=== PATIENT | female | born 1985 | race Caucasian/White ===

== ENCOUNTER 2016-11-28 07:54 | Emergency (ER) | payer OTHER ==
[~2016-11-28] VITALS: Ht 160 cm; Wt 90.7 kg
[~2016-11-28 07:54] MED LIST: ACHD5005 PO; ALDACTONE25 MG PO; AMIT25TA9 PO; AMOX500C2 PO; BUPR100T6 PO; BUTA-234 PO; BUTA1TAB46 PO; CPR500T PO; DCS100C PO; DULO20CA; FERR325T74 PO; FLUC200T31 PO; FRS325T PO; HYDR-3583 PO; HYDR-3714 PO; HYDR-3729 PO; HYDR1TAB PO; IBP600T1 PO; IBP800T PO; IBUP-15 PO; IBUP-1773 PO; LANS15CA PO; LEVO100T4 PO; LEVO125T6 PO; LEVO75TA6 PO; LVT.05T PO; LVT.088T PO; METF-380 PO; METF1000 PO; METR500T PO; MTF500T PO; NAPR-243 PO; NITR100C3 PO; NORG1TAB14 PO; ONDA8TAB6 PO; OXYC-12 PO; OXYCONTIN 20 MG PO; PENI500T PO; PHEN15CA67 PO; PREN1TAB39; PREN1TAB39 PO; PRM25T PO; PROP1TAB77 PO; RABE20TA PO; RANI150C11 PO; RIZA10TA37 PO; SPIR25TA3 PO; SPIR50TA27 PO; SULF1TAB38 PO; SULF1TAB7 PO; SUMA100T3 PO; TOPI100T PO
[2016-11-28 08:25] LABS: BASOPHILS % (AUTO) 1 % (0-10); EOSINOPHILS # (AUTO) 0.6 10^3/uL (0.0-0.3); EOSINOPHILS % (AUTO) 8 % (0-10); LYMPHOCYTES # (AUTO) 2.9 X 10^3 (1.0-4.0); LYMPHOCYTES % (AUTO) 36 % (12-44); MEAN CORPUSCULAR HEMOGLOBIN 29 PG (25-34); MEAN CORPUSCULAR HGB CONC 34 G/DL (32-36); MEAN CORPUSCULAR VOLUME 86 FL (80-99); MONOCYTES # (AUTO) 0.6 X 10^3 (0.0-1.0); MONOCYTES % (AUTO) 8 % (0-12); NEUTROPHILS # (AUTO) 3.9 X 10^3 (1.8-7.8); NEUTROPHILS % (AUTO) 49 % (42-75); PLATELET COUNT 209 10^3/uL (130-400); RED BLOOD COUNT 4.47 10^6/uL (4.35-5.85); RED CELL DISTRIBUTION WIDTH 13.8 % (10.0-14.5); WHITE BLOOD COUNT 8.1 10^3/uL (4.3-11.0)
[2016-11-28 08:34] LABS: ALANINE AMINOTRANSFERASE 74 U/L (0-55); ALBUMIN 4.3 G/DL (3.2-4.5); ANION GAP 12 MMOL/L (5-14); ASPARTATE AMINO TRANSFERASE 50 U/L (5-34); BILIRUBIN,TOTAL 0.3 MG/DL (0.1-1.0); BLOOD UREA NITROGEN 14 MG/DL (7-18); BUN/CREATININE RATIO 15; CALCIUM 9.1 MG/DL (8.5-10.1); CARBON DIOXIDE 22 MMOL/L (21-32); CHLORIDE 107 MMOL/L (98-107); CREATININE SERUM 0.93 MG/DL (0.60-1.30); GFR ESTIMATED > 60; GLUCOSE 97 MG/DL (70-105); SODIUM 141 MMOL/L (135-145); TOTAL PROTEIN 7.4 G/DL (6.4-8.2)
[2016-11-28 08:36] LABS: BILIRUBIN,URINE NEGATIVE (NEGATIVE); KETONES,URINE NEGATIVE (NEGATIVE); LEUKOCYTE ESTERASE ,URINE NEGATIVE (NEGATIVE); NITRITE,URINE NEGATIVE (NEGATIVE); PH,URINE 7 (5-9); PROTEIN,URINE NEGATIVE (NEGATIVE); UROBILINOGEN,URINE NORMAL (NORMAL)
[2016-11-28 08:36] LABS: POTASSIUM 3.8 MMOL/L (3.6-5.0)
[2016-11-28 08:39] LABS: TROPONIN I < 0.30 NG/ML (<0.30)
--- NOTE | 2016-11-28 08:48 | Diagnostic Imaging Report ---
INDICATION: Chest pain and dyspnea Single portable upright view of the chest is obtained with comparison made to study of 10/24/2010. FINDINGS: Heart size and pulmonary vascularity are within normal limits, and the lungs are clear, bilaterally. IMPRESSION: Unremarkable chest. Dictated by: Dictated on workstation # [id number]
[2016-11-28 09:05] LABS: SQUAMOUS EPITHELIAL CELL,UR 0-2 /HPF
--- NOTE | 2016-11-28 09:11 | ED Chest Pain ---
General Chief Complaint: Chest Pain Stated Complaint: CHEST PAIN/SOA LIGHTHEADED Nursing Triage Note: AMBULATED TO ROOM 05 WITH COMPLAINTS OF CHEST PAIN STARTING AT 0700 ALONG WITH SOA. Nursing Sepsis Screen: No Definite Risk Source: patient Exam Limitations: no limitations History of Present Illness Time seen by provider: 09:06 Initial Comments The patient is a 31-year-old white female with 58 previous contacts. She presents this morning with a complaint of chest pain and shortness of breath. She reports that this began sometime between 0700 and 07 30. She has never had anything like it before. It is somewhat related to inspiration. She is premenopausal. Timing/Duration: 1-3 hours Severity/Quality: moderate Location: central Radiation: no radiation Activities at Onset: none Allergies and Home Medications Allergies Coded Allergies: duloxetine (Verified Allergy, Unknown, SHAKY, SLURRED SPEECH, 08/11/16) tramadol (Unverified Allergy, Unknown, N.V, ITCHING, DIZZY, HAS RECEIVED HYDROMORPHONE IN THE PAST, 08/19/16) Home Medications Hydrocodone/Acetaminophen 1 Each Tablet #20 1 EACH PO Q4H Prescribed by: GLADYS RENTERIA on 08/19/16 09 Ibuprofen 600 Mg Tablet #60 600 MG PO Q6H PRN PRN PAIN Prescribed by: GLADYS RENTERIA on 08/19/16 09 Levothyroxine Sodium 125 Mcg Tablet 125 MCG PO DAILY (Reported) Metformin HCl 1,000 Mg Tablet 1,000 MG PO BID (Reported) Ondansetron HCl 8 Mg Tablet 8 MG PO Q6H PRN PRN NAUSEA/VOMITING (Reported) Rizatriptan Benzoate 10 Mg Tablet 10 MG PO DAILY PRN PRN MIGRAINE (Reported) Review of Systems Constitutional: see HPI EENTM: No Symptoms Reported Respiratory: SOA at Rest Cardiovascular: Chest Pain Gastrointestinal: No Symptoms Reported Genitourinary: No Symptoms Reported Musculoskeletal: no symptoms reported Skin: no symptoms reported Psychiatric/Neurological: No Symptoms Reported Endocrine: No Symptoms Reported Hematologic/Lymphatic: No Symptoms Reported Past Wablkep-Metrqe-Eylkhy Hx Patient Social History Alcohol Use: Denies Use Recreational Drug Use: No Smoking Status: Current Everyday Smoker Type Used: Cigarettes Recent Foreign Travel: No Contact w/Someone Who Travel: No Recent Infectious Disease Expo: No Recent Hopitalizations: No Immunizations Up To Date Date of Influenza Vaccine: Sep 29, 2011 Seasonal Allergies Seasonal Allergies: No Surgeries HX Surgeries: Yes (4 R SHOULDER SURG, 4 ABD SURG, L OVARY REMOVED) Surgeries: Abdominal, Orthopedic, Tonsillectomy Respiratory Hx Respiratory Disorders: No Cardiovascular Hx Cardiac Disorders: No Cardiac Disorders: Hypertension Neurological Hx Neurological Disorders: No Neurological Disorders: Headaches /Migraines, Seizure Disorder Reproductive System : No Hx Reproductive Disorders: Yes (CHRONIC PELVIC PAIN, ENDOMETRIOSIS, PCOS) Sexually Transmitted Disease: No Female Reproductive Disorders: Endometriosis, Polycystic Ovarian Dis Genitourinary Hx Genitourinary Disorders: No Gastrointestinal Hx Gastrointestinal Disorders: No (ENLARGED LIVER) Musculoskeletal Hx Musculoskeletal Disorders: Yes (R SHOULDER SURG) Endocrine Hx Endocrine Disorders: Yes Endocrine Disorders: Hypothyroidsim HEENT HX ENT Disorders: No 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) Psychosocial Hx Psychiatric Problems: No Integumentary HX Skin/Integumentary Disorder: No Blood Transfusions Hx Blood Disorders: No Physical Exam Vital Signs Vital Sign - Last 12Hours 11/28/16 07:55 Temp 98.0 Pulse 79 Resp 16 B/P 144/108 Pulse Ox 100 O2 Delivery Room Air Capillary Refill : Less Than 3 Seconds General Appearance: Anxious Other (SaO2 varies between 94 and 100 percent) HEENT: Normal ENT Inspection Neck: Normal Inspection Respiratory: Chest Non Tender Lungs Clear Normal Breath Sounds No Accessory Muscle Use No Respiratory Distress Cardiovascular: Regular Rate, Rhythm No Edema No Gallop No JVD No Murmur Normal Peripheral Pulses Gastrointestinal: Normal Bowel Sounds No Organomegaly No Pulsatile Mass Non Tender Extremity: Normal Capillary Refill Normal Inspection Normal Range of Motion Non Tender No Calf Tenderness No Pedal Edema Neurologic/Psychiatric: Alert Oriented x3 No Motor/Sensory Deficits Normal Mood/Affect Skin: Normal Color Warm/Dry Lymphatic: No Adenopathy Progress/Results/Core Measures Results/Orders Lab Results Laboratory Tests Test 11/28/16 08:10 11/28/16 08:25 Range/Units Alanine Aminotransferase (ALT/SGPT) 74 H 0-55 U/L Albumin 4.3 3.2-4.5 G/DL Alkaline Phosphatase 67 40-136 U/L Anion Gap 12 5-14 MMOL/L Aspartate Amino Transf (AST/SGOT) 50 H 5-34 U/L BUN/Creatinine Ratio 15 Basophils # (Auto) 0.0 0.0-0.1 10^3/uL Basophils (%) (Auto) 1 0-10 % Blood Urea Nitrogen 14 7-18 MG/DL Calcium Level 9.1 8.5-10.1 MG/DL Carbon Dioxide Level 22 21-32 MMOL/L Chloride Level 107 98-107 MMOL/L Creatinine 0.93 0.60-1.30 MG/DL Eosinophils # (Auto) 0.6 H 0.0-0.3 10^3/uL Eosinophils (%) (Auto) 8 0-10 % Estimat Glomerular Filtration Rate > 60 Glucose Level 97 70-105 MG/DL Hematocrit 39 35-52 % Hemoglobin 13.0 11.5-16.0 G/DL Lymphocytes # (Auto) 2.9 1.0-4.0 X 10^3 Lymphocytes (%) (Auto) 36 12-44 % Mean Corpuscular Hemoglobin 29 25-34 PG Mean Corpuscular Hemoglobin Concent 34 32-36 G/DL Mean Corpuscular Volume 86 80-99 FL Mean Platelet Volume 12.0 H 7.4-10.4 FL Monocytes # (Auto) 0.6 0.0-1.0 X 10^3 Monocytes (%) (Auto) 8 0-12 % Neutrophils # (Auto) 3.9 1.8-7.8 X 10^3 Neutrophils (%) (Auto) 49 42-75 % Platelet Count 209 130-400 10^3/uL Potassium Level 3.8 3.6-5.0 MMOL/L Red Blood Count 4.47 4.35-5.85 10^6/uL Red Cell Distribution Width 13.8 10.0-14.5 % Sodium Level 141 135-145 MMOL/L Total Bilirubin 0.3 0.1-1.0 MG/DL Total Protein 7.4 6.4-8.2 G/DL Troponin I < 0.30 <0.30 NG/ML White Blood Count 8.1 4.3-11.0 10^3/uL Urine Bacteria NEGATIVE /HPF Urine Bilirubin NEGATIVE NEGATIVE Urine Casts NONE /LPF Urine Clarity CLEAR Urine Color YELLOW Urine Crystals NONE /LPF Urine Culture Indicated NO Urine Glucose (UA) NEGATIVE NEGATIVE Urine Ketones NEGATIVE NEGATIVE Urine Leukocyte Esterase NEGATIVE NEGATIVE Urine Mucus NEGATIVE /LPF Urine Nitrite NEGATIVE NEGATIVE Urine Protein NEGATIVE NEGATIVE Urine RBC NONE /HPF Urine RBC (Auto) NEGATIVE NEGATIVE Urine Specific [facility] 1.010 L 1.016-1.022 Urine Squamous Epithelial Cells 0-2 /HPF Urine Urobilinogen NORMAL NORMAL MG/DL Urine WBC NONE /HPF Urine pH 7 5-9 My Orders Orders-GISELA STANLEY MD Cbc With Automated Diff (11/28/16 08:16) Comprehensive Metabolic Panel (11/28/16 08:16) Troponin I (11/28/16 08:16) Ua Culture If Indicated (11/28/16 08:16) Ekg Tracing (11/28/16 08:16) Chest 1 View, Ap/Pa Only (11/28/16 08:16) Ketorolac Injection (Toradol Injection) (11/28/16 09:15) Vital Signs/I&O Vital Sign - Last 12Hours 11/28/16 07:55 Temp 98.0 Pulse 79 Resp 16 B/P 144/108 Pulse Ox 100 O2 Delivery Room Air Blood Pressure Mean: 120 Point of Care Testing Urine -Bedside: Negative Departure Communication Progress Notes The electrocardiogram suggests left axis deviation. No ST abnormalities are noted. Chest x-ray is negative. Modest elevation of transaminases is noted. Troponin is negative. Impression Impression: Primary Impression: chest pain noncardiac Disposition: HOME, SELF-CARE Condition: Stable/Unchanged Departure-Patient Inst. Decision time for Depature: 09:12 Referrals: [facility] (PCP/Family) Primary Care Physician Patient Instructions: Chest Pain That Is Not Caused by the Heart (DC) Add. Discharge Instructions: All discharge instructions reviewed with patient and/or family. Voiced understanding. Take ibuprofen 600 mg 3 times daily or naproxen 500 mg twice daily for this pain. It would be best used on schedule for several days and then as needed. If further problems consult your provider GISELA STANLEY MD Nov 28, 2016 09:11
[2016-11-28] MEDS ORDERED: KETOROLAC 60 MG/2 ML VIAL IM ONE (09:15)
[2016-11-28 09:30] VITALS: BP 125/88
[2016-11-28] MEDS ORDERED: KETOROLAC 30 MG/ML VIAL IVP ONE (09:30)
== END 2016-11-28 09:30 | disposition home or self-care (01) ==
LOC: EDUNIT# 07:54 → ER 07:56
DX: R07.9 Chest pain, unspecified (principal); F17.210 Nicotine dependence, cigarettes, uncomplicated
CPT/HCPCS: 36415; 71010; 80053; 81000; 84484; 84703; 85025; 93005; 96374

== ENCOUNTER 2017-07-06 02:52 | Emergency (ER) | payer OTHER ==
[~2017-07-06] VITALS: Ht 160 cm; Wt 90.7 kg
[2017-07-06] MEDS ORDERED: BUPR100T7 PO (03:11)
[2017-07-06] MEDS ORDERED: RX-CLINDAMYCIN 150 MG (CLEOCIN) CAP PPK#4 PO STA (03:13)
[2017-07-06] MEDS ORDERED: KETOROLAC 60 MG/2 ML VIAL IM STA (03:13)
[2017-07-06] MEDS ORDERED: LIDOCAINE 2% VISCOUS 15 ML UDC PO ONE (03:15)
[2017-07-06] MEDS ORDERED: cefTRIAXone 1 GM (ROCEPHIN) VIAL IM ONE (03:15)
[2017-07-06] MEDS ORDERED: HYDROcodone/APAP 7.5 MG/325 MG (LORTAB, LORCET PLUS) TABLET PO ONE (03:15)
[2017-07-06] MEDS ORDERED: LIDOCAINE 1% INJ 20 ML (XYLOCAINE) VIAL INJ ONE (03:15)
--- NOTE | 2017-07-06 03:24 | ED EENT ---
History of Present Illness General Chief Complaint: Dental Problems/Pain Stated Complaint: JAW SWOLLEN FEVER 101.0 Nursing Triage Note: PT TO ED 6 W/ C/O DENTAL PAIN ET JAW SWELLING ONSET X3 DAYS, WORSE TODAY. PT REPORTS WAS SEEN BY DR HUNT ET PRESCRIBED PENVK 500 FOR ABSCESSED TOOTH BUT DENIES IMPROVEMENT Source: patient History of Present Illness Time seen by provider: 03:03 Initial Comments PT C/O DENTAL PAIN TO RIGHT LOWER MOLAR AREA SINCE Thursday07/03/17 RX FOR PENICILLIN CALLED IN BY DR. HUNT ON THURSDAY, BUT PT DID NOT MAKE AN APPOINTMENT TO SEE HIM PT STATES RIGHT LOWER JAW BEGAN SWELLING YESTERDAY AND IS WORSE TONIGHT PT STATES SHE WENT TO WORK [place] AT 2200 AND WAS NOTED TO HAVE FEVER OF 101-- TOOK 400 MG IBUPROFEN AT 2200 AND AGAIN AT 0200--NO RELIEF OF PAIN ,BUT TEMP IS DOWN PT HAS CHRONIC DENTAL PROBLEMS, AND HAS HAD ALL TOP TEETH REMOVED AND WEARS UPPER DENTURES. IS SUPPOSED TO HAVE LOWER TEETH PULLED WELL, BUT HAS NOT FOLLOWED UP ON THIS. PT FILLED RX FOR HYDROCODONE 7.5 MG #30 FILLED ON 06/24/17--IS A REGULAR MEDICATION THAT IS PRESCRIBED BY HER NEUROLOGIST FOR MIGRAINES, BUT HAS RAN OUT A FEW DAYS AGO PCP: [facility] Allergies and Home Medications Allergies Coded Allergies: duloxetine (Verified Allergy, Unknown, SHAKY, SLURRED SPEECH, 08/11/16) tramadol (Unverified Allergy, Unknown, N.V, ITCHING, DIZZY, HAS RECEIVED HYDROMORPHONE IN THE PAST, 08/19/16) Home Medications Bupropion HCl 100 Mg Tablet.er, 100 MG PO, (Reported) Clindamycin HCl 300 Mg Capsule, 300 MG PO QID, #40 Prescribed by: CATIA CACERES on 07/06/17 0325 Ibuprofen 600 Mg Tablet, 600 MG PO Q6H PRN for PAIN, #60 Prescribed by: GLADYS RENTERIA on 08/19/16 0903 Levothyroxine Sodium 125 Mcg Tablet, 125 MCG PO DAILY, (Reported) Lidocaine HCl 15 Ml Solution, 1-2 ML MM Q 1-2 HOURS, #100 Prescribed by: CATIA CACERES on 07/06/17 0325 Metformin HCl 1,000 Mg Tablet, 1,000 MG PO BID, (Reported) Naproxen 500 Mg Tablet, 500 MG PO BID, #20 Prescribed by: CATIA CACERES on 07/06/17 0325 Ondansetron HCl 8 Mg Tablet, 8 MG PO Q6H PRN for NAUSEA/VOMITING, (Reported) Review of Systems Constitutional: see HPI, fever Eyes: No Symptoms Reported Ears: No Symptoms Reported Nose: no symptoms reported Mouth: see HPI, pain, swelling Throat: no symptoms reported Respiratory: no symptoms reported Cardiovascular: no symptoms reported Gastrointestinal: no symptoms reported Skin: no symptoms reported Neurological: No Symptoms Reported Hematologic/Lymphatic: No Symptoms Reported Immunological/Allergic: no symptoms reported Past Spjfmqk-Usxhdj-Beniis Hx Patient Social History Alcohol Use: Denies Use Recreational Drug Use: No (DENIES) Smoking Status: Current Everyday Smoker (< 1/4 PPD) Type Used: Cigarettes Recent Foreign Travel: No Contact w/Someone Who Travel: No Recent Infectious Disease Expo: No Recent Hopitalizations: No Physical Abuse: No Sexual Abuse: No Mistreated: No Fear: No Immunizations Up To Date Date of Influenza Vaccine: Sep 29, 2011 Seasonal Allergies Seasonal Allergies: No Surgeries History of Surgeries: Yes (RIGHT SHOULDER SURGERY X 4, ABDOMINAL SURGERY X 4-- ALL FOR QUALITY CONTROL TESTER ISSUES--2 OPEN AND 2 LAPAROSCOPIC, INCLUDING LEFT OOPHORECTOMY, OVARIAN CYST REMOVAL AND ABLATION OF ENDOMETRIOSIS/LYSIS OF ADHESIONS; D&C) Surgeries: Abdominal, Oophorectomy, Orthopedic, Tonsillectomy Respiratory History of Respiratory Disorde: No Cardiovascular History of Cardiac Disorders: Yes Cardiac Disorders: Hypertension Neurological History of Neurological Disord: Yes Neurological Disorders: Headaches /Migraines, Seizure Disorder Reproductive System Hx Reproductive Disorders: Yes (CHRONIC PELVIC PAIN, ENDOMETRIOSIS, PCOS) Sexually Transmitted Disease: No Female Reproductive Disorders: Endometriosis, Ovarian Cyst, Polycystic Ovarian Dis Genitourinary History of Genitourinary Disor: No Gastrointestinal History of Gastrointestinal Di: No Musculoskeletal History of Musculoskeletal Dis: Yes (R SHOULDER SURG) Endocrine History of Endocrine Disorders: Yes Endocrine Disorders: Hypothyroidsim HEENT History of HEENT Disorders: No Cancer History of Cancer: No Psychosocial History of Psychiatric Problem: Yes Behavioral Health Disorders: Anxiety, Depression Suicide Risk Score: 0 Integumentary History of Skin or Integumenta: No Blood Transfusions History of Blood Disorders: No Physical Exam Vital Signs Vital Sign - Last 12Hours 07/06/17 02:55 Temp 97.4 Pulse 81 Resp 20 B/P (MAP) 140/109 Pulse Ox 99 O2 Delivery Room Air General Appearance: WD/WN, no apparent distress Eyes: bilateral eye normal inspection, bilateral eye PERRL, bilateral eye EOMI Nose: normal inspection Mouth/Throat: No other (SLIGHT SWELLING TO RIGHT MANDIBLE WITH MODERATE TENDERNESS. NO ERYTHEMA NOTED. RIGHT LOWER 3RD MOLAR IMPACTED AND WITH CARIES AND VERY PAINFUL ON PERCUSSION, AND WITH MODERATE SURROUNDING GUM INFLAMMATION AND SWELLING; OTHER MOLARS WITH EXTENSIVE DECAY., UPPER DENTURES IN PLACE) Neck: non-tender, full range of motion, supple, normal inspection Cardiovascular: regular rate, rhythm, no murmur Respiratory: normal breath sounds Neurologic/Psychiatric: [employer] II-XII nml as tested, no motor/sensory deficits, alert, oriented x 3, other (VERY FLAT AFFECT) Skin: normal color, warm/dry Progress/Results/Core Measures Results/Orders My Orders Orders - CATIA CACERES DO Ketorolac Injection (Toradol Injection) (07/06/17 03:13) Ceftriaxone Injection (Rocephin Injectio (07/06/17 03:15) Lidocaine 1% Injection (Xylocaine 1% Inj (07/06/17 03:15) Rx-Clindamycin Capsule (Rx-Cleocin Capsu (07/06/17 03:13) Lidocaine 2% Viscous 15 Ml (Xylocaine Vi (07/06/17 03:15) Hydrocodone/Apap 7.5/325 Tab (Lortab 7. (07/06/17 03:15) Medications Given in ED Current Medications Medications Dose Ordered Sig/Yan Route Start Time Stop Time Status Last Admin Dose Admin Acetaminophen/ Hydrocodone Bitart 1 ea ONCE ONCE PO 07/06/17 03:15 07/06/17 03:19 DC 07/06/17 03:30 1 EA Ceftriaxone Sodium 1,000 mg ONCE ONCE IM 07/06/17 03:15 07/06/17 03:19 DC 07/06/17 03:29 1,000 MG Lidocaine HCl 2.1 ml ONCE ONCE INJ 07/06/17 03:15 07/06/17 03:19 DC 07/06/17 03:29 2.1 ML Vital Signs/I&O Vital Sign - Last 12Hours 07/06/17 02:55 Temp 97.4 Pulse 81 Resp 20 B/P (MAP) 140/109 Pulse Ox 99 O2 Delivery Room Air Blood Pressure Mean: 119 Departure Impression Impression: Primary Impression: Dental caries Additional Impression: Dental abscess Disposition: 01 HOME, SELF-CARE Condition: Stable Departure-Patient Inst. Referrals: NO,LOCAL PHYSICIAN (PCP) Primary Care Physician RONNIE MURRAY (Family) Primary Care Physician ANTONETTE HUNT DDS Patient Instructions: Tooth Decay, Adult (DC), Tooth Abscess (DC) Add. Discharge Instructions: FREQUENT SALT WATER SWISHES STOP PENICILLIN FOLLOW UP WITH YOUR NEUROLOGIST FOR REFILLS ON PAIN MEDICATIONS FOLLOW UP WITH DR. HUNT THIS WEEK FOR FURTHER CARE OF YOUR TEETH All discharge instructions reviewed with patient and/or family. Voiced understanding. Scripts Naproxen (Naproxen) 500 Mg Tablet 500 MG PO BID, #20 TAB Prov: CATIA CACERES DO 07/06/17 Lidocaine HCl (Lidocaine HCl Viscous) 15 Ml Solution 1-2 ML MM Q 1-2 HOURS for Pain, #100 ML Prov: CATIA CACERES DO 07/06/17 Clindamycin HCl (Clindamycin HCl) 300 Mg Capsule 300 MG PO QID for FOR INFECTION, #40 CAP Prov: CATIA CACERES DO 07/06/17 CATIA CACERES DO Jul 06, 2017 03:24
[2017-07-06] MEDS ORDERED: NAPR500T3 PO (03:25)
[2017-07-06] MEDS ORDERED: CLIN300C11 PO (03:25)
[2017-07-06] MEDS ORDERED: LIDO15SO2 MM (03:25)
[2017-07-06 03:49] VITALS: BP 139/95
== END 2017-07-06 03:49 | disposition home or self-care (01) ==
LOC: EDUNIT# 02:52 → ER 02:54
DX: K04.7 Periapical abscess without sinus (principal); E03.9 Hypothyroidism, unspecified; G40.909 Epilepsy, unspecified, not intractable, without status epilepticus; G43.909 Migraine, unspecified, not intractable, without status migrainosus; I10 Essential (primary) hypertension; F17.210 Nicotine dependence, cigarettes, uncomplicated; Z90.89 Acquired absence of other organs; Z87.42 Personal history of other diseases of the female genital tract
CPT/HCPCS: 99284

== ENCOUNTER → 2018-08-24 | Outpatient (CLI) | payer BC ==
[~2018-08-24] MED LIST changes: +BUPR100T7 PO; +CLIN300C11 PO; +LIDO15SO2 MM; +METF-399 PO; -METF1000 PO; +NAPR-915 PO
[2018-08-24 15:59] LABS: BASOPHILS % (AUTO) 0 % (0-10); EOSINOPHILS # (AUTO) 0.3 10^3/uL (0.0-0.3); EOSINOPHILS % (AUTO) 4 % (0-10); HEMATOCRIT 39 % (35-52); HEMOGLOBIN 13.2 G/DL (11.5-16.0); LYMPHOCYTES # (AUTO) 2.3 X 10^3 (1.0-4.0); LYMPHOCYTES % (AUTO) 31 % (12-44); MEAN CORPUSCULAR HEMOGLOBIN 29 PG (25-34); MEAN CORPUSCULAR HGB CONC 34 G/DL (32-36); MEAN CORPUSCULAR VOLUME 86 FL (80-99); MEAN PLATELET VOLUME 11.2 FL (7.4-10.4); MONOCYTES # (AUTO) 0.4 X 10^3 (0.0-1.0); MONOCYTES % (AUTO) 6 % (0-12); NEUTROPHILS # (AUTO) 4.2 X 10^3 (1.8-7.8); NEUTROPHILS % (AUTO) 58 % (42-75); PLATELET COUNT 286 10^3/uL (130-400); RED BLOOD COUNT 4.54 10^6/uL (4.35-5.85); RED CELL DISTRIBUTION WIDTH 13.7 % (10.0-14.5); WHITE BLOOD COUNT 7.2 10^3/uL (4.3-11.0)
[2018-08-24 16:20] LABS: ALANINE AMINOTRANSFERASE 34 U/L (0-55); ALBUMIN 4.4 GM/DL (3.2-4.5); ALKALINE PHOSPHATASE 55 U/L (40-136); BILIRUBIN,TOTAL 0.4 MG/DL (0.1-1.0); BUN/CREATININE RATIO 10; CALCIUM 9.8 MG/DL (8.5-10.1); CARBON DIOXIDE 20 MMOL/L (21-32); CHLORIDE 109 MMOL/L (98-107); CREATININE SERUM 0.97 MG/DL (0.60-1.30); GFR ESTIMATED > 60; GLUCOSE 92 MG/DL (70-105); POTASSIUM 4.1 MMOL/L (3.6-5.0); SODIUM 139 MMOL/L (135-145); TOTAL PROTEIN 7.4 GM/DL (6.4-8.2)
== END ==
LOC: LAB 15:31
PROVIDERS: ATTEND Internal Medicine Rheumatology
DX: D86.9 Sarcoidosis, unspecified (principal); Z79.899 Other long term (current) drug therapy
CPT/HCPCS: 36415; 80053; 85025; 86430

== ENCOUNTER → 2018-08-26 | Outpatient (CLI) | payer BC, OTHER ==
--- NOTE | 2018-08-26 18:09 | Diagnostic Imaging Report ---
EXAMINATION: Pelvic ultrasound. INDICATION: Pelvic pain. FINDINGS: The previous pelvic ultrasound exam of 12/12/2013 failed to show any sign of an acute pelvic abnormality. The left ovary was surgically absent. On this study, the uterus is nongravid and prominent measuring 9.4 x 5.6 x 4.6 cm. The endometrial lining is thickened measuring 9 mm (normal 5 mm or less). This finding is nonspecific, however. Correlation with the patient's menstrual cycle would be recommended. There is no focal mass involving the uterus to suggest a fibroid. The right ovary was identified. There is good blood flow to the right ovary, and there is no solid or cystic mass arising from the right ovary. There is no solid pelvic mass or free fluid collection noted. IMPRESSION: 1. There is no acute pelvic abnormality identified. When compared to the previous study, there does not appear to have been any significant change. 2. The left ovary is surgically absent. Dictated by: Dictated on workstation # [id number]
== END ==
LOC: RAD 12:41
PROVIDERS: ATTEND Nurse Practitioner
DX: R10.2 Pelvic and perineal pain (principal); Z87.42 Personal history of other diseases of the female genital tract; Z90.721 Acquired absence of ovaries, unilateral
CPT/HCPCS: 76830; 76856

== ENCOUNTER 2018-10-14 15:28 | Outpatient (CLI) | payer BC ==
[~2018-10-14] VITALS: Ht 160 cm; Wt 90.7 kg
[2018-10-14] MEDS ORDERED: LEVO150T6 PO (15:42)
[2018-10-15] MEDS ORDERED: IBUP-1773 PO (13:43)
[2018-10-15] MEDS ORDERED: ACHD5005 PO (13:43)
[2018-10-15] MEDS ORDERED: METH0.2T47 PO (14:29)
== END 2018-10-14 15:53 | disposition home or self-care (01) ==
LOC: PREOP 15:28
PROVIDERS: ATTEND Obstetrics & Gynecology
DX: Z01.818 Encounter for other preprocedural examination (principal)

== ENCOUNTER 2018-10-15 12:18 | Day surgery (SDC) | payer BC ==
[~2018-10-15] VITALS: Ht 160 cm; Wt 90.7 kg
[~2018-10-15 12:18] MED LIST changes: +LEVO150T6 PO
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
--- OUTSIDE RECORDS SUMMARY | 2018-10-15 12:24 | XMS REPORT ---
Author Author RONNIE MURRAY Organization [employer] Address Unknown Phone Unavailable Care Team Providers Care Textile Designer Name Role Phone RONNIE MURRAY CP Unavailable Allergies No Known Allergies Problems Problem Type Condition Code Onset Dates Condition Status Problem Abdominal pain, other specified site 789.09 Active Problem Lipoma of unspecified site 214.9 Active Problem Other abnormal blood chemistry 790.6 Active Problem Migraine, unspecified without mention of intractable migraine without mention of status migrainosus 346.90 Active Problem Unspecified episodic mood disorder 296.90 Active Problem Intestinal infection due to other organism, NEC 008.8 Active Problem Encounter for long-term (current) use of other medications V58.69 Active Problem Endometriosis, site unspecified 617.9 Active Problem Unspecified gastritis and gastroduodenitis without mention of hemorrhage 535.50 Active Problem Unspecified local infection of skin and subcutaneous tissue 686.9 Active Problem Galactorrhea not associated with childbirth 611.6 Active Problem Incomplete spontaneous without mention of complication 634.91 Active Problem Generalized hyperhidrosis 780.8 Active Problem Cellulitis and abscess of unspecified site 682.9 Active Problem Abdominal or pelvic swelling, mass, or lump, left upper quadrant 789.32 Active Problem Unspecified disorder of the teeth and supporting structures 525.9 Active Medications Medication Code System Code Instructions Start Date End Date Status Dosage [facility] [address]-98 5-325 MG Orally every 6 hrs Jul 28, 2016 1 tablet as needed Results No Known Results Summary Purpose eClinicalWorks Submission
--- OUTSIDE RECORDS SUMMARY | 2018-10-15 12:24 | XMS REPORT ---
Author Author ALANNAH GUZMÁN [facility] Address [address] [place] [address] Care Team Providers Care Civil Engineer'S Aide Name Role Phone ALANNAH GUZMÁN Unavailable PROBLEMS Type Condition ICD9-CM Code [id number] Code Onset Dates Condition Status SNOMED Code Problem Depression, unspecified depression type F32.9 Active 13323437 ALLERGIES Substance Reaction Event Type Date Status Ultram Unknown Drug Allergy Nov, Active Cymbalta Unknown Drug Allergy Nov, Active SOCIAL HISTORY Never Assessed PLAN OF CARE Activity Details Follow Up prn Reason: VITAL SIGNS Height 63 in 2016-12-09 Weight 227.0 lbs 2016-12-09 Temperature 97.8 degrees Fahrenheit 2016-12-09 Heart Rate 90 bpm 2016-12-09 Respiratory Rate 20 2016-12-09 Oximetry 93 % 2016-12-09 BMI 40.21 kg/m2 2016-12-09 Blood pressure systolic 144 mmHg 2016-12-09 Blood pressure diastolic 92 mmHg 2016-12-09 MEDICATIONS Medication Instructions Dosage Frequency Start Date End Date Duration Status Levaquin 500 MG Orally Once a day 1 tablet 24h Nov, Nov, 7 days Active Metformin HCl 1000 MG Orally Twice a day 1 tablet with meals 12h Feb, 30 days Active Rizatriptan Benzoate 10 MG Orally Once a day 1 tablet on the tongue and allow to dissolve as needed one time 24h Active Zoloft 50 mg Orally Once a day 1 tablet 24h Nov, 30 day(s) Active ProAir HFA 108 (90 Base) MCG/ACT Inhalation every 4 hrs 2 puffs as needed 4h Nov, 30 days Active Levothyroxine Sodium 150 MCG Orally Once a day 1 tablet 24h Active PredniSONE 50 MG Orally Once a day 1 tablet 24h Nov, 5 days Active Promethazine-Codeine 6.25-10 MG/5ML Orally every 6 hrs 5 ml as needed 6h Nov, 5 days Active Ipratropium [facility] 0.02 % Inhalation every 6-8 hours as directed NovNov, 5 days Active [place] 5-325 MG Orally every 6 hrs 1 tablet as needed 6h Jul, Active Zofran ODT 8 MG Orally 3 times a day 1 tablet on the tongue and allow to dissolve 8h Active RESULTS Name Result Date Reference Range Xray : Chest (IN HOUSE) 2016-12-09 PROCEDURES Procedure Date Ordered Result Body Site MEASURE BLOOD OXYGEN LEVEL December 09, 2016 CHEST X-RAY December 09, 2016 THER/PROPH/DIAG INJ, SC/IM December 09, 2016 DEXAMETHASONE 4MG/ML (PER 1 MG) December 09, 2016 IMMUNIZATIONS Vaccine Route Administration Date Status DEXAMETHASONE 4MG/ML (PER 1 MG) IM Intramuscular December 09, 2016 Administered MEDICAL (GENERAL) HISTORY Type Description Date Medical [...]
--- OUTSIDE RECORDS SUMMARY | 2018-10-15 12:24 | XMS REPORT ---
Author Author SHAN ROSANNA Organization [facility] Address [address] [place] [address] Care Team Providers Care Agricultural Education Teacher Name Role Phone TORREZROSANNA Sampson Unavailable PROBLEMS Type Condition ICD9-CM Code KOA19-DE Code Onset Dates Condition Status SNOMED Code Problem Depression, unspecified depression type F32.9 Active 68099196 ALLERGIES Substance Reaction Event Type Date Status Ultram Unknown Drug Allergy Sep, Active Cymbalta Unknown Drug Allergy Sep, Active SOCIAL HISTORY No smoking Hx information available PLAN OF CARE Activity Details Follow Up prn Reason: VITAL SIGNS Height 63 in 2016-10-06 Weight 237.2 lbs 2016-10-06 Temperature 97.5 degrees Fahrenheit 2016-10-06 Heart Rate 84 bpm 2016-10-06 Respiratory Rate 16 2016-10-06 BMI 42.01 kg/m2 2016-10-06 Blood pressure systolic 140 mmHg 2016-10-06 Blood pressure diastolic 100 mmHg 2016-10-06 MEDICATIONS Medication Instructions Dosage Frequency Start Date End Date Duration Status Metformin HCl 1000 MG Orally Twice a day 1 tablet with meals 12h 24 Feb, 2015 30 days Active Hydrocodone-Acetaminophen 5-325 MG Orally every 6 hrs 1 tablet as needed 6h Sep, Sep, 05 days Active Rizatriptan Benzoate 10 MG Orally Once a day 1 tablet on the tongue and allow to dissolve as needed one time 24h Active Zofran ODT 8 MG Orally 3 times a day 1 tablet on the tongue and allow to dissolve 8h Active Promethazine HCl 25 MG Orally 4 times a day 1 tablet as needed 6h Nov, Active Amoxicillin 500 MG Orally every 12 hrs 1 capsule 12h Sep, Sep, 10 day(s) Active RESULTS No Results PROCEDURES Procedure Date Ordered Related Diagnosis Body Site Office Visit, Est Pt., Level 3 Oct 06, 2016 IMMUNIZATIONS No Known Immunizations
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
--- OUTSIDE RECORDS SUMMARY | 2018-10-15 12:24 | XMS REPORT ---
Author NASRIN Maya [facility] eClinicalWorks Address Unknown Phone Unavailable Care Team Providers Care Sports Leadership Instructor Name Role Phone NASRIN MONROE CP Unavailable Allergies, Adverse Reactions, Alerts Substance Reaction Event Type Ultram Info Not Available Drug Allergy Problems Problem Type Condition Code Onset Dates [...] of skin and subcutaneous tissue 686.9 Active Assessment Cough R05 Active Assessment Left ankle pain M25.572 Active Problem Galactorrhea not associated with childbirth [...] Instructions Start Date End Date Status Dosage Spironolactone [facility] 22579521447 50 MG Orally Once a day 1 tablet Lamictal [facility] [address]-15 100 MG Orally Twice a day 2 tablets Topamax [facility] [address]-68 50 MG Orally Twice a day April 14, 2015 1 tablet ProAir HFA [facility] [address]-07 108 (90 Base) MCG/ACT Inhalation every 4 hrs prn Aug 14, 2015 2 puffs as needed Metformin HCl [facility] [address]-64 1000 MG Orally Twice a day March 14, 2015 1 tablet with meals BuSpar NDC 0 15 MG Orally Twice a day 2 tablet Procedures Procedure Coding System Code Date Pneumati walking boot prefab CPT-4 L4360 Oct 18, 2015 Office Visit, Est Pt., Level 3 CPT-4 49776 Oct 18, 2015 Vital Signs Date/Time: Oct 18, 2015 Temperature 97.6 F Weight 228.6 lbs Height 63 in Oximetry 98 % Blood Pressure Diastolic 78 mmHg Blood Pressure Systolic 110 mmHg Cardiac Monitoring Heart Rate 76 bpm BMI 40.49 Index Results Name Result Date Reference Range Unit Abnormality Flag PNEUMATI WALKING BOOT PREFAB Summary Purpose eClinicalWorks Submission
--- OUTSIDE RECORDS SUMMARY | 2018-10-15 12:24 | XMS REPORT ---
Author Author ALANNAH GUZMÁN [facility] eClinicalWorks Address Unknown Phone Unavailable Care Team Providers Care Director Of Sales Marketing Name Role Phone ALANNAH GUZMÁN CP Unavailable Allergies, Adverse Reactions, Alerts Substance Reaction Event Type Ultram Info Not Available Drug Allergy Cymbalta Info Not Available Drug Allergy Problems Problem [...] skin and subcutaneous tissue 686.9 Active Assessment Right otitis media, unspecified chronicity, unspecified otitis media type H66.91 Active Problem Galactorrhea not associated with childbirth [...] Instructions Start Date End Date Status Dosage Rizatriptan Benzoate [facility] [address]-56 10 MG Orally Once a day 1 tablet on the tongue and allow to dissolve as needed one time Verapamil HCl [facility] [address]-28 120 MG Orally Daily 1 tablet Promethazine HCl [facility] [address]-74 25 MG Orally 4 times a day December 07, 2015 1 tablet as needed Amoxicillin [facility] [address]-40 875 MG Orally every 12 hrs Jun 20, 2016 Jun 30, 2016 1 tablet Metformin HCl [facility] [address]-00 1000 MG Orally Twice a day March 14, 2015 1 tablet with meals Zofran ODT [facility] [address]-27 8 MG Orally 3 times a day 1 tablet on the tongue and allow to dissolve Procedures Procedure Coding System Code Date Office Visit, Est Pt., Level 3 CPT-4 20604 Jun 20, 2016 Vital Signs Date/Time: Jun 20, 2016 Cardiac Monitoring Heart Rate 88 bpm Weight 227.8 lbs Height 63 in BMI 40.35 Index Blood Pressure Diastolic 100 mmHg Blood Pressure Systolic 148 mmHg Results No Known Results Summary Purpose eClinicalWorks Submission
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
--- OUTSIDE RECORDS SUMMARY | 2018-10-15 12:25 | XMS REPORT ---
Author Author BRANDY MONTERROSO Organization [facility] Address [address] [place] [address] Care Team Providers Care Information Technology Teacher Name Role Phone BRANDY MONTERROSO Unavailable PROBLEMS Type Condition ICD9-CM Code [id number] Code Onset Dates Condition Status SNOMED Code Problem Depression, unspecified depression type F32.9 Active 40926437 ALLERGIES Substance Reaction Event Type Date Status Ultram Unknown Drug Allergy Nov, Active Cymbalta Unknown Drug Allergy Nov, Active SOCIAL HISTORY Never Assessed PLAN OF CARE Activity Details Follow Up prn Reason: VITAL SIGNS Height 63 in 2016-12-05 Weight 224.4 lbs 2016-12-05 Temperature 97.0 degrees Fahrenheit 2016-12-05 Heart Rate 100 bpm 2016-12-05 Respiratory Rate 20 2016-12-05 Oximetry 94 % 2016-12-05 BMI 39.75 kg/m2 2016-12-05 Blood pressure systolic 120 mmHg 2016-12-05 Blood pressure diastolic 72 mmHg 2016-12-05 MEDICATIONS Medication Instructions Dosage Frequency Start Date End Date Duration Status Levothyroxine Sodium 150 MCG Orally Once a day 1 tablet 24h Active PredniSONE 50 MG Orally Once a day 1 tablet 24h Nov, 5 days Active Promethazine-Codeine 6.25-10 MG/5ML Orally every 6 hrs 5 ml as needed 6h Nov, 5 days Active Zoloft 50 mg Orally Once a day 1 tablet 24h Nov, 30 day(s) Active Metformin HCl 1000 MG Orally Twice a day 1 tablet with meals 12h Feb, 30 days Active ProAir HFA 108 (90 Base) MCG/ACT Inhalation every 4 hrs 2 puffs as needed 4h Nov, 30 days Active Rizatriptan Benzoate 10 MG Orally Once a day 1 tablet on the tongue and allow to dissolve as needed one time 24h Active Zofran ODT 8 MG Orally 3 times a day 1 tablet on the tongue and allow to dissolve 8h Active Butler 5-325 MG Orally every 6 hrs 1 tablet as needed 6h Jul, Active RESULTS No Results PROCEDURES Procedure Date Ordered Result Body Site NEBULIZER TREATMENT 2016-12-05 N/A ALBUTEROL UNIT DOSE FORM INHALED 2016-12-05 N/A THER/PROPH/DIAG INJ, SC/IM December 05, 2016 NEB/MDI RX INITIAL December 05, 2016 MEASURE BLOOD OXYGEN LEVEL December 05, 2016 SOLUMEDROL (UP TO 125 MG) December 05, 2016 ALBUTEROL INHAL UNIT DOSE 1 MG December 05, 2016 IMMUNIZATIONS Vaccine Route Administration Date Status SOLUMEDROL (UP TO 125 MG) IM Intramuscular December 05, 2016 Administered MEDICAL (GENERAL) HISTORY Type Description [...]
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
--- OUTSIDE RECORDS SUMMARY | 2018-10-15 12:25 | XMS REPORT ---
Author Author NASRIN MONROE Organization [employer] Address Unknown Phone Unavailable Care Team Providers Care Pail Bailer Name Role Phone NASRIN MONROE CP Unavailable Allergies No Known Allergies Problems [...] teeth and supporting structures 525.9 Active Medications No Known Medications Results No Known Results Summary Purpose [employer] Submission
--- OUTSIDE RECORDS SUMMARY | 2018-10-15 12:26 | XMS REPORT ---
Author Author JENNIFER SALES [facility] Address [address] [place] [address] Care Team Providers Care Lamp Shade Sewer Name Role Phone JENNIFER SALES Unavailable PROBLEMS Type Condition ICD9-CM Code [id number] Code Onset Dates Condition Status SNOMED Code Problem Depression, unspecified depression type F32.9 Active 66482113 ALLERGIES Substance Reaction Event Type Date Status Ultram Unknown Drug Allergy Nov, Active Cymbalta Unknown Drug Allergy Nov, Active SOCIAL HISTORY Never Assessed PLAN OF CARE Activity Details Follow Up 3 Months Reason: VITAL SIGNS Height 63 in 2016-12-01 Weight 230.6 lbs 2016-12-01 Temperature 97.0 degrees Fahrenheit 2016-12-01 Heart Rate 88 bpm 2016-12-01 Respiratory Rate 24 2016-12-01 Oximetry 96 % 2016-12-01 BMI 40.84 kg/m2 2016-12-01 Blood pressure systolic 142 mmHg 2016-12-01 Blood pressure diastolic 98 mmHg 2016-12-01 MEDICATIONS Medication Instructions Dosage Frequency Start Date End Date Duration Status Kimberly 5-325 MG Orally every 6 hrs 1 tablet as needed 6h 07 Jul, 2016 Active Levothyroxine Sodium 150 MCG Orally Once a day 1 tablet 24h Active Zoloft 50 mg Orally Once a day 1 tablet 24h Nov, 30 day(s) Active Metformin HCl 1000 MG Orally Twice a day 1 tablet with meals 12h 24 Feb, 2015 30 days Active Rizatriptan Benzoate 10 MG Orally Once a day 1 tablet on the tongue and allow to dissolve as needed one time 24h Active Zithromax Z-Andres 250 MG Orally Once a day 2 tablets on the first day, then 1 tablet daily for 4 days 24h Nov, Nov, 5 day(s) Active Zofran ODT 8 MG Orally 3 times a day 1 tablet on the tongue and allow to dissolve 8h Active RESULTS Name Result Date Reference Range HEPATITIS PROFILE 2016-12-01 Hep A Ab, IgM Negative Negative HBsAg Screen Negative Negative Hep B Core Ab, IgM Negative Negative Hep C Virus Ab <0.1 0.0-0.9 PROCEDURES Procedure Date Ordered Result Body Site MEASURE BLOOD OXYGEN LEVEL December 01, 2016 ACUTE HEPATITIS PANEL December 01, 2016 VENIPUNCT, ROUTINE* December 01, 2016 IMMUNIZATIONS No Known Immunizations MEDICAL (GENERAL) HISTORY Type Description Date Medical [...]
--- OUTSIDE RECORDS SUMMARY | 2018-10-15 12:26 | XMS REPORT ---
Author Author JOVANI ROSA Organization [employer] Address Unknown Phone Unavailable Care Team Providers Care Bobbin Disker Name Role Phone JOVANI ROSA CP Unavailable Allergies, Adverse Reactions, Alerts Substance [...] skin and subcutaneous tissue 686.9 Active Assessment Bronchitis J40 Active Problem Galactorrhea not associated with childbirth [...] Instructions Start Date End Date Status Dosage ProAir HFA [facility] [address]-00 108 (90 Base) MCG/ACT Inhalation every 4 hrs prn Aug 14, 2015 2 puffs as needed Spironolactone [facility] [address]-54 50 MG Orally Once a day Jun 26, 2015 1 tablet Doxycycline Monohydrate [facility] [address]-07 100 MG Orally every 12 hrs JulAug 24, 2015 1 capsule Depakote ER [facility] [address]-05 500 MG Orally not defined Topamax [facility] [address]-17 50 MG Orally Twice a day April 14, 2015 1 tablet Metformin HCl [facility] [address]-84 1000 MG Orally Twice a day March 14, 2015 1 tablet with meals Procedures Procedure Coding System Code Date Office Visit, Est Pt., Level 3 CPT-4 03437 Aug 14, 2015 MEASURE BLOOD OXYGEN LEVEL CPT-4 19897 Aug 14, 2015 Vital Signs Date/Time: Aug 14, 2015 Temperature 97.6 F Weight 234 lbs Height 63 in Oximetry 97 % Blood Pressure Diastolic 82 mmHg Blood Pressure Systolic 122 mmHg Cardiac Monitoring Heart Rate 87 bpm BMI 41.45 Index Results No Known Results Summary Purpose [employer] Submission
--- OUTSIDE RECORDS SUMMARY | 2018-10-15 12:26 | XMS REPORT ---
Author Author RONNIE MURRAY Organization [employer] Address Unknown Phone Unavailable Care Team Providers Care Metalworker Name Role Phone RONNIE MURRAY CP Unavailable [...] skin and subcutaneous tissue 686.9 Active Assessment Left ankle pain M25.572 Active [...]
--- OUTSIDE RECORDS SUMMARY | 2018-10-15 12:26 | XMS REPORT ---
Author Author RONNIE MURRAY Organization [employer] Address Unknown Phone Unavailable Care Team Providers Care Closed Circuit Screen Watcher Name Role Phone RONNIE MURRAY CP Unavailable [...] Instructions Start Date End Date Status Dosage Victoza [facility] [address]-79 18 MG/3ML Subcutaneous Once a day Nov 09, 2015 Inject 1.8mL Results No Known Results Summary Purpose [employer] Submission
--- OUTSIDE RECORDS SUMMARY | 2018-10-15 12:31 | XMS REPORT | Continuity of Care Document ---
Author Author [facility] Address Unknown Phone Unavailable Allergies Active Description Code Type Severity Reaction Onset Reported/Identified Relationship to Patient Clinical Status Yes tramadol Drug Allergy N/A N/A 11/27/2009 Yes tramadol Drug Allergy 11/27/2009 Yes Ultram Drug Allergy N/A N/A 04/19/2012 Yes Ultram Drug Allergy 04/19/2012 Yes duloxetine [id number] Drug Allergy Unknown SHAKY, SLURRED 08/11/2016 Yes tramadol [id number] Drug Allergy Unknown N.V, ITCHING, D 08/19/2016 Medications There is no data. Problems Date Dx Coded Attending Type Code Diagnosis Diagnosed By 03/20/2009 845.00 SPRAIN/ STRAIN ANKLE 03/20/2009 845.00 SPRAIN/ STRAIN ANKLE 03/20/2009 LISY SMITH DO 845.00 SPRAIN/STRAIN ANKLE 03/20/2009 845.00 SPRAIN/ STRAIN ANKLE 03/20/2009 845.00 SPRAIN/ STRAIN ANKLE 03/20/2009 845.00 SPRAIN/ STRAIN ANKLE 03/20/2009 845.00 SPRAIN/ STRAIN ANKLE 03/20/2009 845.00 SPRAIN/ STRAIN ANKLE 03/20/2009 LISY SMITH DO 845.00 SPRAIN/STRAIN ANKLE 03/20/2009 STEFANO SAWYER DDS 845.00 SPRAIN/STRAIN ANKLE 03/20/2009 LISY SMITH DO 845.00 SPRAIN/STRAIN ANKLE 03/20/2009 LISY SMITH DO 845.00 SPRAIN/STRAIN ANKLE 03/20/2009 LISY SMITH DO 845.00 SPRAIN/STRAIN ANKLE 03/20/2009 RONNIE MURRAY APRN 845.00 SPRAIN/STRAIN ANKLE 03/20/2009 SHRUTI NAJERA DDS 845.00 SPRAIN/STRAIN ANKLE 03/20/2009 SHRUTI NAJERA DDS 845.00 SPRAIN/STRAIN ANKLE 03/20/2009 TREVOR TRANSCRIBING OPERATOR HEAD, RONNIE T 845.00 SPRAIN/STRAIN ANKLE 03/20/2009 TREVOR TRANSCRIBING OPERATOR HEAD, RONNIE T 845.00 SPRAIN/STRAIN ANKLE 03/20/2009 TREVOR TRANSCRIBING OPERATOR HEAD, RONNIE T 845.00 SPRAIN/STRAIN ANKLE 03/20/2009 TREVOR TRANSCRIBING OPERATOR HEAD, RONNIE T 845.00 SPRAIN/STRAIN ANKLE 03/20/2009 TREVOR TRANSCRIBING OPERATOR HEAD, RONNIE T 845.00 SPRAIN/STRAIN ANKLE 03/20/2009 TREVOR TRANSCRIBING OPERATOR HEAD, RONNIE T 845.00 SPRAIN/STRAIN ANKLE 03/20/2009 GLENN TRANSCRIBING OPERATOR HEAD, BRUNILDA L 845.00 SPRAIN/STRAIN ANKLE 03/20/2009 TREVOR TRANSCRIBING OPERATOR HEAD, RONNIE T 845.00 SPRAIN/STRAIN ANKLE 03/20/2009 TREVOR TRANSCRIBING OPERATOR HEAD, RONNIE T 845.00 SPRAIN/STRAIN ANKLE 03/20/2009 TREVOR TRANSCRIBING OPERATOR HEAD, RONNIE T 845.00 SPRAIN/STRAIN ANKLE 04/17/2009 256.4 POLYCYSTIC OVARIAN SYNDROME 04/17/2009 626.4 irregular length of menstrual periods 04/17/2009 V72.31 Pelvic Exam ( Internal) 04/17/2009 256.4 POLYCYSTIC OVARIAN SYNDROME 04/17/2009 626.4 irregular length of menstrual periods 04/17/2009 V72.31 Pelvic Exam ( Internal) 04/17/2009 LISY SMITH DO 256.4 POLYCYSTIC OVARIAN SYNDROME 04/17/2009 LISY SMITH DO 626.4 irregular length of menstrual periods 04/17/2009 LISY SMITH DO V72.31 Pelvic Exam (Internal) 04/17/2009 256.4 POLYCYSTIC OVARIAN SYNDROME 04/17/2009 626.4 irregular length of menstrual periods 04/17/2009 V72.31 Pelvic Exam ( Internal) 04/17/2009 256.4 POLYCYSTIC OVARIAN SYNDROME 04/17/2009 626.4 irregular length of menstrual periods 04/17/2009 V72.31 Pelvic Exam ( Internal) 04/17/2009 256.4 POLYCYSTIC OVARIAN SYNDROME 04/17/2009 626.4 IRREGULAR LENGTH OF MENSTRUAL PERIODS 04/17/2009 V72.31 PELVIC EXAM ( INTERNAL) 04/17/2009 256.4 POLYCYSTIC OVARIAN SYNDROME 04/17/2009 626.4 IRREGULAR LENGTH OF MENSTRUAL PERIODS 04/17/2009 V72.31 PELVIC EXAM ( INTERNAL) 04/17/2009 256.4 POLYCYSTIC OVARIAN SYNDROME 04/17/2009 626.4 IRREGULAR LENGTH OF MENSTRUAL PERIODS 04/17/2009 V72.31 PELVIC EXAM ( INTERNAL) 04/17/2009 SMITH DO, LISY K 256.4 POLYCYSTIC OVARIAN SYNDROME 04/17/2009 SMITH DO, LISY K 626.4 IRREGULAR LENGTH OF MENSTRUAL PERIODS 04/17/2009 SMITH DO, LISY K V72.31 PELVIC EXAM (INTERNAL) 04/17/2009 SILVERIO HOGANSSTEFANO 256.4 POLYCYSTIC OVARIAN SYNDROME 04/17/2009 SILVERIO DDS, STEFANO Chopra 626.4 IRREGULAR LENGTH OF MENSTRUAL PERIODS 04/17/2009 SILVERIO DDS, STEFANO Chopra V72.31 PELVIC EXAM (INTERNAL) 04/17/2009 SMITH DO, LISY K 256.4 POLYCYSTIC OVARIAN SYNDROME 04/17/2009 SMITH DO, LISY K 626.4 IRREGULAR LENGTH OF MENSTRUAL PERIODS 04/17/2009 SMITH DO, LISY K V72.31 PELVIC EXAM (INTERNAL) 04/17/2009 SMITH DO LISY K 256.4 POLYCYSTIC OVARIAN SYNDROME 04/17/2009 SMITH DO, LISY K 626.4 IRREGULAR LENGTH OF MENSTRUAL PERIODS 04/17/2009 SMITH DO, LISY K V72.31 PELVIC EXAM (INTERNAL) 04/17/2009 SMITH DO LISY K 256.4 POLYCYSTIC OVARIAN SYNDROME 04/17/2009 SMITH DO, LISY K 626.4 IRREGULAR LENGTH OF MENSTRUAL PERIODS 04/17/2009 SMITH DO, LISY K V72.31 PELVIC EXAM (INTERNAL) 04/17/2009 RONNIE MURRAY APRN 256.4 POLYCYSTIC OVARIAN SYNDROME 04/17/2009 RONNIE MURRAY APRN 626.4 IRREGULAR LENGTH OF MENSTRUAL PERIODS 04/17/2009 RONNIE MURRAY APRN V72.31 PELVIC EXAM (INTERNAL) 04/17/2009 DANIA HOGANSSHRUTI 256.4 POLYCYSTIC OVARIAN SYNDROME 04/17/2009 DANIA HOGANSSHRUTI 626.4 IRREGULAR LENGTH OF MENSTRUAL PERIODS 04/17/2009 NAJERA EDISONSSHRUTI V72.31 PELVIC EXAM (INTERNAL) 04/17/2009 DANIA HOGANSSHRUTI 256.4 POLYCYSTIC OVARIAN SYNDROME 04/17/2009 DANIA HOGANSSHRUTI 626.4 IRREGULAR LENGTH OF MENSTRUAL PERIODS 04/17/2009 DANIA KEMP SHRUTI V72.31 PELVIC EXAM (INTERNAL) 04/17/2009 RONNIE MURRAY APRN T 256.4 POLYCYSTIC OVARIAN SYNDROME 04/17/2009 RONNIE MURRAY APRN T 626.4 IRREGULAR LENGTH OF MENSTRUAL PERIODS 04/17/2009 RONNIE MURRAY APRN T V72.31 PELVIC EXAM (INTERNAL) 04/17/2009 RONNIE MURRAY APRN T 256.4 POLYCYSTIC OVARIAN SYNDROME 04/17/2009 RONNIE MURRAY APRN T 626.4 IRREGULAR LENGTH OF MENSTRUAL PERIODS 04/17/2009 RONNIE MURRAY APRN T V72.31 PELVIC EXAM (INTERNAL) 04/17/2009 RONNIE MURRAY APRN T 256.4 POLYCYSTIC OVARIAN SYNDROME 04/17/2009 RONNIE MURRAY APRN T 626.4 IRREGULAR LENGTH OF MENSTRUAL PERIODS 04/17/2009 RONNIE MURRAY APRN T V72.31 PELVIC EXAM (INTERNAL) 04/17/2009 RONNIE MURRAY APRN T 256.4 POLYCYSTIC OVARIAN SYNDROME 04/17/2009 RONNIE MURRAY APRN T 626.4 IRREGULAR LENGTH OF MENSTRUAL PERIODS 04/17/2009 RONNIE MURRAY APRN T V72.31 PELVIC EXAM (INTERNAL) 04/17/2009 RONNIE MURRAY APRN T 256.4 POLYCYSTIC OVARIAN SYNDROME 04/17/2009 RONNIE MURRAY APRN T 626.4 IRREGULAR LENGTH OF MENSTRUAL PERIODS 04/17/2009 RONNIE MURRAY APRN T V72.31 PELVIC EXAM (INTERNAL) 04/17/2009 RONNIE MURRAY APRN T 256.4 POLYCYSTIC OVARIAN SYNDROME 04/17/2009 RONNIE MURRAY APRN T 626.4 IRREGULAR LENGTH OF MENSTRUAL PERIODS 04/17/2009 RONNIE MURRAY APRN T V72.31 PELVIC EXAM (INTERNAL) 04/17/2009 OLIVAL VALARIE HANEYA L 256.4 POLYCYSTIC OVARIAN SYNDROME 04/17/2009 OLIVAL GIULIANA HANEYWNYA L 626.4 IRREGULAR LENGTH OF MENSTRUAL PERIODS 04/17/2009 OLIVAL VALARIE HANEYA L V72.31 PELVIC EXAM (INTERNAL) 04/17/2009 RONNIE MURRAY APRN T 256.4 POLYCYSTIC OVARIAN SYNDROME 04/17/2009 RONNIE MURRAY APRN T 626.4 IRREGULAR LENGTH OF MENSTRUAL PERIODS 04/17/2009 RONNIE MURRAY APRN T V72.31 PELVIC EXAM (INTERNAL) 04/17/2009 RONNIE MURRAY APRN T 256.4 POLYCYSTIC OVARIAN SYNDROME 04/17/2009 RONNIE MURRAY APRN 626.4 IRREGULAR LENGTH OF MENSTRUAL PERIODS 04/17/2009 RONNIE MURRAY APRN V72.31 PELVIC EXAM (INTERNAL) 04/17/2009 RONNIE MURRAY APRN 256.4 POLYCYSTIC OVARIAN SYNDROME 04/17/2009 RONNIE MURRAY APRN 626.4 IRREGULAR LENGTH OF MENSTRUAL PERIODS 04/17/2009 RONNIE MURRAY APRN V72.31 PELVIC EXAM (INTERNAL) 11/27/2009 617.0 ENDOMETRIOSIS OF UTERUS 11/27/2009 617.0 ENDOMETRIOSIS OF UTERUS 11/27/2009 SMITH DO, LISY K 617.0 ENDOMETRIOSIS OF UTERUS 11/27/2009 617.0 ENDOMETRIOSIS OF UTERUS 11/27/2009 617.0 ENDOMETRIOSIS OF UTERUS 11/27/2009 617.0 ENDOMETRIOSIS OF UTERUS 11/27/2009 617.0 ENDOMETRIOSIS OF UTERUS 11/27/2009 617.0 ENDOMETRIOSIS OF UTERUS 11/27/2009 SMITH DO, LISY K 617.0 ENDOMETRIOSIS OF UTERUS 11/27/2009 SILVERIO DDS, STEFANO Chopra 617.0 ENDOMETRIOSIS OF UTERUS 11/27/2009 SMITH DO, LISY K 617.0 ENDOMETRIOSIS OF UTERUS 11/27/2009 SMITH DO, LISY K 617.0 ENDOMETRIOSIS OF UTERUS 11/27/2009 SMITH DO, LISY K 617.0 ENDOMETRIOSIS OF UTERUS 11/27/2009 RONNIE MURRAY APRN 617.0 ENDOMETRIOSIS OF UTERUS 11/27/2009 NAJERA DDS, SHRUTI 617.0 ENDOMETRIOSIS OF UTERUS 11/27/2009 NAJERA DDS, SHRUTI 617.0 ENDOMETRIOSIS OF UTERUS 11/27/2009 RONNIE MURRAY APRN 617.0 ENDOMETRIOSIS OF UTERUS 11/27/2009 RONNIE MURRAY APRN 617.0 ENDOMETRIOSIS OF UTERUS 11/27/2009 RONNIE MURRAY APRN 617.0 ENDOMETRIOSIS OF UTERUS 11/27/2009 RONNIE MURRAY APRN 617.0 ENDOMETRIOSIS OF UTERUS 11/27/2009 RONNIE MURRAY APRN 617.0 ENDOMETRIOSIS OF UTERUS 11/27/2009 RONNIE MURRAY APRN 617.0 ENDOMETRIOSIS OF UTERUS 11/27/2009 BRUNILDA ELIZABETH APRN 617.0 ENDOMETRIOSIS OF UTERUS 11/27/2009 RONNIE MURRAY APRN 617.0 ENDOMETRIOSIS OF UTERUS 11/27/2009 RONNIE MURRAY APRN 617.0 ENDOMETRIOSIS OF UTERUS 11/27/2009 RONNIE MURRAY APRN 617.0 ENDOMETRIOSIS OF UTERUS 12/18/2009 V20.2 WELL CHILD, ROUTINE 12/18/2009 V20.2 WELL CHILD, ROUTINE 12/18/2009 SMITH LISY HALL K V20.2 WELL CHILD, ROUTINE 12/18/2009 V20.2 WELL CHILD, ROUTINE 12/18/2009 V20.2 WELL CHILD, ROUTINE 12/18/2009 V20.2 WELL CHILD, ROUTINE 12/18/2009 V20.2 WELL CHILD, ROUTINE 12/18/2009 V20.2 WELL CHILD, ROUTINE 12/18/2009 SMITH DO, LISY K V20.2 WELL CHILD, ROUTINE 12/18/2009 SILVERIO DDS, STEFANO Chopra V20.2 WELL CHILD, ROUTINE 12/18/2009 SMITH DO, LSIY K V20.2 WELL CHILD, ROUTINE 12/18/2009 SMITH DO, LISY K V20.2 WELL CHILD, ROUTINE 12/18/2009 SMITH DO, LISY K V20.2 WELL CHILD, ROUTINE 12/18/2009 RONNIE MURRAY APRN V20.2 WELL CHILD, ROUTINE 12/18/2009 NAJERA DDS, SHRUTI V20.2 WELL CHILD, ROUTINE 12/18/2009 NAJERA DDS, SHRUTI V20.2 WELL CHILD, ROUTINE 12/18/2009 RONNIE MURRAY APRN V20.2 WELL CHILD, ROUTINE 12/18/2009 RONNIE MURRAY APRN V20.2 WELL CHILD, ROUTINE 12/18/2009 RONNIE MURRAY APRN T V20.2 WELL CHILD, ROUTINE 12/18/2009 RONNIE MURRAY APRN T V20.2 WELL CHILD, ROUTINE 12/18/2009 RONNIE MURRAY APRN V20.2 WELL CHILD, ROUTINE 12/18/2009 RONNIE MURRAY APRN V20.2 WELL CHILD, ROUTINE 12/18/2009 GLENN HANEY, BRUNILDA Cornell V20.2 WELL CHILD, ROUTINE 12/18/2009 RONNIE MURRAY APRN V20.2 WELL CHILD, ROUTINE 12/18/2009 RONNIE MURRAY APRN V20.2 WELL CHILD, ROUTINE 12/18/2009 RONNIE MURRAY APRN T V20.2 WELL CHILD, ROUTINE 06/11/2010 296.90 MOOD DISORDER 06/11/2010 681.11 ONYCHIA AND PARONYCHIA OF TOE 06/11/2010 780.79 MALAISE AND FATIGUE 06/11/2010 296.90 MOOD DISORDER 06/11/2010 681.11 ONYCHIA AND PARONYCHIA OF TOE 06/11/2010 780.79 MALAISE AND FATIGUE 06/11/2010 LISY SMITH DO 296.90 MOOD DISORDER 06/11/2010 LISY SMITH DO 681.11 ONYCHIA AND PARONYCHIA OF TOE 06/11/2010 LISY SMITH DO 780.79 MALAISE AND FATIGUE 06/11/2010 296.90 MOOD DISORDER 06/11/2010 681.11 ONYCHIA AND PARONYCHIA OF TOE 06/11/2010 780.79 MALAISE AND FATIGUE 06/11/2010 296.90 MOOD DISORDER 06/11/2010 681.11 ONYCHIA AND PARONYCHIA OF TOE 06/11/2010 780.79 MALAISE AND FATIGUE 06/11/2010 296.90 MOOD DISORDER 06/11/2010 681.11 ONYCHIA AND PARONYCHIA OF TOE 06/11/2010 780.79 MALAISE AND FATIGUE 06/11/2010 296.90 MOOD DISORDER 06/11/2010 681.11 ONYCHIA AND PARONYCHIA OF TOE 06/11/2010 780.79 MALAISE AND FATIGUE 06/11/2010 296.90 MOOD DISORDER 06/11/2010 681.11 ONYCHIA AND PARONYCHIA OF TOE 06/11/2010 780.79 MALAISE AND FATIGUE 06/11/2010 LISY SMITH DO 296.90 MOOD DISORDER 06/11/2010 LISY SMITH DO 681.11 ONYCHIA AND PARONYCHIA OF TOE 06/11/2010 LISY SMITH DO 780.79 MALAISE AND FATIGUE 06/11/2010 STEFANO SAWYER DDS 296.90 MOOD DISORDER 06/11/2010 STEFANO SAWYER DDS 681.11 ONYCHIA AND PARONYCHIA OF TOE 06/11/2010 STEFANO SAWYER DDS 780.79 MALAISE AND FATIGUE 06/11/2010 LISY SMITH DO 296.90 MOOD DISORDER 06/11/2010 SMITH DO, LISY K 681.11 ONYCHIA AND PARONYCHIA OF TOE 06/11/2010 SMITH DO, LISY K 780.79 MALAISE AND FATIGUE 06/11/2010 SMITH DO, LISY K 296.90 MOOD DISORDER 06/11/2010 SMITH DO, LISY K 681.11 ONYCHIA AND PARONYCHIA OF TOE 06/11/2010 SMITH DO, LISY K 780.79 MALAISE AND FATIGUE 06/11/2010 SMITH DO, LISY K 296.90 MOOD DISORDER 06/11/2010 SMITH DO, LISY K 681.11 ONYCHIA AND PARONYCHIA OF TOE 06/11/2010 SMITH DO, LISY K 780.79 MALAISE AND FATIGUE 06/11/2010 RONNIE MURRAY APRN 296.90 MOOD DISORDER 06/11/2010 RONNIE MURRAY APRN 681.11 ONYCHIA AND PARONYCHIA OF TOE 06/11/2010 RONNIE MURRAY APRN 780.79 MALAISE AND FATIGUE 06/11/2010 NAJERA DDS, SHRUTI 296.90 MOOD DISORDER 06/11/2010 NAJERA DDS, SHRUTI 681.11 ONYCHIA AND PARONYCHIA OF TOE 06/11/2010 NAJERA DDS, SHRUTI 780.79 MALAISE AND FATIGUE 06/11/2010 NAJERA DDS, SHRUTI 296.90 MOOD DISORDER 06/11/2010 NAJERA DDS, SHRUTI 681.11 ONYCHIA AND PARONYCHIA OF TOE 06/11/2010 NAJERA DDS, SHRUTI 780.79 MALAISE AND FATIGUE 06/11/2010 RONNIE MURRAY APRN 296.90 MOOD DISORDER 06/11/2010 RONNIE MURRAY APRN 681.11 ONYCHIA AND PARONYCHIA OF TOE 06/11/2010 RONNIE MURRAY APRN 780.79 MALAISE AND FATIGUE 06/11/2010 RONNIE MURRAY APRN 296.90 MOOD DISORDER 06/11/2010 RONNIE MURRAY APRN 681.11 ONYCHIA AND PARONYCHIA OF TOE 06/11/2010 RONNIE MURRAY APRN 780.79 MALAISE AND FATIGUE 06/11/2010 RONNIE MURRAY APRN 296.90 MOOD DISORDER 06/11/2010 RONNIE MURRYA APRN 681.11 ONYCHIA AND PARONYCHIA OF TOE 06/11/2010 RONNIE MURRAY APRN 780.79 MALAISE AND FATIGUE 06/11/2010 RONNIE MURRAY APRN 296.90 MOOD DISORDER 06/11/2010 RONNIE MURRAY APRN 681.11 ONYCHIA AND PARONYCHIA OF TOE 06/11/2010 RONNIE MURRAY APRN 780.79 MALAISE AND FATIGUE 06/11/2010 RONNIE MURRAY APRN 296.90 MOOD DISORDER 06/11/2010 RONNIE MURRAY APRN 681.11 ONYCHIA AND PARONYCHIA OF TOE 06/11/2010 RONNIE MURRAY APRN 780.79 MALAISE AND FATIGUE 06/11/2010 RONNIE MURRAY APRN 296.90 MOOD DISORDER 06/11/2010 RONNIE MURRAY APRN 681.11 ONYCHIA AND PARONYCHIA OF TOE 06/11/2010 RONNIE MURRAY APRN 780.79 MALAISE AND FATIGUE 06/11/2010 BRUNILDA ELIZABETH APRN L 296.90 MOOD DISORDER 06/11/2010 BRUNILDA ELIZABETH APRN L 681.11 ONYCHIA AND PARONYCHIA OF TOE 06/11/2010 BRUNILDA ELIZABETH APRN L 780.79 MALAISE AND FATIGUE 06/11/2010 RONNIE MURRAY APRN 296.90 MOOD DISORDER 06/11/2010 RONNIE MURRAY APRN 681.11 ONYCHIA AND PARONYCHIA OF TOE 06/11/2010 RONNIE MURRAY APRN 780.79 MALAISE AND FATIGUE 06/11/2010 RONNIE MURRAY APRN 296.90 MOOD DISORDER 06/11/2010 RONNIE MURRAY APRN 681.11 ONYCHIA AND PARONYCHIA OF TOE 06/11/2010 RONNIE MURRAY APRN 780.79 MALAISE AND FATIGUE 06/11/2010 RONNIE MURRAY APRN 296.90 MOOD DISORDER 06/11/2010 RONNIE MURRAY APRN 681.11 ONYCHIA AND PARONYCHIA OF TOE 06/11/2010 RONNIE MURRAY APRN 780.79 MALAISE AND FATIGUE 07/09/2010 296.32 MO DEPRESSIVE RECURRENT MODERATE 07/09/2010 300.21 AN PANIC DIS W AGORA 07/09/2010 309.81 AN PTSD 07/09/2010 296.32 MO DEPRESSIVE RECURRENT MODERATE 07/09/2010 300.21 AN PANIC DIS W AGORA 07/09/2010 309.81 AN PTSD 07/09/2010 SMITH DO, LISY K 296.32 MO DEPRESSIVE RECURRENT MODERATE 07/09/2010 SMITH DO, LISY K 300.21 AN PANIC DIS W AGORA 07/09/2010 SMITH DO, LISY K 309.81 AN PTSD 07/09/2010 296.32 MO DEPRESSIVE RECURRENT MODERATE 07/09/2010 300.21 AN PANIC DIS W AGORA 07/09/2010 309.81 AN PTSD 07/09/2010 296.32 MO DEPRESSIVE RECURRENT MODERATE 07/09/2010 300.21 AN PANIC DIS W AGORA 07/09/2010 309.81 AN PTSD 07/09/2010 296.32 MO DEPRESSIVE RECURRENT MODERATE 07/09/2010 300.21 AN PANIC DIS W AGORA 07/09/2010 309.81 AN PTSD 07/09/2010 296.32 MO DEPRESSIVE RECURRENT MODERATE 07/09/2010 300.21 AN PANIC DIS W AGORA 07/09/2010 309.81 AN PTSD 07/09/2010 296.32 MO DEPRESSIVE RECURRENT MODERATE 07/09/2010 300.21 AN PANIC DIS W AGORA 07/09/2010 309.81 AN PTSD 07/09/2010 SMITH DO, LISY K 296.32 MO DEPRESSIVE RECURRENT MODERATE 07/09/2010 SMITH DO, LISY K 300.21 AN PANIC DIS W AGORA 07/09/2010 SMITH DO, LISY K 309.81 AN PTSD 07/09/2010 SILVERIO DDSTEFANO Acuna 296.32 MO DEPRESSIVE RECURRENT MODERATE 07/09/2010 SILVERIOSTEFANO LOPEZ DDS 300.21 AN PANIC DIS W AGORA 07/09/2010 SILVERIO STEFANO KEMP 309.81 AN PTSD 07/09/2010 SMITH DO, LISY K 296.32 MO DEPRESSIVE RECURRENT MODERATE 07/09/2010 SMITH DO, LISY K 300.21 AN PANIC DIS W AGORA 07/09/2010 SMITH DO, LISY K 309.81 AN PTSD 07/09/2010 SMITH DO, LISY K 296.32 MO DEPRESSIVE RECURRENT MODERATE 07/09/2010 SMITH DO, LISY K 300.21 AN PANIC DIS W AGORA 07/09/2010 SMITH DO, LISY K 309.81 AN PTSD 07/09/2010 SMITH DO, LISY K 296.32 MO DEPRESSIVE RECURRENT MODERATE 07/09/2010 SMITH DO, LISY K 300.21 AN PANIC DIS W AGORA 07/09/2010 SMITH DO, LISY K 309.81 AN PTSD 07/09/2010 RONNIE MURRAY APRN 296.32 MO DEPRESSIVE RECURRENT MODERATE 07/09/2010 RONNIE MURRAY APRN T 300.21 AN PANIC DIS W AGORA 07/09/2010 RONNIE MURRAY APRN T 309.81 AN PTSD 07/09/2010 NAJERA DDS, SHRUTI 296.32 MO DEPRESSIVE RECURRENT MODERATE 07/09/2010 NAJERA DDS, SHRUTI 300.21 AN PANIC DIS W AGORA 07/09/2010 NAJERA DDS, SHRUTI 309.81 AN PTSD 07/09/2010 NAJERA DDS, SHRUTI 296.32 MO DEPRESSIVE RECURRENT MODERATE 07/09/2010 NAJERA DDS, SHRUTI 300.21 AN PANIC DIS W AGORA 07/09/2010 NAJERA DDS, SHRUTI 309.81 AN PTSD 07/09/2010 RONNIE MURRAY APRN 296.32 MO DEPRESSIVE RECURRENT MODERATE 07/09/2010 RONNIE MURRAY APRN T 300.21 AN PANIC DIS W AGORA 07/09/2010 RONNIE MURRAY APRN T 309.81 AN PTSD 07/09/2010 RONNIE MURRAY APRN 296.32 MO DEPRESSIVE RECURRENT MODERATE 07/09/2010 RONNIE MURRAY APRN T 300.21 AN PANIC DIS W AGORA 07/09/2010 RONNIE MURRAY APRN T 309.81 AN PTSD 07/09/2010 RONNIE MURRAY APRN 296.32 MO DEPRESSIVE RECURRENT MODERATE 07/09/2010 RONNIE MURRAY APRN T 300.21 AN PANIC DIS W AGORA 07/09/2010 RONNIE MURRAY APRN T 309.81 AN PTSD 07/09/2010 RONNIE MURRAY APRN T 296.32 MO DEPRESSIVE RECURRENT MODERATE 07/09/2010 RONNIE MURRAY APRN T 300.21 AN PANIC DIS W AGORA 07/09/2010 RONNIE MURRAY APRN T 309.81 AN PTSD 07/09/2010 RONNIE MURRAY APRN T 296.32 MO DEPRESSIVE RECURRENT MODERATE 07/09/2010 RONNIE MURRAY APRN T 300.21 AN PANIC DIS W AGORA 07/09/2010 RONNIE MURRAY APRN T 309.81 AN PTSD 07/09/2010 TREVOR TRANSCRIBING OPERATOR HEAD, RONNIE T 296.32 MO DEPRESSIVE RECURRENT MODERATE 07/09/2010 RONNIE MURRYA APRN T 300.21 AN PANIC DIS W AGORA 07/09/2010 RONNIE MURRAY APRN T 309.81 AN PTSD 07/09/2010 VALARIE ELIZABETH APRNA L 296.32 MO DEPRESSIVE RECURRENT MODERATE 07/09/2010 MADVALARIE Cornell APRNA L 300.21 AN PANIC DIS W AGORA 07/09/2010 GLENN TRANSCRIBING OPERATOR HEAD, BRUNILDA L 309.81 AN PTSD 07/09/2010 RONNIE MURRAY APRN T 296.32 MO DEPRESSIVE RECURRENT MODERATE 07/09/2010 RONNIE MURRAY APRN T 300.21 AN PANIC DIS W AGORA 07/09/2010 RONNIE MURRAY APRN T 309.81 AN PTSD 07/09/2010 RONNIE MURRAY APRN T 296.32 MO DEPRESSIVE RECURRENT MODERATE 07/09/2010 RONNIE MURRAY APRN T 300.21 AN PANIC DIS W AGORA 07/09/2010 RONNIE MURRAY APRN T 309.81 AN PTSD 07/09/2010 RONNIE MURRAY APRN T 296.32 MO DEPRESSIVE RECURRENT MODERATE 07/09/2010 RONNIE MURRAY APRN T 300.21 AN PANIC DIS W AGORA 07/09/2010 RONNIE MURRAY APRN T 309.81 AN PTSD 08/13/2010 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 08/13/2010 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 08/13/2010 LISY SMITH DO K 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 08/13/2010 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 08/13/2010 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 08/13/2010 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 08/13/2010 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 08/13/2010 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 08/13/2010 LUIS HALL LISY K 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 08/13/2010 STEFANO SAWYER DDS 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 08/13/2010 LUIS HALL LISY K 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 08/13/2010 LUIS HALL LISY K 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 08/13/2010 SMITH DO LISY K 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 08/13/2010 RONNIE MURRAY APRN 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 08/13/2010 NAJERASHRUTI COLEMAN DDS 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 08/13/2010 SHRUTI NAJERA DDS 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 08/13/2010 TREVOR TRANSCRIBING OPERATOR HEAD, RONNIE T 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 08/13/2010 TREVOR TRANSCRIBING OPERATOR HEAD, RONNIE T 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 08/13/2010 TREVOR TRANSCRIBING OPERATOR HEAD, RONNIE T 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 08/13/2010 TREVOR TRANSCRIBING OPERATOR HEAD, RONNIE T 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 08/13/2010 TREVOR TRANSCRIBING OPERATOR HEAD, RONNIE T 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 08/13/2010 TREVOR TRANSCRIBING OPERATOR HEAD, RONNIE T 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 08/13/2010 MADAneta TRANSCRIBING OPERATOR HEAD, BRUNILDA L 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 08/13/2010 TREVOR TRANSCRIBING OPERATOR HEAD, RONNIE T 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 08/13/2010 TREVOR TRANSCRIBING OPERATOR HEAD, RONNIE T 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 08/13/2010 TREVOR TRANSCRIBING OPERATOR HEAD, RONNIE T 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 01/01/2011 599.0 URINARY TRACT INFECTION SITE NOT SPECIFIED 01/01/2011 599.0 URINARY TRACT INFECTION SITE NOT SPECIFIED 01/01/2011 ITALIA SMITH DOA K 599.0 URINARY TRACT INFECTION SITE NOT SPECIFIED 01/01/2011 599.0 URINARY TRACT INFECTION SITE NOT SPECIFIED 01/01/2011 599.0 URINARY TRACT INFECTION SITE NOT SPECIFIED 01/01/2011 599.0 URINARY TRACT INFECTION SITE NOT SPECIFIED 01/01/2011 599.0 URINARY TRACT INFECTION SITE NOT SPECIFIED 01/01/2011 599.0 URINARY TRACT INFECTION SITE NOT SPECIFIED 01/01/2011 LUIS DOITALIAA K 599.0 URINARY TRACT INFECTION SITE NOT SPECIFIED 01/01/2011 STEFANO SAWYER DDS 599.0 URINARY TRACT INFECTION SITE NOT SPECIFIED 01/01/2011 LUIS DOITALIAA K 599.0 URINARY TRACT INFECTION SITE NOT SPECIFIED 01/01/2011 SMITH DO LISY K 599.0 URINARY TRACT INFECTION SITE NOT SPECIFIED 01/01/2011 ITALIA SMITH DOA K 599.0 URINARY TRACT INFECTION SITE NOT SPECIFIED 01/01/2011 RONNIE MURRAY APRN 599.0 URINARY TRACT INFECTION SITE NOT SPECIFIED 01/01/2011 SHRUTI NAJERA DDS 599.0 URINARY TRACT INFECTION SITE NOT SPECIFIED 01/01/2011 NAJERA EDISONSSHRUTI 599.0 URINARY TRACT INFECTION SITE NOT SPECIFIED 01/01/2011 RONNIE MURRAY APRN T 599.0 URINARY TRACT INFECTION SITE NOT SPECIFIED 01/01/2011 TREVOR TRANSCRIBING OPERATOR HEAD, RONNIE T 599.0 URINARY TRACT INFECTION SITE NOT SPECIFIED 01/01/2011 TREVOR CEDEÑON, RONNIE T 599.0 URINARY TRACT INFECTION SITE NOT SPECIFIED 01/01/2011 TREVOR TRANSCRIBING OPERATOR HEAD, RONNIE T 599.0 URINARY TRACT INFECTION SITE NOT SPECIFIED 01/01/2011 TREVOR CEDEÑONRONNIE T 599.0 URINARY TRACT INFECTION SITE NOT SPECIFIED 01/01/2011 TREVOR CEDEÑONRONNIE T 599.0 URINARY TRACT INFECTION SITE NOT SPECIFIED 01/01/2011 GLENN TRANSCRIBING OPERATOR HEAD, BRUNILDA Cornell 599.0 URINARY TRACT INFECTION SITE NOT SPECIFIED 01/01/2011 TREVOR CEDEÑONRONNIE T 599.0 URINARY TRACT INFECTION SITE NOT SPECIFIED 01/01/2011 TREVOR CEDEÑONRONNIE T 599.0 URINARY TRACT INFECTION SITE NOT SPECIFIED 01/01/2011 RONNIE MURRAY APRN T 599.0 URINARY TRACT INFECTION SITE NOT SPECIFIED 03/03/2011 346.90 MIGRAINE HEADACHE 03/03/2011 346.90 MIGRAINE HEADACHE 03/03/2011 SMITH DOITALIAA K 346.90 MIGRAINE HEADACHE 03/03/2011 346.90 MIGRAINE HEADACHE 03/03/2011 346.90 MIGRAINE HEADACHE 03/03/2011 346.90 MIGRAINE HEADACHE 03/03/2011 346.90 MIGRAINE HEADACHE 03/03/2011 346.90 MIGRAINE HEADACHE 03/03/2011 SMITH DO LISY K 346.90 MIGRAINE HEADACHE 03/03/2011 STEFANO SAWYER DDS 346.90 MIGRAINE HEADACHE 03/03/2011 SMITH DO LISY K 346.90 MIGRAINE HEADACHE 03/03/2011 SMITH DO LISY K 346.90 MIGRAINE HEADACHE 03/03/2011 SMITH DO LISY K 346.90 MIGRAINE HEADACHE 03/03/2011 RONNIE MURRAY APRN T 346.90 MIGRAINE HEADACHE 03/03/2011 SHRUTI NAJERA DDS 346.90 MIGRAINE HEADACHE 03/03/2011 NAJERA EDISONSSHRUTI 346.90 MIGRAINE HEADACHE 03/03/2011 RONNIE MURRAY APRN 346.90 MIGRAINE HEADACHE 03/03/2011 RONNIE MURRAY APRN T 346.90 MIGRAINE HEADACHE 03/03/2011 RONNIE MURRAY APRN T 346.90 MIGRAINE HEADACHE 03/03/2011 RONNIE MURRAY APRN T 346.90 MIGRAINE HEADACHE 03/03/2011 TREVOR TRANSCRIBING OPERATOR HEAD, RONNIE T 346.90 MIGRAINE HEADACHE 03/03/2011 TREVOR TRANSCRIBING OPERATOR HEAD, RONNIE T 346.90 MIGRAINE HEADACHE 03/03/2011 GLENN TRANSCRIBING OPERATOR HEAD, BRUNILDA Cornell 346.90 MIGRAINE HEADACHE 03/03/2011 TREVOR TRANSCRIBING OPERATOR HEAD, RONNIE T 346.90 MIGRAINE HEADACHE 03/03/2011 TREVOR TRANSCRIBING OPERATOR HEAD, RONNIE T 346.90 MIGRAINE HEADACHE 03/03/2011 TREVOR TRANSCRIBING OPERATOR HEAD, RONNIE T 346.90 MIGRAINE HEADACHE 04/23/2011 640.00 THREATENED 04/23/2011 V23.2 , HIGH RISK W/ HX OF 04/23/2011 V72.42 TEST POSITIVE RESULT 04/23/2011 640.00 THREATENED 04/23/2011 V23.2 , HIGH RISK W/ HX OF 04/23/2011 V72.42 TEST POSITIVE RESULT 04/23/2011 LISY SMITH DO 640.00 THREATENED 04/23/2011 LISY SMITH DO V23.2 , HIGH RISK W/ HX OF 04/23/2011 LISY SMITH DO V72.42 TEST POSITIVE RESULT 04/23/2011 640.00 THREATENED 04/23/2011 V23.2 , HIGH RISK W/ HX OF 04/23/2011 V72.42 TEST POSITIVE RESULT 04/23/2011 640.00 THREATENED 04/23/2011 V23.2 , HIGH RISK W/ HX OF 04/23/2011 V72.42 TEST POSITIVE RESULT 04/23/2011 640.00 THREATENED 04/23/2011 V23.2 , HIGH RISK W/ HX OF 04/23/2011 V72.42 TEST POSITIVE RESULT 04/23/2011 640.00 THREATENED 04/23/2011 V23.2 , HIGH RISK W/ HX OF 04/23/2011 V72.42 TEST POSITIVE RESULT 04/23/2011 640.00 THREATENED 04/23/2011 V23.2 , HIGH RISK W/ HX OF 04/23/2011 V72.42 TEST POSITIVE RESULT 04/23/2011 LISY SMITH DO 640.00 THREATENED 04/23/2011 LISY SMITH DO V23.2 , HIGH RISK W/ HX OF 04/23/2011 LISY SMITH DO V72.42 TEST POSITIVE RESULT 04/23/2011 STEFANO SAWYER DDS 640.00 THREATENED 04/23/2011 SILVERIO DDS, STEFANO Chopra V23.2 , HIGH RISK W/ HX OF 04/23/2011 SILVERIO DDS, STEFANO Chopra V72.42 TEST POSITIVE RESULT 04/23/2011 SMITH DO, LISY K 640.00 THREATENED 04/23/2011 SMITH DO, LISY K V23.2 , HIGH RISK W/ HX OF 04/23/2011 SMITH DO, LISY K V72.42 TEST POSITIVE RESULT 04/23/2011 SMITH DO, LISY K 640.00 THREATENED 04/23/2011 SMITH DO, LISY K V23.2 , HIGH RISK W/ HX OF 04/23/2011 SMITH DO, LISY K V72.42 TEST POSITIVE RESULT 04/23/2011 SMITH DO, LISY K 640.00 THREATENED 04/23/2011 SMITH DO, LISY K V23.2 , HIGH RISK W/ HX OF 04/23/2011 SMITH DO, LISY K V72.42 TEST POSITIVE RESULT 04/23/2011 RONNIE MURRAY APRN 640.00 THREATENED 04/23/2011 RONNIE MURRAY APRN V23.2 , HIGH RISK W/ HX OF 04/23/2011 RONNIE MURRAY APRN V72.42 TEST POSITIVE RESULT 04/23/2011 NAJERA DDS, SHRUTI 640.00 THREATENED 04/23/2011 NAJERA DDS, SHRUTI V23.2 , HIGH RISK W/ HX OF 04/23/2011 NAJERA DDS, SHRUTI V72.42 TEST POSITIVE RESULT 04/23/2011 NAJERA DDS, SHRUTI 640.00 THREATENED 04/23/2011 NAJERA DDS, SHRUTI V23.2 , HIGH RISK W/ HX OF 04/23/2011 NAJERA DDS, SHRUTI V72.42 TEST POSITIVE RESULT 04/23/2011 RONNIE MURRAY APRN 640.00 THREATENED 04/23/2011 RONNIE MURRAY APRN V23.2 , HIGH RISK W/ HX OF 04/23/2011 RONNIE MURRAY APRN V72.42 TEST POSITIVE RESULT 04/23/2011 RONNIE MURRAY APRN 640.00 THREATENED 04/23/2011 TREVOR TRANSCRIBING OPERATOR HEADRONNIE V23.2 , HIGH RISK W/ HX OF 04/23/2011 TREVOR TRANSCRIBING OPERATOR HEAD, RONNIE T V72.42 TEST POSITIVE RESULT 04/23/2011 TREVOR TRANSCRIBING OPERATOR HEAD, RONNIE T 640.00 THREATENED 04/23/2011 TREVOR TRANSCRIBING OPERATOR HEADRONNIE T V23.2 , HIGH RISK W/ HX OF 04/23/2011 TREVOR CEDEÑON, RONNIE T V72.42 TEST POSITIVE RESULT 04/23/2011 TREVOR TRANSCRIBING OPERATOR HEAD, RONNIE T 640.00 THREATENED 04/23/2011 TREVOR TRANSCRIBING OPERATOR HEAD, RONNIE T V23.2 , HIGH RISK W/ HX OF 04/23/2011 TREVOR TRANSCRIBING OPERATOR HEAD, RONNIE T V72.42 TEST POSITIVE RESULT 04/23/2011 TREVOR CEDEÑON, RONNIE T 640.00 THREATENED 04/23/2011 TREVOR CEDEÑONRONNIE T V23.2 , HIGH RISK W/ HX OF 04/23/2011 TREVOR CEDEÑONRONNIE T V72.42 TEST POSITIVE RESULT 04/23/2011 TREVOR CEDEÑON, RONNIE T 640.00 THREATENED 04/23/2011 TREVOR CEDEÑONRONNIE V23.2 , HIGH RISK W/ HX OF 04/23/2011 TREVOR TRANSCRIBING OPERATOR HEAD, RONNIE T V72.42 TEST POSITIVE RESULT 04/23/2011 [facility] TRANSCRIBING OPERATOR HEAD, BRUNILDA L 640.00 THREATENED 04/23/2011 [facility] TRANSCRIBING OPERATOR HEAD, BRUNILDA L V23.2 , HIGH RISK W/ HX OF 04/23/2011 [facility] TRANSCRIBING OPERATOR HEAD, BRUNILDA L V72.42 TEST POSITIVE RESULT 04/23/2011 TREVOR HANEY, RONNIE T 640.00 THREATENED 04/23/2011 TREVOR TRANSCRIBING OPERATOR HEADRONNIE V23.2 , HIGH RISK W/ HX OF 04/23/2011 TREVOR TRANSCRIBING OPERATOR HEAD, RONNIE T V72.42 TEST POSITIVE RESULT 04/23/2011 TREVOR CEDEÑON, RONNIE T 640.00 THREATENED 04/23/2011 TREVOR TRANSCRIBING OPERATOR HEADRONNIE T V23.2 , HIGH RISK W/ HX OF 04/23/2011 RONNIE MURRAY APRN T V72.42 TEST POSITIVE RESULT 04/23/2011 TREVOR CEDEÑON, RONNIE T 640.00 THREATENED 04/23/2011 TREVOR CEDEÑONRONNIE T V23.2 , HIGH RISK W/ HX OF 04/23/2011 RONNIE MURRAY APRN V72.42 TEST POSITIVE RESULT 05/01/2011 V04.3 RUBELLA NON- IMMUNE - NEED FOR VACCINATION 05/01/2011 V04.3 RUBELLA NON- IMMUNE - NEED FOR VACCINATION 05/01/2011 LISY SMITH DO V04.3 RUBELLA NON-IMMUNE - NEED FOR VACCINATION 05/01/2011 V04.3 RUBELLA NON- IMMUNE - NEED FOR VACCINATION 05/01/2011 V04.3 RUBELLA NON- IMMUNE - NEED FOR VACCINATION 05/01/2011 V04.3 RUBELLA NON- IMMUNE - NEED FOR VACCINATION 05/01/2011 V04.3 RUBELLA NON- IMMUNE - NEED FOR VACCINATION 05/01/2011 V04.3 RUBELLA NON- IMMUNE - NEED FOR VACCINATION 05/01/2011 LISY SMITH DO V04.3 RUBELLA NON-IMMUNE - NEED FOR VACCINATION 05/01/2011 SILVERIO KEMP, STEFANO Chopra V04.3 RUBELLA NON-IMMUNE - NEED FOR VACCINATION 05/01/2011 LISY SMITH DO V04.3 RUBELLA NON-IMMUNE - NEED FOR VACCINATION 05/01/2011 LISY SMITH DO V04.3 RUBELLA NON-IMMUNE - NEED FOR VACCINATION 05/01/2011 LISY SMITH DO K V04.3 RUBELLA NON-IMMUNE - NEED FOR VACCINATION 05/01/2011 RONNIE MURRAY APRN V04.3 RUBELLA NON-IMMUNE - NEED FOR VACCINATION 05/01/2011 DANIA HOGANS, SHRUTI V04.3 RUBELLA NON-IMMUNE - NEED FOR VACCINATION 05/01/2011 DANIA KEMP, SHRUTI V04.3 RUBELLA NON-IMMUNE - NEED FOR VACCINATION 05/01/2011 RONNIE MURRAY APRN V04.3 RUBELLA NON-IMMUNE - NEED FOR VACCINATION 05/01/2011 RONNIE MURRAY APRN V04.3 RUBELLA NON-IMMUNE - NEED FOR VACCINATION 05/01/2011 RONNIE MURRAY APRN V04.3 RUBELLA NON-IMMUNE - NEED FOR VACCINATION 05/01/2011 RONNIE MURRAY APRN V04.3 RUBELLA NON-IMMUNE - NEED FOR VACCINATION 05/01/2011 RONNIE MURRAY APRN V04.3 RUBELLA NON-IMMUNE - NEED FOR VACCINATION 05/01/2011 RONNIE MURRAY APRN V04.3 RUBELLA NON-IMMUNE - NEED FOR VACCINATION 05/01/2011 BRUNILDA ELIZABETH APRN V04.3 RUBELLA NON-IMMUNE - NEED FOR VACCINATION 05/01/2011 RONNIE MURRAY APRN V04.3 RUBELLA NON-IMMUNE - NEED FOR VACCINATION 05/01/2011 RONNIE MURRAY APRN V04.3 RUBELLA NON-IMMUNE - NEED FOR VACCINATION 05/01/2011 RONNIE MURRAY APRN V04.3 RUBELLA NON-IMMUNE - NEED FOR VACCINATION 05/02/2011 Ot 646.83 05/02/2011 Ot 789.00 05/05/2011 V74.1 TB SCREENING 05/05/2011 V74.1 TB SCREENING 05/05/2011 SMITH DO LISY K V74.1 TB SCREENING 05/05/2011 V74.1 TB SCREENING 05/05/2011 V74.1 TB SCREENING 05/05/2011 V74.1 TB SCREENING 05/05/2011 V74.1 TB SCREENING 05/05/2011 V74.1 TB SCREENING 05/05/2011 SMITH DO LISY K V74.1 TB SCREENING 05/05/2011 SILVERIO DDSSTEFANO V74.1 TB SCREENING 05/05/2011 SMITH DO LISY K V74.1 TB SCREENING 05/05/2011 SMITH DO LISY K V74.1 TB SCREENING 05/05/2011 SMITH DO, LISY K V74.1 TB SCREENING 05/05/2011 RONNIE MURRAY APRN V74.1 TB SCREENING 05/05/2011 NAJERA DDS, SHRUTI V74.1 TB SCREENING 05/05/2011 NAJERA DDS, SHRUTI V74.1 TB SCREENING 05/05/2011 RONNIE MURRAY APRN V74.1 TB SCREENING 05/05/2011 RONNIE MURRAY APRN V74.1 TB SCREENING 05/05/2011 RONNIE MURRAY APRN V74.1 TB SCREENING 05/05/2011 RONNIE MURRAY APRN V74.1 TB SCREENING 05/05/2011 RONNIE MURRAY APRN V74.1 TB SCREENING 05/05/2011 RONNIE MURRAY APRN V74.1 TB SCREENING 05/05/2011 BRUNILDA ELIZABETH APRN V74.1 TB SCREENING 05/05/2011 TREVOR TRANSCRIBING OPERATOR HEADRONNIE Marina V74.1 TB SCREENING 05/05/2011 TREVOR TRANSCRIBING OPERATOR HEADRONNIE Marina V74.1 TB SCREENING 05/05/2011 TREVOR TRANSCRIBING OPERATOR HEADRONNIE Marina V74.1 TB SCREENING 06/26/2011 Ot V22.2 06/26/2011 Ot V71.4 07/25/2011 V22.2 INCIDENTAL 07/25/2011 V74.5 STD SCREEN 07/25/2011 V22.2 INCIDENTAL 07/25/2011 V74.5 STD SCREEN 07/25/2011 SMITH DO, LISY K V22.2 INCIDENTAL 07/25/2011 SMITH DO, LISY K V74.5 STD SCREEN 07/25/2011 V22.2 INCIDENTAL 07/25/2011 V74.5 STD SCREEN 07/25/2011 V22.2 INCIDENTAL 07/25/2011 V74.5 STD SCREEN 07/25/2011 V22.2 INCIDENTAL 07/25/2011 V74.5 STD SCREEN 07/25/2011 V22.2 INCIDENTAL 07/25/2011 V74.5 STD SCREEN 07/25/2011 V22.2 INCIDENTAL 07/25/2011 V74.5 STD SCREEN 07/25/2011 SMITH DO, LISY K V22.2 INCIDENTAL 07/25/2011 SMITH DO, LISY K V74.5 STD SCREEN 07/25/2011 SILVERIO DDS, STEFANO M V22.2 INCIDENTAL 07/25/2011 SILVERIO DDS, STEFANO Chopra V74.5 STD SCREEN 07/25/2011 SMITH DO, LISY K V22.2 INCIDENTAL 07/25/2011 SMITH DO, LISY K V74.5 STD SCREEN 07/25/2011 SMITH DO, LISY K V22.2 INCIDENTAL 07/25/2011 SMITH DO, LISY K V74.5 STD SCREEN 07/25/2011 SMITH DO, LISY K V22.2 INCIDENTAL 07/25/2011 SMITH DO, LISY K V74.5 STD SCREEN 07/25/2011 RONNIE MURRAY APRN V22.2 INCIDENTAL 07/25/2011 RONNIE MURRAY APRN V74.5 STD SCREEN 07/25/2011 NAJERA DDS, SHRUTI V22.2 INCIDENTAL 07/25/2011 NAJERA DDS, SHRUTI V74.5 STD SCREEN 07/25/2011 NAJERA DDS, SHRUTI V22.2 INCIDENTAL 07/25/2011 NAJERA DDS, SHRUTI V74.5 STD SCREEN 07/25/2011 TREVOR CEDEÑON, RONNIE T V22.2 INCIDENTAL 07/25/2011 TREVOR TRANSCRIBING OPERATOR HEAD, RONNIE T V74.5 STD SCREEN 07/25/2011 TREVOR TRANSCRIBING OPERATOR HEAD, RONNIE T V22.2 INCIDENTAL 07/25/2011 TREVOR CEDEÑON, RONNIE T V74.5 STD SCREEN 07/25/2011 TREVOR TRANSCRIBING OPERATOR HEAD, RONNIE T V22.2 INCIDENTAL 07/25/2011 TREVOR TRANSCRIBING OPERATOR HEAD, RONNIE T V74.5 STD SCREEN 07/25/2011 TREVOR CEDEÑON, RONNIE T V22.2 INCIDENTAL 07/25/2011 TREVOR CEDEÑON, RONNIE T V74.5 STD SCREEN 07/25/2011 TREVOR CEDEÑON, RONNIE T V22.2 INCIDENTAL 07/25/2011 TREVOR CEDEÑONRONNIE T V74.5 STD SCREEN 07/25/2011 TREVOR CEDEÑON, RONNIE T V22.2 INCIDENTAL 07/25/2011 TREVOR CEDEÑON, RONNIE T V74.5 STD SCREEN 07/25/2011 [facility] TRANSCRIBING OPERATOR HEAD, BRUNILDA L V22.2 INCIDENTAL 07/25/2011 GLENN TRANSCRIBING OPERATOR HEAD, BRUNILDA L V74.5 STD SCREEN 07/25/2011 TREVOR CEDEÑON, RONNIE T V22.2 INCIDENTAL 07/25/2011 TREVOR CEDEÑON, RONNIE T V74.5 STD SCREEN 07/25/2011 TREVOR CEDEÑON, RONNIE T V22.2 INCIDENTAL 07/25/2011 TREVOR CEDEÑON, RONNIE T V74.5 STD SCREEN 07/25/2011 TREVOR CEDEÑON, RONNIE T V22.2 INCIDENTAL 07/25/2011 TREVOR CEDEÑON, RONNIE T V74.5 STD SCREEN 09/23/2011 Ot 646.83 09/23/2011 Ot 780.2 10/29/2011 Ot 041.12 10/29/2011 Ot 054.10 10/29/2011 Ot 285.1 10/29/2011 Ot 285.9 10/29/2011 Ot 599.0 10/29/2011 Ot 644.21 10/29/2011 Ot 646.61 10/29/2011 Ot 647.61 10/29/2011 Ot 648.21 10/29/2011 Ot 648.22 10/29/2011 Ot 648.91 10/29/2011 Ot 663.31 10/29/2011 Ot V02.51 10/29/2011 Ot V06.1 10/29/2011 Ot V06.4 10/29/2011 Ot V27.0 10/29/2011 Ot V58.69 12/23/2011 729.5 PAIN IN LIMB 12/23/2011 729.5 PAIN IN LIMB 12/23/2011 SMITH LISY HALL K 729.5 PAIN IN LIMB 12/23/2011 729.5 PAIN IN LIMB 12/23/2011 729.5 PAIN IN LIMB 12/23/2011 729.5 PAIN IN LIMB 12/23/2011 729.5 PAIN IN LIMB 12/23/2011 729.5 PAIN IN LIMB 12/23/2011 LISY SMITH DO K 729.5 PAIN IN LIMB 12/23/2011 SILVERIO DDS, STEFANO Chopra 729.5 PAIN IN LIMB 12/23/2011 SMITH LISY HALL K 729.5 PAIN IN LIMB 12/23/2011 LISY SMITH DO K 729.5 PAIN IN LIMB 12/23/2011 SMITH DOLISY K 729.5 PAIN IN LIMB 12/23/2011 RONNIE MURRAY APRN 729.5 PAIN IN LIMB 12/23/2011 NAJERA DDS, SHRUTI 729.5 PAIN IN LIMB 12/23/2011 NAJERA DDS, SHRUTI 729.5 PAIN IN LIMB 12/23/2011 RONNIE MURRAY APRN 729.5 PAIN IN LIMB 12/23/2011 RONNIE MURRAY APRN 729.5 PAIN IN LIMB 12/23/2011 RONNIE MURRAY APRN 729.5 PAIN IN LIMB 12/23/2011 RONNIE MURRAY APRN 729.5 PAIN IN LIMB 12/23/2011 RONNIE MURRAY APRN 729.5 PAIN IN LIMB 12/23/2011 RONNIE MURRAY APRN 729.5 PAIN IN LIMB 12/23/2011 BRUNILDA ELIZABETH APRN 729.5 PAIN IN LIMB 12/23/2011 RONNIE MURRAY APRN 729.5 PAIN IN LIMB 12/23/2011 RONNIE MURRAY APRN 729.5 PAIN IN LIMB 12/23/2011 RONNIE MURRAY APRN 729.5 PAIN IN LIMB 01/20/2012 536.8 DYSPEPSIA 01/20/2012 611.71 BREAST PAIN 01/20/2012 719.47 PAIN IN JOINT INVOLVING ANKLE AND FOOT 01/20/2012 536.8 DYSPEPSIA 01/20/2012 611.71 BREAST PAIN 01/20/2012 719.47 PAIN IN JOINT INVOLVING ANKLE AND FOOT 01/20/2012 LISY SMITH DO 536.8 DYSPEPSIA 01/20/2012 LISY SMITH DO 611.71 BREAST PAIN 01/20/2012 LISY SMITH DO 719.47 PAIN IN JOINT INVOLVING ANKLE AND FOOT 01/20/2012 536.8 DYSPEPSIA 01/20/2012 611.71 BREAST PAIN 01/20/2012 719.47 PAIN IN JOINT INVOLVING ANKLE AND FOOT 01/20/2012 536.8 DYSPEPSIA 01/20/2012 611.71 BREAST PAIN 01/20/2012 719.47 PAIN IN JOINT INVOLVING ANKLE AND FOOT 01/20/2012 536.8 DYSPEPSIA 01/20/2012 611.71 BREAST PAIN 01/20/2012 719.47 PAIN IN JOINT INVOLVING ANKLE AND FOOT 01/20/2012 536.8 DYSPEPSIA 01/20/2012 611.71 BREAST PAIN 01/20/2012 719.47 PAIN IN JOINT INVOLVING ANKLE AND FOOT 01/20/2012 536.8 DYSPEPSIA 01/20/2012 611.71 BREAST PAIN 01/20/2012 719.47 PAIN IN JOINT INVOLVING ANKLE AND FOOT 01/20/2012 LISY SMITH DO 536.8 DYSPEPSIA 01/20/2012 LISY SMITH DO 611.71 BREAST PAIN 01/20/2012 LISY SMITH DO 719.47 PAIN IN JOINT INVOLVING ANKLE AND FOOT 01/20/2012 STEFANO SAWYER DDS 536.8 DYSPEPSIA 01/20/2012 STEFANO SAWYER DDS 611.71 BREAST PAIN 01/20/2012 STEFANO SAWYER DDS 719.47 PAIN IN JOINT INVOLVING ANKLE AND FOOT 01/20/2012 LISY SMITH DO 536.8 DYSPEPSIA 01/20/2012 LISY SMITH DO 611.71 BREAST PAIN 01/20/2012 SMITH DOLISY 719.47 PAIN IN JOINT INVOLVING ANKLE AND FOOT 01/20/2012 SMITH DO, LISY K 536.8 DYSPEPSIA 01/20/2012 SMITH DO, LISY K 611.71 BREAST PAIN 01/20/2012 SMITH DO, LISY K 719.47 PAIN IN JOINT INVOLVING ANKLE AND FOOT 01/20/2012 SMITH DO, LISY K 536.8 DYSPEPSIA 01/20/2012 SMITH DO, LISY K 611.71 BREAST PAIN 01/20/2012 SMITH DO, LISY K 719.47 PAIN IN JOINT INVOLVING ANKLE AND FOOT 01/20/2012 RONNIE MURRAY APRN 536.8 DYSPEPSIA 01/20/2012 RONNIE MURRAY APRN 611.71 BREAST PAIN 01/20/2012 RONNIE MURRAY APRN 719.47 PAIN IN JOINT INVOLVING ANKLE AND FOOT 01/20/2012 NAJERA DDS, SHRUTI 536.8 DYSPEPSIA 01/20/2012 NAJERA DDS, SHRUTI 611.71 BREAST PAIN 01/20/2012 NAJERA DDS, SHRUTI 719.47 PAIN IN JOINT INVOLVING ANKLE AND FOOT 01/20/2012 NAJERA DDS, SHRUTI 536.8 DYSPEPSIA 01/20/2012 NAJERA DDS, SHRUTI 611.71 BREAST PAIN 01/20/2012 DANIA HOGANS, SHRUTI 719.47 PAIN IN JOINT INVOLVING ANKLE AND FOOT 01/20/2012 RONNIE MURRAY APRN 536.8 DYSPEPSIA 01/20/2012 RONNIE MURRAY APRN 611.71 BREAST PAIN 01/20/2012 RONNIE MURRAY APRN 719.47 PAIN IN JOINT INVOLVING ANKLE AND FOOT 01/20/2012 RONNIE MURRAY APRN 536.8 DYSPEPSIA 01/20/2012 RONNIE MURRAY APRN 611.71 BREAST PAIN 01/20/2012 RONNIE MURRAY APRN 719.47 PAIN IN JOINT INVOLVING ANKLE AND FOOT 01/20/2012 RONNIE MURRAY APRN 536.8 DYSPEPSIA 01/20/2012 RONNIE MURRAY APRN 611.71 BREAST PAIN 01/20/2012 RONNIE MURRAY APRN 719.47 PAIN IN JOINT INVOLVING ANKLE AND FOOT 01/20/2012 RONNIE MURRAY APRN 536.8 DYSPEPSIA 01/20/2012 RONNIE MURRAY APRN 611.71 BREAST PAIN 01/20/2012 RONNIE MURRAY APRN 719.47 PAIN IN JOINT INVOLVING ANKLE AND FOOT 01/20/2012 RONNIE MURRAY APRN 536.8 DYSPEPSIA 01/20/2012 RONNIE MURRAY APRN 611.71 BREAST PAIN 01/20/2012 RONNIE MURRAY APRN 719.47 PAIN IN JOINT INVOLVING ANKLE AND FOOT 01/20/2012 RONNIE MURRAY APRN 536.8 DYSPEPSIA 01/20/2012 RONNIE MURRAY APRN 611.71 BREAST PAIN 01/20/2012 RONNIE MURRAY APRN 719.47 PAIN IN JOINT INVOLVING ANKLE AND FOOT 01/20/2012 BRUNILDA ELIZABETH APRN 536.8 DYSPEPSIA 01/20/2012 BRUNILDA ELIZABETH APRN L 611.71 BREAST PAIN 01/20/2012 BRUNILDA ELIZABETH APRN 719.47 PAIN IN JOINT INVOLVING ANKLE AND FOOT 01/20/2012 RONNIE MURRAY APRN 536.8 DYSPEPSIA 01/20/2012 RONNIE MURRAY APRN 611.71 BREAST PAIN 01/20/2012 RONNIE MURRAY APRN 719.47 PAIN IN JOINT INVOLVING ANKLE AND FOOT 01/20/2012 RONNIE MURRAY APRN 536.8 DYSPEPSIA 01/20/2012 RONNIE MURRAY APRN 611.71 BREAST PAIN 01/20/2012 RONNIE MURRAY APRN 719.47 PAIN IN JOINT INVOLVING ANKLE AND FOOT 01/20/2012 RONNIE MURRAY APRN 536.8 DYSPEPSIA 01/20/2012 RONNIE MURRAY APRN 611.71 BREAST PAIN 01/20/2012 RONNIE MURRAY APRN 719.47 PAIN IN JOINT INVOLVING ANKLE AND FOOT 02/23/2012 V25.41 SURVEILLANCE OF CONTRACEPTIVE PILL 02/23/2012 V25.41 SURVEILLANCE OF CONTRACEPTIVE PILL 02/23/2012 LISY SMITH DO V25.41 SURVEILLANCE OF CONTRACEPTIVE PILL 02/23/2012 V25.41 SURVEILLANCE OF CONTRACEPTIVE PILL 02/23/2012 V25.41 SURVEILLANCE OF CONTRACEPTIVE PILL 02/23/2012 V25.41 SURVEILLANCE OF CONTRACEPTIVE PILL 02/23/2012 V25.41 SURVEILLANCE OF CONTRACEPTIVE PILL 02/23/2012 V25.41 SURVEILLANCE OF CONTRACEPTIVE PILL 02/23/2012 LISY SMITH DO V25.41 SURVEILLANCE OF CONTRACEPTIVE PILL 02/23/2012 SILVERIO HOGANSSTEFANO V25.41 SURVEILLANCE OF CONTRACEPTIVE PILL 02/23/2012 LISY SMITH DO V25.41 SURVEILLANCE OF CONTRACEPTIVE PILL 02/23/2012 LISY SMITH DO V25.41 SURVEILLANCE OF CONTRACEPTIVE PILL 02/23/2012 LISY SMITH DO V25.41 SURVEILLANCE OF CONTRACEPTIVE PILL 02/23/2012 RONNIE MURRAY APRN V25.41 SURVEILLANCE OF CONTRACEPTIVE PILL 02/23/2012 NAJERA DDSSHRUTI V25.41 SURVEILLANCE OF CONTRACEPTIVE PILL 02/23/2012 NAJERA EDISONSSHRUTI V25.41 SURVEILLANCE OF CONTRACEPTIVE PILL 02/23/2012 RONNIE MURRAY APRN V25.41 SURVEILLANCE OF CONTRACEPTIVE PILL 02/23/2012 RONNIE MURRAY APRN V25.41 SURVEILLANCE OF CONTRACEPTIVE PILL 02/23/2012 RONNIE MURRAY APRN V25.41 SURVEILLANCE OF CONTRACEPTIVE PILL 02/23/2012 RONNIE MURRAY APRN V25.41 SURVEILLANCE OF CONTRACEPTIVE PILL 02/23/2012 RONNIE MURRAY APRN V25.41 SURVEILLANCE OF CONTRACEPTIVE PILL 02/23/2012 RONNIE MURRAY APRN V25.41 SURVEILLANCE OF CONTRACEPTIVE PILL 02/23/2012 BRUNILDA ELIZABETH APRN V25.41 SURVEILLANCE OF CONTRACEPTIVE PILL 02/23/2012 RONNIE MURRAY APRN V25.41 SURVEILLANCE OF CONTRACEPTIVE PILL 02/23/2012 RONNIE MURRAY APRN V25.41 SURVEILLANCE OF CONTRACEPTIVE PILL 02/23/2012 RONNIE MURRAY APRN V25.41 SURVEILLANCE OF CONTRACEPTIVE PILL 04/19/2012 719.41 PAIN IN JOINT INVOLVING SHOULDER REGION 04/19/2012 719.41 PAIN IN JOINT INVOLVING SHOULDER REGION 04/19/2012 LISY SMITH DO 719.41 PAIN IN JOINT INVOLVING SHOULDER REGION 04/19/2012 719.41 PAIN IN JOINT INVOLVING SHOULDER REGION 04/19/2012 719.41 PAIN IN JOINT INVOLVING SHOULDER REGION 04/19/2012 719.41 PAIN IN JOINT INVOLVING SHOULDER REGION 04/19/2012 719.41 PAIN IN JOINT INVOLVING SHOULDER REGION 04/19/2012 719.41 PAIN IN JOINT INVOLVING SHOULDER REGION 04/19/2012 LISY SMITH DO 719.41 PAIN IN JOINT INVOLVING SHOULDER REGION 04/19/2012 STEFANO SAWYER DDS 719.41 PAIN IN JOINT INVOLVING SHOULDER REGION 04/19/2012 LISY SMITH DO 719.41 PAIN IN JOINT INVOLVING SHOULDER REGION 04/19/2012 LISY SMITH DO 719.41 PAIN IN JOINT INVOLVING SHOULDER REGION 04/19/2012 LISY SMITH DO 719.41 PAIN IN JOINT INVOLVING SHOULDER REGION 04/19/2012 RONNIE MURRAY APRN 719.41 PAIN IN JOINT INVOLVING SHOULDER REGION 04/19/2012 SHRUTI NAJERA DDS 719.41 PAIN IN JOINT INVOLVING SHOULDER REGION 04/19/2012 SHRUTI NAJERA DDS 719.41 PAIN IN JOINT INVOLVING SHOULDER REGION 04/19/2012 RONNIE MURRAY APRN 719.41 PAIN IN JOINT INVOLVING SHOULDER REGION 04/19/2012 RONNIE MURRAY APRN 719.41 PAIN IN JOINT INVOLVING SHOULDER REGION 04/19/2012 RONNIE MURRAY APRN 719.41 PAIN IN JOINT INVOLVING SHOULDER REGION 04/19/2012 RONNIE MURRAY APRN 719.41 PAIN IN JOINT INVOLVING SHOULDER REGION 04/19/2012 RONNIE MURRAY APRN 719.41 PAIN IN JOINT INVOLVING SHOULDER REGION 04/19/2012 RONNIE MURRAY APRN 719.41 PAIN IN JOINT INVOLVING SHOULDER REGION 04/19/2012 BRUNILDA ELIZABETH APRN 719.41 PAIN IN JOINT INVOLVING SHOULDER REGION 04/19/2012 RONNIE MURRAY APRN 719.41 PAIN IN JOINT INVOLVING SHOULDER REGION 04/19/2012 RONNIE MURRAY APRN 719.41 PAIN IN JOINT INVOLVING SHOULDER REGION 04/19/2012 RONNIE MURRAY APRN 719.41 PAIN IN JOINT INVOLVING SHOULDER REGION 05/17/2012 278.00 OBESITY 05/17/2012 278.00 OBESITY 05/17/2012 LISY SMITH DO 278.00 OBESITY 05/17/2012 278.00 OBESITY 05/17/2012 278.00 OBESITY 05/17/2012 278.00 OBESITY 05/17/2012 278.00 OBESITY 05/17/2012 278.00 OBESITY 05/17/2012 LISY SMITH DO 278.00 OBESITY 05/17/2012 STEFANO SAWYER DDS 278.00 OBESITY 05/17/2012 SMITH DO, LISY K 278.00 OBESITY 05/17/2012 SMITH DO, LISY K 278.00 OBESITY 05/17/2012 SMITH DO, LISY K 278.00 OBESITY 05/17/2012 TREVOR CEDEÑON, RONNIE T 278.00 OBESITY 05/17/2012 NAJERA DDS, SHRUIT 278.00 OBESITY 05/17/2012 NAJERA DDS, SHRUTI 278.00 OBESITY 05/17/2012 TERVOR CEDEÑON, RONNIE T 278.00 OBESITY 05/17/2012 TREVOR TRANSCRIBING OPERATOR HEAD, RONNIE T 278.00 OBESITY 05/17/2012 TREVOR TRANSCRIBING OPERATOR HEAD, RONNIE T 278.00 OBESITY 05/17/2012 TREVOR TRANSCRIBING OPERATOR HEAD, RONNIE T 278.00 OBESITY 05/17/2012 TREVOR CEDEÑON, RONNIE T 278.00 OBESITY 05/17/2012 TREVOR CEDEÑON, RONNIE T 278.00 OBESITY 05/17/2012 GLENN TRANSCRIBING OPERATOR HEAD, BRUNILDA Aneta 278.00 OBESITY 05/17/2012 TREVOR HANEY, RONNIE T 278.00 OBESITY 05/17/2012 TREVOR HANEY, RONNIE T 278.00 OBESITY 05/17/2012 TREVOR HANEY, RONNIE T 278.00 OBESITY 06/02/2012 244.9 HYPOTHYROIDISM 06/02/2012 244.9 HYPOTHYROIDISM 06/02/2012 SMITH DO, LISY K 244.9 HYPOTHYROIDISM 06/02/2012 244.9 HYPOTHYROIDISM 06/02/2012 244.9 HYPOTHYROIDISM 06/02/2012 244.9 HYPOTHYROIDISM 06/02/2012 244.9 HYPOTHYROIDISM 06/02/2012 244.9 HYPOTHYROIDISM 06/02/2012 SMITH DO, LISY K 244.9 HYPOTHYROIDISM 06/02/2012 SILVERIO HOGANSSTEFANO 244.9 HYPOTHYROIDISM 06/02/2012 SMITH DO, LISY K 244.9 HYPOTHYROIDISM 06/02/2012 SMITH DO, LISY K 244.9 HYPOTHYROIDISM 06/02/2012 SMITH DO, LISY K 244.9 HYPOTHYROIDISM 06/02/2012 RONNIE MURRAY APRN T 244.9 HYPOTHYROIDISM 06/02/2012 NAJERA DDS, SHRUTI 244.9 HYPOTHYROIDISM 06/02/2012 NAJERA DDS, SHRUTI 244.9 HYPOTHYROIDISM 06/02/2012 RONNIE MURRAY APRN T 244.9 HYPOTHYROIDISM 06/02/2012 RONNIE MURRAY APRN T 244.9 HYPOTHYROIDISM 06/02/2012 RONNIE MURRAY APRN T 244.9 HYPOTHYROIDISM 06/02/2012 RONNIE MURRAY APRN T 244.9 HYPOTHYROIDISM 06/02/2012 TREVOR CEDEÑON RONNIE T 244.9 HYPOTHYROIDISM 06/02/2012 TREVOR CEDEÑON, RONNIE T 244.9 HYPOTHYROIDISM 06/02/2012 BRUNILDA ELIZABETH APRN 244.9 HYPOTHYROIDISM 06/02/2012 TREVOR HANEY, RONNIE T 244.9 HYPOTHYROIDISM 06/02/2012 RONNIE MURRAY APRN T 244.9 HYPOTHYROIDISM 06/02/2012 RONNIE MURRAY APRN T 244.9 HYPOTHYROIDISM 06/28/2012 Ot 718.31 07/13/2012 719.42 PAIN IN JOINT INVOLVING UPPER ARM 07/13/2012 782.0 DISTURBANCE OF SKIN SENSATION 07/13/2012 719.42 PAIN IN JOINT INVOLVING UPPER ARM 07/13/2012 782.0 DISTURBANCE OF SKIN SENSATION 07/13/2012 LISY SMITH DO 719.42 PAIN IN JOINT INVOLVING UPPER ARM 07/13/2012 LISY SMITH DO 782.0 DISTURBANCE OF SKIN SENSATION 07/13/2012 719.42 PAIN IN JOINT INVOLVING UPPER ARM 07/13/2012 782.0 DISTURBANCE OF SKIN SENSATION 07/13/2012 719.42 PAIN IN JOINT INVOLVING UPPER ARM 07/13/2012 782.0 DISTURBANCE OF SKIN SENSATION 07/13/2012 719.42 PAIN IN JOINT INVOLVING UPPER ARM 07/13/2012 782.0 DISTURBANCE OF SKIN SENSATION 07/13/2012 719.42 PAIN IN JOINT INVOLVING UPPER ARM 07/13/2012 782.0 DISTURBANCE OF SKIN SENSATION 07/13/2012 719.42 PAIN IN JOINT INVOLVING UPPER ARM 07/13/2012 782.0 DISTURBANCE OF SKIN SENSATION 07/13/2012 LISY SMITH DO 719.42 PAIN IN JOINT INVOLVING UPPER ARM 07/13/2012 ITALIA SMITH DOA K 782.0 DISTURBANCE OF SKIN SENSATION 07/13/2012 STEFANO SAWYER DDS 719.42 PAIN IN JOINT INVOLVING UPPER ARM 07/13/2012 STEFANO SAWYER DDS 782.0 DISTURBANCE OF SKIN SENSATION 07/13/2012 ITALIA SMITH DOA K 719.42 PAIN IN JOINT INVOLVING UPPER ARM 07/13/2012 ITALIA SMITH DOA K 782.0 DISTURBANCE OF SKIN SENSATION 07/13/2012 ITALIA SMITH DOA K 719.42 PAIN IN JOINT INVOLVING UPPER ARM 07/13/2012 SMITH DO, LISY K 782.0 DISTURBANCE OF SKIN SENSATION 07/13/2012 SMITH DO, LISY K 719.42 PAIN IN JOINT INVOLVING UPPER ARM 07/13/2012 SMITH DO, LISY K 782.0 DISTURBANCE OF SKIN SENSATION 07/13/2012 RONNIE MURRAY APRN 719.42 PAIN IN JOINT INVOLVING UPPER ARM 07/13/2012 RONNIE MURRAY APRN 782.0 DISTURBANCE OF SKIN SENSATION 07/13/2012 NAJERA DDS, SHRUTI 719.42 PAIN IN JOINT INVOLVING UPPER ARM 07/13/2012 NAJERA DDS, SHRUTI 782.0 DISTURBANCE OF SKIN SENSATION 07/13/2012 NAJERA DDS, SHRUTI 719.42 PAIN IN JOINT INVOLVING UPPER ARM 07/13/2012 NAJERA DDS, SHRUTI 782.0 DISTURBANCE OF SKIN SENSATION 07/13/2012 RONNIE MURRAY APRN 719.42 PAIN IN JOINT INVOLVING UPPER ARM 07/13/2012 RONNIE MURRAY APRN 782.0 DISTURBANCE OF SKIN SENSATION 07/13/2012 RONNIE MURRAY APRN 719.42 PAIN IN JOINT INVOLVING UPPER ARM 07/13/2012 RONNIE MURRAY APRN 782.0 DISTURBANCE OF SKIN SENSATION 07/13/2012 RONNIE MURRAY APRN 719.42 PAIN IN JOINT INVOLVING UPPER ARM 07/13/2012 RONNIE MURRAY APRN 782.0 DISTURBANCE OF SKIN SENSATION 07/13/2012 RONNIE MURRAY APRN 719.42 PAIN IN JOINT INVOLVING UPPER ARM 07/13/2012 RONNIE MURRAY APRN 782.0 DISTURBANCE OF SKIN SENSATION 07/13/2012 RONNIE MURRAY APRN 719.42 PAIN IN JOINT INVOLVING UPPER ARM 07/13/2012 RONNIE MURRAY APRN 782.0 DISTURBANCE OF SKIN SENSATION 07/13/2012 RONNIE MURRAY APRN 719.42 PAIN IN JOINT INVOLVING UPPER ARM 07/13/2012 RONNIE MURRAY APRN 782.0 DISTURBANCE OF SKIN SENSATION 07/13/2012 BRUNILDA ELIZABETH APRN L 719.42 PAIN IN JOINT INVOLVING UPPER ARM 07/13/2012 MADL MEDINA BRUNILDA L 782.0 DISTURBANCE OF SKIN SENSATION 07/13/2012 RONNIE MURRAY APRN 719.42 PAIN IN JOINT INVOLVING UPPER ARM 07/13/2012 RONNIE MURRAY APRN 782.0 DISTURBANCE OF SKIN SENSATION 07/13/2012 RONNIE MURRAY APRN 719.42 PAIN IN JOINT INVOLVING UPPER ARM 07/13/2012 RONNIE MURRAY APRN 782.0 DISTURBANCE OF SKIN SENSATION 07/13/2012 RONNIE MURRAY APRN 719.42 PAIN IN JOINT INVOLVING UPPER ARM 07/13/2012 RONNIE MURRAY APRN 782.0 DISTURBANCE OF SKIN SENSATION 08/30/2012 918.1 SUPERFICIAL INJURY OF CORNEA 08/30/2012 918.1 SUPERFICIAL INJURY OF [place]NE[place] 08/30/2012 ITALIA SMITH DOA K 918.1 SUPERFICIAL INJURY OF [place]NEA 08/30/2012 918.1 SUPERFICIAL INJURY OF CORNEA 08/30/2012 918.1 SUPERFICIAL INJURY OF [place] 08/30/2012 918.1 SUPERFICIAL INJURY OF [place] 08/30/2012 918.1 SUPERFICIAL INJURY OF [place] 08/30/2012 918.1 SUPERFICIAL INJURY OF [place] 08/30/2012 ITALIA SMITH DOA K 918.1 SUPERFICIAL INJURY OF [place] 08/30/2012 STEFANO SAWYER DDS 918.1 SUPERFICIAL INJURY OF [place] 08/30/2012 ITALIA SMITH DOA K 918.1 SUPERFICIAL INJURY OF [place] 08/30/2012 ITALIA SMITH DOA K 918.1 SUPERFICIAL INJURY OF [place] 08/30/2012 ITALIA SMITH DOA K 918.1 SUPERFICIAL INJURY OF [place] 08/30/2012 RONNIE MURRAY APRN 918.1 SUPERFICIAL INJURY OF [place] 08/30/2012 DANIA HOGANSSHRUTI 918.1 SUPERFICIAL INJURY OF [place] 08/30/2012 DANIA HOGANSSHRUTI 918.1 SUPERFICIAL INJURY OF [place] 08/30/2012 RONNIE MURRAY APRN 918.1 SUPERFICIAL INJURY OF [place] 08/30/2012 RONNIE MURRAY APRN 918.1 SUPERFICIAL INJURY OF [place] 08/30/2012 RONNIE MURRAY APRN 918.1 SUPERFICIAL INJURY OF [place] 08/30/2012 RONNIE MURRAY APRN 918.1 SUPERFICIAL INJURY OF [place] 08/30/2012 RONNIE MURRAY APRN 918.1 SUPERFICIAL INJURY OF [place] 08/30/2012 RONNIE MURRAY APRN 918.1 SUPERFICIAL INJURY OF [place] 08/30/2012 BRUNILDA ELIZABETH APRN 918.1 SUPERFICIAL INJURY OF [place] 08/30/2012 RONNIE MURRAY APRN 918.1 SUPERFICIAL INJURY OF [place] 08/30/2012 RONNIE MURRAY APRN 918.1 SUPERFICIAL INJURY OF [place] 08/30/2012 RONNIE MURRAY APRN 918.1 SUPERFICIAL INJURY OF [place] 10/11/2012 Ot 623.8 10/11/2012 Ot 634.92 10/20/2012 634.91 SPONTANEOUS INCOMPLETE WITHOUT COMPLICATION 10/20/2012 V25.9 CONTRACEPTION MANAGEMENT 10/20/2012 SMITH DO, LISY K 634.91 SPONTANEOUS INCOMPLETE WITHOUT COMPLICATION 10/20/2012 SMITH DO, LISY K V25.9 CONTRACEPTION MANAGEMENT 10/20/2012 634.91 SPONTANEOUS INCOMPLETE WITHOUT COMPLICATION 10/20/2012 V25.9 CONTRACEPTION MANAGEMENT 10/20/2012 634.91 SPONTANEOUS INCOMPLETE WITHOUT COMPLICATION 10/20/2012 V25.9 CONTRACEPTION MANAGEMENT 10/20/2012 634.91 SPONTANEOUS INCOMPLETE WITHOUT COMPLICATION 10/20/2012 V25.9 CONTRACEPTION MANAGEMENT 10/20/2012 634.91 SPONTANEOUS INCOMPLETE WITHOUT COMPLICATION 10/20/2012 V25.9 CONTRACEPTION MANAGEMENT 10/20/2012 634.91 SPONTANEOUS INCOMPLETE WITHOUT COMPLICATION 10/20/2012 V25.9 CONTRACEPTION MANAGEMENT 10/20/2012 SMITH DO, LISY K 634.91 SPONTANEOUS INCOMPLETE WITHOUT COMPLICATION 10/20/2012 SMITH DO, LISY K V25.9 CONTRACEPTION MANAGEMENT 10/20/2012 SILVERIO HOGANS, STEFANO Chopra 634.91 SPONTANEOUS INCOMPLETE WITHOUT COMPLICATION 10/20/2012 SILVERIO DDS, STEFANO Chopra V25.9 CONTRACEPTION MANAGEMENT 10/20/2012 SMITH DO, LISY K 634.91 SPONTANEOUS INCOMPLETE WITHOUT COMPLICATION 10/20/2012 SMITH DO, LISY K V25.9 CONTRACEPTION MANAGEMENT 10/20/2012 SMITH DO, LISY K 634.91 SPONTANEOUS INCOMPLETE WITHOUT COMPLICATION 10/20/2012 SMITH DO, LISY K V25.9 CONTRACEPTION MANAGEMENT 10/20/2012 SMITH DO, LISY K 634.91 SPONTANEOUS INCOMPLETE WITHOUT COMPLICATION 10/20/2012 SMITH DO, LISY K V25.9 CONTRACEPTION MANAGEMENT 10/20/2012 RONNIE MURRAY APRN 634.91 SPONTANEOUS INCOMPLETE WITHOUT COMPLICATION 10/20/2012 RONNIE MURRAY APRN V25.9 CONTRACEPTION MANAGEMENT 10/20/2012 NAJERA DDS, SHRUTI 634.91 SPONTANEOUS INCOMPLETE WITHOUT COMPLICATION 10/20/2012 NAJERA DDS, SHRUTI V25.9 CONTRACEPTION MANAGEMENT 10/20/2012 NAJERA DDS, SHRUTI 634.91 SPONTANEOUS INCOMPLETE WITHOUT COMPLICATION 10/20/2012 NAJERA DDS, SHRUTI V25.9 CONTRACEPTION MANAGEMENT 10/20/2012 RONNIE MURRAY APRN T 634.91 SPONTANEOUS INCOMPLETE WITHOUT COMPLICATION 10/20/2012 RONNIE MURRAY APRN T V25.9 CONTRACEPTION MANAGEMENT 10/20/2012 RONNIE MURRAY APRN T 634.91 SPONTANEOUS INCOMPLETE WITHOUT COMPLICATION 10/20/2012 RONNIE MURRAY APRN T V25.9 CONTRACEPTION MANAGEMENT 10/20/2012 RONNIE MURRAY APRN T 634.91 SPONTANEOUS INCOMPLETE WITHOUT COMPLICATION 10/20/2012 RONNIE MURRAY APRN T V25.9 CONTRACEPTION MANAGEMENT 10/20/2012 RONNIE MURRAY APRN T 634.91 SPONTANEOUS INCOMPLETE WITHOUT COMPLICATION 10/20/2012 RONNIE MURRAY APRN T V25.9 CONTRACEPTION MANAGEMENT 10/20/2012 RONNIE MURRAY APRN T 634.91 SPONTANEOUS INCOMPLETE WITHOUT COMPLICATION 10/20/2012 RONNIE MURRAY APRN T V25.9 CONTRACEPTION MANAGEMENT 10/20/2012 RONNIE MURRAY APRN T 634.91 SPONTANEOUS INCOMPLETE WITHOUT COMPLICATION 10/20/2012 RONNIE MURRAY APRN T V25.9 CONTRACEPTION MANAGEMENT 10/20/2012 GLENN HANEY, BRUNILDA L 634.91 SPONTANEOUS INCOMPLETE WITHOUT COMPLICATION 10/20/2012 GLENN HANEY, BRUNILDA L V25.9 CONTRACEPTION MANAGEMENT 10/20/2012 RONNIE MURRAY APRN T 634.91 SPONTANEOUS INCOMPLETE WITHOUT COMPLICATION 10/20/2012 RONNIE MURRAY APRN T V25.9 CONTRACEPTION MANAGEMENT 10/20/2012 RONNIE MURRAY APRN T 634.91 SPONTANEOUS INCOMPLETE WITHOUT COMPLICATION 10/20/2012 RONNIE MURRAY APRN T V25.9 CONTRACEPTION MANAGEMENT 10/20/2012 RONNIE MURRAY APRN T 634.91 SPONTANEOUS INCOMPLETE WITHOUT COMPLICATION 10/20/2012 RONNIE MURRAY APRN T V25.9 CONTRACEPTION MANAGEMENT 10/22/2012 LISY SMITH DO 623.5 LEUKORRHEA NOT SPECIFIED INFECTIVE 10/22/2012 LISY SMITH DO V76.2 CERVICAL CANCER SCREENING (PAP SMEAR) 10/22/2012 623.5 LEUKORRHEA NOT SPECIFIED INFECTIVE 10/22/2012 V76.2 CERVICAL CANCER SCREENING (PAP SMEAR) 10/22/2012 623.5 LEUKORRHEA NOT SPECIFIED INFECTIVE 10/22/2012 V76.2 CERVICAL CANCER SCREENING (PAP SMEAR) 10/22/2012 623.5 LEUKORRHEA NOT SPECIFIED INFECTIVE 10/22/2012 V76.2 CERVICAL CANCER SCREENING (PAP SMEAR) 10/22/2012 623.5 LEUKORRHEA NOT SPECIFIED INFECTIVE 10/22/2012 V76.2 CERVICAL CANCER SCREENING (PAP SMEAR) 10/22/2012 623.5 LEUKORRHEA NOT SPECIFIED INFECTIVE 10/22/2012 V76.2 CERVICAL CANCER SCREENING (PAP SMEAR) 10/22/2012 ITALIA SMITH DOA K 623.5 LEUKORRHEA NOT SPECIFIED INFECTIVE 10/22/2012 SMITH DO LISY K V76.2 CERVICAL CANCER SCREENING (PAP SMEAR) 10/22/2012 STEFANO SAWYER DDS 623.5 LEUKORRHEA NOT SPECIFIED INFECTIVE 10/22/2012 STEFANO SAWYER DDS V76.2 CERVICAL CANCER SCREENING (PAP SMEAR) 10/22/2012 ITALIA SMITH DOA K 623.5 LEUKORRHEA NOT SPECIFIED INFECTIVE 10/22/2012 SMITH DO LISY K V76.2 CERVICAL CANCER SCREENING (PAP SMEAR) 10/22/2012 LUIS HALL LISY K 623.5 LEUKORRHEA NOT SPECIFIED INFECTIVE 10/22/2012 LUIS HALL LISY K V76.2 CERVICAL CANCER SCREENING (PAP SMEAR) 10/22/2012 LUIS HALL LISY K 623.5 LEUKORRHEA NOT SPECIFIED INFECTIVE 10/22/2012 LUIS HALL LISY K V76.2 CERVICAL CANCER SCREENING (PAP SMEAR) 10/22/2012 RONNIE MURRAY APRN 623.5 LEUKORRHEA NOT SPECIFIED INFECTIVE 10/22/2012 RONNIE MURRAY APRN V76.2 CERVICAL CANCER SCREENING (PAP SMEAR) 10/22/2012 DANIA HOGANSSHRUTI 623.5 LEUKORRHEA NOT SPECIFIED INFECTIVE 10/22/2012 DANIA HOGANSSHRUTI V76.2 CERVICAL CANCER SCREENING (PAP SMEAR) 10/22/2012 DANIA HOGANSSHRUTI 623.5 LEUKORRHEA NOT SPECIFIED INFECTIVE 10/22/2012 DANIA HOGANSSHRUTI V76.2 CERVICAL CANCER SCREENING (PAP SMEAR) 10/22/2012 RONNIE MURRAY APRN 623.5 LEUKORRHEA NOT SPECIFIED INFECTIVE 10/22/2012 RONNIE MURRAY APRN V76.2 CERVICAL CANCER SCREENING (PAP SMEAR) 10/22/2012 RONNIE MURRAY APRN 623.5 LEUKORRHEA NOT SPECIFIED INFECTIVE 10/22/2012 RONNIE MURRAY APRN V76.2 CERVICAL CANCER SCREENING (PAP SMEAR) 10/22/2012 RONNIE MURRAY APRN 623.5 LEUKORRHEA NOT SPECIFIED INFECTIVE 10/22/2012 RONNIE MURRAY APRN V76.2 CERVICAL CANCER SCREENING (PAP SMEAR) 10/22/2012 RONNIE MURRAY APRN 623.5 LEUKORRHEA NOT SPECIFIED INFECTIVE 10/22/2012 RONNIE MURRAY APRN V76.2 CERVICAL CANCER SCREENING (PAP SMEAR) 10/22/2012 RONNIE MURRAY APRN 623.5 LEUKORRHEA NOT SPECIFIED INFECTIVE 10/22/2012 RONNIE MURRAY APRN V76.2 CERVICAL CANCER SCREENING (PAP SMEAR) 10/22/2012 RONNIE MURRAY APRN 623.5 LEUKORRHEA NOT SPECIFIED INFECTIVE 10/22/2012 RONNIE MURRAY APRN V76.2 CERVICAL CANCER SCREENING (PAP SMEAR) 10/22/2012 BRUNILDA ELIZABETH APRN L 623.5 LEUKORRHEA NOT SPECIFIED INFECTIVE 10/22/2012 BRUNILDA ELIZABETH APRN L V76.2 CERVICAL CANCER SCREENING (PAP SMEAR) 10/22/2012 RONNIE MURRAY APRN 623.5 LEUKORRHEA NOT SPECIFIED INFECTIVE 10/22/2012 RONNIE MURRAY APRN V76.2 CERVICAL CANCER SCREENING (PAP SMEAR) 10/22/2012 RONNIE MURRAY APRN 623.5 LEUKORRHEA NOT SPECIFIED INFECTIVE 10/22/2012 RONNIE MURRAY APRN V76.2 CERVICAL CANCER SCREENING (PAP SMEAR) 10/22/2012 RONNIE MURRAY APRN 623.5 LEUKORRHEA NOT SPECIFIED INFECTIVE 10/22/2012 RONNIE MURRAY APRN V76.2 CERVICAL CANCER SCREENING (PAP SMEAR) 01/10/2013 789.03 ABDOMINAL PAIN RIGHT LOWER QUADRANT 01/10/2013 789.09 ABDOMINAL PAIN OTHER SPECIFIED SITE 01/10/2013 789.03 ABDOMINAL PAIN RIGHT LOWER QUADRANT 01/10/2013 789.09 ABDOMINAL PAIN OTHER SPECIFIED SITE 01/10/2013 789.03 ABDOMINAL PAIN RIGHT LOWER QUADRANT 01/10/2013 789.09 ABDOMINAL PAIN OTHER SPECIFIED SITE 01/10/2013 789.03 ABDOMINAL PAIN RIGHT LOWER QUADRANT 01/10/2013 789.09 ABDOMINAL PAIN OTHER SPECIFIED SITE 01/10/2013 789.03 ABDOMINAL PAIN RIGHT LOWER QUADRANT 01/10/2013 789.09 ABDOMINAL PAIN OTHER SPECIFIED SITE 01/10/2013 SMITH DO, LISY K 789.03 ABDOMINAL PAIN RIGHT LOWER QUADRANT 01/10/2013 SMITH DO, LISY K 789.09 ABDOMINAL PAIN OTHER SPECIFIED SITE 01/10/2013 SILVERIO DDSSTEFANO 789.03 ABDOMINAL PAIN RIGHT LOWER QUADRANT 01/10/2013 SILVERIO DDS, STEFANO Chopra 789.09 ABDOMINAL PAIN OTHER SPECIFIED SITE 01/10/2013 SMITH DO, LISY K 789.03 ABDOMINAL PAIN RIGHT LOWER QUADRANT 01/10/2013 SMITH DO, LISY K 789.09 ABDOMINAL PAIN OTHER SPECIFIED SITE 01/10/2013 SMITH DO, LISY K 789.03 ABDOMINAL PAIN RIGHT LOWER QUADRANT 01/10/2013 SMITH DO, LISY K 789.09 ABDOMINAL PAIN OTHER SPECIFIED SITE 01/10/2013 SMITH DO, LISY K 789.03 ABDOMINAL PAIN RIGHT LOWER QUADRANT 01/10/2013 SMITH DO, LISY K 789.09 ABDOMINAL PAIN OTHER SPECIFIED SITE 01/10/2013 RONNIE MURRAY APRN 789.03 ABDOMINAL PAIN RIGHT LOWER QUADRANT 01/10/2013 RONNIE MURRAY APRN 789.09 ABDOMINAL PAIN OTHER SPECIFIED SITE 01/10/2013 NAJERA DDS, SHRUTI 789.03 ABDOMINAL PAIN RIGHT LOWER QUADRANT 01/10/2013 NAJERA DDS, SHRUTI 789.09 ABDOMINAL PAIN OTHER SPECIFIED SITE 01/10/2013 NAJERA DDS, SHRUTI 789.03 ABDOMINAL PAIN RIGHT LOWER QUADRANT 01/10/2013 NAJERA DDS, SHRUTI 789.09 ABDOMINAL PAIN OTHER SPECIFIED SITE 01/10/2013 RONNIE MURRAY APRN 789.03 ABDOMINAL PAIN RIGHT LOWER QUADRANT 01/10/2013 RONNIE MURRAY APRN 789.09 ABDOMINAL PAIN OTHER SPECIFIED SITE 01/10/2013 RONNIE MURRAY APRN 789.03 ABDOMINAL PAIN RIGHT LOWER QUADRANT 01/10/2013 RONNIE MURRAY APRN 789.09 ABDOMINAL PAIN OTHER SPECIFIED SITE 01/10/2013 TREVOR TRANSCRIBING OPERATOR HEAD, RONNIE T 789.03 ABDOMINAL PAIN RIGHT LOWER QUADRANT 01/10/2013 TREVOR TRANSCRIBING OPERATOR HEADRONNIE Marina T 789.09 ABDOMINAL PAIN OTHER SPECIFIED SITE 01/10/2013 RONNIE MURRAY APRN T 789.03 ABDOMINAL PAIN RIGHT LOWER QUADRANT 01/10/2013 TREVOR TRANSCRIBING OPERATOR HEADRONNIE Marina T 789.09 ABDOMINAL PAIN OTHER SPECIFIED SITE 01/10/2013 TREVOR TRANSCRIBING OPERATOR HEADRONNIE Marina T 789.03 ABDOMINAL PAIN RIGHT LOWER QUADRANT 01/10/2013 RONNIE MURRAY APRN T 789.09 ABDOMINAL PAIN OTHER SPECIFIED SITE 01/10/2013 RONNIE MURRAY APRN T 789.03 ABDOMINAL PAIN RIGHT LOWER QUADRANT 01/10/2013 TREVOR TRANSCRIBING OPERATOR HEADRONNIE Marina T 789.09 ABDOMINAL PAIN OTHER SPECIFIED SITE 01/10/2013 GLENN CEDEÑON, BRUNILDA L 789.03 ABDOMINAL PAIN RIGHT LOWER QUADRANT 01/10/2013 GLENN CEDEÑON, BRUNILDA L 789.09 ABDOMINAL PAIN OTHER SPECIFIED SITE 01/10/2013 RONNIE MURRAY APRN 789.03 ABDOMINAL PAIN RIGHT LOWER QUADRANT 01/10/2013 RONNIE MURRAY APRN T 789.09 ABDOMINAL PAIN OTHER SPECIFIED SITE 01/10/2013 TREVOR TRANSCRIBING OPERATOR HEADRONNIE Mairna T 789.03 ABDOMINAL PAIN RIGHT LOWER QUADRANT 01/10/2013 TREVOR TRANSCRIBING OPERATOR HEADRONNIE Marina T 789.09 ABDOMINAL PAIN OTHER SPECIFIED SITE 01/10/2013 RONNIE MURRAY APRN T 789.03 ABDOMINAL PAIN RIGHT LOWER QUADRANT 01/10/2013 TREVOR TRANSCRIBING OPERATOR HEADRONNIE Marina T 789.09 ABDOMINAL PAIN OTHER SPECIFIED SITE 02/22/2013 787.01 NAUSEA WITH VOMITING 02/22/2013 789.01 ABDOMINAL PAIN RIGHT UPPER QUADRANT 02/22/2013 787.01 NAUSEA WITH VOMITING 02/22/2013 789.01 ABDOMINAL PAIN RIGHT UPPER QUADRANT 02/22/2013 787.01 NAUSEA WITH VOMITING 02/22/2013 789.01 ABDOMINAL PAIN RIGHT UPPER QUADRANT 02/22/2013 787.01 NAUSEA WITH VOMITING 02/22/2013 789.01 ABDOMINAL PAIN RIGHT UPPER QUADRANT 02/22/2013 LISY SMITH DO 787.01 NAUSEA WITH VOMITING 02/22/2013 LISY SMITH DO 789.01 ABDOMINAL PAIN RIGHT UPPER QUADRANT 02/22/2013 STEFANO SAWYER DDS 787.01 NAUSEA WITH VOMITING 02/22/2013 STEFANO SAWYER DDS 789.01 ABDOMINAL PAIN RIGHT UPPER QUADRANT 02/22/2013 SMITH DO, LISY K 787.01 NAUSEA WITH VOMITING 02/22/2013 SMITH DO, LISY K 789.01 ABDOMINAL PAIN RIGHT UPPER QUADRANT 02/22/2013 SMITH DO, LISY K 787.01 NAUSEA WITH VOMITING 02/22/2013 SMITH DO, LISY K 789.01 ABDOMINAL PAIN RIGHT UPPER QUADRANT 02/22/2013 SMITH DO, LISY K 787.01 NAUSEA WITH VOMITING 02/22/2013 SMITH DO, LISY K 789.01 ABDOMINAL PAIN RIGHT UPPER QUADRANT 02/22/2013 RONNIE MURRAY APRN 787.01 NAUSEA WITH VOMITING 02/22/2013 RONNIE MURRAY APRN 789.01 ABDOMINAL PAIN RIGHT UPPER QUADRANT 02/22/2013 DANIA HOGANSSHRUTI 787.01 NAUSEA WITH VOMITING 02/22/2013 DANIA HOGANS, SHRUTI 789.01 ABDOMINAL PAIN RIGHT UPPER QUADRANT 02/22/2013 NAJERA DDS, SHRUTI 787.01 NAUSEA WITH VOMITING 02/22/2013 NAJERA DDS, SHRUTI 789.01 ABDOMINAL PAIN RIGHT UPPER QUADRANT 02/22/2013 RONNIE MURRAY APRN 787.01 NAUSEA WITH VOMITING 02/22/2013 RONNIE MURRAY APRN 789.01 ABDOMINAL PAIN RIGHT UPPER QUADRANT 02/22/2013 RONNIE MURRAY APRN 787.01 NAUSEA WITH VOMITING 02/22/2013 RONNIE MURRAY APRN 789.01 ABDOMINAL PAIN RIGHT UPPER QUADRANT 02/22/2013 RONNIE MURRAY APRN 787.01 NAUSEA WITH VOMITING 02/22/2013 RONNIE MURRAY APRN 789.01 ABDOMINAL PAIN RIGHT UPPER QUADRANT 02/22/2013 RONNIE MURRAY APRN 787.01 NAUSEA WITH VOMITING 02/22/2013 RONNIE MURRAY APRN 789.01 ABDOMINAL PAIN RIGHT UPPER QUADRANT 02/22/2013 RONNIE MURRAY APRN 787.01 NAUSEA WITH VOMITING 02/22/2013 RONNIE MURRAY APRN 789.01 ABDOMINAL PAIN RIGHT UPPER QUADRANT 02/22/2013 RONNIE MURRAY APRN 787.01 NAUSEA WITH VOMITING 02/22/2013 RONNIE MURRAY APRN 789.01 ABDOMINAL PAIN RIGHT UPPER QUADRANT 02/22/2013 BRUNILDA ELIZABETH APRN 787.01 NAUSEA WITH VOMITING 02/22/2013 GIULIANA ELIZABETH APRNWNYA L 789.01 ABDOMINAL PAIN RIGHT UPPER QUADRANT 02/22/2013 RONNIE MURRAY APRN T 787.01 NAUSEA WITH VOMITING 02/22/2013 RONNIE MURRAY APRN T 789.01 ABDOMINAL PAIN RIGHT UPPER QUADRANT 02/22/2013 RONNIE MURRAY APRN T 787.01 NAUSEA WITH VOMITING 02/22/2013 RONNIE MURRAY APRN 789.01 ABDOMINAL PAIN RIGHT UPPER QUADRANT 02/22/2013 RONNIE MURRAY APRN 787.01 NAUSEA WITH VOMITING 02/22/2013 RONNIE MURRAY APRN T 789.01 ABDOMINAL PAIN RIGHT UPPER QUADRANT 04/19/2013 V72.41 TEST NEGATIVE RESULT 04/19/2013 V72.41 TEST NEGATIVE RESULT 04/19/2013 V72.41 TEST NEGATIVE RESULT 04/19/2013 SMITH DO, LISY K V72.41 TEST NEGATIVE RESULT 04/19/2013 SILVERIO DDS, STEFANO Chopra V72.41 TEST NEGATIVE RESULT 04/19/2013 SMITH DO, LISY K V72.41 TEST NEGATIVE RESULT 04/19/2013 SMITH DO, LISY K V72.41 TEST NEGATIVE RESULT 04/19/2013 SMITH DO, LISY K V72.41 TEST NEGATIVE RESULT 04/19/2013 RONNIE MURRAY APRN V72.41 TEST NEGATIVE RESULT 04/19/2013 NAJERA DDS, SHRUTI V72.41 TEST NEGATIVE RESULT 04/19/2013 NAJERA DDS, SHRUTI V72.41 TEST NEGATIVE RESULT 04/19/2013 RONNIE MURRAY APRN V72.41 TEST NEGATIVE RESULT 04/19/2013 RONNIE MURRAY APRN V72.41 TEST NEGATIVE RESULT 04/19/2013 RONNIE MURRAY APRN V72.41 TEST NEGATIVE RESULT 04/19/2013 RONNIE MURRAY APRN V72.41 TEST NEGATIVE RESULT 04/19/2013 RONNIE MURRAY APRN V72.41 TEST NEGATIVE RESULT 04/19/2013 RONNIE MURRAY APRN V72.41 TEST NEGATIVE RESULT 04/19/2013 BRUNILDA ELIZABETH APRN L V72.41 TEST NEGATIVE RESULT 04/19/2013 RONNIE MURRAY APRN V72.41 TEST NEGATIVE RESULT 04/19/2013 RONNIE MURRAY APRN V72.41 TEST NEGATIVE RESULT 04/19/2013 TREVOR HANEY RONNIE T V72.41 TEST NEGATIVE RESULT 04/20/2013 611.6 GALACTORRHEA 04/20/2013 780.8 GENERALIZED HYPERHIDROSIS 04/20/2013 787.02 NAUSEA ALONE 04/20/2013 789.32 ABDOMINAL OR PELVIC SWELLING MASS OR LUMP LEFT UPPER QUADRANT 04/20/2013 611.6 GALACTORRHEA 04/20/2013 780.8 GENERALIZED HYPERHIDROSIS 04/20/2013 787.02 NAUSEA ALONE 04/20/2013 789.32 ABDOMINAL OR PELVIC SWELLING MASS OR LUMP LEFT UPPER QUADRANT 04/20/2013 611.6 GALACTORRHEA 04/20/2013 780.8 GENERALIZED HYPERHIDROSIS 04/20/2013 787.02 NAUSEA ALONE 04/20/2013 789.32 ABDOMINAL OR PELVIC SWELLING MASS OR LUMP LEFT UPPER QUADRANT 04/20/2013 SMITH DO LISY K 611.6 GALACTORRHEA 04/20/2013 SMITH DO LISY K 780.8 GENERALIZED HYPERHIDROSIS 04/20/2013 LUIS HALL LISY K 787.02 NAUSEA ALONE 04/20/2013 LUIS HALL LISY K 789.32 ABDOMINAL OR PELVIC SWELLING MASS OR LUMP LEFT UPPER QUADRANT 04/20/2013 SILVERIO DDS, STEFANO Chopra 611.6 GALACTORRHEA 04/20/2013 SILVERIO DDS, STEFANO Chopra 780.8 GENERALIZED HYPERHIDROSIS 04/20/2013 SILVERIO DDS, STEFANO Chopra 787.02 NAUSEA ALONE 04/20/2013 SILVERIO DDS, STEFANO Chopra 789.32 ABDOMINAL OR PELVIC SWELLING MASS OR LUMP LEFT UPPER QUADRANT 04/20/2013 SMITH DO LISY K 611.6 GALACTORRHEA 04/20/2013 SMITH DO LISY K 780.8 GENERALIZED HYPERHIDROSIS 04/20/2013 SMITH DO LISY K 787.02 NAUSEA ALONE 04/20/2013 SMITH DO LISY K 789.32 ABDOMINAL OR PELVIC SWELLING MASS OR LUMP LEFT UPPER QUADRANT 04/20/2013 SMITH DO LISY K 611.6 GALACTORRHEA 04/20/2013 SMITH DO LISY K 780.8 GENERALIZED HYPERHIDROSIS 04/20/2013 SMITH DO LISY K 787.02 NAUSEA ALONE 04/20/2013 SMITH DO LISY K 789.32 ABDOMINAL OR PELVIC SWELLING MASS OR LUMP LEFT UPPER QUADRANT 04/20/2013 SMITH DO, LISY K 611.6 GALACTORRHEA 04/20/2013 SMITH DO, LISY K 780.8 GENERALIZED HYPERHIDROSIS 04/20/2013 SMITH DO, LISY K 787.02 NAUSEA ALONE 04/20/2013 SMITH DO, LISY K 789.32 ABDOMINAL OR PELVIC SWELLING MASS OR LUMP LEFT UPPER QUADRANT 04/20/2013 RONNIE MURRAY APRN 611.6 GALACTORRHEA 04/20/2013 RONNIE MURRAY APRN 780.8 GENERALIZED HYPERHIDROSIS 04/20/2013 RONNIE MURRAY APRN 787.02 NAUSEA ALONE 04/20/2013 RONNIE MURRAY APRN 789.32 ABDOMINAL OR PELVIC SWELLING MASS OR LUMP LEFT UPPER QUADRANT 04/20/2013 NAJERA DDS, SHRUTI 611.6 GALACTORRHEA 04/20/2013 NAJERA DDS, SHRUTI 780.8 GENERALIZED HYPERHIDROSIS 04/20/2013 NAJERA DDS, SHRUTI 787.02 NAUSEA ALONE 04/20/2013 NAJERA DDS, SHRUTI 789.32 ABDOMINAL OR PELVIC SWELLING MASS OR LUMP LEFT UPPER QUADRANT 04/20/2013 NAJERA DDS, SHRUTI 611.6 GALACTORRHEA 04/20/2013 NAJERA DDS, SHRUTI 780.8 GENERALIZED HYPERHIDROSIS 04/20/2013 NAJERA DDS, SHRUTI 787.02 NAUSEA ALONE 04/20/2013 NAJERA DDS, SHRUTI 789.32 ABDOMINAL OR PELVIC SWELLING MASS OR LUMP LEFT UPPER QUADRANT 04/20/2013 RONNIE MURRAY APRN 611.6 GALACTORRHEA 04/20/2013 RONNIE MURRAY APRN 780.8 GENERALIZED HYPERHIDROSIS 04/20/2013 RONNIE MURRAY APRN 787.02 NAUSEA ALONE 04/20/2013 RONNIE MURRAY APRN 789.32 ABDOMINAL OR PELVIC SWELLING MASS OR LUMP LEFT UPPER QUADRANT 04/20/2013 RONNIE MURRAY APRN 611.6 GALACTORRHEA 04/20/2013 RONNIE MURRAY APRN 780.8 GENERALIZED HYPERHIDROSIS 04/20/2013 RONNIE MURRAY APRN 787.02 NAUSEA ALONE 04/20/2013 RONNIE MURRAY APRN 789.32 ABDOMINAL OR PELVIC SWELLING MASS OR LUMP LEFT UPPER QUADRANT 04/20/2013 RONNIE MURRAY APRN T 611.6 GALACTORRHEA 04/20/2013 RONNIE MURRAY APRN 780.8 GENERALIZED HYPERHIDROSIS 04/20/2013 RONNIE MURRAY APRN 787.02 NAUSEA ALONE 04/20/2013 RONNIE MURRAY APRN 789.32 ABDOMINAL OR PELVIC SWELLING MASS OR LUMP LEFT UPPER QUADRANT 04/20/2013 RONNIE MURRAY APRN 611.6 GALACTORRHEA 04/20/2013 RONNIE MURRAY APRN 780.8 GENERALIZED HYPERHIDROSIS 04/20/2013 RONNIE MURRAY APRN 787.02 NAUSEA ALONE 04/20/2013 RONNIE MURRAY APRN 789.32 ABDOMINAL OR PELVIC SWELLING MASS OR LUMP LEFT UPPER QUADRANT 04/20/2013 RONNIE MURRAY APRN 611.6 GALACTORRHEA 04/20/2013 RONNIE MURRAY APRN 780.8 GENERALIZED HYPERHIDROSIS 04/20/2013 RONNIE MURRAY APRN 787.02 NAUSEA ALONE 04/20/2013 RONNIE MURRAY APRN 789.32 ABDOMINAL OR PELVIC SWELLING MASS OR LUMP LEFT UPPER QUADRANT 04/20/2013 RONNIE MURRAY APRN T 611.6 GALACTORRHEA 04/20/2013 RONNIE MURRAY APRN 780.8 GENERALIZED HYPERHIDROSIS 04/20/2013 RONNIE MURRAY APRN 787.02 NAUSEA ALONE 04/20/2013 RONNIE MURRAY APRN 789.32 ABDOMINAL OR PELVIC SWELLING MASS OR LUMP LEFT UPPER QUADRANT 04/20/2013 GLENN HANEY BRUNILDA L 611.6 GALACTORRHEA 04/20/2013 GLENN HANEY, BRUNILDA L 780.8 GENERALIZED HYPERHIDROSIS 04/20/2013 GLENN HANEY BRUNILDA L 787.02 NAUSEA ALONE 04/20/2013 GLENN HANEY BRUNILDA L 789.32 ABDOMINAL OR PELVIC SWELLING MASS OR LUMP LEFT UPPER QUADRANT 04/20/2013 RONNIE MURRAY APRN T 611.6 GALACTORRHEA 04/20/2013 RONNIE MURRAY APRN T 780.8 GENERALIZED HYPERHIDROSIS 04/20/2013 RONNIE MURRAY APRN 787.02 NAUSEA ALONE 04/20/2013 RONNIE MURRAY APRN 789.32 ABDOMINAL OR PELVIC SWELLING MASS OR LUMP LEFT UPPER QUADRANT 04/20/2013 TREVOR HANEY RONNIE T 611.6 GALACTORRHEA 04/20/2013 RONNIE MURRAY APRN T 780.8 GENERALIZED HYPERHIDROSIS 04/20/2013 RONNIE MURRAY APRN T 787.02 NAUSEA ALONE 04/20/2013 RONNIE MURRAY APRN T 789.32 ABDOMINAL OR PELVIC SWELLING MASS OR LUMP LEFT UPPER QUADRANT 04/20/2013 RONNIE MURRAY APRN T 611.6 GALACTORRHEA 04/20/2013 RONNIE MURRAY APRN T 780.8 GENERALIZED HYPERHIDROSIS 04/20/2013 RONNIE MURRAY APRN T 787.02 NAUSEA ALONE 04/20/2013 RONNIE MURRAY APRN 789.32 ABDOMINAL OR PELVIC SWELLING MASS OR LUMP LEFT UPPER QUADRANT 05/11/2013 214.9 LIPOMA 05/11/2013 790.6 Liver Function Test, Abnormal 05/11/2013 214.9 LIPOMA 05/11/2013 790.6 Liver Function Test, Abnormal 05/11/2013 SMITH DO, LISY K 214.9 LIPOMA 05/11/2013 SMITH DO, LISY K 790.6 Liver Function Test, Abnormal 05/11/2013 SILVERIO DDS, STEFANO M 214.9 LIPOMA 05/11/2013 SILVERIO DDS, STEFANO M 790.6 Liver Function Test, Abnormal 05/11/2013 SMITH DO, LISY K 214.9 LIPOMA 05/11/2013 SMITH DO, LISY K 790.6 Liver Function Test, Abnormal 05/11/2013 SMITH DO, LISY K 214.9 LIPOMA 05/11/2013 SMITH DO, LISY K 790.6 Liver Function Test, Abnormal 05/11/2013 SMITH DO, LISY K 214.9 LIPOMA 05/11/2013 SMITH DO, LISY K 790.6 Liver Function Test, Abnormal 05/11/2013 TREVOR TRANSCRIBING OPERATOR HEADRONNIE Marina T 214.9 LIPOMA 05/11/2013 RONNIE MURRAY APRN T 790.6 Liver Function Test, Abnormal 05/11/2013 NAJERA DDSSHRUTI 214.9 LIPOMA 05/11/2013 NAJERA DDS, SHRUTI 790.6 Liver Function Test, Abnormal 05/11/2013 NAJERA DDSSHRUTI 214.9 LIPOMA 05/11/2013 NAJERA DDS, SHRUTI 790.6 Liver Function Test, Abnormal 05/11/2013 TREVOR TRANSCRIBING OPERATOR HEAD, RONNIE T 214.9 LIPOMA 05/11/2013 TREVOR TRANSCRIBING OPERATOR HEAD, RONNIE T 790.6 Liver Function Test, Abnormal 05/11/2013 TREVOR TRANSCRIBING OPERATOR HEAD, RONNIE T 214.9 LIPOMA 05/11/2013 TREVOR TRANSCRIBING OPERATOR HEAD, RONNIE T 790.6 Liver Function Test, Abnormal 05/11/2013 TREVOR TRANSCRIBING OPERATOR HEAD, RONNIE T 214.9 LIPOMA 05/11/2013 TREVOR TRANSCRIBING OPERATOR HEAD, RONNIE T 790.6 Liver Function Test, Abnormal 05/11/2013 TREVOR TRANSCRIBING OPERATOR HEAD, RONNIE T 214.9 LIPOMA 05/11/2013 TREVOR TRANSCRIBING OPERATOR HEAD, RONNIE T 790.6 Liver Function Test, Abnormal 05/11/2013 TREVOR TRANSCRIBING OPERATOR HEAD, RONNIE T 214.9 LIPOMA 05/11/2013 TREVOR TRANSCRIBING OPERATOR HEAD, RONNIE T 790.6 Liver Function Test, Abnormal 05/11/2013 TREVOR TRANSCRIBING OPERATOR HEAD, RONNIE T 214.9 LIPOMA 05/11/2013 TREVOR TRANSCRIBING OPERATOR HEAD, RONNIE T 790.6 Liver Function Test, Abnormal 05/11/2013 MADL TRANSCRIBING OPERATOR HEAD, BRUNILDA L 214.9 LIPOMA 05/11/2013 MADL TRANSCRIBING OPERATOR HEAD, BRUNILDA L 790.6 Liver Function Test, Abnormal 05/11/2013 TREVOR TRANSCRIBING OPERATOR HEAD, RONNIE T 214.9 LIPOMA 05/11/2013 TREVOR TRANSCRIBING OPERATOR HEAD, RONNIE T 790.6 Liver Function Test, Abnormal 05/11/2013 TREVOR TRANSCRIBING OPERATOR HEAD, RONNIE T 214.9 LIPOMA 05/11/2013 TREVOR TRANSCRIBING OPERATOR HEAD, RONNIE T 790.6 Liver Function Test, Abnormal 05/11/2013 TREVOR TRANSCRIBING OPERATOR HEAD, RONNIE T 214.9 LIPOMA 05/11/2013 TREVOR TRANSCRIBING OPERATOR HEAD, RONNIE T 790.6 LIVER FUNCTION TEST, ABNORMAL 07/05/2013 ESEQUIEL BAR, NNEKA Chopra Ot 214.1 07/16/2013 SMITH DO, LISY K 786.2 COUGH 07/16/2013 SMITH DO, LISY K 786.2 COUGH 07/16/2013 TREVOR CEDEÑON RONNIE T 786.2 COUGH 07/16/2013 NAJERA DDS, SHRUTI 786.2 COUGH 07/16/2013 NAJERA DDS, SHRUTI 786.2 COUGH 07/16/2013 TREVOR CEDEÑON RONNIE T 786.2 COUGH 07/16/2013 TREVOR CEDEÑON, RONNIE T 786.2 COUGH 07/16/2013 RONNIE MURRAY APRN 786.2 COUGH 07/16/2013 TREVOR CEDEÑON, RONNIE T 786.2 COUGH 07/16/2013 TREVOR CEDEÑON, RONNIE T 786.2 COUGH 07/16/2013 TREVOR CEDEÑON, RONNIE T 786.2 COUGH 07/16/2013 BRUNILDA ELIZABETH APRN 786.2 COUGH 07/16/2013 TREVOR CEDEÑON, RONNIE T 786.2 COUGH 07/16/2013 TREVOR CEDEÑON, RONNIE T 786.2 COUGH 07/16/2013 TREVOR CEDEÑON, RONNIE T 786.2 COUGH 08/01/2013 LISY SMITH DO V58.32 ENCOUNTER FOR REMOVAL OF SUTURES 08/01/2013 RONNIE MURRAY APRN V58.32 ENCOUNTER FOR REMOVAL OF SUTURES 08/01/2013 NAJERA EDISONSSHRUTI V58.32 ENCOUNTER FOR REMOVAL OF SUTURES 08/01/2013 NAJERA EDISONSSHRUTI V58.32 ENCOUNTER FOR REMOVAL OF SUTURES 08/01/2013 RONNIE MURRAY APRN V58.32 ENCOUNTER FOR REMOVAL OF SUTURES 08/01/2013 RONNIE MURRAY APRN V58.32 ENCOUNTER FOR REMOVAL OF SUTURES 08/01/2013 RONNIE MURRAY APRN V58.32 ENCOUNTER FOR REMOVAL OF SUTURES 08/01/2013 RONNIE MURRAY APRN V58.32 ENCOUNTER FOR REMOVAL OF SUTURES 08/01/2013 RONNIE MURRAY APRN V58.32 ENCOUNTER FOR REMOVAL OF SUTURES 08/01/2013 RONNIE MURRAY APRN V58.32 ENCOUNTER FOR REMOVAL OF SUTURES 08/01/2013 BRUNILDA ELIZABETH APRN V58.32 ENCOUNTER FOR REMOVAL OF SUTURES 08/01/2013 RONNIE MURRAY APRN V58.32 ENCOUNTER FOR REMOVAL OF SUTURES 08/01/2013 RONNIE MURRAY APRN V58.32 ENCOUNTER FOR REMOVAL OF SUTURES 08/01/2013 RONNIE MURRAY APRN V58.32 ENCOUNTER FOR REMOVAL OF SUTURES 12/01/2013 NAJERA EDISONSSHRUTI 617.9 ENDOMETRIOSIS SITE UNSPECIFIED 12/01/2013 NAJERA SHRUTI KEMP 617.9 ENDOMETRIOSIS SITE UNSPECIFIED 12/01/2013 RONNIE MURRAY APRN 617.9 ENDOMETRIOSIS SITE UNSPECIFIED 12/01/2013 RONNIE MURRAY APRN 617.9 ENDOMETRIOSIS SITE UNSPECIFIED 12/01/2013 RONNIE MURRAY APRN T 617.9 ENDOMETRIOSIS SITE UNSPECIFIED 12/01/2013 TREVOR CEDEÑONRONNIE T 617.9 ENDOMETRIOSIS SITE UNSPECIFIED 12/01/2013 TREVOR CEDEÑON, RONNIE T 617.9 ENDOMETRIOSIS SITE UNSPECIFIED 12/01/2013 TREVOR CEDEÑON, RONNIE T 617.9 ENDOMETRIOSIS SITE UNSPECIFIED 12/01/2013 GLENN TRANSCRIBING OPERATOR HEAD, BRUNILDA L 617.9 ENDOMETRIOSIS SITE UNSPECIFIED 12/01/2013 TREVOR CEDEÑONRONNIE T 617.9 ENDOMETRIOSIS SITE UNSPECIFIED 12/01/2013 TREVOR CEDEÑONRONNIE T 617.9 ENDOMETRIOSIS SITE UNSPECIFIED 12/01/2013 TREVOR CEDEÑONRONNIE T 617.9 ENDOMETRIOSIS SITE UNSPECIFIED 12/12/2013 SHRUTI NAJERA DDS 525.9 TOOTH PAIN 12/12/2013 RONNIE MURRAY APRN T 525.9 TOOTH PAIN 12/12/2013 RONNIE MURRAY APRN T 525.9 TOOTH PAIN 12/12/2013 RONNIE MURRAY APRN T 525.9 TOOTH PAIN 12/12/2013 RONNIE MURRAY APRN T 525.9 TOOTH PAIN 12/12/2013 RONNIE MURRAY APRN T 525.9 TOOTH PAIN 12/12/2013 RONNIE MURRAY APRN T 525.9 TOOTH PAIN 12/12/2013 BRUNILDA ELIZABETH APRN L 525.9 TOOTH PAIN 12/12/2013 RONNIE MURRAY APRN T 525.9 TOOTH PAIN 12/12/2013 RONNIE MURRAY APRN T 525.9 TOOTH PAIN 12/12/2013 RONNIE MURRAY APRN T 525.9 TOOTH PAIN 01/04/2014 RONNIE MURRAY APRN T 729.5 PAIN- LEG 01/04/2014 RONNIE MURRAY APRN T 729.5 PAIN- LEG 01/04/2014 RONNIE MURRAY APRN T 729.5 PAIN- LEG 01/04/2014 RONNIE MURRAY APRN T 729.5 PAIN- LEG 01/04/2014 RONNIE MURRAY APRN T 729.5 PAIN- LEG 01/04/2014 RONNIE MURRAY APRN T 729.5 PAIN- LEG 01/04/2014 BRUNILDA ELIZABETH APRN L 729.5 PAIN- LEG 01/04/2014 RONNIE MURRAY APRN T 729.5 PAIN- LEG 01/04/2014 RONNIE MURRAY APRN T 729.5 PAIN- LEG 01/04/2014 RONNIE MURRAY APRN 729.5 PAIN- LEG 01/10/2014 RENTERIA GLADYS C Ot 614.6 01/10/2014 RENTERIA DOGLADYS C Ot 620.2 03/27/2014 RONNIE MURRAY APRN 535.50 GASTRITIS UNSPEC 03/27/2014 RONNIE MURRAY APRN 535.50 GASTRITIS UNSPEC 03/27/2014 RONNIE MURRAY APRN 535.50 GASTRITIS UNSPEC 03/27/2014 RONNIE MURRAY APRN 535.50 GASTRITIS UNSPEC 03/27/2014 BRUNILDA ELIZABETH APRN 535.50 GASTRITIS UNSPEC 03/27/2014 RONNIE MURRAY APRN 535.50 GASTRITIS UNSPEC 03/27/2014 RONNIE MURRAY APRN 535.50 GASTRITIS UNSPEC 03/27/2014 RONNIE MURRAY APRN 535.50 GASTRITIS UNSPEC 04/21/2014 RONNIE MURRAY APRN 008.8 GASTROENTERITIS, VIRAL 04/21/2014 RONNIE MURRAY APRN 008.8 GASTROENTERITIS, VIRAL 04/21/2014 RONNIE MURRAY APRN 008.8 GASTROENTERITIS, VIRAL 04/21/2014 BRUNILDA ELIZABETH APRN 008.8 GASTROENTERITIS, VIRAL 04/21/2014 RONNIE MURRAY APRN 008.8 GASTROENTERITIS, VIRAL 04/21/2014 RONNIE MURRAY APRN 008.8 GASTROENTERITIS, VIRAL 04/21/2014 RONNIE MURRAY APRN 008.8 GASTROENTERITIS, VIRAL 04/21/2014 HOPE BAR, SARAH A Ot 787.01 04/21/2014 HOPE BAR, SARAH A Ot 789.00 06/21/2014 RONNIE MURRAY APRN 346.90 MIGRAINE HEADACHE 06/21/2014 BRUNILDA ELIZABETH APRN 346.90 MIGRAINE HEADACHE 06/21/2014 RONNIE MURRAY APRN 346.90 MIGRAINE HEADACHE 06/21/2014 RONNIE MURRAY APRN 346.90 MIGRAINE HEADACHE 06/21/2014 RONNIE MURRAY APRN 346.90 MIGRAINE HEADACHE 07/20/2014 BRUNILDA ELIZABETH APRN 787.02 NAUSEA ALONE 07/20/2014 RONNIE MURRAY APRN 787.02 NAUSEA ALONE 07/20/2014 RONNIE MURRAY APRN 787.02 NAUSEA ALONE 07/20/2014 RONNIE MURRAY APRN 787.02 NAUSEA ALONE 07/24/2014 RONNIE MURRAY APRN T 296.90 MOOD DISORDER 07/24/2014 RONNIE MURRAY APRN T 296.90 MOOD DISORDER 07/24/2014 RONNIE MURARY APRN 296.90 MOOD DISORDER 07/29/2014 LORNA LYNN MD Ot 346.90 07/29/2014 LORNA LYNN MD Ot 782.0 08/25/2014 Ot 646.83 08/25/2014 Ot 789.00 08/25/2014 Ot 718.31 08/25/2014 Ot V72.84 08/25/2014 Ot V74.8 08/25/2014 Ot 959.2 08/25/2014 Ot E000.8 08/25/2014 Ot E849.0 08/25/2014 Ot E888.9 08/25/2014 Ot V45.89 08/25/2014 ALLYSON VUONG BILINGUAL TEACHER ASSISTANT Ot 787.01 08/25/2014 ALLYSON VUONG BILINGUAL TEACHER ASSISTANT Ot 789.01 08/25/2014 WILFRID SIFUENTES TRANSCRIBING OPERATOR HEAD Ot 789.30 08/25/2014 WILFRID SIFUENTES TRANSCRIBING OPERATOR HEAD Ot 794.9 08/25/2014 ESEQUIEL BAR, NNEKA Chopra Ot 214.9 08/25/2014 ESEQUIEL BAR, NNEKA Chopra Ot V72.84 08/25/2014 WILFRID SIFUENTES TRANSCRIBING OPERATOR HEAD Ot 256.4 08/25/2014 WILFRID SIFUENTES TRANSCRIBING OPERATOR HEAD Ot 617.9 08/25/2014 WILFRID SIFUENTES TRANSCRIBING OPERATOR HEAD Ot 625.9 08/25/2014 WILFRID SIFUENTES TRANSCRIBING OPERATOR HEAD Ot V45.77 08/25/2014 GLADYS RENTERIA DO Ot 617.9 08/30/2014 SHRUTI BAR, YOLANDA Ot 345.90 08/30/2014 YOLANDA BAHENA MD Ot 346.10 08/30/2014 YOLANDA BAHENA MD Ot 782.0 09/04/2014 YOLANDA BAHENA MD Ot 345.90 09/04/2014 YOLANDA BAHENA MD Ot 346.10 09/04/2014 YOLANDA BAHENA MD Ot 782.0 09/12/2014 YOLANDA BAHENA MD Ot 345.90 09/12/2014 YOALNDA BAHENA MD Ot 346.10 09/12/2014 SHRUTI BAR, YOLANDA Ot 782.0 09/22/2014 BARI DOLAN TRANSCRIBING OPERATOR HEAD Ot 349.0 09/22/2014 BARI DOLAN TRANSCRIBING OPERATOR HEAD Ot 784.0 09/23/2014 BARI DOLAN APRN Ot 349.0 11/29/2014 RONNIE MURRAY APRN 686.9 UNSPECIFIED LOCAL INFECTION OF SKIN AND SUBCUTANEOUS TISSUE 11/29/2014 RONNIE MURRAY APRN V58.69 LONG-TERM (CURRENT) USE OF OTHER MEDICATIONS 12/15/2014 RONNIE MURRAY APRN 682.9 CELLULITIS AND ABSCESS OF UNSPECIFIED SITES 05/16/2015 Ot 646.83 05/16/2015 Ot 789.00 05/16/2015 Ot 718.31 05/16/2015 Ot V72.84 05/16/2015 Ot V74.8 05/16/2015 Ot 959.2 05/16/2015 Ot E000.8 05/16/2015 Ot E849.0 05/16/2015 Ot E888.9 05/16/2015 Ot V45.89 05/16/2015 ALLYSON VUONG BILINGUAL TEACHER ASSISTANT Ot 787.01 05/16/2015 ALLYSON VUONG BILINGUAL TEACHER ASSISTANT Ot 789.01 05/16/2015 WILFRID SIFUENTES TRANSCRIBING OPERATOR HEAD Ot 789.30 05/16/2015 WILFRID SIFUENTES A TRANSCRIBING OPERATOR HEAD Ot 794.9 05/16/2015 ESEQUIEL BAR, NNEKA Chopra Ot 214.9 05/16/2015 ESEQUIEL BAR, NNEKA Chopra Ot V72.84 05/16/2015 WILFRID SIFUENTES A TRANSCRIBING OPERATOR HEAD Ot 256.4 05/16/2015 WILFRID SIFUENTES A TRANSCRIBING OPERATOR HEAD Ot 617.9 05/16/2015 GEETHA SIFUENTESIDI A TRANSCRIBING OPERATOR HEAD Ot 625.9 05/16/2015 GEETHA SIFUENTESIDI A TRANSCRIBING OPERATOR HEAD Ot V45.77 05/16/2015 GLADYS RENTERIA DO Ot 617.9 05/16/2015 SHRUTI BAR, YOLANDA Ot 345.90 05/16/2015 SHRUTI BAR, YOLANDA Ot 346.10 05/16/2015 SHRUTI BAR, YOLANDA Ot 782.0 06/01/2015 BETTY MURRAY APRN Ot 927.20 06/01/2015 BETTY MURRAY TRANSCRIBING OPERATOR HEAD Ot E000.8 06/01/2015 BETTY MURRAY TRANSCRIBING OPERATOR HEAD Ot E928.9 05/23/2016 BARI DOLAN TRANSCRIBING OPERATOR HEAD Ot R51 HEADACHE 05/27/2016 BARI DOLAN TRANSCRIBING OPERATOR HEAD Ot R51 HEADACHE 08/11/2016 RENTERIA DO, GLADYS C Ot N80.9 ENDOMETRIOSIS, UNSPECIFIED 08/11/2016 RENTERIA DO, GLADYS C Ot N91.2 AMENORRHEA, UNSPECIFIED 08/11/2016 RENTERIA DO, GLADYS C Ot R10.2 PELVIC AND PERINEAL PAIN 08/11/2016 RENTERIA DO, GLADYS C Ot Z01.812 ENCOUNTER FOR PREPROCEDURAL LABORATORY E 08/11/2016 RENTERIA DO, GLADYS C Ot Z11.2 ENCOUNTER FOR SCREENING FOR OTHER BACTER 08/12/2016 RENTERIA DO, GLADYS C Ot N80.9 ENDOMETRIOSIS, UNSPECIFIED 08/12/2016 RENTERIA DO, GLADYS C Ot N91.2 AMENORRHEA, UNSPECIFIED 08/12/2016 RENTERIA DO, GLADYS C Ot R10.2 PELVIC AND PERINEAL PAIN 08/12/2016 RENTERIA DO, GLADYS C Ot Z01.812 ENCOUNTER FOR PREPROCEDURAL LABORATORY E 08/12/2016 RENTERIA DO, GLADYS C Ot Z11.2 ENCOUNTER FOR SCREENING FOR OTHER BACTER 08/19/2016 RENTERIA DO, GLADYS C Ot E28.2 POLYCYSTIC OVARIAN SYNDROME 08/19/2016 RENTERIA DO, GLADYS C Ot N73.6 FEMALE PELVIC PERITONEAL ADHESIONS (POST 08/19/2016 RENTERIA DO, GLADYS C Ot N80.9 ENDOMETRIOSIS, UNSPECIFIED 08/19/2016 RENTERIA DO, GLADYS C Ot R10.2 PELVIC AND PERINEAL PAIN 08/21/2016 RENTERIA DO, GLADYS C Ot E28.2 POLYCYSTIC OVARIAN SYNDROME 08/21/2016 RENTERIA DO, GLADYS C Ot N73.6 FEMALE PELVIC PERITONEAL ADHESIONS (POST 08/21/2016 RENTERIA DO, GLADYS C Ot N80.9 ENDOMETRIOSIS, UNSPECIFIED 08/21/2016 RENTERIA DO, GLADYS C Ot R10.2 PELVIC AND PERINEAL PAIN 11/28/2016 JADEN BAR, GISELA Stone Ot F17.210 NICOTINE DEPENDENCE, CIGARETTES, UNCOMPL 11/28/2016 JADEN BAR, GISELA Stone Ot R07.9 CHEST PAIN, UNSPECIFIED 11/28/2016 JADEN BAR, GISELA Stone Ot F17.210 NICOTINE DEPENDENCE, CIGARETTES, UNCOMPL 11/28/2016 JADEN BAR, GISELA Stone Ot R07.9 CHEST PAIN, UNSPECIFIED 11/30/2016 JADEN BAR, GISELA Stone Ot F17.210 NICOTINE DEPENDENCE, CIGARETTES, UNCOMPL 11/30/2016 JADEN BAR, GISELA Stone Ot R07.9 CHEST PAIN, UNSPECIFIED 12/04/2016 ODSARAY BAR, GISELA Stone Ot F17.210 NICOTINE DEPENDENCE, CIGARETTES, UNCOMPL 12/04/2016 JADEN BAR, GISELA Stone Ot R07.9 CHEST PAIN, UNSPECIFIED 12/05/2016 JADEN BAR, GISELA Stone Ot F17.210 NICOTINE DEPENDENCE, CIGARETTES, UNCOMPL 12/05/2016 JADEN BAR, GISELA Stone Ot R07.9 CHEST PAIN, UNSPECIFIED 07/06/2017 NICKI DO, CATIA K Ot E03.9 HYPOTHYROIDISM, UNSPECIFIED 07/06/2017 NICKI DO, CATIA K Ot F17.210 NICOTINE DEPENDENCE, CIGARETTES, UNCOMPL 07/06/2017 NICKI DO, CATIA K Ot G40.909 EPILEPSY, UNSP, NOT INTRACTABLE, WITHOUT 07/06/2017 NICKI DO, CATIA K Ot G43.909 MIGRAINE, UNSP, NOT INTRACTABLE, WITHOUT 07/06/2017 NICKI DO, CATIA K Ot I10 ESSENTIAL (PRIMARY) HYPERTENSION 07/06/2017 NICKI DO CATIA K Ot K04.7 PERIAPICAL ABSCESS WITHOUT SINUS 07/06/2017 NICKI DO CATIA K Ot K08.89 OTHER SPECIFIED DISORDERS OF TEETH AND S 07/06/2017 NICKI DO CATIA K Ot Z87.42 PERSONAL HISTORY OF OTH DISEASES OF THE 07/06/2017 NICKI DO, CATIA K Ot Z90.89 ACQUIRED ABSENCE OF OTHER ORGANS 07/08/2017 NICKI DO CATIA K Ot E03.9 HYPOTHYROIDISM, UNSPECIFIED 07/08/2017 NICKI DO, CATIA K Ot F17.210 NICOTINE DEPENDENCE, CIGARETTES, UNCOMPL 07/08/2017 NICKI DO, CATIA K Ot G40.909 EPILEPSY, UNSP, NOT INTRACTABLE, WITHOUT 07/08/2017 NICKI DO, CATIA K Ot G43.909 MIGRAINE, UNSP, NOT INTRACTABLE, WITHOUT 07/08/2017 CATIA CACERES DO Ot I10 ESSENTIAL (PRIMARY) HYPERTENSION 07/08/2017 CATIA CACERES DO Ot K04.7 PERIAPICAL ABSCESS WITHOUT SINUS 07/08/2017 CATIA CACERES DO Ot K08.89 OTHER SPECIFIED DISORDERS OF TEETH AND S 07/08/2017 CATIA CACERES DO Ot Z87.42 PERSONAL HISTORY OF OTH DISEASES OF THE 07/08/2017 CATIA CACERES DO Ot Z90.89 ACQUIRED ABSENCE OF OTHER ORGANS 08/25/2018 CRISTIANA STREETER MD, Ot D86.9 SARCOIDOSIS, UNSPECIFIED 08/25/2018 CRISTIANA STREETER MD Ot Z79.899 OTHER MEDICAL DATA ENTRY CLERK (CURRENT) DRUG THERAPY 08/30/2018 SOBEIDA BEV Georges BILINGUAL TEACHER ASSISTANT Ot R10.2 PELVIC AND PERINEAL PAIN 08/30/2018 SOBEIDA BEV José Manuel BILINGUAL TEACHER ASSISTANT Ot Z87.42 PERSONAL HISTORY OF OTH DISEASES OF THE 08/30/2018 SOBEIDA BEV W BILINGUAL TEACHER ASSISTANT Ot Z90.721 ACQUIRED ABSENCE OF OVARIES, UNILATERAL 09/13/2018 BEV VIDALES BILINGUAL TEACHER ASSISTANT Ot R10.2 PELVIC AND PERINEAL PAIN 09/13/2018 BEV VIDALES BILINGUAL TEACHER ASSISTANT Ot Z87.42 PERSONAL HISTORY OF OTH DISEASES OF THE 09/13/2018 SOBEIDA BEV José Manuel BILINGUAL TEACHER ASSISTANT Ot Z90.721 ACQUIRED ABSENCE OF OVARIES, UNILATERAL 09/13/[address] CRI[address]IANA STREETER MD, Ot D86.9 SARCOIDOSIS, UNSPECIFIED 09/13/2018 CRISTIANA STREETER MD Ot Z79.899 OTHER MEDICAL DATA ENTRY CLERK (CURRENT) DRUG THERAPY 10/14/2018 GLADYS RENTERIA DO Ot Z01.818 ENCOUNTER FOR OTHER PREPROCEDURAL EXAMIN 10/15/2018 GLADYS RENTERIA DO Ot Z01.818 ENCOUNTER FOR OTHER PREPROCEDURAL EXAMIN Procedures Code Description [place] [address] ROUTINE VENIPUNCTURE 10/20/2012 58707 HCG QUANTITATIVE 10/20/2012 14702 BLOOD TYPE/Rh FACTOR 10/20/2012 21635 THERAPUTIC INJ SQ/IM 10/22/2012 J1055 DEPO-PROVERA INJ 150 MG 10/22/2012 95352 CULTURE UROGENITAL 10/25/2012 55112 PAP SMEAR 10/25/2012 Q0091 PAP SMEAR OBTAIN SMEAR 10/25/2012 76872 THERAPUTIC INJ SQ/IM 01/10/2013 J1055 DEPO-PROVERA INJ 150 MG 01/10/2013 49423 CULTURE URINE 01/10/2013 21844 UA W/ CULTURE IF INDICATED 01/10/2013 17147 URINE TEST (IN- HOUSE) 01/10/2013 41662 ROUTINE VENIPUNCTURE 02/22/2013 16901 UA W/ CULTURE IF INDICATED 02/22/2013 74924 US GALLBLADDER ULTRASOUND 02/22/2013 68947 CMP 02/22/2013 99450 CBC 02/22/2013 S NNEKA IRAHETA 05/11/2013 22710 ROUTINE VENIPUNCTURE 05/12/2013 55400 LIVER PANEL (LFT) 05/12/2013 76602 HEPATITIS PROFILE 05/12/2013 36438 THERAPUTIC INJ SQ/IM 08/01/2013 J1050 DEPO PROVERA 08/01/2013 63457 SKIN TISSUE PROCEDURE 08/01/2013 59777 URINE TEST (IN- HOUSE) 08/01/2013 43131 ROUTINE VENIPUNCTURE 10/24/2013 97780 THERAPUTIC INJ SQ/IM 10/24/2013 J1050 DEPO PROVERA 10/24/2013 08013 TEST, URINE (IN- HOUSE) 10/24/2013 94959 TSH 10/24/2013 57868 LIVER PANEL (LFT) 10/24/2013 89263 US PELVIC COMPL (REFLEX CPT - 86694) 12/06/2013 Obstetric Gladys Renteria 12/12/2013 47978 ROUTINE VENIPUNCTURE 01/04/2014 95397 TSH 01/04/2014 88546 D-DIMER 01/04/2014 04311 THERAPUTIC INJ SQ/IM 04/21/2014 J2550 PHENERGAN INJECTION UP TO 50 MG 04/21/2014 98122 ROUTINE VENIPUNCTURE 04/28/2014 46097 TSH 04/28/2014 32671 TEST, URINE (IN- HOUSE) 07/20/2014 J2550 PHENERGAN INJECTION UP TO 50 MG 07/20/2014 88428 THERAPUTIC INJ SQ/IM 07/20/2014 J1885 TORADOL INJ 07/20/2014 79817 THERAPUTIC INJ SQ/IM 07/20/2014 81093 THERAPUTIC INJ SQ/IM 07/25/2014 J1885 TORADOL INJ 07/25/2014 Neurology Yolanda Cid 07/31/2014 Results Test Result Range Complete blood count (CBC) with automated white blood cell (WBC) differential - 05/23/16 11:13 Blood leukocytes automated count (number/volume) 7.9 10*3/uL 4.3-11.0 Blood erythrocytes automated count (number/volume) 4.45 10*6/uL 4.35-5.85 Venous blood hemoglobin measurement (mass/volume) 13.3 g/dL 11.5-16.0 Blood hematocrit (volume fraction) 39 % 35-52 Automated erythrocyte mean corpuscular volume 87 [foz_us] 80-99 Automated erythrocyte mean corpuscular hemoglobin (mass per erythrocyte) 30 pg 25-34 Automated erythrocyte mean corpuscular hemoglobin concentration measurement ( mass/volume) 34 g/dL 32-36 Automated erythrocyte distribution width ratio 12.9 % 10.0-14.5 Automated blood platelet count (count/volume) 228 10*3/uL 130-400 Automated blood platelet mean volume measurement 11.4 [foz_us] 7.4-10.4 Automated blood neutrophils/100 leukocytes 46 % 42-75 Automated blood lymphocytes/100 leukocytes 43 % 12-44 Blood monocytes/100 leukocytes 6 % 0-12 Automated blood eosinophils/100 leukocytes 4 % 0-10 Automated blood basophils/100 leukocytes 1 % 0-10 Blood neutrophils automated count (number/volume) 3.7 10*3 1.8-7.8 Blood lymphocytes automated count (number/volume) 3.4 10*3 1.0-4.0 Blood monocytes automated count (number/volume) 0.5 10*3 0.0-1.0 Automated eosinophil count 0.3 10*3/uL 0.0-0.3 Automated blood basophil count (count/volume) 0.1 10*3/uL 0.0-0.1 Serum or plasma choriogonadotropin ( test) detection - 05/23/16 11:13 Serum or plasma choriogonadotropin ( test) detection NEGATIVE NEGATIVE Complete blood count (CBC) with automated white blood cell (WBC) differential - 08/11/16 12:45 Blood leukocytes automated count (number/volume) 8.4 10*3/uL 4.3-11.0 Blood erythrocytes automated count (number/volume) 4.28 10*6/uL 4.35-5.85 Venous blood hemoglobin measurement (mass/volume) 12.7 g/dL 11.5-16.0 Blood hematocrit (volume fraction) 37 % 35-52 Automated erythrocyte mean corpuscular volume 87 [foz_us] 80-99 Automated erythrocyte mean corpuscular hemoglobin (mass per erythrocyte) 30 pg 25-34 Automated erythrocyte mean corpuscular hemoglobin concentration measurement ( mass/volume) 34 g/dL 32-36 Automated erythrocyte distribution width ratio 13.4 % 10.0-14.5 Automated blood platelet count (count/volume) 213 10*3/uL 130-400 Automated blood platelet mean volume measurement 11.6 [foz_us] 7.4-10.4 Automated blood neutrophils/100 leukocytes 51 % 42-75 Automated blood lymphocytes/100 leukocytes 37 % 12-44 Blood monocytes/100 leukocytes 6 % 0-12 Automated blood eosinophils/100 leukocytes 5 % 0-10 Automated blood basophils/100 leukocytes 1 % 0-10 Blood neutrophils automated count (number/volume) 4.3 10*3 1.8-7.8 Blood lymphocytes automated count (number/volume) 3.1 10*3 1.0-4.0 Blood monocytes automated count (number/volume) 0.5 10*3 0.0-1.0 Automated eosinophil count 0.4 10*3/uL 0.0-0.3 Automated blood basophil count (count/volume) 0.0 10*3/uL 0.0-0.1 Methicillin resistant Staphylococcus aureus (MRSA) screening culture - 12:45 Methicillin resistant Staphylococcus aureus (MRSA) screening culture NEG NRG Urine beta human chorionic gonadotropin (hCG) measurement - 08/19/16 06:10 Urine beta human chorionic gonadotropin (hCG) measurement NEGATIVE NEGATIVE Complete blood count (CBC) with automated white blood cell (WBC) differential - 11/28/16 08:10 Blood leukocytes automated count (number/volume) 8.1 10*3/uL 4.3-11.0 Blood erythrocytes automated count (number/volume) 4.47 10*6/uL 4.35-5.85 Venous blood hemoglobin measurement (mass/volume) 13.0 g/dL 11.5-16.0 Blood hematocrit (volume fraction) 39 % 35-52 Automated erythrocyte mean corpuscular volume 86 [foz_us] 80-99 Automated erythrocyte mean corpuscular hemoglobin (mass per erythrocyte) 29 pg 25-34 Automated erythrocyte mean corpuscular hemoglobin concentration measurement ( mass/volume) 34 g/dL 32-36 Automated erythrocyte distribution width ratio 13.8 % 10.0-14.5 Automated blood platelet count (count/volume) 209 10*3/uL 130-400 Automated blood platelet mean volume measurement 12.0 [foz_us] 7.4-10.4 Automated blood neutrophils/100 leukocytes 49 % 42-75 Automated blood lymphocytes/100 leukocytes 36 % 12-44 Blood monocytes/100 leukocytes 8 % 0-12 Automated blood eosinophils/100 leukocytes 8 % 0-10 Automated blood basophils/100 leukocytes 1 % 0-10 Blood neutrophils automated count (number/volume) 3.9 10*3 1.8-7.8 Blood lymphocytes automated count (number/volume) 2.9 10*3 1.0-4.0 Blood monocytes automated count (number/volume) 0.6 10*3 0.0-1.0 Automated eosinophil count 0.6 10*3/uL 0.0-0.3 Automated blood basophil count (count/volume) 0.0 10*3/uL 0.0-0.1 Comprehensive metabolic panel - 11/28/16 08:10 Serum or plasma sodium measurement (moles/volume) 141 mmol/L 135-145 Serum or plasma potassium measurement (moles/volume) 3.8 mmol/L 3.6-5.0 Serum or plasma chloride measurement (moles/volume) 107 mmol/L 98-107 Carbon dioxide 22 mmol/L 21-32 Serum or plasma anion gap determination (moles/volume) 12 mmol/L 5-14 Serum or plasma urea nitrogen measurement (mass/volume) 14 mg/dL 7-18 Serum or plasma creatinine measurement (mass/volume) 0.93 mg/dL 0.60-1.30 Serum or plasma urea nitrogen/creatinine mass ratio 15 NRG Serum or plasma creatinine measurement with calculation of estimated glomerular filtration rate > NRG Serum or plasma glucose measurement (mass/volume) 97 mg/dL 70-105 Serum or plasma calcium measurement (mass/volume) 9.1 mg/dL 8.5-10.1 Serum or plasma total bilirubin measurement (mass/volume) 0.3 mg/dL 0.1-1.0 Serum or plasma alkaline phosphatase measurement (enzymatic activity/volume) 67 U/L 40-136 Serum or plasma aspartate aminotransferase measurement (enzymatic activity/ volume) 50 U/L 5-34 Serum or plasma alanine aminotransferase measurement (enzymatic activity/volume ) 74 U/L 0-55 Serum or plasma protein measurement (mass/volume) 7.4 g/dL 6.4-8.2 Serum or plasma albumin measurement (mass/volume) 4.3 g/dL 3.2-4.5 Serum or plasma troponin i.cardiac measurement (mass/volume) - 11/28/16 08:10 Serum or plasma troponin i.cardiac measurement (mass/volume) < ng/ mL <0.30 Complete urinalysis with reflex to culture - 11/28/16 08:25 Urine color determination YELLOW NRG Urine clarity determination CLEAR NRG Urine pH measurement by test strip 7 5-9 Specific gravity of urine by test strip 1.010 1.016- 1.022 Urine protein assay by test strip, semi-quantitative NEGATIVE NEGATIVE Urine glucose detection by automated test strip NEGATIVE NEGATIVE Erythrocytes detection in urine sediment by light microscopy NEGATIVE NEGATIVE Urine ketones detection by automated test strip NEGATIVE NEGATIVE Urine nitrite detection by test strip NEGATIVE NEGATIVE Urine total bilirubin detection by test strip NEGATIVE NEGATIVE Urine urobilinogen measurement by automated test strip (mass/volume) NORMAL NORMAL Urine leukocyte esterase detection by dipstick NEGATIVE NEGATIVE Automated urine sediment erythrocyte count by microscopy (number/high power field) NONE NRG Automated urine sediment leukocyte count by microscopy (number/high power field ) NONE NRG Bacteria detection in urine sediment by light microscopy NEGATIVE NRG Squamous epithelial cells detection in urine sediment by light microscopy 0-2 NRG Crystals detection in urine sediment by light microscopy NONE NRG Casts detection in urine sediment by light microscopy NONE NRG Mucus detection in urine sediment by light microscopy NEGATIVE NRG Complete urinalysis with reflex to culture NO NRG Hepatitis Panel (4) - 12/01/16 12:02 HBsAg Screen Negative Negative Hep A Ab, IgM Negative Negative Hep B Core Ab, IgM Negative Negative Hep C Virus Ab <0.1 s/co ratio 0.0-0.9 Aerobic Bacterial Culture - 03/30/17 16:42 Aerobic Bacterial Culture Note PDM - 09 PANEL (PROFILE 1) - 05/14/18 16:08 Prescribed Drug 1 [place](TM) NRG Creatinine 50.5 mg/dL > or=20.0 pH 8.8 4.5 - 9.0 Oxidant NEGATIVE mcg/mL <200 Amphetamines NEGATIVE ng/mL <500 [facility] Amphetamines CONSISTENT NRG Benzodiazepines NEGATIVE ng/mL <100 [facility] Benzodiazepines CONSISTENT NRG Marijuana Metabolite NEGATIVE ng/mL <20 [facility] Marijuana Metab CONSISTENT NRG Cocaine Metabolite NEGATIVE ng/mL <150 [facility] Cocaine Metab CONSISTENT NRG Opiates POSITIVE ng/mL <100 Oxycodone NEGATIVE ng/mL <100 [facility] Oxycodone CONSISTENT NRG COMMENT NRG Codeine NEGATIVE ng/mL <50 [facility] Codeine CONSISTENT NRG Hydrocodone 349 ng/mL <50 [facility] Hydrocodone CONSISTENT NRG Hydromorphone NEGATIVE ng/mL <50 [facility] Hydromorphone CONSISTENT NRG Morphine NEGATIVE ng/mL <50 [facility] Morphine CONSISTENT NRG Norhydrocodone 665 ng/mL <50 [facility] Norhydrocodone CONSISTENT NRG Barbiturates NEGATIVE ng/mL <300 [facility] Barbiturates CONSISTENT NRG Methadone Metabolite NEGATIVE ng/mL <100 [facility] Methadone Metab CONSISTENT NRG Phencyclidine NEGATIVE ng/mL <25 [facility] Phencyclidine CONSISTENT NRG Complete blood count (CBC) with automated white blood cell (WBC) differential - 08/24/18 15:53 Blood leukocytes automated count (number/volume) 7.2 10*3/uL 4.3-11.0 Blood erythrocytes automated count (number/volume) 4.54 10*6/uL 4.35-5.85 Venous blood hemoglobin measurement (mass/volume) 13.2 g/dL 11.5-16.0 Blood hematocrit (volume fraction) 39 % 35-52 Automated erythrocyte mean corpuscular volume 86 [foz_us] 80-99 Automated erythrocyte mean corpuscular hemoglobin (mass per erythrocyte) 29 pg 25-34 Automated erythrocyte mean corpuscular hemoglobin concentration measurement ( mass/volume) 34 g/dL 32-36 Automated erythrocyte distribution width ratio 13.7 % 10.0-14.5 Automated blood platelet count (count/volume) 286 10*3/uL 130-400 Automated blood platelet mean volume measurement 11.2 [foz_us] 7.4-10.4 Automated blood neutrophils/100 leukocytes 58 % 42-75 Automated blood lymphocytes/100 leukocytes 31 % 12-44 Blood monocytes/100 leukocytes 6 % 0-12 Automated blood eosinophils/100 leukocytes 4 % 0-10 Automated blood basophils/100 leukocytes 0 % 0-10 Blood neutrophils automated count (number/volume) 4.2 10*3 1.8-7.8 Blood lymphocytes automated count (number/volume) 2.3 10*3 1.0-4.0 Blood monocytes automated count (number/volume) 0.4 10*3 0.0-1.0 Automated eosinophil count 0.3 10*3/uL 0.0-0.3 Automated blood basophil count (count/volume) 0.0 10*3/uL 0.0-0.1 Comprehensive metabolic panel - 08/24/18 15:53 Serum or plasma sodium measurement (moles/volume) 139 mmol/L 135-145 Serum or plasma potassium measurement (moles/volume) 4.1 mmol/L 3.6-5.0 Serum or plasma chloride measurement (moles/volume) 109 mmol/L 98-107 Carbon dioxide 20 mmol/L 21-32 Serum or plasma anion gap determination (moles/volume) 10 mmol/L 5-14 Serum or plasma urea nitrogen measurement (mass/volume) 10 mg/dL 7-18 Serum or plasma creatinine measurement (mass/volume) 0.97 mg/dL 0.60-1.30 Serum or plasma urea nitrogen/creatinine mass ratio 10 NRG Serum or plasma creatinine measurement with calculation of estimated glomerular filtration rate > NRG Serum or plasma glucose measurement (mass/volume) 92 mg/dL 70-105 Serum or plasma calcium measurement (mass/volume) 9.8 mg/dL 8.5-10.1 Serum or plasma total bilirubin measurement (mass/volume) 0.4 mg/dL 0.1-1.0 Serum or plasma alkaline phosphatase measurement (enzymatic activity/volume) 55 U/L 40-136 Serum or plasma aspartate aminotransferase measurement (enzymatic activity/ volume) 20 U/L 5-34 Serum or plasma alanine aminotransferase measurement (enzymatic activity/volume ) 34 U/L 0-55 Serum or plasma protein measurement (mass/volume) 7.4 g/dL 6.4-8.2 Serum or plasma albumin measurement (mass/volume) 4.4 g/dL 3.2-4.5 CALCIUM CORRECTED 9.5 mg/dL 8.5-10.1 Serum or plasma rheumatoid factor measurement (units/volume) - 08/24/18 15:53 Serum or plasma rheumatoid factor measurement (units/volume) NEGATIVE NEGATIVE Encounters ACCT No. Visit Date/Time Discharge Status Pt. Type Provider Facility Loc./Unit Complaint [id number] 12/15/2014 09:34:00 12/15/2014 23:59:59 CLS Outpatient RONNIE MURRAY APRN [id number] 07/25/2014 18:19:00 07/25/2014 23:59:59 CLS Outpatient RONNIE MURRAY APRN [id number] 07/24/2014 09:12:00 07/24/2014 23:59:59 CLS Outpatient RONNIE MURRAY APRN [id number] 07/20/2014 09:47:00 07/20/2014 23:59:59 CLS Outpatient BRUNILDA ELIZABETH APRN [id number] 06/21/2014 11:53:00 06/21/2014 23:59:59 CLS Outpatient RONNIE MURRAY APRN [id number] 04/28/2014 09:04:00 04/28/2014 23:59:59 CLS Outpatient RONNIE MURRAY APRN [id number] 04/21/2014 16:31:00 04/21/2014 23:59:59 CLS Outpatient RONNIE MURRAY APRN [id number] 03/27/2014 09:31:00 03/27/2014 23:59:59 CLS Outpatient RONNIE MURRAY APRN [id number] 02/22/2014 16:05:00 02/22/2014 23:59:59 CLS Outpatient RONNIE MURRAY APRN [id number] 01/04/2014 10:48:00 01/04/2014 23:59:59 CLS Outpatient RONNIE MURRAY APRN [id number] 12/12/2013 12:08:00 12/12/2013 23:59:59 CLS Outpatient SHRUTI NAJERA DDS [id number] 12/06/2013 07:45:00 12/06/2013 23:59:59 CLS Outpatient SHRUTI NAJERA DDS [id number] 10/24/2013 09:13:00 10/24/2013 23:59:59 CLS Outpatient RONNIE MURRAY APRN Claire [id number] 08/01/2013 13:42:00 08/01/2013 23:59:59 CLS Outpatient LISY SMITH DO [id number] 07/16/2013 13:08:00 07/16/2013 23:59:59 CLS Outpatient LISY SMITH DO [id number] 07/11/2013 14:51:00 07/11/2013 23:59:59 CLS Outpatient LISY SMITH DO [id number] 07/07/2013 08:10:00 07/07/2013 23:59:59 CLS Outpatient STEFANO SAWYER DDS [id number] 06/06/2013 15:47:00 06/06/2013 23:59:59 CLS Outpatient LISY SMITH DO [id number] 10/22/2012 15:27:00 10/22/2012 23:59:59 CLS Outpatient LISY SMITH DO [id number] 10/20/2012 15:57:00 10/20/2012 23:59:59 CLS Outpatient [id number] 08/30/2012 16:30:00 08/30/2012 23:59:59 CLS Outpatient [id number] 05/12/2013 09:39:00 Document Registration [id number] 05/11/2013 17:53:00 Document Registration [id number] 04/20/2013 10:24:00 Document Registration [id number] 02/22/2013 09:14:00 Document Registration [id number] 01/10/2013 09:37:00 Document Registration [id number] 09/25/2018 08:00:00 09/25/2018 23:59:59 CLS Outpatient RONNIE MURRAY APRN [facility] [id number] 05/14/2018 15:40:00 Document Registration [id number] 04/02/2017 13:06:00 Document Registration [id number] 12/16/2016 13:45:00 12/16/2016 23:59:00 DIS Outpatient Kaiser Fletcher [id number] 08/13/2016 10:14:00 08/13/2016 23:59:00 DIS Outpatient CHELSEA PISANO [id number] 10/14/2018 15:28:00 10/14/2018 15:53:00 DIS Outpatient GLADYS RENTERIA DO Via [facility] PREOP SUCTION D Sigrid [id number] 08/26/2018 12:41:00 08/26/2018 23:59:59 CLS Outpatient BEV VIDALES [facility] RAD HX OF OVARIAN CYST, PELVIC PAIN [id number] 08/24/2018 15:31:00 08/24/2018 23:59:59 CLS Outpatient CRISTIANA STREETER MD [facility] LAB D86.9 [id number] 07/06/2017 02:54:00 07/06/2017 03:49:00 DIS Emergency CATIA CACERES DO [facility] ER JAW SWOLLEN FEVER 101.0 [id number] 11/28/2016 07:56:00 11/28/2016 09:30:00 DIS Emergency GISELA STANLEY MD [facility] ER CHEST PAIN/SOA LIGHTHEADED [id number] 08/19/2016 06:00:00 08/19/2016 14:25:00 DIS Outpatient GLADYS RENTERIA DO [facility] SDC CPP; ENDOMETRIOSIS [id number] 08/11/2016 12:22:00 08/11/2016 14:02:00 DIS Outpatient GLADYS RENTERIA DO [facility] PREOP CPP; ENDOMETRIOSIS [id number] 05/23/2016 11:03:00 05/23/2016 12:10:00 DIS Emergency BARI DOLAN TRANSCRIBING OPERATOR HEAD [facility] ER MIGRAINE [id number] 05/16/2015 13:53:00 05/16/2015 23:59:59 CLS Outpatient BETTY MURRAY APRN [facility] RAD [id number] 09/23/2014 11:17:00 09/23/2014 13:58:00 DIS Emergency BARI DOLAN TRANSCRIBING OPERATOR HEAD [facility] ER [id number] 09/22/2014 19:50:00 09/22/2014 21:34:00 DIS Emergency BARI DOLAN TRANSCRIBING OPERATOR HEAD [facility] ER [id number] 08/28/2014 11:05:00 08/28/2014 23:59:59 CLS Outpatient YOLANDA BAHENA MD [facility] RAD [id number] 08/16/2014 07:51:00 08/16/2014 07:51:00 CAN Preadmit CATIA CACERES DO [facility] ER ABDOMINAL PAIN [id number] 07/29/2014 08:21:00 07/29/2014 11:50:00 DIS Emergency SHANE BAR, LORNA Sprague [facility] ER [id number] 04/21/2014 01:41:00 04/21/2014 02:51:00 DIS Emergency HOPE BAR, SARAH Rodriguez [facility] ER [id number] 01/10/2014 06:08:00 01/10/2014 12:15:00 DIS Outpatient GLADYS RENTERIA DO [facility] [id number] 01/05/2014 10:34:00 01/05/2014 23:59:59 CLS Outpatient GLADYS RENTERIA DO [facility] PREOP [id number] 12/12/2013 10:38:00 12/12/2013 23:59:59 CLS Outpatient MARIA, WILFIRD A TRANSCRIBING OPERATOR HEAD [facility] RAD [id number] 07/05/2013 10:54:00 07/05/2013 16:25:00 DIS Outpatient NNEKA IRAHETA MD [facility] [id number] 06/30/2013 08:07:00 06/30/2013 23:59:59 CLS Outpatient NNEKA IRAHETA MD [facility] PREOP [id number] 04/29/2013 08:59:00 04/29/2013 23:59:59 CLS Outpatient MARIA, WILFRID A TRANSCRIBING OPERATOR HEAD [facility] RAD [id number] 04/25/2013 07:45:00 04/25/2013 23:59:59 CLS Outpatient MARIA, WILFRID A TRANSCRIBING OPERATOR HEAD [facility] RAD [id number] 02/23/2013 09:34:00 02/23/2013 23:59:59 CLS Outpatient ALLYSON VUONG [facility] RAD [id number] 10/15/2018 12:18:00 ACT Outpatient GLADYS RENTERIA DO Via [facility] MISSED AB [id number] 10/11/2012 11:01:00 Document Registration [id number] 07/16/2012 15:54:00 Document Registration [id number] 06/28/2012 05:56:00 Document Registration [id number] 06/23/2012 07:25:00 Document Registration [id number] 10/26/2011 12:35:00 Document Registration [id number] 09/23/2011 13:01:00 Document Registration [id number] 08/27/2011 08:06:00 Document Registration [id number] 06/26/2011 16:52:00 Document Registration [id number] 05/02/2011 10:43:00 Document Registration [id number] 12/02/2016 10:11:00 Document Registration
[2018-10-15 12:40] VITALS: BP 124/87
[2018-10-15] MEDS: LACTATED RINGERS 1,000 ML IV PRN ×2 (12:46→13:55)
[2018-10-15] MEDS ORDERED: DEXAMETHASONE 10 MG/ML (DECADRON) 1 ML VIAL ONE (12:53)
[2018-10-15] MEDS ORDERED: LIDOCAINE PF 2% 5 ML (XYLOCAINE) VIAL ONE ×2 (12:53→12:56)
[2018-10-15] MEDS ORDERED: MIDAZOLAM 2 MG/2 ML (VERSED) VIAL ONE (12:53)
[2018-10-15] MEDS ORDERED: proPOfol 200 MG/20 ML (DIPRIVAN) VIAL IV ONE (12:53)
[2018-10-15] MEDS ORDERED: ONDANSETRON 4 MG/2 ML (SDV) Z0FRAN ONE ×2 (12:53→13:02)
[2018-10-15] MEDS ORDERED: SEVOFLURANE (ULTANE) 15 ML INHAL SOLN ONE ×3 (12:53→14:39)
[2018-10-15] MEDS ORDERED: fentaNYL INJECTION 100 MCG/2 ML AMP ONE (12:54)
[2018-10-15 12:55] LABS: BASOPHILS % (AUTO) 0 % (0-10); EOSINOPHILS # (AUTO) 0.1 10^3/uL (0.0-0.3); EOSINOPHILS % (AUTO) 1 % (0-10); HEMATOCRIT 37 % (35-52); HEMOGLOBIN 12.6 G/DL (11.5-16.0); LYMPHOCYTES # (AUTO) 0.8 X 10^3 (1.0-4.0); LYMPHOCYTES % (AUTO) 16 % (12-44); MEAN CORPUSCULAR HEMOGLOBIN 29 PG (25-34); MEAN CORPUSCULAR HGB CONC 34 G/DL (32-36); MEAN CORPUSCULAR VOLUME 86 FL (80-99); MEAN PLATELET VOLUME 10.3 FL (7.4-10.4); MONOCYTES # (AUTO) 0.4 X 10^3 (0.0-1.0); MONOCYTES % (AUTO) 7 % (0-12); NEUTROPHILS # (AUTO) 3.7 X 10^3 (1.8-7.8); NEUTROPHILS % (AUTO) 76 % (42-75); PLATELET COUNT 284 10^3/uL (130-400); RED CELL DISTRIBUTION WIDTH 14.2 % (10.0-14.5); WHITE BLOOD COUNT 4.9 10^3/uL (4.3-11.0)
[2018-10-15] MEDS ORDERED: ONDANSETRON 4 MG/2 ML (SDV) Z0FRAN IV ONE (13:00)
[2018-10-15] MEDS ORDERED: MIDAZOLAM 2 MG/2 ML (VERSED) VIAL IV ONE (13:00)
[2018-10-15] MEDS ORDERED: FAMOTIDINE 20MG/2ML IV (PEPCID) IV ONE (13:00)
[2018-10-15] MEDS ORDERED: SCOPOLAMINE 1.5 MG (TRANSDERM-SCOP) PATCH TOP ONE (13:00)
[2018-10-15] MEDS ORDERED: ceFAZolin 1,000 MG/10 ML (ANCEF) VIAL ONE (13:01)
[2018-10-15] MEDS ORDERED: metroNIDAZOLE 500MG/100ML IVPB 100 ML ONE (13:01)
[2018-10-15] MEDS ORDERED: NS (IVPB) 50 ML ONE (13:01)
[2018-10-15] MEDS ORDERED: SCOPOLAMINE 1.5 MG (TRANSDERM-SCOP) PATCH ONE (13:02)
--- NOTE | 2018-10-15 13:06 | Progress Note-Pre Operative ---
Pre-Operative Progress Note H&P Reviewed The H&P was reviewed, patient examined and no changes noted. Date Seen by Provider: Oct 15, 2018 Time Seen by Provider: 11:45 Date H&P Reviewed: Oct 15, 2018 Time H&P Reviewed: 12:30 Pre-Operative Diagnosis: missed , recurrent GLADYS RENTERIA DO Oct 15, 2018 13:06
[2018-10-15] MEDS ORDERED: ceFAZolin INJECTION 1,000 MG in NS (IVPB) 50 ML IV ONE (13:30)
[2018-10-15] MEDS ORDERED: metroNIDAZOLE 500MG/100ML IVPB 100 ML IV ONE (13:30)
[2018-10-15] MEDS ORDERED: IBUP-1773 PO (13:43)
[2018-10-15] MEDS ORDERED: ACHD5005 PO (13:43)
--- NOTE | 2018-10-15 13:45 | Discharge Inst-Women's Service ---
Discharge Inst-Women's Serv Depart Medication/Instructions New, Converted or Re-Newed RX: RX on Chart Final Diagnosis missed (miscarriage) recurrent miscarriage hypothyroidism Consults/Follow Up Additional Follow Up: Yes ([address] Renteria) Activity Activity: Activity as Tolerated Driving Instructions: No Driving for 24 Hours NO SMOKING: NO SMOKING Nothing Inside Vagina: No Douching, No Meno, No Tampons Diet Discharge Diet: No Restrictions Symptoms to Report to : Bleeding Excessive, Pain Increased, Fever Over 101 Degrees F, Vaginal Bleeding Increase, Vaginal Discharge Foul For Any Problems or Questions: Contact Your Physician GLADYS RENTERIA DO Oct 15, 2018 13:45
--- NOTE | 2018-10-15 13:46 | Operative Report ---
Operative Report Date of Procedure/Surgery Oct 15, 2018 Surgeon (s) GLADYS RENTERIA DO Sugar Mixer (s): NA Post-Operative Diagnosis Missed , recurrent miscarriage Procedure Performed suction dilation and curettage Description of Procedure Anesthesia Type: General Estimated blood loss (mL): 200 Specimen(s) collected/removed products of conception Description of the Procedure with informed consent the patient was taken to the operating room where general anesthesia was found to be adequate. She was prepped and draped in the usual sterile fashion in the dorsolithotomy position. A speculum was placed in the vagina, The cervix was not dilated. The bladder was drained of 25 ml of concentrated, clear, yellow urine. The anterior lip of the cervix was grasped with a tenaculum. The uterus was gently sound to 11 cm. I now dilated the cervix gently with Conrad curved cervical dilators. I then inserted a 9 curved suction curette and a gentle curette was done. This was followed with a sharp curette until a gritty texture was heard. A follow up suction revealed minimal bleeding. The instruments were removed from the cervix and vagina and the patient was awakened and taken to recovery in stable condition. Sponge, lap, needle and instrument counts were correct times two. The tissue will be sent for cytogenetics and karyotyping due to recurrent miscarriage (x4). Findings of the Procedure moderate amounts of products of conception Allergies and Home Medications Allergies Coded Allergies: duloxetine (Verified Allergy, Unknown, SHAKY, SLURRED SPEECH, 08/11/16) tramadol (Unverified Allergy, Unknown, N.V, ITCHING, DIZZY, HAS RECEIVED HYDROMORPHONE IN THE PAST, 08/19/16) Home Medications Hydrocodone Bit/Acetaminophen 1 Tab Tab, 1-2 TAB PO Q6H PRN for PAIN-MODERATE Prescribed by: GLADYS RENTERIA on 10/15/18 1343 Ibuprofen 600 Mg Tablet, 600 MG PO Q6H Prescribed by: GLADYS RENTERIA on 10/15/18 1343 Levothyroxine Sodium 150 Mcg Tablet, 150 MCG PO DAILY, (Reported) Patient Home Medication List Home Medication List Reviewed: GLADYS Escobedo DO Oct 15, 2018 13:46
[2018-10-15] MEDS ORDERED: KETOROLAC 30 MG/ML VIAL IVP ONE (14:00)
[2018-10-15] MEDS ORDERED: METHYLERGONOVINE 0.2 MG/ML (METHERGINE) AMP IM ONE (14:00)
[2018-10-15] MEDS ORDERED: METH0.2T47 PO (14:29)
[2018-10-15] MEDS ORDERED: morphine INJ 10 MG/ML 1ML (SYR OR VIAL) IVP ONE (14:30)
[2018-10-15] MEDS ORDERED: MEPERIDINE (DEMEROL) INJ 50 MG/ML IVP ONE (14:30)
[2018-10-15] MEDS ORDERED: ONDANSETRON 4 MG/2 ML (SDV) Z0FRAN IVP PRN (14:30)
[2018-10-15] MEDS ORDERED: METHYLERGONOVINE 0.2 MG/ML (METHERGINE) AMP ONE (14:51)
[2018-10-15] MEDS ORDERED: DOXYCYCLINE 100 MG (VIBRAMYCIN) TABLET PO ONE (15:00)
[2018-10-15 15:45] VITALS: BP 99/70
[2018-10-15 16:15] VITALS: BP 110/80
[2018-10-15 16:45] VITALS: BP 112/79
[2018-10-15 17:15] VITALS: BP 112/79
[2018-10-18] MEDS ORDERED: SCOPOLAMINE PATCH REMOVAL TP SCH (12:59)
== END 2018-10-15 17:15 | disposition home or self-care (01) ==
LOC: SDC 12:18
PROVIDERS: ATTEND Obstetrics & Gynecology
DX: O02.1 Missed abortion (principal); N96 Recurrent pregnancy loss; E03.9 Hypothyroidism, unspecified; Z79.899 Other long term (current) drug therapy
CPT/HCPCS: 36415; 85025; 86850; 86900; 86901; 87081

== ENCOUNTER → 2018-12-08 | Outpatient (CLI) | payer BC ==
[~2018-12-08] MED LIST changes: +METH0.2T47 PO
--- NOTE | 2018-12-08 15:43 | Diagnostic Imaging Report ---
PROCEDURE: US Non-ob pelvis comp/trans. TECHNIQUE: Multiple realtime grayscale images were obtained of the pelvis in various projections endovaginally. Transabdominal imaging was also performed. INDICATION: Right ovarian cyst. COMPARISON: Correlation is made with prior ultrasound from 08/26/2018. FINDINGS: The uterus measures 8.3 x 5.4 x 4.7 cm. Endometrium is 9 mm in thickness. No myometrial mass is identified. Left ovary was not visualized. The right ovary does contain a cyst measuring 6.0 x 6.0 x 5.7 cm. There is blood flow to the right ovary. No free fluid is seen. IMPRESSION: 6 cm right ovarian cyst. Followup ultrasound to confirm resolution is recommended. Dictated by: Dictated on workstation # [id number]
== END ==
LOC: RAD 14:32
PROVIDERS: ATTEND Obstetrics & Gynecology
DX: N83.201 Unspecified ovarian cyst, right side (principal)
CPT/HCPCS: 76830; 76856

== ENCOUNTER → 2018-12-17 | Outpatient (CLI) | payer BC ==
[~2018-12-17] MED LIST changes: +GADOBUTROL 10 MMOL/10 ML (GADAVIST) VIAL IV ONE
--- NOTE | 2018-12-17 15:33 | Diagnostic Imaging Report ---
INDICATION: Intractable migraine headaches with aura. Patient has loss of feelings in the hands and feet. TECHNIQUE: Pre-and post-intravenous contrast multiplanar multisequence imaging of the thoracic spine was performed. FINDINGS: Curvature and alignment of the thoracic spine is normal. The vertebral body heights are well-maintained. The marrow signal intensity is unremarkable. There is fairly normal height and signal intensity to the thoracic intervertebral discs. Thoracic cord shows normal homogeneous signal intensity and normal morphology. Minimal endplate osteophytes indent the ventral thecal sac of the mid thoracic spine but this does not produce central canal stenosis. Right para-midline disc/osteophyte complex at approximately T7-T8 level is noted but again no significant central canal or neural foraminal narrowing is seen. Left para-midline disc/osteophyte complex at T8-T9 level is also noted but no central canal or neural foraminal narrowing is identified. No abnormal enhancement following contrast administration is identified. Paraspinous tissues are unremarkable. IMPRESSION: Mild glo-bk-[id number] thoracic spine degenerative changes from T6-T7 through T8-T9 levels, as described. No central canal stenosis or neural foraminal stenosis is seen. No abnormal enhancement is identified. Dictated by: Dictated on workstation # [id number]
--- NOTE | 2018-12-17 15:45 | Diagnostic Imaging Report ---
PROCEDURE: MR imaging cervical spine with and without contrast. TECHNIQUE: Multiplanar and multisequence MRI of the cervical spine was performed with and without contrast. INDICATION: Headaches and loss of feeling in the hands and feet. COMPARISON: No prior studies are available for comparison. FINDINGS: Curvature and alignment of the cervical spine is normal. Vertebral body marrow signal is unremarkable. There is normal height and signal intensity to the cervical intervertebral disc apart from mild degenerative changes at the C5-C6 level with mild disc desiccation and mild disc space narrowing. Mild broad-based disc/osteophyte complex does indent the ventral thecal sac but no central canal or neural foraminal stenosis is identified. No focal disc protrusion is seen. All other levels of the cervical spine demonstrate a widely patent canal and neural foramina. Postcontrast images are without abnormal enhancement. Paraspinous tissues are unremarkable. IMPRESSION: Mild C5-C6 degenerative disc disease. No focal disc protrusion, central canal or neural foraminal stenosis is identified. No abnormal enhancement is identified. Dictated by: Dictated on workstation # [id number]
== END ==
LOC: RAD 13:52
PROVIDERS: ATTEND Psychiatry & Neurology Neurology
DX: M47.814 Spondylosis without myelopathy or radiculopathy, thoracic region (principal); M50.322 Other cervical disc degeneration at C5-C6 level; G43.111 Migraine with aura, intractable, with status migrainosus
CPT/HCPCS: 72156; 72157

== ENCOUNTER → 2019-01-20 | Outpatient (CLI) | payer BC ==
[~2019-01-20] MED LIST changes: -GADOBUTROL 10 MMOL/10 ML (GADAVIST) VIAL IV ONE
--- NOTE | 2019-01-20 17:59 | Diagnostic Imaging Report ---
PROCEDURE: US Non-ob pelvis comp/trans. TECHNIQUE: Multiple realtime grayscale images were obtained of the pelvis in various projections endovaginally. Transabdominal imaging was also performed. INDICATION: Right ovarian cyst. FINDINGS: The previous pelvic ultrasound exam of 12/08/2018 noted a 6 cm right ovarian cyst. On this study, there is a cyst still present on the right ovary but it measures only 2.2 x 1.7 x 1.7 cm. This cyst has a generally benign appearance. By history, the left ovary is surgically absent. There is no solid pelvic mass or free fluid collection noted. The uterus is nongravid and not enlarged measuring 8.9 x 6.3 x 4.8 mm. The endometrial lining is slightly thickened measuring 7 mm (normal 5 mm or less). This finding is nonspecific. Correlation with the patient's menstrual cycle would be recommended. There is no focal mass involving the uterus to suggest a fibroid. IMPRESSION: 1. The 6 cm cyst arising from the right ovary seen on the prior study is no longer visualized on this study. There is a 2.2 cm benign-appearing cyst now associated with the right ovary. Whether this cyst and the cyst seen previously are one and the same is not certain. 2. There is no acute pelvic abnormality noted, otherwise. Dictated by: Dictated on workstation # [id number]
== END ==
LOC: RAD 11:34
PROVIDERS: ATTEND Obstetrics & Gynecology
DX: N83.201 Unspecified ovarian cyst, right side (principal); Z90.721 Acquired absence of ovaries, unilateral
CPT/HCPCS: 76830; 76856

== ENCOUNTER 2019-04-21 14:51 | Emergency (ER) | payer BC ==
[~2019-04-21] VITALS: Ht 160 cm; Wt 81.6 kg
--- NOTE | 2019-04-21 15:02 | NUR ---
pt alert gcs 15 with no acute sighns of dyspnea noted. pt feels febrile like a fever despite wnl temp 2 [address]. pt also appears a little worn down like no energy.
--- NOTE | 2019-04-21 15:07 | ED Cardiac General ---
History of Present Illness General Chief Complaint: Cardiac/General Problems Stated Complaint: LOW BP;WEAKNESS Nursing Triage Note: c/o low bp and general weaknees like no energy Source: patient Exam Limitations: no limitations History of Present Illness Date Seen by Provider: Apr 21, 2019 Time Seen by Provider: 15:04 Initial Comments To ER by private vehicle with reports of generalized weakness for one week. She's passed out 3 times over the course of the past week, checked her blood pressure at home today and found it to be 88/38. All of the symptoms began after starting prazosin for night terrors last week. Currently she just feels weak, has no specific pains or complaints. Timing/Duration: changing over time Severity: moderate Activities at Onset: none Prior CP/Workup: no prior chest pain NTG SL REGISTERED NURSE CARDIAC: No ASA po REGISTERED NURSE CARDIAC: No Associated Systoms: Denies Symptoms Allergies and Home Medications Allergies Coded Allergies: duloxetine (Verified Allergy, Unknown, SHAKY, SLURRED SPEECH, 08/11/16) tramadol (Unverified Allergy, Unknown, N.V, ITCHING, DIZZY, HAS RECEIVED HYDROMORPHONE IN THE PAST, 08/19/16) Home Medications Hydrocodone Bit/Acetaminophen 1 Tab Tab, 1-2 TAB PO Q6H PRN for PAIN-MODERATE Prescribed by: GLADYS RENTERIA on 10/15/18 1343 Ibuprofen 600 Mg Tablet, 600 MG PO Q6H Prescribed by: GLADYS RENTERIA on 10/15/18 1343 Levothyroxine Sodium 150 Mcg Tablet, 150 MCG PO DAILY, (Reported) Methylergonovine Maleate 0.2 Mg Tablet, 0.2 MG PO TID Prescribed by: GLADYS RENTERIA on 10/15/18 1429 Patient Home Medication List Home Medication List Reviewed: Yes Review of Systems Review of Systems Constitutional: see HPI; No fever; weakness EENTM: No Symptoms Reported Respiratory: No Symptoms Reported; Denies Cough, Denies Shortness of Air Cardiovascular: No Symptoms Reported; Denies Chest Pain Gastrointestinal: No Symptoms Reported, Abdominal Pain (chronic pelvic pain is unchanged and has been present for years); Denies Constipated, Denies Diarrhea, Denies Nausea, Denies Vomiting Musculoskeletal: no symptoms reported; No back pain, No joint pain, No joint swelling Skin: no symptoms reported; No pruritus, No rash Psychiatric/Neurological: No Symptoms Reported Endocrine: No Symptoms Reported Hematologic/Lymphatic: No Symptoms Reported Past Lnrbooh-Jbvwav-Gihcxc Hx Patient Social History Alcohol Use: Denies Use Recreational Drug Use: No Smoking Status: Current Everyday Smoker Type Used: Cigarettes Former Smoker, Quit: Aug 21, 2018 2nd Hand Smoke Exposure: No Recent Foreign Travel: No Contact w/Someone Who Travel: No Recent Infectious Disease Expo: No Recent Hopitalizations: No Physical Abuse: No Sexual Abuse: No Immunizations Up To Date Tetanus Booster (TDap): Unknown PED Vaccines UTD: No Date of Influenza Vaccine: Sep 29, 2011 Seasonal Allergies Seasonal Allergies: No Past Medical History Surgeries: Yes (dxls x4 , R shoulder sx x3) Abdominal, Oophorectomy, Orthopedic, Tonsillectomy Respiratory: No Cardiac: No Hypertension Neurological: Yes Headaches /Migraines, Seizure Disorder Reproductive Disorders: Yes (CHRONIC PELVIC PAIN, ENDOMETRIOSIS, PCOS) Female Reproductive Disorders: Endometriosis, Ovarian Cyst, Polycystic Ovarian Dis Sexually Transmitted Disease: No Genitourinary: No Gastrointestinal: No Musculoskeletal: Yes (R SHOULDER SURG) Endocrine: Yes Hypothyroidsim HEENT: No Cancer: No Psychosocial: Yes Anxiety, Depression Integumentary: No Blood Disorders: No Physical Exam Vital Signs Vital Signs - First Documented 04/21/19 14:54 Temp 96.3 Pulse 108 Resp 16 B/P (MAP) 140/94 (109) Pulse Ox 99 O2 Delivery Room Air Capillary Refill : Less Than 3 Seconds Height, Weight, BMI Height: 5'3.00" Weight: 180lbs. 0.0oz. 81.391444fo; 35.4 BMI Method:Stated General Appearance: No Apparent Distress, WD/WN, Other (and rheumatoid room 9 without assistance. Blood pressure 133/91. Heart rate 99) HEENT: PERRL/EOMI, TMs Normal Neck: Full Range of Motion, Normal Inspection Respiratory: Normal Breath Sounds, No Accessory Muscle Use, No Respiratory Distress Cardiovascular: Normal Peripheral Pulses, Tachycardia Gastrointestinal: Normal Bowel Sounds, Non Tender, Soft Neurologic/Psychiatric: Alert, Oriented x3, Other (flat affect) Skin: Normal Color, Warm/Dry Progress/Results/Core Measures Results/Orders My Orders Orders - BARI DOLAN APRN Cbc With Automated Diff (04/21/19 15:00) Hcg,Qualitative Serum (04/21/19 15:00) Comprehensive Metabolic Panel (04/21/19 15:00) Thyroid Stimulating Hormone (04/21/19 15:00) Ua Culture If Indicated (04/21/19 15:00) Drug Screen Stat (Urine) (04/21/19 15:00) Vital Signs/I&O 04/21/19 14:54 Temp 96.3 Pulse 108 Resp 16 B/P (MAP) 140/94 (109) Pulse Ox 99 O2 Delivery Room Air Blood Pressure Mean: 109 Departure Impression Primary Impression: Medication side effects Disposition: HOME, SELF-CARE Condition: Stable Departure-Patient Inst. Decision time for Depature: 15:07 Referrals: [facility] (PCP) Primary Care Physician RONNIE MURRAY (Family) Primary Care Physician Patient Instructions: Side Effects From Medicines Add. Discharge Instructions: 1. Stop the prazosin 2. Drink plenty of fluids 3. Follow-up with your doctor this week for recheck. Return to ER for any concerns. All discharge instructions reviewed with patient and/or family. Voiced understanding. BARI DOLAN APRN Apr 21, 2019 15:06
--- NOTE | 2019-04-21 15:22 | NUR ---
THE PT STATES THAT SHE TOOK HER BP WHILE AT HOME, STATES THAT IT WAS LOWER THAN USUAL. HER FRIEND CALLED THE CLICIC, THEY TOLD HER TO COME BE EVALUATED AT THE ER.
[2019-04-21 15:23] LABS: BASOPHILS % (AUTO) 0 % (0-10); EOSINOPHILS # (AUTO) 0.4 10^3/uL (0.0-0.3); EOSINOPHILS % (AUTO) 4 % (0-10); HEMATOCRIT 36 % (35-52); HEMOGLOBIN 11.8 G/DL (11.5-16.0); LYMPHOCYTES # (AUTO) 2.8 X 10^3 (1.0-4.0); LYMPHOCYTES % (AUTO) 32 % (12-44); MEAN CORPUSCULAR HEMOGLOBIN 29 PG (25-34); MEAN CORPUSCULAR HGB CONC 33 G/DL (32-36); MEAN CORPUSCULAR VOLUME 87 FL (80-99); MEAN PLATELET VOLUME 11.2 FL (7.4-10.4); MONOCYTES # (AUTO) 0.6 X 10^3 (0.0-1.0); MONOCYTES % (AUTO) 7 % (0-12); NEUTROPHILS % (AUTO) 57 % (42-75); PLATELET COUNT 295 10^3/uL (130-400); RED CELL DISTRIBUTION WIDTH 14.9 % (10.0-14.5); WHITE BLOOD COUNT 8.8 10^3/uL (4.3-11.0)
[2019-04-21 15:33] LABS: BILIRUBIN,URINE NEGATIVE (NEGATIVE); CLARITY,URINE CLEAR; COLOR,URINE YELLOW; GLUCOSE, URINE (UA) NEGATIVE (NEGATIVE); KETONES,URINE NEGATIVE (NEGATIVE); LEUKOCYTE ESTERASE ,URINE NEGATIVE (NEGATIVE); NITRITE,URINE NEGATIVE (NEGATIVE); PH,URINE 6.5 (5-9); PROTEIN,URINE NEGATIVE (NEGATIVE); UROBILINOGEN,URINE NORMAL (NORMAL)
[2019-04-21 15:40] LABS: BACTERIA,URINE NEGATIVE /HPF
[2019-04-21 15:44] LABS: ALANINE AMINOTRANSFERASE 27 U/L (0-55); ALBUMIN 4.4 GM/DL (3.2-4.5); ALKALINE PHOSPHATASE 54 U/L (40-136); BILIRUBIN,TOTAL 0.2 MG/DL (0.1-1.0); BUN/CREATININE RATIO 13; CALCIUM 9.9 MG/DL (8.5-10.1); CARBON DIOXIDE 17 MMOL/L (21-32); CHLORIDE 109 MMOL/L (98-107); CREATININE SERUM 1.07 MG/DL (0.60-1.30); GFR ESTIMATED 60; GLUCOSE 108 MG/DL (70-105); POTASSIUM 3.9 MMOL/L (3.6-5.0); SODIUM 139 MMOL/L (135-145); TOTAL PROTEIN 7.2 GM/DL (6.4-8.2)
[2019-04-21 15:46] LABS: AMPHETAMINE SCREEN, URINE NEGATIVE (NEGATIVE); BARBITURATE SCREEN URINE NEGATIVE (NEGATIVE); BENZODIAZEPINES SCREEN URINE NEGATIVE (NEGATIVE); CANNABINOID SCREEN, URINE NEGATIVE (NEGATIVE); COCAINE SCREEN URINE NEGATIVE (NEGATIVE); METHADONE STAT NEGATIVE (NEGATIVE); METHAMPHETAMINE SCREEN URINE S NEGATIVE (NEGATIVE); OPIATE SCREEN URINE POSITIVE (NEGATIVE); OXYCODONE STAT NEGATIVE (NEGATIVE); PROPOXYPHENE STAT NEGATIVE (NEGATIVE); TRICYCLIC ANTIDEPRESSANTS SCRE NEGATIVE (NEGATIVE)
[2019-04-21 16:11] VITALS: BP 128/84
== END 2019-04-21 16:13 | disposition home or self-care (01) ==
LOC: EDUNIT# 14:51 → ER 14:52
DX: R53.1 Weakness (principal); R03.1 Nonspecific low blood-pressure reading; T44.6X5A Adverse effect of alpha-adrenoreceptor antagonists, initial encounter; I10 Essential (primary) hypertension; G43.909 Migraine, unspecified, not intractable, without status migrainosus; G40.909 Epilepsy, unspecified, not intractable, without status epilepticus; E03.9 Hypothyroidism, unspecified; F41.9 Anxiety disorder, unspecified; F32.9 Major depressive disorder, single episode, unspecified; F17.210 Nicotine dependence, cigarettes, uncomplicated; Z88.5 Allergy status to narcotic agent; Z88.8 Allergy status to other drugs, medicaments and biological substances; Z90.89 Acquired absence of other organs
CPT/HCPCS: 36415; 80053; 80306; 81000; 84443; 84484; 84703; 85025; 93005

== ENCOUNTER → 2019-06-29 | Outpatient (CLI) | payer BC ==
--- NOTE | 2019-06-29 15:23 | Diagnostic Imaging Report ---
INDICATION: Right axillary mass. TECHNIQUE: Sonographic interrogation of the area of lump in the right axilla was performed. FINDINGS: No sonographic abnormality is identified. No solid or cystic mass is detected. IMPRESSION: No sonographic abnormality is seen. Continued close clinical and self breast exams are recommended to confirm stability. If symptoms persist, diagnostic mammography would be recommended. ACR BI-RADS Category 1: Negative. Dictated by: Dictated on workstation # [id number]
== END ==
LOC: RAD 13:59
PROVIDERS: ATTEND Surgery
DX: R22.9 Localized swelling, mass and lump, unspecified (principal)

== ENCOUNTER → 2019-12-23 | Outpatient (CLI) | payer BC ==
[~2019-12-23] MED LIST changes: -LIDO15SO2 MM; +LIDO20SO23 MM
--- NOTE | 2019-12-23 16:40 | Diagnostic Imaging Report ---
PROCEDURE: US Non-ob pelvis comp/trans. TECHNIQUE: Multiple realtime grayscale images were obtained of the pelvis in various projections endovaginally. Transabdominal and color Doppler imaging was also utilized. Transabdominal imaging was also performed. INDICATION: Follow-up right ovarian cyst. Endometriosis. COMPARISON: 01/20/2019. FINDINGS: The uterus measures 9.2 x 4.5 x 5.0 cm. The myometrium is normal in echogenicity without mass. There are few anechoic cysts at the cervix compatible with nabothian gland cyst. The endometrium measures 0.6 mm in thickness and there is no vascularity within the endometrium. The right ovary measures 5.1 x 2.9 x 3.4 cm. Blood flow seen within the right ovary by color Doppler and spectral Doppler imaging. There are a few simple subcentimeter follicles within the right ovary, largest measuring 1.5 x 1.5 x 0.9 cm. Simple right ovarian cyst has resolved. Left ovary is surgically absent. No mass or fluid collection within left adnexa. IMPRESSION: 1. Physiologic appearance of the right ovary with the subcentimeter follicles present. 2. Left oophorectomy. Dictated by: Dictated on workstation # [id number]
== END ==
LOC: RAD 15:12
PROVIDERS: ATTEND Obstetrics & Gynecology
DX: N83.201 Unspecified ovarian cyst, right side (principal); N80.9 Endometriosis, unspecified; E28.2 Polycystic ovarian syndrome
CPT/HCPCS: 76830; 76856

== ENCOUNTER 2020-02-17 08:01 | Outpatient (RCR) | payer BC ==
[~2020-02-17] VITALS: Ht 160 cm; Wt 100.0 kg
[~2020-02-17 08:01] MED LIST changes: +BUPR150T14 PO; +EREN70AU2 SQ; +FLUO20CA46 PO; +HYDR-4342 PO; +HYDR-700 PO; +METH25VI15 SQ; +PRED5TAB PO; +PROM25TA14 PO; +RIZA10TA94 PO; +TIZA4TAB4 PO; +TOPI50TA13 PO
== END 2020-02-17 14:26 | disposition home or self-care (01) ==
LOC: PREOP 08:01
PROVIDERS: ATTEND Obstetrics & Gynecology
DX: Z01.818 Encounter for other preprocedural examination (principal)

== ENCOUNTER → 2020-02-20 | Outpatient (CLI) | payer BC | LOC: LAB 15:09 | PROVIDERS: ATTEND Internal Medicine Cardiovascular Disease | DX: D86.1 Sarcoidosis of lymph nodes (principal); Z72.0 Tobacco use | CPT/HCPCS: 36415; 84703 ==

== ENCOUNTER → 2020-02-21 | Outpatient (CLI) | payer BC ==
[~2020-02-21] VITALS: Ht 162 cm; Wt 99.0 kg
[~2020-02-21] MED LIST changes: +CATHETER FLUSH 10 ML SYR IV PRN; +REGADENOSON 0.4 MG/5 ML SYR (LEXISCAN) IV ONE
--- NOTE | 2020-02-21 20:36 | STRESS TEST ---
DATE OF SERVICE: 02/21/2020 RESTING AND POST REGADENOSON TECHNETIUM-99M TETROFOSMIN SPECT CT IMAGING ORDERING PHYSICIAN: Dr. Cazares. PRIMARY PHYSICIAN: Александр Greenberg APRN CLINICAL DIAGNOSES: Sarcoidosis, tobacco use. Baseline images were carried out after injection of 10.77 mCi of technetium-99m Tetrofosmin for stress imaging. This was followed by 0.4 mg regadenoson and 32.4 mCi of technetium-99m Tetrofosmin for stress imaging. The electrocardiogram showed sinus rhythm at baseline and did not change significantly with the regadenoson infusion. The patient tolerated the procedure well. She did have some nausea during the procedure, which resolved in a few minutes after injection of regadenoson. Review of images at rest and following stress does not indicate any significant perfusion defects consistent with myocardial ischemia or infarction. Some degree of breast attenuation is seen both at rest and following regadenoson infusion. Gated images show normal global left ventricular systolic function with normal regional wall motion. Left ventricular ejection fraction is calculated to be 79%. Left ventricular end diastolic volume is 39 mL. TID is absent (0.93). CONCLUSIONS: 1. No evidence of any significant myocardial ischemia or infarction on this study. 2. Normal regional wall motion. 3. Normal global left ventricular systolic function with a calculated ejection fraction of 79%. Job ID: [id number] DocumentID: [id number] Dictated Date: 02/21/2020 16:38:36 Earrings Fabricator Date: 02/21/2020 20:36:16 Dictated By: WILLIAM CAZARES MD, MA, FACP, FACC,
== END ==
LOC: CARD 10:15
PROVIDERS: ATTEND Internal Medicine Cardiovascular Disease
DX: D86.1 Sarcoidosis of lymph nodes (principal); Z72.0 Tobacco use
CPT/HCPCS: 78452; 93017; 93306

== ENCOUNTER 2020-03-01 07:34 | Outpatient (RCR) | payer BC ==
[~2020-03-01] VITALS: Ht 160 cm; Wt 103.0 kg
[~2020-03-01 07:34] MED LIST changes: -CATHETER FLUSH 10 ML SYR IV PRN; -REGADENOSON 0.4 MG/5 ML SYR (LEXISCAN) IV ONE
[2020-03-01 09:37] LABS: BILIRUBIN,URINE NEGATIVE (NEGATIVE); CLARITY,URINE CLEAR; COLOR,URINE YELLOW; GLUCOSE, URINE (UA) NEGATIVE (NEGATIVE); KETONES,URINE NEGATIVE (NEGATIVE); LEUKOCYTE ESTERASE ,URINE NEGATIVE (NEGATIVE); NITRITE,URINE NEGATIVE (NEGATIVE); PH,URINE 7.5 (5-9); PROTEIN,URINE NEGATIVE (NEGATIVE)
[2020-03-01 09:41] LABS: BASOPHILS % (AUTO) 0 % (0-10); EOSINOPHILS # (AUTO) 0.2 10^3/uL (0.0-0.3); EOSINOPHILS % (AUTO) 2 % (0-10); HEMATOCRIT 32 % (35-52); HEMOGLOBIN 10.4 G/DL (11.5-16.0); LYMPHOCYTES # (AUTO) 1.6 X 10^3 (1.0-4.0); LYMPHOCYTES % (AUTO) 17 % (12-44); MEAN CORPUSCULAR HEMOGLOBIN 27 PG (25-34); MEAN CORPUSCULAR HGB CONC 32 G/DL (32-36); MEAN CORPUSCULAR VOLUME 83 FL (80-99); MEAN PLATELET VOLUME 10.8 FL (7.4-10.4); MONOCYTES # (AUTO) 0.6 X 10^3 (0.0-1.0); MONOCYTES % (AUTO) 6 % (0-12); NEUTROPHILS # (AUTO) 6.9 X 10^3 (1.8-7.8); NEUTROPHILS % (AUTO) 75 % (42-75); PLATELET COUNT 256 10^3/uL (130-400); RED CELL DISTRIBUTION WIDTH 18.7 % (10.0-14.5); WHITE BLOOD COUNT 9.2 10^3/uL (4.3-11.0)
[2020-03-01 10:00] LABS: BACTERIA,URINE NEGATIVE /HPF; SQUAMOUS EPITHELIAL CELL,UR 0-2 /HPF
[2020-03-01 12:11] VITALS: BP 131/91
[2020-03-01] MEDS ORDERED: FOLI1TAB24 PO (12:19)
[2020-03-01] MEDS ORDERED: TOPI50TA13 PO (12:19)
[2020-03-01] MEDS ORDERED: BUTA1CAP17 PO (12:19)
[2020-03-01] MEDS ORDERED: CHOL100045 PO (12:19)
[2020-03-06] MEDS ORDERED: metroNIDAZOLE 500MG/100ML IVPB 100 ML IV ONE (07:30)
[2020-03-06] MEDS ORDERED: HYDROCORTISONE 100 MG/2 ML (Solu-CORTEF) VIAL IV ONE (07:30)
[2020-03-06] MEDS ORDERED: ceFAZolin INJECTION 1,000 MG in WATER (STERILE) FOR INJECTION 10 ML IV ONE (07:30)
[2020-03-06] MEDS ORDERED: MEDR2.5T6 PO (18:33)
[2020-03-06] MEDS ORDERED: OXYC5TAB96 PO (18:33)
[2020-03-06] MEDS ORDERED: ESTR1TAB24 PO (18:33)
[2020-03-06] MEDS ORDERED: IBUP-844 PO (18:33)
[2020-03-06] MEDS ORDERED: ACET-93 PO (18:33)
[2020-03-06] MEDS ORDERED: SIME80TA16 PO (18:33)
== END 2020-03-01 12:20 | disposition home or self-care (01) ==
LOC: PREOP 07:34
PROVIDERS: ATTEND Obstetrics & Gynecology
DX: Z01.818 Encounter for other preprocedural examination (principal); N83.201 Unspecified ovarian cyst, right side; Z20.828 Contact with and (suspected) exposure to other viral communicable diseases
CPT/HCPCS: 36415; 81000; 85025; 86850; 86900; 86901; 87081; 87635

== ENCOUNTER 2020-03-06 10:26 | Day surgery (SDC) | payer BC ==
[2020-03-06] VITALS (12 sets, daily range): BP systolic 123–140; BP diastolic 78–92
[~2020-03-06] VITALS: Ht 160 cm; Wt 103.0 kg
[2020-03-06] MEDS: LACTATED RINGERS 1,000 ML IV PRN ×3 (10:20→13:51)
[~2020-03-06 10:26] MED LIST changes: +BUTA1CAP17 PO; +CHOL100045 PO; +FOLI1TAB24 PO
[2020-03-06] MEDS ORDERED: metroNIDAZOLE 500MG/100ML IVPB 100 ML IV ONE (10:45)
[2020-03-06] MEDS ORDERED: ceFAZolin INJECTION 1,000 MG in WATER (STERILE) FOR INJECTION 10 ML IV ONE (10:45)
[2020-03-06] MEDS ORDERED: WATER (STERILE) FOR INJECTION 10 ML ONE (10:52)
[2020-03-06] MEDS ORDERED: ceFAZolin INJECTION 1,000 MG ONE (10:52)
[2020-03-06] MEDS ORDERED: metroNIDAZOLE 500MG/100ML IVPB 100 ML ONE (10:53)
[2020-03-06] MEDS ORDERED: HYDROCORTISONE 100 MG/2 ML (Solu-CORTEF) VIAL IV NR (11:00)
--- NOTE | 2020-03-06 11:00 | Progress Note-Pre Operative ---
Pre-Operative Progress Note H&P Reviewed The H&P was reviewed, patient examined and no changes noted. Date Seen by Provider: Mar 06, 2020 Time Seen by Provider: 11:00 Date H&P Reviewed: Mar 06, 2020 Time H&P Reviewed: 11:00 Pre-Operative Diagnosis: endometriosis, ovarian cyst GLADYS RENTERIA DO Mar 06, 2020 11:00
[2020-03-06] MEDS ORDERED: BUP/EPI 0.5% 1:200,000 (SENSORCAINE) 30 ML VIAL ONE (11:29)
[2020-03-06] MEDS ORDERED: DEXAMETHASONE 10 MG/ML (DECADRON) 1 ML VIAL ONE (11:58)
[2020-03-06] MEDS ORDERED: ONDANSETRON 4 MG/2 ML (SDV) Z0FRAN ONE (11:58)
[2020-03-06] MEDS ORDERED: ROCURONIUM 10 MG/ML 5 ML SYRINGE IV ONE ×2 (11:58→14:15)
[2020-03-06] MEDS ORDERED: fentaNYL INJECTION 100 MCG/2 ML AMP ONE (11:58)
[2020-03-06] MEDS ORDERED: MIDAZOLAM 2 MG/2 ML (VERSED) VIAL ONE (11:58)
[2020-03-06] MEDS ORDERED: SEVOFLURANE (ULTANE) 15 ML INHAL SOLN ONE ×4 (11:58→14:32)
[2020-03-06] MEDS ORDERED: proPOfol 200 MG/20 ML (DIPRIVAN) VIAL IV ONE (11:58)
[2020-03-06] MEDS ORDERED: LIDOCAINE PF 2% 5 ML (XYLOCAINE) VIAL ONE (11:58)
[2020-03-06] MEDS ORDERED: NEOSTIGMINE 3 MG/3 ML VIAL ONE (14:15)
[2020-03-06] MEDS ORDERED: GLYCOPYRROLATE 0.2 MG/ML (ROBINUL) 2 ML VIAL ONE (14:15)
--- NOTE | 2020-03-06 14:20 | Operative Report ---
Operative Report Date of Procedure/Surgery Mar 06, 2020 Surgeon (s) GLADYS RENTERIA DO Journeyman Mechanic (s): NA Post-Operative Diagnosis endometriosis complex right ovarian cyst chronic pelvic pain Procedure Performed RaTH, RSO, appendectomy Description of Procedure Anesthesia Type: General Estimated blood loss (mL): 350 Specimen(s) collected/removed uterus and right ovary and tube Description of the Procedure Prior to the procedure, that patient requested that her ovary be removed so that she did not have to return to surgery at some point. she has had a previous LSO due to ectopic . there was a complex cyst on the right ovary. consent was signed. she was informed that she will be menopausal but she states she would rather take medication that deal with her pain. she is diagnosed with Sa rcoidosis and on daily prednisone. she was given a dose of IV cortisol prior to surgery and this will be continued after surgery until her po can be restarted. We will also continue her on combined HT for at least 3 months due to the history of endometriosis. After informed consent was obtained, patient was taken into the operating room where general anesthetic was found to be adequate. She was prepped and draped in the usual sterile fashion in the dorsal lithotomy position. A Caballero catheter was placed. A speculum was placed in the vagina. There was a large rectocele, and a smaller cystocele. The cervix was visualized and the anterior lip was grasped with a sharp toothed tenaculum. The uterus was sounded and depth was approximately 10 centimeters. I placed the Amelie device (8 cm) and a 3.5 cm collar was advanced over the cervix. I inserted the Amelie without difficulty, inflating the balloon and securing it around the fornix of the cervix. The collar was then secured with sutures at 12 o'clock. Attention was then turned to the patient's abdomen. A supraumbilical incision was made about 8 mm. A Veress needle was inserted and I confirmed intraabdominal placement with a drop in pressure and the saline drop test. The opening pressure was 7 mmHg. I then insufflated the abdomen to a maximum of 15 mmHg with warmed CO2 gas. I placed an additional 8 mm trocar in the left abdomen lateral to the umbilicus approximately 15 cm. it was determined this could be continued robotically. The second robotic port was placed about 12 cm lateral to the right placement. This was an 8 mm trocar. These were placed under direct visualization of the laparoscope. 0.25% Marcaine was injected prior to placement of all trocars. When all placements were confirmed, the patient was placed in steep Trendelenburg allowing adequate visualization and the robot was brought in for docking. The docking was accomplished without difficulty. there was absence of the left tube and ovary and the uterus was shifted to the right. There was a complex right ovary. There was pelvic congestion and scarring in the pelvis. I then took over the command of the robot utilizing the vessel sealer and monopolar jennifer. I was able to visualize the round ligaments bilaterally and grasped them and cauterized with bipolar cautery and then cut with my jennifer. At this point, I then did right salpingoophorectomy. i grasped the right infundibulopelvic ligament and transected with the jennifer. I then moved my dissection to the posterior leaves of the broad ligament. I dissected the posterior leaves of the broad ligament off the uterine arteries skeletonizing them bilaterally. I then took a second clamp with the bipolar cautery and with the jennifer, transected the vessels away from the lateral aspect to the cervical stroma. I dissected the anterior peritoneum off the lower uterine segment. I continually pushed the bladder back and I took excessively great care and I was eventually able to dissect the vesicouterine peritoneum off the lower uterine segment. I then dissected in a V fashion towards the midline between the uterosacral ligaments. This allowed me to skeletonize the uterine vessels bilaterally. The balloon on the AMELIE was insufflated. This allowed me to see the AMELIE circumferentially. I then performed a colpotomy anteriorly and then amputate with cervix away from the vaginal fornix. I then continued the colpotomy circumferentially. Once this was performed, the logistics assistant removed the uterus, tubes and ovaries through the vagina. She then left the uterus in the vagina to maintain the pneumoperitoneum. . I then began closure of the vaginal cuff. The uterus was left in the vagina to maintain pneumoperitoneum. I closed the apices of the vaginal cuff with 2-0 Vicryl V lock sutures with a colposuspension through the uterosacral ligaments. This suspended the apices of the vaginal cuff. I extended this to the midline from both sides and overlapped the V lock sutures in the midline. Excellent closure is noted and hemostasis is achieved. Now, the robotic instruments were removed and the robot was docked back to laparoscopy. The pelvis was irrigated. There was no active bleeding noted. Bilateral ureters were seen the entire time during the surgery and were peristalsing. There was no excessive bleeding noted. The trocars were removed under direct visualization. The laparoscopic sites were visualized and found to be hemostatic. The trocar sites were injected with 0.25% Marcaine. The skin incisions were closed with 4-0 Monocryl in a subcuticular fashion and then with Dermabond. Op sites were placed over the incision sites. The instruments were removed from the vagina and I noted there were no abrasions. the patient was awakened and taken to recovery in stable condition. sponge, lap, needle and instrument counts correct times two. Findings of the Procedure uterus slightly enlarged with endometriosis, old scarring in the pelvis and culdesac tense appendix complex right ovarian cyst absent left tube and ovary Allergies and Home Medications Allergies Coded Allergies: duloxetine (Verified Allergy, Unknown, SHAKY, SLURRED SPEECH, 08/11/16) tramadol (Unverified Allergy, Unknown, N.V, ITCHING, DIZZY, HAS RECEIVED HYDROMORPHONE IN THE PAST, 08/19/16) Home Medications Acetaminophen 500 Mg Tablet, 1,000 MG PO Q8HR Prescribed by: GLADYS RENTERIA on 03/06/201832 Bupropion HCl 150 Mg Tablet.er, 150 MG PO BID, (Reported) Butalbital/Aspirin/Caffeine 1 Each Capsule, 1 EACH PO Q6H PRN for migraines, (Reported) Cholecalciferol (Vitamin D3) 25 Mcg Tablet, 25 MCG PO DAILY, (Reported) Erenumab-Aooe 140 Mg/1 Ml Auto.injct, 140 MG SQ monthly, (Reported) Estradiol 1 Mg Tablet, 1 MG PO DAILY Prescribed by: GLADYS RENTERIA on 03/06/201832 Fluoxetine HCl 20 Mg Capsule, 40 MG PO DAILY, (Reported) TAKE 2 (20MG) TABS Folic Acid Unknown Strength Tablet, 2 MG PO DAILY, (Reported) Hydroxyzine HCl 25 Mg Tablet, 25 MG PO Q6H PRN for ANXIETY, (Reported) Ibuprofen 600 Mg Tablet, 600 MG PO Q6H Prescribed by: GLADYS RENTERIA on 03/06/201832 Levothyroxine Sodium 150 Mcg Tablet, 150 MCG PO DAILY, (Reported) Medroxyprogesterone Acetate 2.5 Mg Tablet, 5 MG PO DAILY Prescribed by: GLADYS RENTERIA on 03/06/201832 Methotrexate Sodium/Pf 25 Mg/1 Ml Vial, 0.4 ML SQ WEEK, (Reported) Ondansetron HCl 8 Mg Tablet, 8 MG PO Q8H PRN for NAUSEA/VOMITING, (Reported) Oxycodone HCl 5 Mg Tablet, 5 MG PO Q4HR Prescribed by: GLADYS RENTERIA on 03/06/201832 Prednisone 5 Mg Tablet, 5 MG PO DAILY, (Reported) Promethazine HCl 25 Mg Tablet, 25 MG PO Q6H PRN for NAUSEA/VOMITING, (Reported) Rizatriptan Benzoate 10 Mg Tab.rapdis, 10 MG PO UD PRN for MIGRAINE, (Reported) Simethicone 80 Mg Tab.chew, 80 MG PO Q2HR PRN for gas Prescribed by: GLADYS RENTERIA on 03/06/201832 Tizanidine HCl 4 Mg Tablet, 4 MG PO Q8H PRN for BACK SPASMS, (Reported) Topiramate 50 Mg Tablet, 50 MG PO DAILY, (Reported) Topiramate 50 Mg Tablet, 100 MG PO HS, (Reported) take 2 (50mg) tabs Patient Home Medication List Home Medication List Reviewed: Yes GLADYS RENTERIA DO Mar 06, 2020 14:20
[2020-03-06] MEDS ORDERED: CAFFEINE PO PRN (14:30)
[2020-03-06] MEDS ORDERED: ASPIRIN PO PRN (14:30)
[2020-03-06] MEDS ORDERED: NON-FORMULARY MEDICATION 1 EA EA (Hydroxyzine HCl 25 MG) PO PRN (14:30)
[2020-03-06] MEDS ORDERED: NON-FORMULARY MEDICATION 1 EA EA (Rizatriptan Benzoate (Rizatriptan) 10 MG) PO PRN (14:30)
[2020-03-06] MEDS ORDERED: [UNRECOGNIZED DRUG - OTHER] PO PRN (14:30)
[2020-03-06] MEDS ORDERED: BUTALBITAL PO PRN (14:30)
[2020-03-06] MEDS ORDERED: NON-FORMULARY MEDICATION 1 EA EA (Ondansetron HCl (Zofran) 8 MG) PO PRN (14:30)
[2020-03-06] MEDS ORDERED: PROMETHAZINE 25 MG (PHENERGAN) TAB PO PRN (14:30)
[2020-03-06] MEDS ORDERED: morphine INJ 10 MG/ML 1ML (SYR OR VIAL) IVP ONE (14:45)
[2020-03-06] MEDS ORDERED: PROMETHAZINE INJ 25 MG/ML (PHENERGAN) AMP IVP ONE (14:45)
[2020-03-06] MEDS ORDERED: KETOROLAC 30 MG/ML VIAL IVP ONE (14:45)
[2020-03-06] MEDS ORDERED: HYDROmorphone 2 MG/ML VIAL (DILAUDID) IV ONE (14:45)
[2020-03-06] MEDS ORDERED: ONDANSETRON 4 MG/2 ML (SDV) Z0FRAN IVP PRN (14:45)
[2020-03-06] MEDS ORDERED: SIMETHICONE 80 MG (MYLICON) CHEW PO PRN (14:45)
[2020-03-06] MEDS ORDERED: ONDANSETRON 4 MG (ZOFRAN) ORAL DISSOLVE TAB PO PRN (14:45)
[2020-03-06] MEDS ORDERED: KETOROLAC 30 MG/ML VIAL ONE (14:47)
[2020-03-06] MEDS: KETOROLAC 30 MG/ML VIAL IV SCH ×2 (14:50→21:18)
[2020-03-06] MEDS ORDERED: morphine INJ 10 MG/ML 1ML (SYR OR VIAL) ONE (15:03)
--- NOTE | 2020-03-06 15:35 | NUR ---
pt transferred to room 305 via bed with HAIRSPRING II INSPECTOR @ side. bedside report received from KAYLYNN Schmid. care assumed of pt.
--- NOTE | 2020-03-06 15:43 | NUR ---
initial assessment completed, see interventions for further. lapsites x3, D/I. huntley to DD with cloudy yellow urine noted in chamber. v-pad in place. SCD's to LE's.
--- NOTE | 2020-03-06 17:10 | NUR ---
RT notified of IS order
[2020-03-06] MEDS: morphine INJ 4 MG/ML 1 ML (VIAL/SYRINGE) IVP PRN ×2 (17:38→21:33)
[2020-03-06] MEDS ORDERED: PATIENT MAY USE OWN MEDS, ALL MC SCH (18:15)
--- NOTE | 2020-03-06 18:29 | Discharge Inst-Women's Service ---
Discharge Inst-Women's Serv Depart Medication/Instructions New, Converted or Re-Newed RX: RX on Chart Final Diagnosis endometriosis history of sarcoidoisis steroid dependent chronic pelvic pain right complex ovarian cyst Procedure - RaTH, RSO, appendectomy Problems Reviewed?: Yes Consults/Follow Up Additional Follow Up: Yes (1 week for incision check with Christine, 10-12 weeks with Chance) Activity Activity: Activity as Tolerated Driving Instructions: No Driving for 1 Week NO SMOKING: NO SMOKING Nothing Inside Vagina: No Douching, No Schurz, No Tampons Diet Discharge Diet: No Restrictions Symptoms to Report to : Swelling Increased, Bleeding Excessive, Pain Increased, Fever Over 101 Degrees F, Vaginal Bleeding Increase, Cramps in Feet or Legs, Vaginal Discharge Foul For Any Problems or Questions: Contact Your Physician Skin/Wound Care Infection Signs and Symptoms: Increased Redness, Foul Odor of Wound, Increased Drainage, Skin Itchy or Has a Rash, Increased Swelling, Temperature Above 101 F Operative Area Clean and Dry: You May Remove Bandage (in 3 days, or if soiled/wet) Stitches/Hume/Dermabond: Dermabond Bathing Instructions: GLADYS Edwards DO Mar 06, 2020 18:29
--- NOTE | 2020-03-06 18:30 | NUR ---
pt resting with unlabored respirations. no sx's of distress noted.
[2020-03-06] MEDS ORDERED: IBUP-844 PO (18:33)
[2020-03-06] MEDS ORDERED: OXYC5TAB96 PO (18:33)
[2020-03-06] MEDS ORDERED: ACET-93 PO (18:33)
[2020-03-06] MEDS ORDERED: MEDR2.5T6 PO (18:33)
[2020-03-06] MEDS ORDERED: SIME80TA16 PO (18:33)
[2020-03-06] MEDS ORDERED: ESTR1TAB24 PO (18:33)
[2020-03-06] MEDS ORDERED: HYDROXYZINE HCL 25 MG PO PRN (19:00)
[2020-03-06] MEDS ORDERED: HYDROCORTISONE 20 MG (CORTEF) TAB PO SCH (20:00)
[2020-03-06] MEDS: LACTATED RINGERS 1,000 ML IV SCH ×2 (20:18→21:17)
--- NOTE | 2020-03-06 20:25 | NUR ---
[place] order verified w/Dr. Fletcher & changed from 25 mg to 20 mg, as that is what pharmacy is able to dose. Update given on pt, no other new orders rc'd. states she will round on pt. in am.
[2020-03-06] MEDS ORDERED: TOPIRAMATE 100 MG PO SCH (21:00)
[2020-03-06] MEDS ORDERED: traZODone 50 MG (DESYREL) TAB PO SCH (21:00)
[2020-03-06] MEDS: ACETAMINOPHEN 500 MG TAB (TYLENOL) PO SCH (21:18)
[2020-03-06] MEDS: HYDROCORTISONE 20 MG (CORTEF) TAB PO SCH (21:19)
[2020-03-06] MEDS: buPROPion SR 150 MG (WELLBUTRIN SR) TAB PO SCH (21:20)
[2020-03-07 03:32] VITALS: BP 116/78
[2020-03-07] MEDS: KETOROLAC 30 MG/ML VIAL IV SCH ×2 (03:32→09:46)
[2020-03-07] MEDS: LACTATED RINGERS 1,000 ML IV SCH (05:17)
[2020-03-07] MEDS: ACETAMINOPHEN 500 MG TAB (TYLENOL) PO SCH (05:17)
[2020-03-07] MEDS: HYDROCORTISONE 20 MG (CORTEF) TAB PO SCH (05:26)
--- NOTE | 2020-03-07 08:00 | NUR ---
here. dismissal orders received.
--- NOTE | 2020-03-07 08:11 | Progress Note ---
Subjective Date Seen by a Provider: Mar 07, 2020 Time Seen by a Provider: 08:10 Subjective/Events-last exam Catheter out. Has not voided yet. UO 815 overnight. minimal pain plan dc today Vital Sign - Last 24 Hours 03/06/20 03/06/20 03/06/20 03/06/20 10:15 11:46 14:42 14:50 Temp 36.7 36.7 36.9 Pulse 79 79 Resp 16 16 11 21 B/P (MAP) 123/90 (101) 123/90 129/85 (100) 132/92 (105) Pulse Ox 96 96 95 96 O2 Delivery Room Air Room Air OxyMask OxyMask O2 Flow Rate 10 10 03/06/20 03/06/20 03/06/20 03/06/20 15:00 15:10 15:13 15:20 Resp 20 B/P (MAP) 140/89 (106) 133/78 (96) 130/86 (101) Pulse Ox 96 97 94 O2 Delivery OxyMask OxyMask OxyMask OxyMask O2 Flow Rate 10 10 10 5 03/06/20 03/06/20 03/06/20 03/06/20 15:30 15:42 15:46 15:48 Temp 36.5 Pulse 78 Resp 16 18 B/P (MAP) 131/90 (104) 129/85 (100) Pulse Ox 94 92 O2 Delivery Nasal Cannula Nasal Cannula OxyMask Nasal Cannula O2 Flow Rate 2 2.00 5 2 2.00 03/06/20 03/06/20 03/06/20 03/06/20 16:47 21:18 21:19 23:43 Temp 36.4 36.8 36.7 Pulse 78 98 98 Resp 16 16 16 B/P (MAP) 126/87 (100) 129/87 (101) 130/84 (99) Pulse Ox 95 100 96 95 O2 Delivery Nasal Cannula Nasal Cannula Room Air Room Air O2 Flow Rate 2.00 2.00 2.00 2.00 03/07/20 03:32 Temp 36.8 Pulse 85 Resp 18 B/P (MAP) 116/78 (91) Pulse Ox 95 O2 Delivery Room Air Intake and Output 03/06/20 03/06/20 03/07/20 15:00 23:00 07:00 Intake Total 2110 ml 0 ml 1900 ml Output Total 75 ml 585 ml 815 ml Balance 2035 ml -585 ml 1085 ml Objective Exam Vital Signs Date Time Temp Pulse Resp B/P (MAP) Pulse Ox O2 Delivery O2 Flow Rate FiO2 03/07/20 03:32 36.8 85 18 116/78 (91) 95 Room Air 03/06/20 23:43 36.7 98 16 130/84 (99) 95 Room Air 03/06/20 21:19 96 Room Air 03/06/20 21:18 36.8 98 16 129/87 (101) 100 Nasal Cannula 2.00 2.00 03/06/20 16:47 36.4 78 16 126/87 (100) 95 Nasal Cannula 2.00 2.00 03/06/20 15:48 Nasal Cannula 2 03/06/20 15:46 OxyMask 5 03/06/20 15:42 36.5 78 18 129/85 (100) 92 Nasal Cannula 2.00 2.00 03/06/20 15:30 16 131/90 (104) 94 Nasal Cannula 2 03/06/20 15:20 20 130/86 (101) 94 OxyMask 5 03/06/20 15:13 OxyMask 10 03/06/20 15:10 21 133/78 (96) 97 OxyMask 10 03/06/20 15:00 21 140/89 (106) 96 OxyMask 10 03/06/20 14:50 21 132/92 (105) 96 OxyMask 10 03/06/20 14:42 36.9 11 129/85 (100) 95 OxyMask 10 03/06/20 11:46 36.7 79 16 123/90 96 Room Air 03/06/20 10:15 36.7 79 16 123/90 (101) 96 Room Air I & O 03/07/20 07:00 Intake Total 4010 ml Output Total 1475 ml Balance 2535 ml Capillary Refill : Less Than 3 Seconds General Appearance: No Apparent Distress Respiratory: Chest Non Tender Cardiovascular: Regular Rate, Rhythm, No Edema Gastrointestinal: normal bowel sounds, other (appropriate distension) Results Lab Microbiology 03/06/20 MRSA Screen - Final, Complete MRSA not isolated Assessment/Plan Assessment/Plan Assess & Plan/Chief Complaint 1.. postop day 1 s/p RaTH RSO appendectomy - endometriosis 2. sarcoidosis - received preop and post op steroids. Will resume normal preop dosing Clinical Quality Measures DVT/VTE Risk/Contraindication: Risk Factor Score Per Nursin RFS Level Per Nursing on Admit: 4+=Very High GLADYS RENTERIA DO Mar 07, 2020 08:11
[2020-03-07] MEDS ORDERED: TOPIRAMATE 50 MG PO SCH (09:00)
[2020-03-07] MEDS ORDERED: VITAMIN D3 25 MCG (1,000 UNITS) TABLET PO SCH (09:00)
[2020-03-07] MEDS ORDERED: LEVOTHYROXINE 150 MCG (LEVOTHROID) TAB PO SCH (09:00)
[2020-03-07] MEDS ORDERED: medroxyPROGESTERone 2.5 MG (PROVERA) TABLET PO SCH (09:00)
[2020-03-07] MEDS ORDERED: FLUoxetine HCL 20 MG (PROzac) CAP PO SCH (09:00)
[2020-03-07] MEDS ORDERED: ESTRADIOL 1 MG TAB (ESTRACE) PO SCH (09:00)
[2020-03-07] MEDS ORDERED: predniSONE 5 MG TAB PO SCH (09:00)
[2020-03-07 09:50] VITALS: BP 128/89
--- NOTE | 2020-03-07 09:50 | NUR ---
initial shift assessment completed, see interventions for further. POC reviewed, states understanding.
[2020-03-07] MEDS: buPROPion SR 150 MG (WELLBUTRIN SR) TAB PO SCH (09:59)
--- NOTE | 2020-03-07 12:00 | NUR ---
assisted up to BR. voided 200cc urine without difficulty.
--- NOTE | 2020-03-07 13:00 | NUR ---
dismissal instructions given, verbalizes understanding. reviewed follow up appointments and medication administration schedule. signature page signed, placed on chart.
--- NOTE | 2020-03-07 13:08 | Anesthesia-General Post-Op ---
General Patient Condition Mental Status/LOC: Same as Preop Cardiovascular: Satisfactory Nausea/Vomiting: Absent Respiratory: Satisfactory Pain: Controlled Complications: Absent Post Op Complications Complications None Follow Up Care/Instructions Patient Instructions None needed. Anesthesia/Patient Condition Patient Condition Patient is doing well, no complaints, stable vital signs, no apparent adverse anesthesia problems. No complications reported per nursing. BALDEV BUCHANAN CRNA Mar 07, 2020 13:08
--- NOTE | 2020-03-07 13:20 | NUR ---
pt dismissed to private vehicle via w/c with this RN and s/o @ side. pt stable with no sx's of distress noted.
[2020-03-07] MEDS ORDERED: IBUPROFEN 600 MG (MOTRIN) TAB PO SCH (14:45)
== END 2020-03-07 13:20 | disposition home or self-care (01) ==
LOC: SDC 10:26 → WS 15:35 → SDC 03-07 13:20
PROVIDERS: ATTEND Obstetrics & Gynecology
DX: N80.0 Endometriosis of uterus (principal); N83.11 Corpus luteum cyst of right ovary; N83.8 Other noninflammatory disorders of ovary, fallopian tube and broad ligament; N94.89 Other specified conditions associated with female genital organs and menstrual cycle; N81.6 Rectocele; N81.10 Cystocele, unspecified; D86.9 Sarcoidosis, unspecified; F41.9 Anxiety disorder, unspecified; F32.9 Major depressive disorder, single episode, unspecified; D64.9 Anemia, unspecified; E03.9 Hypothyroidism, unspecified; F17.210 Nicotine dependence, cigarettes, uncomplicated; G43.909 Migraine, unspecified, not intractable, without status migrainosus; E66.9 Obesity, unspecified; Z90.721 Acquired absence of ovaries, unilateral; Z90.79 Acquired absence of other genital organ(s); Z68.41 Body mass index [BMI] 40.0-44.9, adult
CPT/HCPCS: 44979; 58552; S2900; 84703; 86850; 86900; 86901; 87081; 88302; 88307

== ENCOUNTER → 2020-08-09 | Outpatient (CLI) | payer BC, OTHER ==
[~2020-08-09] MED LIST changes: +ACET-93 PO; +ESTR1TAB24 PO; +HYDR-3817 PO; -HYDR-4342 PO; +IBUP-844 PO; +MEDR2.5T6 PO; +OXC5T PO; +SIME80TA16 PO
--- NOTE | 2020-08-09 11:55 | Diagnostic Imaging Report ---
INDICATION: Sarcoidosis follow-up. PA and lateral chest. FINDINGS: Heart size and pulmonary vascularity are normal. Lungs are clear. There are no effusions or pneumothoraces. There is no interstitial thickening. There is no appreciable lymphadenopathy. IMPRESSION: Negative chest. Dictated by: Dictated on workstation # [id number]
== END ==
LOC: RAD 11:10
PROVIDERS: ATTEND Nurse Practitioner Family
DX: D86.9 Sarcoidosis, unspecified (principal)
CPT/HCPCS: 71046

== ENCOUNTER 2021-07-01 22:51 | Emergency (ER) | payer OTHER ==
[~2021-07-01 22:51] MED LIST changes: +CHOL10004 PO; -CHOL100045 PO; -CLIN300C11 PO; +CLIN300C12 PO; -FOLI1TAB24 PO; +FOLI1TAB33 PO
[2021-07-02] MEDS ORDERED: LORazepam 0.5 MG (ATIVAN) TABLET PO STA (01:00)
--- NOTE | 2021-07-02 01:01 | ED Psychosocial ---
General Chief Complaint: Psych/Social Disorder Stated Complaint: PANIC ATTACK Nursing Triage Note: TO ED VIA POV AND AMBULATORY TO ROOM 6. PT STATES, "I HAD A PANIC ATTACK I GUESS. I WAS SUPPOSED TO START A NEW JOB TONIGHT." PT STATES SHE TOOK HER RX BUSPAR, PRAZOSIN, AND HYDROXYZINE AND TRIED TO TAKE A NAP BUT DOESN'T FEEL LIKE IT HELPED. STATES SHE THINKS SHE IS CALMER NOW. DENIES CAFFEINE, ENERGY DRINKS PRIOR. Source: patient Exam Limitations: no limitations (BAKARI WELLINGTON STUDENT) History of Present Illness Date Seen by Provider: Jul 02, 2021 Time Seen by Provider: 00:36 Initial Comments This is Romina a 35 yo female that presented today via private vehicle with the chief complain of anxiety attack. Pt stated that it occurred at about 9pm this evening with symptoms of body itching, nausea, chest pain, SOB, headache, and feeling as if an elephant was on her chest. She describes having multiple episodes of anxiety per month. She stated that the symptoms are similar to other times but that this time medication didn't work as quickly. She takes hy droxyzine, prazosin, and buspar each day and hydroxyzine and prazosin PRN. 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 It is also getting close to the anniversary of her mothers which has caused her increased anxiety. Pt is receiving psych from Brit at [facility]. Pts symptoms had resolved upon time of exam. Timing/Duration: this evening, gone now Severity: mild Associated Symptoms: anxiety, insomnia (BAKARI WELLINGTON MED STUDENT) Allergies and Home Medications Allergies Coded Allergies: duloxetine (Verified Allergy, Unknown, SHAKY, SLURRED SPEECH, 08/11/16) tramadol (Unverified Allergy, Unknown, N.V, ITCHING, DIZZY, HAS RECEIVED HYDROMORPHONE IN THE PAST, 08/19/16) Patient Home Medication List Acetaminophen (Acetaminophen) 500 Mg Tablet, 1,000 MG PO Q8HR Prescribed by: GLADYS RENTERIA on 03/06/20 1833 Bupropion HCl (Bupropion HCl Sr) 150 Mg Tablet.er, 150 MG PO BID, (Reported) Entered as Reported by: AUGUSTO URIARTE on 02/14/20 1619 Butalbital/Aspirin/Caffeine (Fiorinal 50-325-40 mg Capsule) 1 Each Capsule, 1 EACH PO Q6H PRN for migraines, (Reported) Entered as Reported by: AUGUSTO URIARTE on 03/01/20 1219 Cholecalciferol (Vitamin D3) (Vitamin D3) 25 Mcg Tablet, 25 MCG PO DAILY, (Reported) Entered as Reported by: AUGUSTO URIARTE on 03/01/20 1219 Erenumab-Aooe (Aimovig Autoinjector) 140 Mg/1 Ml Auto.injct, 140 MG SQ monthly, (Reported) Entered as Reported by: AUGUSTO URIARTE on 02/14/20 1229 Estradiol (Estradiol Tablet) 1 Mg Tablet, 1 MG PO DAILY Prescribed by: GLADYS RENTERIA on 03/06/20 183 Fluoxetine HCl (Fluoxetine HCl) 20 Mg Capsule, 40 MG PO DAILY, (Reported) Entered as Reported by: AUGUSTO URIARTE on 02/14/20 1619 Folic Acid (Folic Acid) Unknown Strength Tablet, 2 MG PO DAILY, (Reported) Entered as Reported by: AUGUSTO URIARTE on 03/01/20 1219 Hydroxyzine HCl (Hydroxyzine HCl) 25 Mg Tablet, 25 MG PO Q6H PRN for ANXIETY, (Reported) Entered as Reported by: AUGUSTO URIARTE on 02/14/20 1619 Ibuprofen (Ibu) 600 Mg Tablet, 600 MG PO Q6H Prescribed by: GLADYS RENTERIA on 03/06/20 183 Levothyroxine Sodium (Levothyroxine Sodium) 150 Mcg Tablet, 150 MCG PO DAILY, (Reported) Entered as Reported by: AUGUSTO URIARTE on 10/14/18 1542 Medroxyprogesterone Acetate (Medroxyprogesterone Acetate) 2.5 Mg Tablet, 5 MG PO DAILY Prescribed by: GLADYS RENTERIA on 03/06/20 183 Methotrexate Sodium/Pf (Methotrexate 25 mg/ml Vial) 25 Mg/1 Ml Vial, 0.4 ML SQ WEEK, (Reported) Entered as Reported by: AUGUSTO URIARTE on 02/14/20 1619 Ondansetron HCl (Zofran) 8 Mg Tablet, 8 MG PO Q8H PRN for NAUSEA/VOMITING, (Reported) Entered as Reported by: AUGUSTO URIARTE on 02/14/20 1619 Oxycodone Hcl (Oxyir Tablet) 5 Mg Tablet, 5 MG PO Q4HR Prescribed by: GLADYS RENTERIA on 03/06/20 183 Prednisone (Prednisone) 5 Mg Tablet, 5 MG PO DAILY, (Reported) Entered as Reported by: AUGUSTO URIARTE on 02/14/20 161 Promethazine HCl (Promethazine Tablet) 25 Mg Tablet, 25 MG PO Q6H PRN for NAUSEA/VOMITING, (Reported) Entered as Reported by: AUGUSTO URIARTE on 02/14/20 161 Rizatriptan Benzoate (Rizatriptan) 10 Mg Tab.rapdis, 10 MG PO UD PRN for MIGRAINE, (Reported) Entered as Reported by: AUGUSTO URIARTE on 02/14/20 161 Simethicone (Simethicone) 80 Mg Tab.chew, 80 MG PO Q2HR PRN for gas Prescribed by: GLADYS RENTERIA on 03/06/20 183 Tizanidine HCl (Tizanidine HCl) 4 Mg Tablet, 4 MG PO Q8H PRN for BACK SPASMS, (Reported) Entered as Reported by: AUGUSTO URIARTE on 02/14/20 161 Topiramate (Topiramate) 50 Mg Tablet, 50 MG PO DAILY, (Reported) Entered as Reported by: AUGUSTO URIARTE on 02/14/20 161 Topiramate (Topiramate) 50 Mg Tablet, 100 MG PO HS, (Reported) Entered as Reported by: AUGUSTO URIARTE on 03/01/20 1219 Review of Systems Constitutional: no symptoms reported EENTM: no symptoms reported Respiratory: short of breath Cardiovascular: chest pain Gastrointestinal: no symptoms reported Genitourinary: no symptoms reported : No Control/STD Prophylaxis: Other (hysterectomy) Musculoskeletal: no symptoms reported Skin: no symptoms reported Psychiatric/Neurological: Anxiety, Emotional Problems, Headache (BAKARI WELLINGTON STUDENT) Past Joadbtx-Benglf-Cyjipc Hx Patient Social History Tobacco Use?: No Substance use?: No Alcohol Use?: No Pt feels they are or have been: No (BAKARI WELLINGTON STUDENT) Immunizations Up To Date Tetanus Booster (TDap): Unknown PED Vaccines UTD: No (BAKARI WELLINGTON STUDENT) Seasonal Allergies Seasonal Allergies: No (BAKARI WELLINGTON STUDENT) Past Medical History Surgeries: Yes (dxls x4 , R shoulder sx x3, d&c) Abdominal, Oophorectomy, Orthopedic, Tonsillectomy Respiratory: Yes (sarcoidosis) Currently Using CPAP: No Currently Using BIPAP: No Cardiac: No Hypertension Neurological: Yes Headaches /Migraines, Seizure Disorder Reproductive Disorders: Yes (CHRONIC PELVIC PAIN, ENDOMETRIOSIS, PCOS) Female Reproductive Disorders: Endometriosis, Ovarian Cyst, Polycystic Ovarian Dis Sexually Transmitted Disease: No Genitourinary: No Gastrointestinal: No Musculoskeletal: No (R SHOULDER SURG) Endocrine: Yes Hypothyroidsim HEENT: No Cancer: No Psychosocial: Yes Anxiety, Depression Integumentary: No Blood Disorders: No (BAKARI WELLINGTON STUDENT) Family Medical History FH: breast cancer 19 MOTHER FH: uterine cancer 19 MOTHER Hypertension G8 SISTER Physical Exam Vital Signs - First Documented 07/01/21 23:27 Temp 36.7 Pulse 83 Resp 16 B/P (MAP) 133/91 (105) Pulse Ox 99 O2 Delivery Room Air (HOLLY BANSAL MD) Capillary Refill : Less Than 3 Seconds (BAKARI WELLINGTON STUDENT) Height, Weight, BMI Height: 5'3.00" Weight: 180lbs. 0.0oz. [id number]; 40.23 BMI Method:Stated General Appearance: WD/WN, no apparent distress, obese HEENT: PERRL/EOMI, normal ENT inspection Neck: non-tender, supple, normal inspection Respiratory: chest non-tender, lungs clear, normal breath sounds, no respiratory distress, no accessory muscle use Cardiovascular: normal peripheral pulses, regular rate, rhythm, no edema, no gallop, no murmur Gastrointestinal: normal bowel sounds, non tender, soft Extremities: normal range of motion, non-tender, normal inspection, no pedal edema, no calf tenderness, normal capillary refill Neurologic/Psychiatric: no motor/sensory deficits, alert, oriented x 3, depressed affect Appearance/Memory: appropriate appearance, appropriate insight, neat, no memory impairment Behavior/Eye Contact: cooperative, normal speech, avoids eye contact Thoughts/Hallucinations: normal thought pattern, no apparent hallucination Skin: normal color, warm/dry Lymphatic: no adenopathy (YORK,BAKARI MED STUDENT) Progress/Results/Core Measures Results/Orders My Orders Orders - HOLLY BANSAL MD Lorazepam Tablet (Ativan Tablet) (07/02/21 01:00) (HOLLY BANSAL MD) Vital Signs/I&O 07/01/21 23:27 Temp 36.7 Pulse 83 Resp 16 B/P (MAP) 133/91 (105) Pulse Ox 99 O2 Delivery Room Air (HOLLY BANSAL MD) Blood Pressure Mean: 105 Departure Impression Primary Impression: Anxiety attack Disposition: 01 HOME, SELF-CARE Condition: Improved Departure-Patient Inst. Decision time for Depature: 01:01 (HOLLY BANSAL MD) Referrals: [facility] (PCP/Family) Primary Care Physician Patient Instructions: Panic Disorder, Anxiety, Adult ED Add. Discharge Instructions: Continue your medications as previously directed. Please contact your behavioral health prescriber later this morning and review medications with her. Call with questions or concerns. Return to the ER if you have worsening symptoms. All discharge instructions reviewed with patient and/or family. Voiced understanding. BAKARI WELLINGTON MED STUDENT Jul 02, 2021 01:01 HOLLY BANSAL MD Jul 02, 2021 01:02
[2021-07-02 01:07] VITALS: BP 123/94
== END 2021-07-02 01:07 | disposition home or self-care (01) ==
LOC: EDUNIT# 22:51 → ER 22:52
DX: F41.0 Panic disorder [episodic paroxysmal anxiety] (principal); F32.9 Major depressive disorder, single episode, unspecified; I10 Essential (primary) hypertension; E03.9 Hypothyroidism, unspecified; G40.909 Epilepsy, unspecified, not intractable, without status epilepticus; G43.909 Migraine, unspecified, not intractable, without status migrainosus; Z79.52 Long term (current) use of systemic steroids; Z79.890 Hormone replacement therapy; Z79.899 Other long term (current) drug therapy
CPT/HCPCS: 99283

== ENCOUNTER → 2021-11-13 | Outpatient (CLI) | payer OTHER ==
[~2021-11-13] MED LIST changes: +CLIN-144 PO; -CLIN300C12 PO; -FLUO20CA46 PO; +FLUO20CA48 PO; +TIZA-186 PO; -TIZA4TAB4 PO
--- NOTE | 2021-11-13 17:43 | Diagnostic Imaging Report ---
PROCEDURE: US Non-ob pelvis comp/trans. TECHNIQUE: Multiple realtime grayscale images were obtained of the pelvis in various projections endovaginally. Transabdominal imaging was also performed. INDICATION: Endometriosis of the pelvic peritoneum. History of a hysterectomy in February 2020 with bilateral oophorectomy. Possible incisional endometriosis. COMPARISON: 12/23/2019. FINDINGS/ IMPRESSION: The uterus and ovaries are absent. The adnexa are obscured by bowel gas. No free fluid is seen. No fluid collections or masses are seen. Dictated by: Dictated on workstation # [id number] (air [id number]
== END ==
LOC: RAD 14:30
PROVIDERS: ATTEND Obstetrics & Gynecology
DX: N80.3 Endometriosis of pelvic peritoneum (principal)
CPT/HCPCS: 76830; 76856

== ENCOUNTER 2022-03-22 23:45 | Emergency (ER) | payer OTHER, BC ==
[~2022-03-22] VITALS: Ht 160 cm; Wt 99.7 kg
[~2022-03-22 23:45] MED LIST changes: +BUPR-105 PO; -BUPR150T14 PO
[2022-03-22 23:59] VITALS: BP 154/118
[2022-03-23] MEDS ORDERED: KETOROLAC 30 MG/ML VIAL IVP STA (00:38)
--- NOTE | 2022-03-23 00:40 | ED Neurological Problem ---
General Chief Complaint: Neuro-Stroke Like Symptoms Stated Complaint: ELEVATED BLOOD PRESSURE/AMS Nursing Triage Note: Pt ambulatory to ED room 4. Pt c/o dizziness, headache, altered mental status, and elevated BP. Family with patient states they were driving home from [employer] show around 2200 when patient began having slurred speech. Pt speech clear upon arrival to ED, no neuromuscular deficits noted. Patient lethargic and stating she "just wants to sleep" but stating family made her come get checked out. Pt has hx stomach cancer, sarcoidosis, seizure disorder and headaches. Pt sees cancer doc at and neurologist at [facility]. Source: patient, family Exam Limitations: no limitations History of Present Illness Date Seen by Provider: Mar 23, 2022 Time Seen by Provider: 00:07 Initial Comments Here with who reports patient is having difficulty with headache, dizziness and seems somewhat altered. She has become more lethargic tonight. She does have history of migraine headaches which may mimic this. She has had episodes similar previously although this seems a little worse. She was exposed to heat tonight with the [employer] show. Arrives drowsy but with no focal defic its. Patient does complain of headache that is typical for her migraine. was concerned and just wanted her checked out. Timing/Duration: 1 hour Severity: mild, moderate Associated Symptoms: confusion, sleepy; No slurred speech, No weakness Allergies and Home Medications Allergies Coded Allergies: duloxetine (Verified Allergy, Unknown, SHAKY, SLURRED SPEECH, 08/11/16) tramadol (Unverified Allergy, Unknown, N.V, ITCHING, DIZZY, HAS RECEIVED HYDROMORPHONE IN THE PAST, 08/19/16) Patient Home Medication List Home Medication List Reviewed: Yes Acetaminophen (Acetaminophen) 500 Mg Tablet, 1,000 MG PO Q8HR Prescribed by: GLADYS RENTERIA on 03/06/20 1833 Bupropion HCl (Bupropion HCl Sr) 150 Mg Tablet.er, 150 MG PO BID, (Reported) Entered as Reported by: AUGUSTO URIARTE on 02/14/20 1619 Butalbital/Aspirin/Caffeine (Fiorinal 50-325-40 mg Capsule) 1 Each Capsule, 1 EACH PO Q6H PRN for migraines, (Reported) Entered as Reported by: AUGUSTO URIARTE on 03/01/20 1219 Cholecalciferol (Vitamin D3) (Vitamin D3) 25 Mcg Tablet, 25 MCG PO DAILY, (Reported) Entered as Reported by: AUGUSTO URIARTE on 03/01/20 1219 Erenumab-Aooe (Aimovig Autoinjector) 140 Mg/1 Ml Auto.injct, 140 MG SQ monthly, (Reported) Entered as Reported by: AUGUSTO URIARTE on 02/14/20 1229 Estradiol (Estradiol Tablet) 1 Mg Tablet, 1 MG PO DAILY Prescribed by: GLADYS RENTERIA on 03/06/20 183 Fluoxetine HCl (Fluoxetine HCl) 20 Mg Capsule, 40 MG PO DAILY, (Reported) Entered as Reported by: AUGUSTO URIARTE on 02/14/20 161 Folic Acid (Folic Acid) Unknown Strength Tablet, 2 MG PO DAILY, (Reported) Entered as Reported by: AUGUSTO URIARTE on 03/01/20 1219 Hydroxyzine HCl (Hydroxyzine HCl) 25 Mg Tablet, 25 MG PO Q6H PRN for ANXIETY, (Reported) Entered as Reported by: AUGUSTO URIARTE on 02/14/20 1619 Ibuprofen (Ibu) 600 Mg Tablet, 600 MG PO Q6H Prescribed by: GLADYS RENTERIA on 03/06/20 183 Levothyroxine Sodium (Levothyroxine Sodium) 150 Mcg Tablet, 150 MCG PO DAILY, (Reported) Entered as Reported by: AUGUSTO URIARTE on 10/14/18 1542 Medroxyprogesterone Acetate (Medroxyprogesterone Acetate) 2.5 Mg Tablet, 5 MG PO DAILY Prescribed by: GLADYS RENTERIA on 03/06/20 183 Methotrexate Sodium/Pf (Methotrexate 25 mg/ml Vial) 25 Mg/1 Ml Vial, 0.4 ML SQ WEEK, (Reported) Entered as Reported by: AUGUSTO URIARTE on 02/14/20 1619 Ondansetron HCl (Zofran) 8 Mg Tablet, 8 MG PO Q8H PRN for NAUSEA/VOMITING, (Reported) Entered as Reported by: AUGUSTO URIARTE on 02/14/20 1619 Oxycodone Hcl (Oxyir Tablet) 5 Mg Tablet, 5 MG PO Q4HR Prescribed by: GLADYS RENTERIA on 03/06/20 183 Prednisone (Prednisone) 5 Mg Tablet, 5 MG PO DAILY, (Reported) Entered as Reported by: AUGUSTO URIARTE on 02/14/20 161 Promethazine HCl (Promethazine Tablet) 25 Mg Tablet, 25 MG PO Q6H PRN for NAUSEA/VOMITING, (Reported) Entered as Reported by: AUGUSTO URIARTE on 02/14/20 161 Rizatriptan Benzoate (Rizatriptan) 10 Mg Tab.rapdis, 10 MG PO UD PRN for MIGRAINE, (Reported) Entered as Reported by: AUGUSTO URIARTE on 02/14/20 161 Simethicone (Simethicone) 80 Mg Tab.chew, 80 MG PO Q2HR PRN for gas Prescribed by: GLADYS RENTERIA on 03/06/20 183 Tizanidine HCl (Tizanidine HCl) 4 Mg Tablet, 4 MG PO Q8H PRN for BACK SPASMS, (Reported) Entered as Reported by: AUGUSTO URIARTE on 02/14/20 161 Topiramate (Topiramate) 50 Mg Tablet, 50 MG PO DAILY, (Reported) Entered as Reported by: AUGUSTO URIARTE on 02/14/20 161 Topiramate (Topiramate) 50 Mg Tablet, 100 MG PO HS, (Reported) Entered as Reported by: AUGUSTO URIARTE on 03/01/20 1219 Review of Systems Review of Systems Constitutional: see HPI; No chills, No fever Eyes: Blurred Vision; Denies Pain Ears, Nose, Mouth, Throat: no symptoms reported Respiratory: No cough, No short of breath Cardiovascular: No chest pain, No palpitations; other (High blood pressure) Gastrointestinal: No nausea, No vomiting Genitourinary: no symptoms reported Musculoskeletal: No back pain, No joint pain Skin: No change in color, No lesions Psychiatric/Neurological: See HPI, Headache All Other Systems Reviewed Negative Unless Noted: Yes Past Xnktgnf-Acouje-Uusghr Hx Patient Social History Tobacco Use?: No Substance use?: No Alcohol Use?: No Pt feels they are or have been: No Immunizations Up To Date Tetanus Booster (TDap): Unknown PED Vaccines UTD: No Seasonal Allergies Seasonal Allergies: No Past Medical History Surgery/Hospitalization HX: sarcoidosis, stomach cancer, seizure disorder, frequent headaches, Surgeries: Yes (dxls x4 , R shoulder sx x3, d&c) Abdominal, Oophorectomy, Orthopedic, Tonsillectomy Respiratory: Yes (sarcoidosis) Currently Using CPAP: No Currently Using BIPAP: No Cardiac: No Hypertension Neurological: Yes Headaches /Migraines, Seizure Disorder Reproductive Disorders: Yes (CHRONIC PELVIC PAIN, ENDOMETRIOSIS, PCOS) Female Reproductive Disorders: Endometriosis, Ovarian Cyst, Polycystic Ovarian Dis Sexually Transmitted Disease: No Genitourinary: No Gastrointestinal: No Musculoskeletal: No (R SHOULDER SURG) Endocrine: Yes Hypothyroidsim HEENT: No Cancer: No Psychosocial: Yes Anxiety, Depression Integumentary: No Blood Disorders: No Family Medical History Reviewed Nursing Family Hx FH: breast cancer 19 MOTHER FH: uterine cancer 19 MOTHER Hypertension G8 SISTER Physical Exam Vital Signs Vital Signs - First Documented 03/22/22 23:59 Temp 36.2 Pulse 87 Resp 18 B/P (MAP) 154/118 (130) Pulse Ox 99 O2 Delivery Room Air Capillary Refill : Less Than 3 Seconds Height, Weight, BMI Height: 5'3.00" Weight: 180lbs. 0.0oz. 81.763474bl; 38.00 BMI Method:Stated General Appearance: WD/WN, no apparent distress HEENT: PERRL/EOMI, pharynx normal Neck: full range of motion, supple Respiratory: lungs clear, normal breath sounds Cardiovascular: regular rate, rhythm, no murmur Gastrointestinal: non tender, soft Back: normal inspection, no CVA tenderness, no vertebral tenderness Extremities: normal range of motion, non-tender, normal inspection Neurologic/Psychiatric: geodetic computator II-XII nml as tested, no motor/sensory deficits, alert, normal mood/affect, oriented x 3 Crainal Nerves: normal hearing, normal speech, PERRL Coordination/Gait: normal finger to nose Motor/Sensory: no motor deficit, no sensory deficit, no pronator drift Skin: normal color, warm/dry Stroke NIH Stroke Scale Assessment Level of Consciousness: 0=Alert (0), Level of Consciousness-Questions: 0=Answers both month/age (0), LOC Commands: 0=Performs both tasks (0), Visual Adame: 0=No visual loss (0), Facial Movement (Facial Paresis): 0=Normal symmetrical mnt (0), Motor Function-Arms Right: 0=No drift (0), Motor Function-Arms Left: 0=No drift (0), Motor Function-Legs Right: 0=No drift (0), Motor Function-Legs Left: 0=No drift (0), Limb Ataxia: 0=Absent (0), Sensory: 0=Normal:no loss (0), Best Language: 0=No aphasia (0), Dysarthria: 0=Normal (0), Extinction & Inattention: 0=No abnormality (0), Total: Progress/Results/Core Measures Results/Orders Lab Results Laboratory Tests Test 03/23/22 00:21 03/23/22 00:28 03/23/22 02:00 Range/Units Glucometer 94 70-110 MG/DL White Blood Count 6.2 4.3-11.0 10^3/uL Red Blood Count 4.40 3.80-5.11 10^6/uL Hemoglobin 13.1 11.5-16.0 g/dL Hematocrit 39 35-52 % Mean Corpuscular Volume 89 80-99 fL Mean Corpuscular Hemoglobin 30 25-34 pg Mean Corpuscular Hemoglobin Concent 33 32-36 g/dL Red Cell Distribution Width 14.9 H 10.0-14.5 % Platelet Count 209 130-400 10^3/uL Mean Platelet Volume 11.3 9.0-12.2 fL Immature Granulocyte % (Auto) 1 % Neutrophils (%) (Auto) 46 42-75 % Lymphocytes (%) (Auto) 39 12-44 % Monocytes (%) (Auto) 10 0-12 % Eosinophils (%) (Auto) 3 0-10 % Basophils (%) (Auto) 1 0-10 % Neutrophils # (Auto) 2.9 1.8-7.8 10^3/uL Lymphocytes # (Auto) 2.4 1.0-4.0 10^3/uL Monocytes # (Auto) 0.6 0.0-1.0 10^3/uL Eosinophils # (Auto) 0.2 0.0-0.3 10^3/uL Basophils # (Auto) 0.1 0.0-0.1 10^3/uL Immature Granulocyte # (Auto) 0.1 0.0-0.1 10^3/uL Prothrombin Time 13.4 12.2-14.7 SEC INR Comment 1.0 0.8-1.4 Activated Partial Thromboplast Time 30 24-35 SEC D-Dimer 0.21 0.00-0.49 UG/ML Sodium Level 143 135-145 MMOL/L Potassium Level 3.7 3.6-5.0 MMOL/L Chloride Level 113 H 98-107 MMOL/L Carbon Dioxide Level 19 L 21-32 MMOL/L Anion Gap 11 5-14 MMOL/L Blood Urea Nitrogen 10 7-18 MG/DL Creatinine 1.37 H 0.60-1.30 MG/DL Estimat Glomerular Filtration Rate 52 BUN/Creatinine Ratio 7 Glucose Level 80 70-105 MG/DL Calcium Level 8.9 8.5-10.1 MG/DL Corrected Calcium 8.8 8.5-10.1 MG/DL Total Bilirubin 0.3 0.1-1.0 MG/DL Aspartate Amino Transf (AST/SGOT) 33 5-34 U/L Alanine Aminotransferase (ALT/SGPT) 42 0-55 U/L Alkaline Phosphatase 36 L 40-136 U/L Troponin I < 0.028 <0.028 NG/ML Total Protein 6.8 6.4-8.2 GM/DL Albumin 4.1 3.2-4.5 GM/DL Urine Color YELLOW Urine Clarity CLEAR Urine pH 6.0 5-9 Urine Specific [place] >=1.030 1.016-1.022 Urine Protein NEGATIVE NEGATIVE Urine Glucose (UA) NEGATIVE NEGATIVE Urine Ketones NEGATIVE NEGATIVE Urine Nitrite NEGATIVE NEGATIVE Urine Bilirubin NEGATIVE NEGATIVE Urine Urobilinogen 1.0 < = 1.0 MG/DL Urine Leukocyte Esterase NEGATIVE NEGATIVE Urine RBC (Auto) NEGATIVE NEGATIVE Urine RBC NONE /HPF Urine WBC 0-2 /HPF Urine Squamous Epithelial Cells 0-2 /HPF Urine Crystals NONE /LPF Urine Bacteria TRACE /HPF Urine Casts NONE /LPF Urine Mucus SMALL H /LPF Urine Culture Indicated NO My Orders Orders - LORNA LYNN MD Cbc With Automated Diff (03/23/22 00:06) Protime With Inr (03/23/22 00:06) Partial Thromboplastin Time (03/23/22 00:06) Comprehensive Metabolic Panel (03/23/22 00:06) Fibrin Degradation Products (03/23/22 00:06) Troponin I Ran (03/23/22 00:06) Ua Culture If Indicated (03/23/22 00:06) Chest 1 View, Ap/Pa Only (03/23/22 00:06) Ekg Tracing (03/23/22 00:06) Nothing By Mouth (03/23/22 Breakfast) Accucheck Stat ONCE (03/23/22 00:06) Ed Iv/Invasive Line Start (03/23/22 00:06) Vital Signs Stroke Patient Q15M (03/23/22 00:06) Ct Head Wo-R/O Stroke (03/23/22 00:06) O2 (03/23/22 00:06) Intake & Output 06,14,22 (03/23/22 00:06) Monitor-Rhythm Ecg Trace Only (03/23/22 00:06) Dysphagia Screening Tool [id number] (03/23/22 00:06) Post Thrombolytic Adminstratio (03/23/22 00:06) Lipid Panel (03/24/22 06:00) Ns Iv 1000 Ml (Sodium Chloride 0.9%) (03/23/22 00:45) Ketorolac Injection (Toradol Injection) (03/23/22 00:38) Vital Signs/I&O 03/22/22 23:59 Temp 36.2 Pulse 87 Resp 18 B/P (MAP) 154/118 (130) Pulse Ox 99 O2 Delivery Room Air Blood Pressure Mean: 130 FSBG Bedside Testing Finger Stick Blood Glucose: 94 Blood Glucose Action Taken: RN NOTIFIED Progress Progress Note : Progress Note Seen and evaluated. Stroke protocol initiated. Patient is 0 on stroke scale. We will get CT, labs and urine. Normal saline 1 L bolus ordered due to exposure to heat. Toradol 30 mg IV for headache. Monitor patient. 0250: Patient is actually doing better but still tired. She just wants to go home and go to sleep. and patient both admit that she has had similar episodes related to her migraines and this may be just a more significant 1 of [address] is [address] ill without focal neurological deficits. Given current findings and situation, we will go ahead and discharge her home per their request. Discharged home with return precautions. Patient and family verbalized understanding instructions and agreement with plan. Initial ECG Impression Date: Mar 23, 2022 Initial ECG Impression Time: 02:53 Initial ECG Rate: 81 Initial ECG Rhythm: Normal Sinus Initial ECG Comparisson: Unchanged (04/21/19) Comment Sinus rhythm with left axis deviation. No evidence of ST elevation [place]. Interpreted by me. Diagnostic Imaging Diagonstic Imaging: CT Plain Films/CT/US/NM/MRI: head Comments No acute intracranial abnormality Reviewed: Reviewed Night [facility] Study Diagonstic Imaging: Xray Plain Films/CT/US/NM/MRI: chest Comments No acute findings Departure Impression Primary Impression: Migraine headache Qualified Codes: G43.909 - Migraine, unspecified, not intractable, without status migrainosus Additional Impression: Heat exposure Qualified Codes: T67.9XXA - Effect of heat and light, unspecified, initial encounter Disposition: HOME, SELF-CARE Condition: Stable Departure-Patient Inst. Decision time for Depature: 02:57 Referrals: [facility] [place] ([place]) Primary Care Physician Patient Instructions: Migraines (DC), Heat Illness ED Add. Discharge Instructions: All discharge instructions reviewed with patient and/or family. Voiced understanding. Drink plenty fluids and get plenty of rest. Continue home medications as previously prescribed. Follow-up with your doctor in a few days for recheck. Return for worse pain, fever, vomiting, weakness, breathing problems or other concerns as needed. LORNA LYNN MD Mar 23, 2022 00:39
[2022-03-23 00:44] LABS: BASOPHILS # (AUTO) 0.1 10^3/uL (0.0-0.1); BASOPHILS % (AUTO) 1 % (0-10); EOSINOPHILS # (AUTO) 0.2 10^3/uL (0.0-0.3); EOSINOPHILS % (AUTO) 3 % (0-10); HEMATOCRIT 39 % (35-52); HEMOGLOBIN 13.1 g/dL (11.5-16.0); LYMPHOCYTES # (AUTO) 2.4 10^3/uL (1.0-4.0); LYMPHOCYTES % (AUTO) 39 % (12-44); MEAN CORPUSCULAR HEMOGLOBIN 30 pg (25-34); MEAN CORPUSCULAR HGB CONC 33 g/dL (32-36); MEAN CORPUSCULAR VOLUME 89 fL (80-99); MEAN PLATELET VOLUME 11.3 fL (9.0-12.2); MONOCYTES # (AUTO) 0.6 10^3/uL (0.0-1.0); MONOCYTES % (AUTO) 10 % (0-12); NEUTROPHILS # (AUTO) 2.9 10^3/uL (1.8-7.8); NEUTROPHILS % (AUTO) 46 % (42-75); PLATELET COUNT 209 10^3/uL (130-400); WHITE BLOOD COUNT 6.2 10^3/uL (4.3-11.0)
[2022-03-23] MEDS ORDERED: NS IV 1000 ML 1,000 ML IV SCH (00:45)
[2022-03-23 01:01] LABS: ALBUMIN 4.1 GM/DL (3.2-4.5); CHLORIDE 113 MMOL/L (98-107); POTASSIUM 3.7 MMOL/L (3.6-5.0); SODIUM 143 MMOL/L (135-145)
[2022-03-23 01:02] LABS: CALCIUM 8.9 MG/DL (8.5-10.1)
[2022-03-23 01:03] LABS: GLUCOSE 80 MG/DL (70-105); TOTAL PROTEIN 6.8 GM/DL (6.4-8.2)
[2022-03-23 01:04] LABS: CARBON DIOXIDE 19 MMOL/L (21-32); FIBRIN DEGRADATION PRODUCTS 0.21 UG/ML (0.00-0.49); PROTHROMBIN TIME PATIENT 13.4 SEC (12.2-14.7)
[2022-03-23 01:05] LABS: BILIRUBIN,TOTAL 0.3 MG/DL (0.1-1.0)
[2022-03-23 01:07] LABS: ALKALINE PHOSPHATASE 36 U/L (40-136); CREATININE SERUM 1.37 MG/DL (0.60-1.30); GFR ESTIMATED 52
[2022-03-23 01:08] LABS: BUN/CREATININE RATIO 7
[2022-03-23 01:10] LABS: ALANINE AMINOTRANSFERASE 42 U/L (0-55)
[2022-03-23 02:10] LABS: BILIRUBIN,URINE NEGATIVE (NEGATIVE); CLARITY,URINE CLEAR; COLOR,URINE YELLOW; GLUCOSE, URINE (UA) NEGATIVE (NEGATIVE); KETONES,URINE NEGATIVE (NEGATIVE); LEUKOCYTE ESTERASE ,URINE NEGATIVE (NEGATIVE); NITRITE,URINE NEGATIVE (NEGATIVE); PROTEIN,URINE NEGATIVE (NEGATIVE)
[2022-03-23 02:28] LABS: BACTERIA,URINE TRACE /HPF; SQUAMOUS EPITHELIAL CELL,UR 0-2 /HPF; WBC,URINE 0-2 /HPF
--- NOTE | 2022-03-23 06:14 | Diagnostic Imaging Report ---
PROCEDURE: CT head wo r/o stroke. TECHNIQUE: Multiple contiguous axial images were obtained through the brain without the use of intravenous contrast. Auto Exposure Controls were utilized during the CT exam to meet ALARA standards for radiation dose reduction. Indication: Altered mental status with neurological deficit. Comparison: 07/29/2014. Discussion: No intracranial hemorrhage, mass, midline shift, or hydrocephalus. The ventricles and sulci are normal size and configuration for age. The visualized orbits, paranasal sinuses, mastoid air cells, and calvarium are unremarkable. Impression: 1. Stable negative head CT. 2. Agree with preliminary report. Dictated by: Dictated on workstation # [id number]
--- NOTE | 2022-03-23 06:37 | Diagnostic Imaging Report ---
Indication: Altered mental status with dyspnea. Comparison: 08/09/2020. Discussion: Single portable upright view of the chest was obtained. Normal heart size. No consolidation, pleural fluid, or pneumothorax. No osseous abnormality. Impression: 1. Negative chest. Dictated by: Dictated on workstation # [id number]
== END 2022-03-23 03:03 | disposition home or self-care (01) ==
LOC: EDUNIT# 23:45 → ER 23:47
DX: G43.909 Migraine, unspecified, not intractable, without status migrainosus (principal); T67.9XXA Effect of heat and light, unspecified, initial encounter
CPT/HCPCS: 36415; 70450; 71045; 80053; 81000; 82947; 84484; 85025; 85379; 85610; 85730; 93005; 93041

== ENCOUNTER 2022-07-26 08:51 | Emergency (ER) | payer OTHER, BC ==
--- NOTE | 2022-07-26 09:09 | ED Abdominal Pain ---
General Stated Complaint: RIGHT SIDE ABD PAIN Source of Information: Patient Exam Limitations: No Limitations History of Present Illness Date Seen by Provider: Jul 26, 2022 Time Seen by Provider: 09:09 Initial Comments Patient is a 36-year-old female who presents to the emergency department today with a chief complaint of right upper quadrant abdominal pain. Patient states symptoms onset about 2 weeks ago. She states it is mostly constant but exacerbated occasionally she thinks by food. Currently a 6 out of 10. It is most of the time "dull" occasionally "stabbing". She endorses "yellow" stools recently. She still has her gallbladder. She has a history of appendectomy and hysterectomy. Also history of fatty liver disease, sarcoidosis and anxiety and depression. She has had nausea and vomiting 2 days ago. No fevers or chills. No black or bloody stools. No urinary complaints. Patient has not been taking any medications for the pain. She was able to eat dinner last night and had roast beef sandwiches. All other review of systems reviewed and negative except as stated Timing/Duration: Other (1 to 2 weeks) Severity/Quality: Moderate, Dull, Stabbing Location: RUQ Radiation: No Radiation Activities at Onset: None Modifying Factors: Improves With Movement Associated Symptoms: Nausea/Vomiting Allergies and Home Medications Allergies Coded Allergies: duloxetine (Verified Allergy, Unknown, SHAKY, SLURRED SPEECH, 08/11/16) tramadol (Unverified Allergy, Unknown, N.V, ITCHING, DIZZY, HAS RECEIVED HYDROMORPHONE IN THE PAST, 08/19/16) Patient Home Medication List Home Medication List Reviewed: Yes Acetaminophen (Acetaminophen) 500 Mg Tablet, 1,000 MG PO Q8HR Prescribed by: GLADYS RENTERIA on 03/06/20 1833 Bupropion HCl (Bupropion HCl Sr) 150 Mg Tablet.er, 150 MG PO BID, (Reported) Entered as Reported by: AUGUSTO URIARTE on 02/14/20 1619 Butalbital/Aspirin/Caffeine (Fiorinal 50-325-40 mg Capsule) 1 Each Capsule, 1 EACH PO Q6H PRN for migraines, (Reported) Entered as Reported by: AUGUSTO URIARTE on 03/01/20 1219 Cholecalciferol (Vitamin D3) (Vitamin D3) 25 Mcg Tablet, 25 MCG PO DAILY, (Reported) Entered as Reported by: AUGUSTO URIARTE on 03/01/20 1219 Dicyclomine HCl (Dicyclomine HCl) 20 Mg Tablet, 20 MG PO QIDACHS PRN for abdominal cramping Prescribed by: CAROLE GERMAN on 07/26/22 1158 Erenumab-Aooe (Aimovig Autoinjector) 140 Mg/1 Ml Auto.injct, 140 MG SQ monthly, (Reported) Entered as Reported by: AUGUSTO URIARTE on 02/14/20 1229 Estradiol (Estradiol Tablet) 1 Mg Tablet, 1 MG PO DAILY Prescribed by: GLADYS RENTERIA on 03/06/20 183 Fluoxetine HCl (Fluoxetine HCl) 20 Mg Capsule, 40 MG PO DAILY, (Reported) Entered as Reported by: AUGUSTO URIARTE on 02/14/20 161 Folic Acid (Folic Acid) Unknown Strength Tablet, 2 MG PO DAILY, (Reported) Entered as Reported by: AUGUSTO URIARTE on 03/01/20 1219 Hydroxyzine HCl (Hydroxyzine HCl) 25 Mg Tablet, 25 MG PO Q6H PRN for ANXIETY, (Reported) Entered as Reported by: AUGUSTO URIARTE on 02/14/20 161 Ibuprofen (Ibu) 600 Mg Tablet, 600 MG PO Q6H Prescribed by: GLADYS RENTERIA on 03/06/20 183 Levothyroxine Sodium (Levothyroxine Sodium) 150 Mcg Tablet, 150 MCG PO DAILY, (Reported) Entered as Reported by: AUGUSTO URIARTE on 10/14/18 1542 Medroxyprogesterone Acetate (Medroxyprogesterone Acetate) 2.5 Mg Tablet, 5 MG PO DAILY Prescribed by: GLADYS RENTERIA on 03/06/20 183 Methotrexate Sodium/Pf (Methotrexate 25 mg/ml Vial) 25 Mg/1 Ml Vial, 0.4 ML SQ WEEK, (Reported) Entered as Reported by: AUGUSTO URIARTE on 02/14/20 161 Ondansetron (Ondansetron Odt) 4 Mg Tab.rapdis, 4 MG SL Q8H PRN for NAUSEA/VOMITING Prescribed by: CAROLE GERMAN on 07/26/22 115 Ondansetron HCl (Zofran) 8 Mg Tablet, 8 MG PO Q8H PRN for NAUSEA/VOMITING, (Reported) Entered as Reported by: AUGUSTO URIARTE on 02/14/20 161 Oxycodone Hcl (Oxyir Tablet) 5 Mg Tablet, 5 MG PO Q4HR Prescribed by: GLADYS RENTERIA on 03/06/20 1833 Prednisone (Prednisone) 5 Mg Tablet, 5 MG PO DAILY, (Reported) Entered as Reported by: AUGUSTO URIARTE on 02/14/20 161 Promethazine HCl (Promethazine Tablet) 25 Mg Tablet, 25 MG PO Q6H PRN for NAUSEA/VOMITING, (Reported) Entered as Reported by: AUGUSTO URIARTE on 02/14/20 161 Rizatriptan Benzoate (Rizatriptan) 10 Mg Tab.rapdis, 10 MG PO UD PRN for MIGRAINE, (Reported) Entered as Reported by: AUGUSTO URIARTE on 02/14/20 161 Simethicone (Simethicone) 80 Mg Tab.chew, 80 MG PO Q2HR PRN for gas Prescribed by: GLADYS RENTERIA on 03/06/20 1833 Tizanidine HCl (Tizanidine HCl) 4 Mg Tablet, 4 MG PO Q8H PRN for BACK SPASMS, (Reported) Entered as Reported by: AUGUSTO URIARTE on 02/14/20 161 Topiramate (Topiramate) 50 Mg Tablet, 50 MG PO DAILY, (Reported) Entered as Reported by: AUGUSTO URIARTE on 02/14/20 161 Topiramate (Topiramate) 50 Mg Tablet, 100 MG PO HS, (Reported) Entered as Reported by: AUGUSTO URIARTE on 03/01/20 1219 Review of Systems Review of Systems Constitutional: see HPI Respiratory: No Symptoms Reported Cardiovascular: No Symptoms Reported Gastrointestinal: Abdominal Pain, Nausea, Vomiting Genitourinary: No Symptoms Reported Musculoskeletal: no symptoms reported Skin: no symptoms reported Psychiatric/Neurological: No Symptoms Reported All Other Systems Reviewed Negative Unless Noted: Yes Past Xwxswcy-Jaloye-Iuzyek Hx Immunizations Up To Date Tetanus Booster (TDap): Unknown PED Vaccines UTD: No Seasonal Allergies Seasonal Allergies: No Past Medical History Surgery/Hospitalization HX: sarcoidosis, stomach cancer, seizure disorder, frequent headaches, Surgeries: Yes (dxls x4 , R shoulder sx x3, d&c) Abdominal, Oophorectomy, Orthopedic, Tonsillectomy Respiratory: Yes (sarcoidosis) Currently Using CPAP: No Currently Using BIPAP: No Cardiac: No Hypertension Neurological: Yes Headaches /Migraines, Seizure Disorder Reproductive Disorders: Yes (CHRONIC PELVIC PAIN, ENDOMETRIOSIS, PCOS) Female Reproductive Disorders: Endometriosis, Ovarian Cyst, Polycystic Ovarian Dis Sexually Transmitted Disease: No Genitourinary: No Gastrointestinal: No Musculoskeletal: No (R SHOULDER SURG) Endocrine: Yes Hypothyroidsim HEENT: No Cancer: No Psychosocial: Yes Anxiety, Depression Integumentary: No Blood Disorders: No Family Medical History FH: breast cancer 19 MOTHER FH: uterine cancer 19 MOTHER Hypertension G8 SISTER Physical Exam Vital Signs Vital Signs - First Documented 07/26/22 09:10 Temp 36.4 Pulse 99 Resp 16 B/P (MAP) 130/90 (103) Capillary Refill : Height/Weight/BMI Height: 5'3.00" Weight: 180lbs. 0.0oz. 81.360446ke; 38.00 BMI Method:Stated General Appearance: WD/WN, no apparent distress HEENT: PERRL/EOMI Neck: normal inspection Respiratory: lungs clear, normal breath sounds, no respiratory distress, no accessory muscle use Cardiovascular: regular rate, rhythm Gastrointestinal: normal bowel sounds, soft, tenderness (Right upper quadrant, equivocal Samayoa's) Extremities: normal range of motion, normal inspection Neurologic/Psychiatric: alert, oriented x 3 Skin: normal color, warm/dry Progress/Results/Core Measures Results/Orders Lab Results Laboratory Tests Test 07/26/22 09:25 Range/Units White Blood Count 5.0 4.3-11.0 10^3/uL Red Blood Count 4.23 3.80-5.11 10^6/uL Hemoglobin 12.9 11.5-16.0 g/dL Hematocrit 38 35-52 % Mean Corpuscular Volume 89 80-99 fL Mean Corpuscular Hemoglobin 31 25-34 pg Mean Corpuscular Hemoglobin Concent 34 32-36 g/dL Red Cell Distribution Width 13.2 10.0-14.5 % Platelet Count 166 130-400 10^3/uL Mean Platelet Volume 11.5 9.0-12.2 fL Immature Granulocyte % (Auto) 1 % Neutrophils (%) (Auto) 56 42-75 % Lymphocytes (%) (Auto) 31 12-44 % Monocytes (%) (Auto) 9 0-12 % Eosinophils (%) (Auto) 3 0-10 % Basophils (%) (Auto) 1 0-10 % Neutrophils # (Auto) 2.8 1.8-7.8 10^3/uL Lymphocytes # (Auto) 1.6 1.0-4.0 10^3/uL Monocytes # (Auto) 0.4 0.0-1.0 10^3/uL Eosinophils # (Auto) 0.2 0.0-0.3 10^3/uL Basophils # (Auto) 0.0 0.0-0.1 10^3/uL Immature Granulocyte # (Auto) 0.1 0.0-0.1 10^3/uL Sodium Level 143 135-145 MMOL/L Potassium Level 3.3 L 3.6-5.0 MMOL/L Chloride Level 111 H 98-107 MMOL/L Carbon Dioxide Level 19 L 21-32 MMOL/L Anion Gap 13 5-14 MMOL/L Blood Urea Nitrogen 16 7-18 MG/DL Creatinine 1.26 0.60-1.30 MG/DL Estimat Glomerular Filtration Rate 57 BUN/Creatinine Ratio 13 Glucose Level 103 70-105 MG/DL Calcium Level 9.2 8.5-10.1 MG/DL Corrected Calcium 9.3 8.5-10.1 MG/DL Total Bilirubin 0.4 0.1-1.0 MG/DL Aspartate Amino Transf (AST/SGOT) 26 5-34 U/L Alanine Aminotransferase (ALT/SGPT) 48 0-55 U/L Alkaline Phosphatase 38 L 40-136 U/L Total Protein 6.6 6.4-8.2 GM/DL Albumin 3.9 3.2-4.5 GM/DL My Orders Orders - CAROLE GERMAN MD Ed Iv/Invasive Line Start (07/26/22 09:34) Comprehensive Metabolic Panel (07/26/22 09:34) Cbc With Automated Diff (07/26/22 09:34) Ns Iv 1000 Ml (Sodium Chloride 0.9%) (07/26/22 09:45) Fentanyl Inj (Sublimaze Injection) (07/26/22 09:45) Ondansetron Injection (Zofran Injectio (07/26/22 09:45) Dicyclomine Injection (Bentyl Injection) (07/26/22 10:50) Ketorolac Injection (Toradol Injection) (07/26/22 11:00) Medications Given in ED Current Medications Medications Dose Ordered Sig/Yan Route Start Time Stop Time Status Last Admin Dose Admin Fentanyl Citrate 50 mcg ONCE ONCE IVP 07/26/22 09:45 07/26/22 09:46 DC 07/26/22 10:12 50 MCG Ketorolac Tromethamine 30 mg ONCE ONCE IVP 07/26/22 11:00 07/26/22 11:01 DC 07/26/22 10:56 30 MG Ondansetron HCl 4 mg ONCE ONCE IVP 07/26/22 09:45 07/26/22 09:46 DC 07/26/22 10:12 4 MG Vital Signs/I&O 07/26/22 09:10 Temp 36.4 Pulse 99 Resp 16 B/P (MAP) 130/90 (103) Progress Progress Note #1: Time: 10:51 Progress Note Still having pain - worse after my exam. Will add toradol and dicyclomine. Progress Note #2: Time: 11:55 Progress Note Pain down to a "3". Feeling better. Evaluation today includes a CBC, Chem-12. She is afebrile. Labs are unremarkable. Abdominal exam is not concerning for any acute surgical process. Her Samayoa's is equivocal. She does have some tenderness in the right upper quadrant with some inspiratory arrest with deep palpation. She is quite obese. Bowel sounds are present. No rebound or involuntary guarding. No concern for bowel obstruction, acute pancreatitis,.no complaints or physical exam findings concerning for GI bleed. No concern for a cute biliary obstruction or hepatitis. Suspect biliary colic as related to possibly gallstones. Will discharge home with nausea medications and pain medications. We will schedule for an outpatient gallbladder ultrasound. Return precautions provided. Departure Impression Primary Impression: Abdominal pain Qualified Codes: R10.11 - Right upper quadrant pain Disposition: 01 HOME, SELF-CARE Condition: Improved Departure-Patient Inst. Decision time for Depature: 11:56 Referrals: [facility] (PCP/Family) Primary Care Physician Patient Instructions: Abdominal Pain, Adult ED, Gallbladder Diet Add. Discharge Instructions: Drink plenty of fluids to stay well-hydrated. Avoid heavy, fatty foods as this can cause your belly pain to become worse if you are having gallbladder issues. We have given you an order sheet for a gallbladder ultrasound on Thursday. Please call the scheduling number on the sheet to arrange a time to get this done on Thursday. If you develop worsening pain, vomiting, fever over 100.4 please come back to the emergency room for reevaluation. Please also call and schedule a follow-up appointment with [facility]. Dicyclomine 20 mg tablets 30 minutes before meals every 6 hours as needed for abdominal pain and cramping. Zofran 4 mg tablets, you can take 1-2 every 8 hours as needed for nausea. Scripts Ondansetron (Ondansetron Odt) 4 Mg Tab.rapdis 4 MG SL Q8H PRN for NAUSEA/VOMITING, #20 TAB Prov: CAROLE GERMAN MD 07/26/22 Dicyclomine HCl (Dicyclomine HCl) 20 Mg Tablet 20 MG PO QIDACHS PRN for abdominal cramping, #60 TAB Prov: CAROLE GERMAN MD 07/26/22 Copy Copies To 1: LISY SMITH KATHRYN M MD Jul 26, 2022 09:09
[2022-07-26 09:44] LABS: BASOPHILS % (AUTO) 1 % (0-10); EOSINOPHILS # (AUTO) 0.2 10^3/uL (0.0-0.3); EOSINOPHILS % (AUTO) 3 % (0-10); HEMATOCRIT 38 % (35-52); HEMOGLOBIN 12.9 g/dL (11.5-16.0); LYMPHOCYTES # (AUTO) 1.6 10^3/uL (1.0-4.0); LYMPHOCYTES % (AUTO) 31 % (12-44); MEAN CORPUSCULAR HEMOGLOBIN 31 pg (25-34); MEAN CORPUSCULAR HGB CONC 34 g/dL (32-36); MEAN CORPUSCULAR VOLUME 89 fL (80-99); MEAN PLATELET VOLUME 11.5 fL (9.0-12.2); MONOCYTES # (AUTO) 0.4 10^3/uL (0.0-1.0); MONOCYTES % (AUTO) 9 % (0-12); NEUTROPHILS # (AUTO) 2.8 10^3/uL (1.8-7.8); NEUTROPHILS % (AUTO) 56 % (42-75); PLATELET COUNT 166 10^3/uL (130-400)
[2022-07-26] MEDS ORDERED: fentaNYL INJ 100 MCG/2 ML AMP IVP ONE (09:45)
[2022-07-26] MEDS ORDERED: NS IV 1000 ML 1,000 ML IV SCH (09:45)
[2022-07-26] MEDS ORDERED: ONDANSETRON 4 MG/2 ML (SDV) Z0FRAN IVP ONE (09:45)
[2022-07-26 09:48] LABS: ALBUMIN 3.9 GM/DL (3.2-4.5)
[2022-07-26 09:49] LABS: POTASSIUM 3.3 MMOL/L (3.6-5.0)
[2022-07-26 09:50] LABS: CALCIUM 9.2 MG/DL (8.5-10.1)
[2022-07-26 09:51] LABS: TOTAL PROTEIN 6.6 GM/DL (6.4-8.2)
[2022-07-26 09:53] LABS: BILIRUBIN,TOTAL 0.4 MG/DL (0.1-1.0)
[2022-07-26 09:55] LABS: CREATININE SERUM 1.26 MG/DL (0.60-1.30)
[2022-07-26] MEDS ORDERED: DICYCLOMINE 10 MG/ML (BENTYL) 2 ML AMP IM STA (10:50)
[2022-07-26] MEDS ORDERED: KETOROLAC 30 MG/ML VIAL IVP ONE (11:00)
[2022-07-26] MEDS ORDERED: DICY20TA PO (11:58)
[2022-07-26] MEDS ORDERED: ONDA4TAB11 SL (11:58)
[2022-07-26 12:08] VITALS: BP 112/88
== END 2022-07-26 12:09 | disposition home or self-care (01) ==
LOC: EDUNIT# 08:51 → ER 08:53
DX: R10.11 Right upper quadrant pain (principal); Z88.5 Allergy status to narcotic agent; Z28.310 Unvaccinated for COVID-19
CPT/HCPCS: 36415; 80053; 84703; 85025

== ENCOUNTER → 2022-07-28 | Outpatient (CLI) | payer OTHER, BC ==
[~2022-07-28] MED LIST changes: +DICY20TA PO; +ONDA4TAB11 SL
--- NOTE | 2022-07-28 11:46 | Diagnostic Imaging Report ---
EXAMINATION: Ultrasound gallbladder, 07/28/2022. TECHNIQUE: Multiple real-time grayscale images were obtained over the right upper quadrant in various projections. INDICATION: Right upper quadrant pain. FINDINGS: The liver is enlarged measuring up to 23.3 cm in length. There is hepatic steatosis. No measurable lesions or intrahepatic biliary dilatation appreciated. Gallbladder is unremarkable with no stones or sludge. There is no pericholecystic fluid or gallbladder wall thickening. Common duct is normal in size. Visualized aspects of the pancreas, aorta, and IVC are unremarkable. Right kidney is 11.9 cm in length. There is no hydronephrosis. There is no ascites. IMPRESSION: 1. Hepatic steatosis with hepatomegaly. Remaining examination unremarkable. Dictated by: Dictated on workstation # [id number]
== END ==
LOC: RAD 09:45
PROVIDERS: ATTEND Emergency Medicine
DX: R16.0 Hepatomegaly, not elsewhere classified (principal)
CPT/HCPCS: 76705

== ENCOUNTER → 2022-08-07 | Outpatient (CLI) | payer OTHER, BC ==
[~2022-08-07] MED LIST changes: +CATHETER FLUSH 10 ML SYR IVP PRN
--- NOTE | 2022-08-07 12:35 | Diagnostic Imaging Report ---
Indication: Right upper quadrant pain. Patient was administered 5.2 mCi technetium 99m Choletec intravenously and imaging over the abdomen was performed. At 60 minutes patient ingested 8 ounces of ensure and the gallbladder ejection fraction was calculated. There is homogeneous uptake of activity by the liver with prompt excretion of activity into the common duct and gallbladder. There is normal passage of activity into the small bowel. Gallbladder ejection fraction is abnormally low at 15%. Normal values are 35% or greater. IMPRESSION: 1. Patent cystic duct and common bile duct. 2. Low gallbladder ejection fraction of 15%. Dictated by: Dictated on workstation # [id number]
== END ==
LOC: CARD 08:47
PROVIDERS: ATTEND Surgery
DX: R10.11 Right upper quadrant pain (principal)
CPT/HCPCS: 78227

== ENCOUNTER 2022-08-19 09:02 | Emergency (ER) | payer OTHER, BC ==
[~2022-08-19] VITALS: Ht 170.1 cm; Wt 109.0 kg
[~2022-08-19 09:02] MED LIST changes: -CATHETER FLUSH 10 ML SYR IVP PRN
[2022-08-19] MEDS ORDERED: NS IV 500 ML 500 ML IV STA ×2 (09:53→11:22)
[2022-08-19 10:44] LABS: CREATININE SERUM 1.69 MG/DL (0.60-1.30)
[2022-08-19 10:55] LABS: POTASSIUM 2.5 MMOL/L (3.6-5.0)
[2022-08-19] MEDS ORDERED: POTASSIUM CL 10MEQ/50ML IVPB 50 ML IV ONE (11:00)
[2022-08-19] MEDS ORDERED: KCL 20 MEQ TAB (K-DUR) PO ONE (11:00)
--- NOTE | 2022-08-19 12:01 | ED General ---
General Chief Complaint: Neurological Problems Stated Complaint: WEAKNESS | FEVER | CHILLS | GALL BLADDER Nursing Triage Note: PATIENT C/O MILD HEADACHE, FEELS HER BRAIN IS NOT PROCESSING RIGHT. FEELS CONFUSED, NOT ACTING RIGHT. 'WORSE AT NIGHT" Source of Information: Patient Exam Limitations: No Limitations History of Present Illness Date Seen by Provider: Aug 19, 2022 Time Seen by Provider: 09:42 Initial Comments Patient is a 36-year-old female who presents to the emergency department today with a chief complaint of "I feel confused". Patient states this has been going on for couple of days. She states she had similar symptoms in March, no definitive diagnosis was made. She, according to the medical record has the symptoms with "migraine". She has a history of seizure disorder, sarcoidosis, she is on Humira. She denies illicit drug use, no alcohol. She is not a diabetic. She states she has had difficulty walking "straight". No vision changes, unilateral numbness, weakness or tingling. No nausea, vomiting or diarrhea. No problems with bowel or bladder. No recent black or bloody stools. No recent febrile illnesses such as cough, congestion, COVID symptoms. Nothing is made her symptoms any better or any worse. She speaks in a slow sleepy voice. She is not slurred. She does seem to be able to recall recent and remote events easily. All other review of systems reviewed and negative except as stated. Timing/Duration: 1-3 Hours Severity: Mild Associated Systoms: Malaise Allergies and Home Medications Allergies Coded Allergies: duloxetine (Verified Allergy, Unknown, SHAKY, SLURRED SPEECH, 08/19/22) tramadol (Unverified Allergy, Unknown, N.V, ITCHING, DIZZY, HAS RECEIVED HYDROMORPHONE IN THE PAST, 08/19/22) Patient Home Medication List Home Medication List Reviewed: Yes Acetaminophen (Acetaminophen) 500 Mg Tablet, 1,000 MG PO Q8HR Prescribed by: GLADYS RENTERIA on 03/06/20 1833 Bupropion HCl (Bupropion HCl Sr) 150 Mg Tablet.er, 150 MG PO BID, (Reported) Entered as Reported by: AUGUSTO URIARTE on 02/14/20 1619 Butalbital/Aspirin/Caffeine (Fiorinal 50-325-40 mg Capsule) 1 Each Capsule, 1 EACH PO Q6H PRN for migraines, (Reported) Entered as Reported by: AUGUSTO URIARTE on 03/01/20 1219 Cholecalciferol (Vitamin D3) (Vitamin D3) 25 Mcg Tablet, 25 MCG PO DAILY, (Reported) Entered as Reported by: AUGUSTO URIARTE on 03/01/20 1219 Dicyclomine HCl (Dicyclomine HCl) 20 Mg Tablet, 20 MG PO QIDACHS PRN for abdominal cramping Prescribed by: CAROLE GERMAN on 07/26/22 1158 Erenumab-Aooe (Aimovig Autoinjector) 140 Mg/1 Ml Auto.injct, 140 MG SQ monthly, (Reported) Entered as Reported by: AUGUSTO URIARTE on 02/14/20 1229 Estradiol (Estradiol Tablet) 1 Mg Tablet, 1 MG PO DAILY Prescribed by: GLADYS RENTERIA on 03/06/20 183 Fluoxetine HCl (Fluoxetine HCl) 20 Mg Capsule, 40 MG PO DAILY, (Reported) Entered as Reported by: AUGUSTO URIARTE on 02/14/20 1619 Folic Acid (Folic Acid) Unknown Strength Tablet, 2 MG PO DAILY, (Reported) Entered as Reported by: AUGUSTO URIARTE on 03/01/20 1219 Hydroxyzine HCl (Hydroxyzine HCl) 25 Mg Tablet, 25 MG PO Q6H PRN for ANXIETY, (Reported) Entered as Reported by: AUGUSTO URIARTE on 02/14/20 1619 Ibuprofen (Ibu) 600 Mg Tablet, 600 MG PO Q6H Prescribed by: GLADYS RENTERIA on 03/06/20 183 Levothyroxine Sodium (Levothyroxine Sodium) 150 Mcg Tablet, 150 MCG PO DAILY, (Reported) Entered as Reported by: AUGUSTO URIARTE on 10/14/18 1542 Medroxyprogesterone Acetate (Medroxyprogesterone Acetate) 2.5 Mg Tablet, 5 MG PO DAILY Prescribed by: GLADYS RENTERIA on 03/06/20 183 Methotrexate Sodium/Pf (Methotrexate 25 mg/ml Vial) 25 Mg/1 Ml Vial, 0.4 ML SQ WEEK, (Reported) Entered as Reported by: AUGUSTO URIARTE on 02/14/20 1619 Ondansetron (Ondansetron Odt) 4 Mg Tab.rapdis, 4 MG SL Q8H PRN for NAUSEA/VOMITING Prescribed by: CAROLE GERMAN on 07/26/22 1158 Ondansetron HCl (Zofran) 8 Mg Tablet, 8 MG PO Q8H PRN for NAUSEA/VOMITING, (Reported) Entered as Reported by: AUGUSTO URIARTE on 02/14/20 161 Oxycodone Hcl (Oxyir Tablet) 5 Mg Tablet, 5 MG PO Q4HR Prescribed by: GLADYS RENTERIA on 03/06/20 183 Prednisone (Prednisone) 5 Mg Tablet, 5 MG PO DAILY, (Reported) Entered as Reported by: AUGUSTO URIARTE on 02/14/20 161 Promethazine HCl (Promethazine Tablet) 25 Mg Tablet, 25 MG PO Q6H PRN for NAUSEA/VOMITING, (Reported) Entered as Reported by: AUGUSTO URIARTE on 02/14/20 161 Rizatriptan Benzoate (Rizatriptan) 10 Mg Tab.rapdis, 10 MG PO UD PRN for MT GRAINE, (Reported) Entered as Reported by: AUGUSTO URIARTE on 02/14/20 161 Simethicone (Simethicone) 80 Mg Tab.chew, 80 MG PO Q2HR PRN for gas Prescribed by: GLADYS RENTERIA on 03/06/20 183 Tizanidine HCl (Tizanidine HCl) 4 Mg Tablet, 4 MG PO Q8H PRN for BACK SPASMS, (Reported) Entered as Reported by: AUGUSTO URIARTE on 02/14/20 161 Topiramate (Topiramate) 50 Mg Tablet, 50 MG PO DAILY, (Reported) Entered as Reported by: AUGUSTO URIARTE on 02/14/20 161 Topiramate (Topiramate) 50 Mg Tablet, 100 MG PO HS, (Reported) Entered as Reported by: AUGUSTO URIARTE on 03/01/20 1219 Review of Systems Review of Systems Constitutional: see HPI, malaise EENTM: no symptoms reported Respiratory: no symptoms reported Cardiovascular: no symptoms reported Gastrointestinal: no symptoms reported Genitourinary: no symptoms reported Musculoskeletal: no symptoms reported Skin: no symptoms reported Psychiatric/Neurological: Headache (mild), Other ("confused") Past Ecxnekg-Hitzum-Zwbceq Hx Patient Social History Tobacco Use?: No Use of E-Cig and/or Vaping dev: No Substance use?: No Alcohol Use?: No Immunizations Up To Date Tetanus Booster (TDap): Unknown PED Vaccines UTD: No Influenza Vaccine Up-to-Date: No; Not Current First/Initial COVID19 Vaccinat: NO VAC Seasonal Allergies Seasonal Allergies: No Past Medical History Surgery/Hospitalization HX: sarcoidosis, seizure disorder, frequent headaches, FATTY LIVER, ANXIETY, DEPRESSION TOTAL HYST, APPY, SHOULDER Surgeries: Yes (dxls x4 , R shoulder sx x3, d&c) Abdominal, Oophorectomy, Orthopedic, Tonsillectomy Respiratory: Yes (sarcoidosis) Currently Using CPAP: No Currently Using BIPAP: No Cardiac: No Hypertension Neurological: Yes Headaches /Migraines, Seizure Disorder Reproductive Disorders: Yes (CHRONIC PELVIC PAIN, ENDOMETRIOSIS, PCOS) Female Reproductive Disorders: Endometriosis, Ovarian Cyst, Polycystic Ovarian Dis Sexually Transmitted Disease: No Genitourinary: No Gastrointestinal: No Musculoskeletal: No (R SHOULDER SURG) Endocrine: Yes Hypothyroidsim HEENT: No Cancer: No Psychosocial: Yes Anxiety, Depression Integumentary: No Blood Disorders: No Family Medical History FH: breast cancer 19 MOTHER FH: uterine cancer 19 MOTHER Hypertension G8 SISTER Physical Exam Vital Signs Vital Signs - First Documented 08/19/22 09:28 Temp 37.1 Pulse 95 Resp 18 B/P (MAP) 102/66 (78) Pulse Ox 94 O2 Delivery Room Air Capillary Refill : Height, Weight, BMI Height: 5'3.00" Weight: 180lbs. 0.0oz. 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, 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 Skin: Normal Color, Warm/Dry Progress/Results/Core Measures Suspected Sepsis SIRS Temperature: Pulse: 95 Respiratory Rate: 18 Blood Pressure 102 /66 Mean: 78 Laboratory Tests 08/19/22 10:23: Creatinine 1.69H Results/Orders Lab Results Laboratory Tests Test 08/19/22 10:01 08/19/22 10:23 Range/Units Glucometer 129 H 70-110 MG/DL Sodium Level 142 135-145 MMOL/L Potassium Level 2.5 *L 3.6-5.0 MMOL/L Chloride Level 101 98-107 MMOL/L Carbon Dioxide Level 24 21-32 MMOL/L Anion Gap 17 H 5-14 MMOL/L Blood Urea Nitrogen 24 H 7-18 MG/DL Creatinine 1.69 H 0.60-1.30 MG/DL Estimat Glomerular Filtration Rate 40 BUN/Creatinine Ratio 14 Glucose Level 119 H 70-105 MG/DL Calcium Level 9.0 8.5-10.1 MG/DL My Orders Orders - CAROLE GERMAN MD Ed Iv/Invasive Line Start (08/19/22 09:53) Basic Metabolic Panel (08/19/22 09:53) Ns Iv 500 Ml (Sodium Chloride 0.9%) (08/19/22 09:53) Accucheck Stat ONCE (08/19/22 09:53) Potassium Cl 10meq/50ml Ivpb (Kcl 10 Meq (08/19/22 11:00) Potassium Chloride (Tablet) (K Dur Table (08/19/22 11:00) Ns Iv 500 Ml (Sodium Chloride 0.9%) (08/19/22 11:22) Medications Given in ED Current Medications Medications Dose Ordered Sig/Yan Route Start Time Stop Time Status Last Admin Dose Admin Potassium Chloride 40 meq ONCE ONCE PO 08/19/22 11:00 08/19/22 11:01 DC 08/19/22 11:31 40 MEQ Potassium Chloride 50 ml @ 50 mls/hr ONCE ONCE IV 08/19/22 11:00 08/19/22 11:59 08/19/22 11:31 50 MLS/HR Vital Signs/I&O 08/19/22 09:28 Temp 37.1 Pulse 95 Resp 18 B/P (MAP) 102/66 (78) Pulse Ox 94 O2 Delivery Room Air Capillary Refill : Blood Pressure Mean: 78 Point of Care Testing Finger Stick Blood Glucose: 129 Progress Note : Time: 12:01 Progress Note Patient seen and evaluated, 36-year-old with a chief complaint of feeling "confused". Evaluation today includes physical exam, basic metabolic panel, Accu-Chek. She is found to be hypokalemic. Not entirely sure of the etiology of her hypokalemia as the patient is not having any diarrhea or vomiting. On review of her medication reconciliation she is on a diuretic. We will make sure that she has some potassium supplementation for home. Her vital signs are stable. She is not hypoxic, tachycardic or overly bradycardic. Blood pressure is normal. Oxygen saturations are normal. Her blood sugar is normal. She has no focal neurologic deficits. Consideration for head CT however history and physical examination did not support the need. She does not appear anemic, CBC considered but not needed. No concerns for infectious process. Patient is given normal saline here in the emergency department with IV potassium replacement as well as oral. Return precautions provided. Departure Impression Primary Impression: Hypokalemia Disposition: HOME, SELF-CARE Condition: Improved Departure-Patient Inst. Referrals: [facility] (PCP/Family) Primary Care Physician Patient Instructions: Hypokalemia (DC) Add. Discharge Instructions: Drink plenty of fluids to stay well-hydrated. Try and hold off taking any medications that may make you sleepy today. I have written you a prescription for potassium replacement pills. Take these once a day for the next week. Follow-up with [facility], if you are going to continue taking furosemide/Lasix or metolazone you will need potassium replacement with that medication. Return to the emergency department for any new, concerning or emergent complaints. Scripts Potassium Chloride (K-Tab ER) 20 Meq Tablet.er 20 MEQ PO DAILY for 7 Days, #7 TAB Prov: CAROLE GERMAN MD 08/19/22 Copy Copies To 1: LISY SMITH KATHRYN M MD Aug 19, 2022 12:01
[2022-08-19] MEDS ORDERED: POTA-53 PO (12:05)
[2022-08-19 12:34] VITALS: BP 103/70
[2022-08-20] MEDS ORDERED: METO2.5T PO (16:18)
== END 2022-08-19 12:34 | disposition home or self-care (01) ==
LOC: EDUNIT# 09:02 → ER 09:05
DX: E87.6 Hypokalemia (principal); Z28.310 Unvaccinated for COVID-19
CPT/HCPCS: 36415; 80048; 82947

== ENCOUNTER 2022-08-20 05:36 | Outpatient (CLI) | payer OTHER, BC ==
[~2022-08-20] VITALS: Ht 165.1 cm; Wt 109.0 kg
[~2022-08-20 05:36] MED LIST changes: +POTA-53 PO
[2022-08-20] MEDS ORDERED: METO2.5T PO (16:18)
== END 2022-08-20 16:34 | disposition home or self-care (01) ==
LOC: PREOP 05:36
PROVIDERS: ATTEND Surgery
DX: Z01.818 Encounter for other preprocedural examination (principal)

== ENCOUNTER 2022-08-22 15:41 | Emergency (ER) | payer OTHER, BC ==
[~2022-08-22] VITALS: Ht 165 cm; Wt 110.5 kg
[~2022-08-22 15:41] MED LIST changes: +METO2.5T PO
--- NOTE | 2022-08-22 16:08 | ED General ---
General Chief Complaint: General Problems/Pain Stated Complaint: LOW POTASSIUM Nursing Triage Note: pt states she was sent here by [facility] to recheck her potassium level. states she was here in ed thursday and it was 2.5 and she is still having the same symptoms-dizziness, nausea, vomiting. Source of Information: Patient Exam Limitations: No Limitations History of Present Illness Date Seen by Provider: Aug 22, 2022 Time Seen by Provider: 15:57 Initial Comments Patient is a 35-year-old female who presents to the emergency room with concern for low potassium. I have seen her a couple of times in the last 30 days for abdominal pain, gallbladder work-up and most recently 2 days ago with complaints of fatigue, altered mental status, nausea vomiting. She had gallbladder ultrasound and HIDA scan done earlier this month which showed severely diminished ejection fraction of the gallbladder at 15%. She is scheduled for her gallbladder to be removed next Thursday the . She is having lots of diarrhea, nonblack nonbloody. She states it is quite yellow. She continues to have nausea with decreased oral intake. She has been able to hold down propel most of the day today. When I saw her 2 days ago her potassium was 2.5. She had 1 potassium "/" of 10 mEq and I gave her 40 mEq by mouth, sent her home with potassium supplements 20 mEq daily. She continues to feel fatigued and have muscle cramps and weakness/dizziness. Generally just does not feel well. She tells me that [facility] told her they would not be able to get her lab results back fast enough for treatment and they felt like it was important for her to be seen today. No complaints of fever, chills, productive cough. No URI symptoms. No flu c oncerns. All other review of systems reviewed and negative except as stated Timing/Duration: 1 Week Severity: Moderate Associated Systoms: Loss of Appetite, Malaise, Nausea/Vomiting, Weakness Allergies and Home Medications Allergies Coded Allergies: Sulfa (Sulfonamide Antibiotics) (Unverified Allergy, Severe, Hives, 08/20/22) BLISTERS duloxetine (Verified Allergy, Unknown, SHAKY, SLURRED SPEECH, 08/19/22) tramadol (Unverified Allergy, Unknown, N.V, ITCHING, DIZZY, HAS RECEIVED HYDROMORPHONE IN THE PAST, 08/19/22) Patient Home Medication List Home Medication List Reviewed: Yes Bupropion HCl (Bupropion HCl Sr) 150 Mg Tablet.er, 150 MG PO BID, (Reported) Entered as Reported by: AUGUSTO URIARTE on 02/14/20 1619 Butalbital/Aspirin/Caffeine (Fiorinal 50-325-40 mg Capsule) 1 Each Capsule, 1 EACH PO Q6H PRN for migraines, (Reported) Entered as Reported by: AUGUSTO URIARTE on 03/01/20 1219 Cholecalciferol (Vitamin D3) (Vitamin D3) 25 Mcg Tablet, 25 MCG PO DAILY, (Reported) Entered as Reported by: AUGUSTO URIARTE on 03/01/20 1219 Dicyclomine HCl (Dicyclomine HCl) 20 Mg Tablet, 20 MG PO QIDACHS PRN for abdominal cramping Prescribed by: CAROLE GERMAN on 07/26/22 1158 Erenumab-Aooe (Aimovig Autoinjector) 140 Mg/1 Ml Auto.injct, 140 MG SQ monthly, (Reported) Entered as Reported by: AUGUSTO URIARTE on 02/14/20 1229 Estradiol (Estradiol Tablet) 1 Mg Tablet, 1 MG PO DAILY Prescribed by: GLADYS RENTERIA on 03/06/20 1833 Fluoxetine HCl (Fluoxetine HCl) 20 Mg Capsule, 40 MG PO DAILY, (Reported) Entered as Reported by: AUGUSTO URIARTE on 02/14/20 1619 Folic Acid (Folic Acid) Unknown Strength Tablet, 2 MG PO DAILY, (Reported) Entered as Reported by: AUGUSTO URIARTE on 03/01/20 1219 Hydroxyzine HCl (Hydroxyzine HCl) 25 Mg Tablet, 25 MG PO Q6H PRN for ANXIETY, (Reported) Entered as Reported by: AUGUSTO URIARTE on 02/14/20 1619 Ibuprofen (Ibu) 600 Mg Tablet, 600 MG PO Q6H Prescribed by: GLADYS RENTERIA on 03/06/20 1833 Levothyroxine Sodium (Levothyroxine Sodium) 150 Mcg Tablet, 150 MCG PO DAILY, (Reported) Entered as Reported by: AUGUSTO URIARTE on 10/14/18 1542 Medroxyprogesterone Acetate (Medroxyprogesterone Acetate) 2.5 Mg Tablet, 5 MG PO DAILY Prescribed by: GLADYS RENTERIA on 03/06/20 183 Methotrexate Sodium/Pf (Methotrexate 25 mg/ml Vial) 25 Mg/1 Ml Vial, 0.4 ML SQ WEEK, (Reported) Entered as Reported by: AUGUSTO URIARTE on 02/14/20 161 Metolazone (Metolazone) 2.5 Mg Tablet, 2.5 MG PO MWF, (Reported) Entered as Reported by: MELA CAMPOVERDE on 08/20/22 1618 Ondansetron (Ondansetron Odt) 4 Mg Tab.rapdis, 4 MG SL Q8H PRN for NAUSEA/VOMITING Prescribed by: CAROLE GERMAN on 07/26/22 1158 Ondansetron HCl (Zofran) 8 Mg Tablet, 8 MG PO Q8H PRN for NAUSEA/VOMITING, (Reported) Entered as Reported by: AUGUSTO URIARTE on 02/14/20 161 Oxycodone Hcl (Oxyir Tablet) 5 Mg Tablet, 5 MG PO Q4HR Prescribed by: GLADYS RENTERIA on 03/06/20 183 Potassium Chloride (K-Tab ER) 20 Meq Tablet.er, 20 MEQ PO DAILY Prescribed by: CAROLE GERMAN on 08/19/22 1205 Prednisone (Prednisone) 5 Mg Tablet, 5 MG PO DAILY, (Reported) Entered as Reported by: AUGUSTO URIARTE on 02/14/20 161 Promethazine HCl (Promethazine Tablet) 25 Mg Tablet, 25 MG PO Q6H PRN for NAUSEA/VOMITING, (Reported) Entered as Reported by: AUGUTSO URIARTE on 02/14/20 161 Rizatriptan Benzoate (Rizatriptan) 10 Mg Tab.rapdis, 10 MG PO UD PRN for MIGRAINE, (Reported) Entered as Reported by: AUGUSTO URIARTE on 02/14/20 161 Simethicone (Simethicone) 80 Mg Tab.chew, 80 MG PO Q2HR PRN for gas Prescribed by: GLADYS RENTERIA on 03/06/20 183 Tizanidine HCl (Tizanidine HCl) 4 Mg Tablet, 4 MG PO Q8H PRN for BACK SPASMS, (Reported) Entered as Reported by: AUGUSTO URIARTE on 02/14/20 1619 Topiramate (Topiramate) 50 Mg Tablet, 50 MG PO DAILY, (Reported) Entered as Reported by: AUGUSTO URIARTE on 02/14/20 1619 Topiramate (Topiramate) 50 Mg Tablet, 100 MG PO HS, (Reported) Entered as Reported by: AUGUSTO URIARTE on 03/01/20 1219 Discontinued Medications Acetaminophen (Acetaminophen) 500 Mg Tablet, 1,000 MG PO Q8HR Discontinued Reason: No Longer Taking Prescribed by: GLADYS RENTERIA on 03/06/20 1833 Review of Systems Review of Systems Constitutional: see HPI EENTM: no symptoms reported Respiratory: no symptoms reported Cardiovascular: no symptoms reported Gastrointestinal: abdominal pain (RUQ), diarrhea, loss of appetite, nausea, vomiting Genitourinary: no symptoms reported Musculoskeletal: muscle weakness Skin: no symptoms reported Psychiatric/Neurological: Other (dizziness/weakness) All Other Systems Reviewed Negative Unless Noted: Yes Past Zboqmwu-Exfbja-Ybqznu Hx Patient Social History Tobacco Use?: No Substance use?: No Alcohol Use?: No Immunizations Up To Date Tetanus Booster (TDap): Unknown PED Vaccines UTD: No Influenza Vaccine Up-to-Date: No; Not Current First/Initial COVID19 Vaccinat: NO VAC Second COVID19 Vaccination Gurjit: NO VAC Third COVID19 Vaccination Date: NO VAC Seasonal Allergies Seasonal Allergies: No Past Medical History Surgery/Hospitalization HX: sarcoidosis, seizure disorder, frequent headaches, FATTY LIVER, ANXIETY, DEPRESSION TOTAL HYST, APPY, SHOULDER Surgeries: Yes (dxls x4 , R shoulder sx x3, d&c, HYSTERECTOMY) Abdominal, Hysterectomy, Oophorectomy, Orthopedic, Tonsillectomy Respiratory: Yes (sarcoidosis) Currently Using CPAP: No Currently Using BIPAP: No Cardiac: No Hypertension Neurological: Yes Headaches /Migraines, Seizure Disorder Reproductive Disorders: Yes (CHRONIC PELVIC PAIN, ENDOMETRIOSIS, PCOS) Female Reproductive Disorders: Endometriosis, Ovarian Cyst, Polycystic Ovarian Dis Sexually Transmitted Disease: No Genitourinary: No Gastrointestinal: Yes Gall Bladder Disease Musculoskeletal: No (R SHOULDER SURG) Endocrine: Yes Hypothyroidsim HEENT: Yes (GLASSES - BUT DOESNT WEAR THEM) Cancer: No Psychosocial: Yes Anxiety, Depression Integumentary: No Blood Disorders: No Family Medical History FH: breast cancer 19 MOTHER FH: uterine cancer 19 MOTHER Hypertension G8 SISTER Physical Exam Vital Signs Vital Signs - First Documented 08/22/22 15:50 Temp 36.9 Pulse 94 Resp 16 B/P (MAP) 113/78 (90) Pulse Ox 100 Capillary Refill : Height, Weight, BMI Height: 5'3.00" Weight: 180lbs. 0.0oz. 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 Skin: Normal Color, Warm/Dry Progress/Results/Core Measures Suspected Sepsis SIRS Temperature: Pulse: 94 Respiratory Rate: 16 Laboratory Tests 08/22/22 16:10: White Blood Count 7.4 Blood Pressure 113 /78 Mean: 90 Laboratory Tests 08/22/22 16:10: Creatinine 1.70H, Platelet Count 219, Total Bilirubin 0.3 Results/Orders Lab Results Laboratory Tests Test 08/22/22 16:10 Range/Units White Blood Count 7.4 4.3-11.0 10^3/uL Red Blood Count 4.24 3.80-5.11 10^6/uL Hemoglobin 13.1 11.5-16.0 g/dL Hematocrit 38 35-52 % Mean Corpuscular Volume 89 80-99 fL Mean Corpuscular Hemoglobin 31 25-34 pg Mean Corpuscular Hemoglobin Concent 35 32-36 g/dL Red Cell Distribution Width 12.7 10.0-14.5 % Platelet Count 219 130-400 10^3/uL Mean Platelet Volume 11.3 9.0-12.2 fL Immature Granulocyte % (Auto) 1 % Neutrophils (%) (Auto) 65 42-75 % Lymphocytes (%) (Auto) 23 12-44 % Monocytes (%) (Auto) 8 0-12 % Eosinophils (%) (Auto) 3 0-10 % Basophils (%) (Auto) 1 0-10 % Neutrophils # (Auto) 4.8 1.8-7.8 10^3/uL Lymphocytes # (Auto) 1.7 1.0-4.0 10^3/uL Monocytes # (Auto) 0.6 0.0-1.0 10^3/uL Eosinophils # (Auto) 0.2 0.0-0.3 10^3/uL Basophils # (Auto) 0.0 0.0-0.1 10^3/uL Immature Granulocyte # (Auto) 0.1 0.0-0.1 10^3/uL Sodium Level 140 135-145 MMOL/L Potassium Level 3.1 L 3.6-5.0 MMOL/L Chloride Level 103 98-107 MMOL/L Carbon Dioxide Level 22 21-32 MMOL/L Anion Gap 15 H 5-14 MMOL/L Blood Urea Nitrogen 22 H 7-18 MG/DL Creatinine 1.70 H 0.60-1.30 MG/DL Estimat Glomerular Filtration Rate 40 BUN/Creatinine Ratio 13 Glucose Level 94 70-105 MG/DL Calcium Level 9.4 8.5-10.1 MG/DL Corrected Calcium 9.2 8.5-10.1 MG/DL Total Bilirubin 0.3 0.1-1.0 MG/DL Aspartate Amino Transf (AST/SGOT) 28 5-34 U/L Alanine Aminotransferase (ALT/SGPT) 47 0-55 U/L Alkaline Phosphatase 42 40-136 U/L Total Protein 7.5 6.4-8.2 GM/DL Albumin 4.3 3.2-4.5 GM/DL My Orders Orders - CAROLE GERMAN MD Cbc With Automated Diff (08/22/22 15:58) Comprehensive Metabolic Panel (08/22/22 15:58) Ed Iv/Invasive Line Start (08/22/22 15:58) Lactated Ringers (Lr 1000 Ml Iv Solution (08/22/22 17:15) Vital Signs/I&O 08/22/22 15:50 Temp 36.9 Pulse 94 Resp 16 B/P (MAP) 113/78 (90) Pulse Ox 100 Capillary Refill : Blood Pressure Mean: 90 Departure Impression Primary Impression: Generalized weakness Additional Impressions: Hypokalemia Biliary dyskinesia Dehydration Disposition: 01 HOME, SELF-CARE Condition: Improved Departure-Patient Inst. Decision time for Depature: 18:28 [address]errals: [facility] [place] (PCP/Family) Primary Care Physician Patient Instructions: Fatigue ED Add. Discharge Instructions: Continue the potassium supplement daily (use the new prescription, do not take the potassium pills) until you follow up with Dr Valenzuela. Nausea medications as prescribed that you have at home.. Dicyclomine for abdominal pain. 30 minutes before meals and at bedtime to help with abdominal pain. If you develop a fever, worsening pain, vomiting that is not helped with medication, please come back to the Emergency Department for re-evaluation. I am sending your chart to Dr Valenzuela so he is aware of your low potassium levels recently. Scripts Potassium Bicarbonate/Cit AC (Effer-K 20 Meq Tablet Eff) 20 Meq Tablet.eff 20 MEQ PO DAILY, #10 TAB Prov: CAROLE GERMAN MD 08/22/22 Dicyclomine HCl (Dicyclomine HCl) 20 Mg Tablet 20 MG PO QIDACHS, #60 TAB Prov: CAROLE GERMAN MD 08/22/22 Work/School Note: Work Release Form Date Seen in the Emergency Department: Aug 22, 2022 Return to Work: Aug 25, 2022 Copy Copies To 1: LISY SMITH DO Copies To 2: ADAMS VALENZUELA DO CAROLE GERMAN MD Aug 22, 2022 16:08
[2022-08-22 16:29] LABS: BASOPHILS % (AUTO) 1 % (0-10); EOSINOPHILS # (AUTO) 0.2 10^3/uL (0.0-0.3); EOSINOPHILS % (AUTO) 3 % (0-10); HEMATOCRIT 38 % (35-52); HEMOGLOBIN 13.1 g/dL (11.5-16.0); LYMPHOCYTES # (AUTO) 1.7 10^3/uL (1.0-4.0); LYMPHOCYTES % (AUTO) 23 % (12-44); MEAN CORPUSCULAR HEMOGLOBIN 31 pg (25-34); MEAN CORPUSCULAR HGB CONC 35 g/dL (32-36); MEAN CORPUSCULAR VOLUME 89 fL (80-99); MEAN PLATELET VOLUME 11.3 fL (9.0-12.2); MONOCYTES # (AUTO) 0.6 10^3/uL (0.0-1.0); MONOCYTES % (AUTO) 8 % (0-12); NEUTROPHILS # (AUTO) 4.8 10^3/uL (1.8-7.8); NEUTROPHILS % (AUTO) 65 % (42-75); PLATELET COUNT 219 10^3/uL (130-400); WHITE BLOOD COUNT 7.4 10^3/uL (4.3-11.0)
[2022-08-22 17:01] LABS: ALBUMIN 4.3 GM/DL (3.2-4.5)
[2022-08-22 17:02] LABS: POTASSIUM 3.1 MMOL/L (3.6-5.0)
[2022-08-22 17:03] LABS: CALCIUM 9.4 MG/DL (8.5-10.1)
[2022-08-22 17:04] LABS: TOTAL PROTEIN 7.5 GM/DL (6.4-8.2)
[2022-08-22 17:06] LABS: BILIRUBIN,TOTAL 0.3 MG/DL (0.1-1.0)
[2022-08-22 17:08] LABS: CREATININE SERUM 1.7 MG/DL (0.60-1.30)
[2022-08-22] MEDS ORDERED: LACTATED RINGERS 1,000 ML IV STA (17:15)
[2022-08-22] MEDS ORDERED: DICY20TA PO (18:33)
[2022-08-22] MEDS ORDERED: POTA20TA28 PO (18:37)
[2022-08-22 19:05] VITALS: BP 113/78
[2022-08-27] MEDS ORDERED: DOCU-143 PO (14:50)
[2022-08-27] MEDS ORDERED: ACHD5005 PO (14:50)
== END 2022-08-22 19:07 | disposition home or self-care (01) ==
LOC: EDUNIT# 15:41 → ER 15:43
DX: E87.6 Hypokalemia (principal); K82.8 Other specified diseases of gallbladder; E86.0 Dehydration; R53.1 Weakness; E66.9 Obesity, unspecified; Z68.41 Body mass index [BMI] 40.0-44.9, adult; Z28.310 Unvaccinated for COVID-19
CPT/HCPCS: 36415; 80053; 85025; 99281

== ENCOUNTER 2022-08-27 10:55 | Day surgery (SDC) | payer OTHER, BC ==
[2022-08-27] VITALS (12 sets, daily range): BP systolic 99–133; BP diastolic 74–99
[~2022-08-27] VITALS: Ht 165.1 cm; Wt 110.5 kg
[~2022-08-27 10:55] MED LIST changes: +POTA20TA28 PO
--- NOTE | 2022-08-27 11:14 | Progress Note-Pre Operative ---
Pre-Operative Progress Note Date of Available H&P: Aug 11, 2022 Date H&P Reviewed: Aug 27, 2022 Time H&P Reviewed: 11:14 History & Physical: H&P Reviewed, Patient Examed, No changes noted Pre-Operative Diagnosis: biliary dyskinesia ADAMS VALENZUELA DO Aug 27, 2022 11:14
[2022-08-27] MEDS ORDERED: ceFAZolin INJECTION 2,000 MG in NS (IVPB) 50 ML IV ONE (11:15)
[2022-08-27] MEDS: LACTATED RINGERS 1,000 ML IV PRN ×2 (12:07→13:09)
[2022-08-27] MEDS ORDERED: ROCURONIUM 10 MG/ML 5 ML SYRINGE IV ONE (12:18)
[2022-08-27] MEDS ORDERED: ONDANSETRON 4 MG/2 ML (SDV) Z0FRAN ONE ×2 (12:18→15:46)
[2022-08-27] MEDS ORDERED: LIDOCAINE PF 2% 5 ML (XYLOCAINE) VIAL ONE (12:18)
[2022-08-27] MEDS ORDERED: NEOSTIGMINE (BLOXIVERZ ) 1 MG/1ML 10 ML VIAL ONE (12:18)
[2022-08-27] MEDS ORDERED: MIDAZOLAM 2 MG/2 ML (VERSED) VIAL ONE (12:18)
[2022-08-27] MEDS ORDERED: GLYCOPYRROLATE 0.2 MG/ML (ROBINUL) 2 ML VIAL ONE (12:18)
[2022-08-27] MEDS ORDERED: fentaNYL INJ 100 MCG/2 ML AMP ONE (12:18)
[2022-08-27] MEDS ORDERED: proPOfol 200 MG/20 ML (DIPRIVAN) VIAL IV ONE (12:18)
[2022-08-27] MEDS ORDERED: BUSP30TA2 PO (12:27)
[2022-08-27] MEDS ORDERED: FOLI1TAB33 PO (12:37)
[2022-08-27] MEDS ORDERED: ESTR2TAB3 PO (12:37)
[2022-08-27] MEDS: BUP/EPI 0.25% 1:200,000 (MARCAINE) 30 ML VIAL ONE ×2 (13:00→13:20)
[2022-08-27] MEDS ORDERED: CLON1TAB13 PO (13:05)
[2022-08-27] MEDS ORDERED: LINA145C PO (13:05)
[2022-08-27] MEDS ORDERED: AMIT75TA2 PO (13:05)
[2022-08-27] MEDS ORDERED: GALC120P SQ (13:05)
[2022-08-27] MEDS ORDERED: HYDR-3817 PO (13:05)
[2022-08-27] MEDS ORDERED: LACO200T2 PO (13:05)
[2022-08-27] MEDS ORDERED: QUET150T14 PO (13:05)
[2022-08-27] MEDS ORDERED: LEVO175C2 PO (13:05)
[2022-08-27] MEDS ORDERED: HYDR200T46 PO (13:05)
[2022-08-27] MEDS ORDERED: ADAL40PE5 SQ (13:05)
[2022-08-27] MEDS ORDERED: PRAZ1CAP2 PO (13:05)
[2022-08-27] MEDS ORDERED: FERR-65 PO (13:05)
[2022-08-27] MEDS ORDERED: QUET300T90 PO (13:05)
[2022-08-27] MEDS ORDERED: FURO20TA4 PO (13:05)
[2022-08-27] MEDS ORDERED: NALO4SPR NS (13:05)
[2022-08-27] MEDS ORDERED: NF-NORETH5 PO (13:05)
[2022-08-27] MEDS ORDERED: CARI350T27 PO (13:05)
[2022-08-27] MEDS ORDERED: CYAN-23 PO (13:05)
[2022-08-27] MEDS ORDERED: PHENYLEPHRINE 100 MCG/ML 10 ML (ANESTHESIA) SYR ONE (13:07)
[2022-08-27] MEDS ORDERED: IOHEXOL 300 MG/ML 30 ML (OMNIPAQUE 300) VIAL INJ ONE (13:11)
[2022-08-27] MEDS ORDERED: BUP/EPI 0.25% 1:200,000 (MARCAINE) 30 ML VIAL INJ ONE (13:15)
[2022-08-27] MEDS ORDERED: ISOFLURANE (FORANE) 15 ML/15 MIN INHALATION ONE (14:04)
[2022-08-27] MEDS ORDERED: HYDROmorphone 2 MG/ML VIAL (DILAUDID) ONE (14:14)
[2022-08-27] MEDS ORDERED: morphine INJ 10 MG/ML 1ML (SYR OR VIAL) IVP ONE (14:15)
[2022-08-27] MEDS ORDERED: HYDROmorphone 2 MG/ML VIAL (DILAUDID) IV ONE (14:15)
[2022-08-27] MEDS ORDERED: ONDANSETRON 4 MG/2 ML (SDV) Z0FRAN IVP PRN (14:15)
--- NOTE | 2022-08-27 14:44 | Anesthesia-General Post-Op ---
General Patient Condition Mental Status/LOC: Same as Preop Cardiovascular: Satisfactory Nausea/Vomiting: Absent Respiratory: Satisfactory Pain: Controlled Complications: Absent Post Op Complications Complications None Follow Up Care/Instructions Patient Instructions None needed. Anesthesia/Patient Condition Patient Condition Patient is doing well in PACU with no complaints, stable vital signs, no apparent adverse anesthesia problems. No complications reported per nursing. BRENDAN MIRANDA DO Aug 27, 2022 14:44
[2022-08-27] MEDS ORDERED: DOCU-143 PO (14:50)
[2022-08-27] MEDS ORDERED: ACHD5005 PO (14:50)
--- NOTE | 2022-08-27 14:51 | Discharge Inst-Simple/Standard ---
Discharge Inst-Standard Discharge Medications New, Converted or Re-Newed RX: Transmitted to Pharmacy Patient Instructions/Follow Up Plan of Care/Instructions/FU: 2 weeks Julieta Activity as Tolerated: No Discharge Diet: Regular Diet Other Inst to Patient Follow up Appt: Make appointment for 2 weeks. Instructions: No lifting greater than 10 pounds. No strenuous activity. May shower in 24 hours, no tub bath or soaking. Use incentive spirometer at home as directed. No Smoking Skin/Wound Care: You have special glue over incision, it will fall off on it's own. Symptoms to Report: Appetite Changes, Extremity Discoloration, Numbness/Tingling, Swelling Increased, Bleeding Excessive, Eyesight Changes, Pain Increased, Urine Color Change, Constipation(Persistent), Fever over 101 degree F, Pain/Pressure in chest, Urinating Difficulty, Cough Up/Vomit Blood, Heart Beat Irreg/Pounding, Pain/Pressure in jaw, Vaginal Bleeding Increase, Cramps in feet or legs, Lightheadedness, Pain/Pressure in shoulder, Diarrhea(Persistent), Memory Changes Suddenly, Questions/Concerns, Weight gain consecutive days, Dizziness/Fainting, Nausea/Vomiting, Shortness of Breath, Weight gain over 2 pounds. If eyes or skin turn yellow notify physician. If questions or concerns contact your physician Or seek help at emergency department. ADAMS VALENZUELA DO Aug 27, 2022 14:51
--- NOTE | 2022-08-27 14:52 | Progress Note-Post Operative ---
Post-Operative Progess Note Surgeon (s)/Head Strength And Conditioning Coach (s) Surgeon ADAMS VALENZUELA DO Head Strength And Conditioning Coach: Dr. Campos to assist in retraction dissection and closure. Pre-Operative Diagnosis biliary dyskinesia Post-Operative Diagnosis same Procedure & Operative Findings Date of Procedure 08/27/22 Procedure Performed/Findings PROCEDURE: Laparoscopic cholecystectomy with intraoperative cholangiogram. COMPLICATIONS: None. PROCEDURE: The patient was taken to the operating suite and was prepped and draped in sterile fashion. A surgical pause was performed. Just superior to the umbilicus, a 12 mm incision was made. Dissection was taken down to the fascia, which was then scored and grasped with a Elias and the abdomen was then entered. A 0 Vicryl suture was placed in a [id number]-[id number]-[id number] fashion and a Palma trocar was placed and secured. Pneumoperitoneum was achieved. A 5mm trochar place in the subxyphoid and 2 in the right upper quadrant. The gallbladder was then grasped and elevated. The cystic duct, and cystic artery were then dissected out. Clip was placed on the distal portion of the cystic duct which was then partially transected. An arrow catheter was inserted into the duct. The cholangiogram was then performed. No filing defects and contrast made its way into the duodenum. Catheter removed. Clips were placed on proximal portion of the cystic duct and then the duct was then transected. Clips were placed along the proximal and distal portion of the cystic artery which was then transected. Hook cautery was used to dissect the gallbladder from the gallbladder fossa achieving hemostasis. The gallbladder was placed in an Endobag and removed through the 12 mm trocar site. The abdomen was then reinspected. Copious amounts of irrigation were used to irrigate the abdomen and there were no signs of active bleeding. Hemostasis had been achieved. The 12 mm fascial defect was then closed with 0 Vicryl suture that had been placed in a [id number] fashion. The abdomen was then desufflated, the trocars were removed. The abdomen was then washed and dried. The skin was then closed using 4-0 Monocryl in a subcuticular fashion. The abdomen was washed and dried and Skin Affix was place over incisions. Patient tolerated the procedure well without any complications and was taken to the recovery room in stable condition. Anesthesia Type General Estimated Blood Loss Estimated blood loss (mL): minimal Specimens/Packing Specimens Removed gallbladder ADAMS VALENZUELA DO Aug 27, 2022 14:52
[2022-08-27] MEDS ORDERED: ONDANSETRON 4 MG/2 ML (SDV) Z0FRAN IVP ONE (16:00)
[2022-08-27] MEDS ORDERED: HYDROcodone/APAP 5 MG/325 MG (LORTAB) TAB ONE (16:07)
[2022-08-27] MEDS ORDERED: HYDROcodone/APAP 5 MG/325 MG (LORTAB) TAB PO ONE (16:15)
--- NOTE | 2022-08-27 16:18 | Diagnostic Imaging Report ---
Indication: History of right upper quadrant abdominal pain. Total fluoroscopy time: 8 seconds Total number fluoroscopic images saved: 39 Findings: Multiple intraoperative image intensifier and digital subtraction images of the right upper abdominal quadrant were obtained during intraoperative cholangiogram. Images provided show contrast opacifying the intra and extra hepatic biliary ducts. There is mild prominence to the common bile duct, but no intraluminal filling defects or focal strictures are seen. There is emptying of contrast into the small bowel, as expected. Please note, interpreting radiologist was not present during the procedure. Impression: 1. Fluoroscopic guidance provided intraoperatively as above. Dictated by: Dictated on workstation # [id number]
== END 2022-08-27 17:06 | disposition home or self-care (01) ==
LOC: SDC 10:55
PROVIDERS: ATTEND Surgery
DX: K82.8 Other specified diseases of gallbladder (principal); K81.1 Chronic cholecystitis; Z87.891 Personal history of nicotine dependence; E66.01 Morbid (severe) obesity due to excess calories; Z68.41 Body mass index [BMI] 40.0-44.9, adult; Z28.310 Unvaccinated for COVID-19
CPT/HCPCS: 76000; 87081; 94664

== ENCOUNTER 2023-03-28 22:54 | Emergency (ER) | payer OTHER, BC ==
[~2023-03-28] VITALS: Ht 165 cm; Wt 117.0 kg
[~2023-03-28 22:54] MED LIST changes: +ADAL40PE5 SQ; +AMIT75TA2 PO; +BUSP30TA2 PO; +CARI350T27 PO; +CLON1TAB13 PO; +CYAN-23 PO; +DOCU-143 PO; +ESTR2TAB3 PO; +FERR-65 PO; +FURO20TA4 PO; +GALC120P SQ; +HYDR200T46 PO; +LACO200T2 PO; +LEVO175C2 PO; +LIDO15SO3 MM; -LIDO20SO23 MM; +LINA145C PO; +NALO4SPR NS; +NF-NORETH5 PO; +PRAZ1CAP2 PO; +QUET150T14 PO; +QUET300T90 PO; +TOPI-241 PO; -TOPI50TA13 PO
[2023-03-28 23:10] VITALS: BP 133/91
[2023-03-28] MEDS ORDERED: PRAZ2CAP2 (23:20)
[2023-03-28] MEDS ORDERED: POTA-169 (23:20)
--- NOTE | 2023-03-28 23:31 | ED Integumentary General ---
General Chief Complaint: Skin/Wound Problems Stated Complaint: POST OP BIOPSY/WOUND ISSUE Nursing Triage Note: REPORTS REDNESS/SWELLING FROM LEFT POSTERIOR SHOULDER BIOPSY SITE TONIGHT. STATES BIOPSY WAS DONE 03/25/23. C/O BURNING PAIN. Allergies and Home Medications Allergies Coded Allergies: Sulfa (Sulfonamide Antibiotics) (Unverified Allergy, Severe, Hives, 08/20/22) BLISTERS duloxetine (Verified Allergy, Unknown, SHAKY, SLURRED SPEECH, 08/19/22) tramadol (Unverified Allergy, Unknown, N.V, ITCHING, DIZZY, HAS RECEIVED HYDROMORPHONE IN THE PAST, 08/19/22) Patient Home Medication List Adalimumab (Humira Pen) 40 Mg/0.4 Ml Pen.ij.kit, 40 MG SQ UD, (Reported) Entered as Reported by: SALUD JOSE on 08/27/22 1305 Amitriptyline HCl (Amitriptyline HCl) 75 Mg Tablet, 75 MG PO HS, (Reported) Entered as Reported by: SALUD JOSE on 08/27/22 1305 Buspirone HCl (Buspirone HCl) 30 Mg Tablet, 30 MG PO BID, (Reported) Entered as Reported by: SALUD JOSE on 08/27/22 1227 Carisoprodol (Carisoprodol) 350 Mg Tablet, 350 MG PO Q6H PRN for SPASMS, (Reported) Entered as Reported by: SALUD JOSE on 08/27/22 1305 Cholecalciferol (Vitamin D3) (Vitamin D3) 25 Mcg Tablet, 25 MCG PO DAILY, (Reported) Entered as Reported by: AUGUSTO URIARTE on 03/01/20 1219 Clonazepam (Clonazepam) 1 Mg Tablet, 1 MG PO BID, (Reported) Entered as Reported by: SALUD JOSE on 08/27/22 1305 Cyanocobalamin (Vitamin B-12) (Vitamin B-12) 1,000 Mcg Capsule, 1,000 MCG PO DAILY, (Reported) Entered as Reported by: SALUD JOSE on 08/27/22 1305 Dicyclomine HCl (Dicyclomine HCl) 20 Mg Tablet, 20 MG PO QIDACHS PRN for abdominal cramping Prescribed by: CAROLE GERMAN on 07/26/22 1158 Docusate Sodium (Colace) 100 Mg Capsule, 100 MG PO BID Prescribed by: ADAMS VALENZUELA on 08/27/22 1450 Estradiol (Estradiol Tablet) 2 Mg Tablet, 2 MG PO DAILY, (Reported) Entered as Reported by: SALUD JOSE on 08/27/22 1237 Ferrous Sulfate (Feosol) 325 Mg (65 Mg Iron) Tablet, 325 MG PO DAILY, (Reported) Entered as Reported by: SALUD JOSE on 08/27/22 1305 Folic Acid (Folic Acid) 1 Mg Tablet, 2 MG PO DAILY, (Reported) Entered as Reported by: SALUD JOSE on 08/27/22 1237 Furosemide (Furosemide) 20 Mg Tablet, 20 MG PO DAILY, (Reported) Entered as Reported by: SALUD JOSE on 08/27/22 1305 Galcanezumab-Gnlm (Emgality) 120 Mg/Ml Pen.injctr, 120 MG SQ MONTHLY, (Reported) Entered as Reported by: SALUD JOSE on 08/27/22 1305 Hydrocodone/Acetaminophen (Hydrocodone-Acetamin 5-325 mg) 5 Mg-325 Mg Tablet, 1 EACH PO Q4H PRN for PAIN-MODERATE (5-7) Prescribed by: ADAMS VALENZUELA on 08/27/22 1450 Hydroxychloroquine Sulfate (Hydroxychloroquine Sulfate) 200 Mg Tablet, 200 MG PO BID, (Reported) Entered as Reported by: SALUD JOSE on 08/27/22 1305 Lacosamide (Vimpat) 200 Mg Tablet, 200 MG PO BID, (Reported) Entered as Reported by: SALUD JOSE on 08/27/22 1305 Levothyroxine Sodium (Levothyroxine) 175 Mcg Capsule, 175 MCG PO DAILY, (Reported) Entered as Reported by: SALUD JOSE on 08/27/22 1305 Linaclotide (Linzess) 145 Mcg Capsule, 145 MCG PO DAILY, (Reported) Entered as Reported by: SALUD JOSE on 08/27/22 1305 Metolazone (Metolazone) 2.5 Mg Tablet, 2.5 MG PO MWF, (Reported) Entered as Reported by: MELA CAMPOVERDE on 08/20/22 1618 Naloxone HCl (Narcan) 4 Mg/Actuation Abell, 4 MG NS UD, (Reported) Entered as Reported by: SALUD JOSE on 08/27/22 1305 Norethindrone (Norethindrone Acetate) 5 Mg Tab, 5 MG PO DAILY, (Reported) Entered as Reported by: SALUD JOSE on 08/27/22 1305 Ondansetron (Ondansetron Odt) 4 Mg Tab.rapdis, 4 MG SL Q8H PRN for NAUSEA/VOMITING Prescribed by: CAROLE GERMAN on 07/26/22 1158 Potassium Bicarbonate/Cit AC (Effer-K 20 Meq Tablet Eff) 20 Meq Tablet.eff, 20 MEQ PO DAILY Prescribed by: CAROLE GERMAN on 08/22/22 1837 Potassium Chloride (K-Tab ER) 20 Meq Tablet.er, 20 MEQ PO DAILY Prescribed by: CAROLE GERMAN on 08/19/22 1205 Potassium Chloride (Klor-Con M20) 20 Meq Tab.er.prt, (Reported) Entered as Reported by: FRAN ALBERTS on 03/28/232319 Last Action: New Order Prazosin HCl (Prazosin HCl) 1 Mg Capsule, 4 CAP PO HS, (Reported) Entered as Reported by: SALUD JOSE on 08/27/22 130 Prazosin HCl (Prazosin HCl) 2 Mg Capsule, (Reported) Entered as Reported by: FRAN ALBERTS on 03/28/232319 Last Action: New Order Quetiapine Fumarate (Quetiapine Fumarate ER) 150 Mg Tab.er.24h, 150 MG PO HS, (Reported) Entered as Reported by: SALUD JOSE on 08/27/22 1305 Quetiapine Fumarate (Quetiapine Fumarate ER) 300 Mg Tab.er.24h, 300 MG PO HS, (Reported) Entered as Reported by: SALUD JOSE on 08/27/22 1305 Rizatriptan Benzoate (Rizatriptan) 10 Mg Tab.rapdis, 10 MG PO UD PRN for MIGRAINE, (Reported) Entered as Reported by: AUGUSTO URIARTE on 02/14/20 161 Tizanidine HCl (Tizanidine HCl) 4 Mg Tablet, 4 MG PO Q8H PRN for BACK SPASMS, (Reported) Entered as Reported by: AUGUSTO URIARTE on 02/14/20 1619 Topiramate (Topiramate) 50 Mg Tablet, 100 MG PO BID, (Reported) Entered as Reported by: AUGUSTO URIARTE on 03/01/20 1219 Past Gkbrman-Mamjcr-Ghyxyd Hx Patient Social History Tobacco Use?: Yes Substance use?: No Alcohol Use?: No Pt feels they are or have been: No Immunizations Up To Date Tetanus Booster (TDap): Unknown PED Vaccines UTD: No First/Initial COVID19 Vaccinat: NO VAC Second COVID19 Vaccination Gurjit: NO VAC Third COVID19 Vaccination Date: NO VAC Seasonal Allergies Seasonal Allergies: No Past Medical History Surgery/Hospitalization HX: sarcoidosis, seizure disorder, frequent headaches, FATTY LIVER, ANXIETY, DEPRESSION TOTAL HYST, APPY, SHOULDER, CHOLECYSTECTOMY, D&C, T/A, HYPOTHROIDISM, Surgeries: Yes (dxls x4 , R shoulder sx x3, d&c, HYSTERECTOMY) Abdominal, Hysterectomy, Oophorectomy, Orthopedic, Tonsillectomy Respiratory: Yes (sarcoidosis) Currently Using CPAP: No Currently Using BIPAP: No Cardiac: No Hypertension Neurological: Yes Headaches /Migraines, Seizure Disorder Reproductive Disorders: Yes (CHRONIC PELVIC PAIN, ENDOMETRIOSIS, PCOS) Female Reproductive Disorders: Endometriosis, Ovarian Cyst, Polycystic Ovarian Dis Sexually Transmitted Disease: No Genitourinary: No Gastrointestinal: Yes Gall Bladder Disease Musculoskeletal: No (R SHOULDER SURG) Endocrine: Yes Hypothyroidsim HEENT: Yes (GLASSES - BUT DOESNT WEAR THEM) Cancer: No Psychosocial: Yes Anxiety, Depression Integumentary: No Blood Disorders: No Family Medical History FH: breast cancer 19 MOTHER FH: uterine cancer 19 MOTHER Hypertension G8 SISTER Physical Exam Vital Signs Vital Signs - First Documented 03/28/23 23:10 Temp 36.0 Pulse 94 Resp 16 B/P (MAP) 133/91 (105) Pulse Ox 100 O2 Delivery Room Air Capillary Refill : Less Than 3 Seconds Progress/Results/Core Measures Results/Orders Vital Signs/I&O 03/28/23 23:10 Temp 36.0 Pulse 94 Resp 16 B/P (MAP) 133/91 (105) Pulse Ox 100 O2 Delivery Room Air Blood Pressure Mean: 105 Departure Impression Primary Impression: Encounter for evaluation of wound Additional Impression: POST SURGICAL WOUND EVALUATION Disposition: 01 HOME, SELF-CARE Condition: Stable Departure-Patient Inst. Decision time for Depature: 23:29 Referrals: [facility] (PCP/Family) Primary Care Physician Patient Instructions: Wound Care (DC) Add. Discharge Instructions: CLEAN DIRECTED APPLY TRIPLE ANTIBIOTIC OINTMENT TO AREA 2 TIMES A DAY AND APPLY FRESH BANDAID TWICE A DAY FOLLOW UP WITH [facility] OR YOUR REGULAR DR IF SYMPTOMS WORSEN All discharge instructions reviewed with patient and/or family. Voiced understanding. CATIA CACERES DO Mar 28, 2023 23:31
== END 2023-03-28 23:33 | disposition home or self-care (01) ==
LOC: EDUNIT# 22:54 → ER 22:57
DX: Z48.817 Encounter for surgical aftercare following surgery on the skin and subcutaneous tissue (principal); Z28.310 Unvaccinated for COVID-19
CPT/HCPCS: 99281

== ENCOUNTER 2023-05-12 17:16 | Emergency (ER) | payer OTHER, BC ==
[~2023-05-12 17:16] MED LIST changes: -HYDR200T46 PO; +HYDR200T71 PO; +POTA-169; +PRAZ2CAP2
[2023-05-12] MEDS ORDERED: LACTATED RINGERS 1,000 ML 1,000 ML IV STA ×2 (17:23→17:29)
[2023-05-12] MEDS ORDERED: NS IV 1000 ML 1,000 ML ONE (17:27)
[2023-05-12] MEDS ORDERED: NS IV 1000 ML 1,000 ML IV STA (17:29)
--- NOTE | 2023-05-12 17:30 | ED General ---
General Chief Complaint: Exposure Stated Complaint: PASSED OUT - WEAKNESS Nursing Triage Note: PT TO ED 3 PER W/C PT HAD SYNCOPAL EPISODE D/T HEAT EXHAUSTION. PT WAS PUSHING MOWING HER YARD. PT FELL HIT BACK OF HEAD AND CO OF NECK PAIN 03/30. PT HAD + LOC. PT HAS HX OF HEART AND CURRENTLY WEARS A MONITOR. Source of Information: Patient, Family Exam Limitations: Physical Impairments (LORNA LYNN MD) History of Present Illness Date Seen by Provider: May 12, 2023 Time Seen by Provider: 17:23 Initial Comments Here with report of syncopal episode at home. She was apparently push mowing her yard in jeans and shirt and was out in the heat at the hottest part of the day when the temperature was over 100. She apparently passed out and hit the back of her head. She complains of head and neck pain as well as left knee pain. She is currently undergoing evaluation for her heart and is wearing a heart monitor. She is unsure of what that is about. Patient is confused. She has some nausea but no vomiting currently. She is here with family member who is helping to tell the details of the story. Otherwise review of systems is limited. Timing/Duration: 1/2 Hour Severity: Moderate, Severe Modifying Factors: improves with Rest Associated Systoms: No Chest Pain; Nausea/Vomiting, Syncope, Weakness (LORNA LYNN MD) Allergies and Home Medications Allergies Coded Allergies: Sulfa (Sulfonamide Antibiotics) (Unverified Allergy, Severe, Hives, 08/20/22) BLISTERS duloxetine (Verified Allergy, Unknown, SHAKY, SLURRED SPEECH, 08/19/22) tramadol (Unverified Allergy, Unknown, N.V, ITCHING, DIZZY, HAS RECEIVED HYDROMORPHONE IN THE PAST, 08/19/22) Patient Home Medication List Home Medication List Reviewed: Yes (LORNA LYNN MD) Adalimumab (Humira Pen) 40 Mg/0.4 Ml Pen.ij.kit, 40 MG SQ UD, (Reported) Entered as Reported by: SALUD JOSE on 08/27/22 1305 Amitriptyline HCl (Amitriptyline HCl) 75 Mg Tablet, 75 MG PO HS, (Reported) Entered as Reported by: SALUD JOSE on 08/27/22 1305 Buspirone HCl (Buspirone HCl) 30 Mg Tablet, 30 MG PO BID, (Reported) Entered as Reported by: SALUD JOSE on 08/27/22 1227 Carisoprodol (Carisoprodol) 350 Mg Tablet, 350 MG PO Q6H PRN for SPASMS, (Reported) Entered as Reported by: SALUD JOSE on 08/27/22 1305 Cholecalciferol (Vitamin D3) (Vitamin D3) 25 Mcg Tablet, 25 MCG PO DAILY, (Reported) Entered as Reported by: AUGUSTO URIARTE on 03/01/20 1219 Clonazepam (Clonazepam) 1 Mg Tablet, 1 MG PO BID, (Reported) Entered as Reported by: SALUD JOSE on 08/27/22 1305 Cyanocobalamin (Vitamin B-12) (Vitamin B-12) 1,000 Mcg Capsule, 1,000 MCG PO DAILY, (Reported) Entered as Reported by: SALUD JOSE on 08/27/22 1305 Dicyclomine HCl (Dicyclomine HCl) 20 Mg Tablet, 20 MG PO QIDACHS PRN for abdominal cramping Prescribed by: CAROLE GERMAN on 07/26/22 1158 Docusate Sodium (Colace) 100 Mg Capsule, 100 MG PO BID Prescribed by: ADAMS VALENZUELA on 08/27/22 1450 Estradiol (Estradiol Tablet) 2 Mg Tablet, 2 MG PO DAILY, (Reported) Entered as Reported by: SALUD JOSE on 08/27/22 1237 Ferrous Sulfate (Feosol) 325 Mg (65 Mg Iron) Tablet, 325 MG PO DAILY, (Reported) Entered as Reported by: SALUD JOSE on 08/27/22 1305 Folic Acid (Folic Acid) 1 Mg Tablet, 2 MG PO DAILY, (Reported) Entered as Reported by: SALUD JOSE on 08/27/22 1237 Furosemide (Furosemide) 20 Mg Tablet, 20 MG PO DAILY, (Reported) Entered as Reported by: SALUD JOSE on 08/27/22 1305 Galcanezumab-Gnlm (Emgality) 120 Mg/Ml Pen.injctr, 120 MG SQ MONTHLY, (Reported) Entered as Reported by: SALUD JOSE on 08/27/22 1305 Hydrocodone/Acetaminophen (Hydrocodone-Acetamin 5-325 mg) 5 Mg-325 Mg Tablet, 1 EACH PO Q4H PRN for PAIN-MODERATE (5-7) Prescribed by: ADAMS VALENZUELA on 08/27/22 1450 Hydroxychloroquine Sulfate (Hydroxychloroquine Sulfate) 200 Mg Tablet, 200 MG PO BID, (Reported) Entered as Reported by: SALUD JOSE on 08/27/22 1305 Lacosamide (Vimpat) 200 Mg Tablet, 200 MG PO BID, (Reported) Entered as Reported by: SALUD JOSE on 08/27/22 1305 Levothyroxine Sodium (Levothyroxine) 175 Mcg Capsule, 175 MCG PO DAILY, (Reported) Entered as Reported by: SALUD JOSE on 08/27/22 1305 Linaclotide (Linzess) 145 Mcg Capsule, 145 MCG PO DAILY, (Reported) Entered as Reported by: SALUD JOSE on 08/27/22 1305 Metolazone (Metolazone) 2.5 Mg Tablet, 2.5 MG PO MWF, (Reported) Entered as Reported by: MELA CAMPOVERDE on 08/20/22 1618 Naloxone HCl (Narcan) 4 Mg/Actuation [place], 4 MG NS UD, (Reported) Entered as Reported by: SALUD JOSE on 08/27/22 1305 Norethindrone (Norethindrone Acetate) 5 Mg Tab, 5 MG PO DAILY, (Reported) Entered as Reported by: SALUD JOSE on 08/27/22 1305 Ondansetron (Ondansetron Odt) 4 Mg Tab.rapdis, 4 MG SL Q8H PRN for NAUSEA/VOMITING Prescribed by: CAROLE GERMAN on 07/26/22 1158 Potassium Bicarbonate/Cit AC (Effer-K 20 Meq Tablet Eff) 20 Meq Tablet.eff, 20 MEQ PO DAILY Prescribed by: CAROLE GERMAN on 08/22/22 1837 Potassium Chloride (K-Tab ER) 20 Meq Tablet.er, 20 MEQ PO DAILY Prescribed by: CAROLE GERMAN on 08/19/22 1205 Potassium Chloride (Klor-Con M20) 20 Meq Tab.er.prt, (Reported) Entered as Reported by: FRAN ALBERTS on 03/28/23 2320 Prazosin HCl (Prazosin HCl) 1 Mg Capsule, 4 CAP PO HS, (Reported) Entered as Reported by: SALUD JOSE on 08/27/22 1305 Prazosin HCl (Prazosin HCl) 2 Mg Capsule, (Reported) Entered as Reported by: FRAN ALBERTS on 03/28/23 2320 Quetiapine Fumarate (Quetiapine Fumarate ER) 150 Mg Tab.er.24h, 150 MG PO HS, (Reported) Entered as Reported by: SALUD JOSE on 08/27/22 1305 Quetiapine Fumarate (Quetiapine Fumarate ER) 300 Mg Tab.er.24h, 300 MG PO HS, (Reported) Entered as Reported by: SALUD JOSE on 08/27/22 1305 Rizatriptan Benzoate (Rizatriptan) 10 Mg Tab.rapdis, 10 MG PO UD PRN for MIGRAINE, (Reported) Entered as Reported by: AUGUSTO URIARTE on 02/14/20 1619 Tizanidine HCl (Tizanidine HCl) 4 Mg Tablet, 4 MG PO Q8H PRN for BACK SPASMS, (Reported) Entered as Reported by: AUGUSTO URIARTE on 02/14/20 1619 Topiramate (Topiramate) 50 Mg Tablet, 100 MG PO BID, (Reported) Entered as Reported by: AUGUSTO URIARTE on 03/01/20 1219 Review of Systems Review of Systems Constitutional: see HPI, weakness Respiratory: No short of breath Cardiovascular: syncope Gastrointestinal: nausea, vomiting Genitourinary: no symptoms reported Musculoskeletal: joint pain, neck pain Skin: No change in color, No lesions Psychiatric/Neurological: Headache (LORNA LYNN MD) Past Cwfobnl-Viofes-Xqnsix Hx Patient Social History Tobacco Use?: No Substance use?: No Alcohol Use?: No Pt feels they are or have been: No (LORNA LYNN MD) Immunizations Up To Date Tetanus Booster (TDap): Unknown PED Vaccines UTD: No First/Initial COVID19 Vaccinat: NO VAC Second COVID19 Vaccination Gurjit: NO VAC Third COVID19 Vaccination Date: NO VAC (LORNA LYNN MD) Seasonal Allergies Seasonal Allergies: No (LORNA LYNN MD) Past Medical History Surgery/Hospitalization HX: sarcoidosis, seizure disorder, frequent headaches, FATTY LIVER, ANXIETY, DEPRESSION TOTAL HYST, APPY, SHOULDER, CHOLECYSTECTOMY, D&C, T/A, HYPOTHROIDISM, Surgeries: Yes (dxls x4 , R shoulder sx x3, d&c, HYSTERECTOMY) Abdominal, Hysterectomy, Oophorectomy, Orthopedic, Tonsillectomy Respiratory: Yes (sarcoidosis) Currently Using CPAP: No Currently Using BIPAP: No Cardiac: No Hypertension Neurological: Yes Headaches /Migraines, Seizure Disorder Reproductive Disorders: Yes (CHRONIC PELVIC PAIN, ENDOMETRIOSIS, PCOS) Female Reproductive Disorders: Endometriosis, Ovarian Cyst, Polycystic Ovarian Dis Sexually Transmitted Disease: No Genitourinary: No Gastrointestinal: Yes Gall Bladder Disease Musculoskeletal: No (R SHOULDER SURG) Endocrine: Yes Hypothyroidsim HEENT: Yes (GLASSES - BUT DOESNT WEAR THEM) Cancer: No Psychosocial: Yes Anxiety, Depression Integumentary: No Blood Disorders: No (LORNA LYNN MD) Family Medical History Reviewed Nursing Family Hx (LORNA LYNN MD) FH: breast cancer 19 MOTHER FH: uterine cancer 19 MOTHER Hypertension G8 SISTER Physical Exam Vital Signs Vital Signs - First Documented 05/12/23 17:20 Temp 37.2 Pulse 107 Resp 27 B/P (MAP) 116/85 (95) Pulse Ox 100 (CAROLE GERMAN MD) Vital Signs Capillary Refill : Less Than 3 Seconds (LORNA LYNN MD) Height, Weight, BMI Height: 5'3.00" Weight: 180lbs. 0.0oz. 81.780314se; 42.00 BMI Method:Stated General Appearance: No Apparent Distress, WD/WN, Obese HEENT: PERRL/EOMI, Pharynx Normal Neck: Tender Lateral, Tender Midline Respiratory: Lungs Clear, Normal Breath Sounds Cardiovascular: Regular Rate, Rhythm, No Murmur Gastrointestinal: Non Tender, Soft Extremity: No Calf Tenderness, Other (Tenderness to the area of the left knee without significant swelling) Neurologic/Psychiatric: Other (Awake but confused but does answer simple questions and follow simple commands.) Skin: Normal Color, Warm/Dry (LORNA LYNN MD) Progress/Results/Core Measures Suspected Sepsis SIRS Temperature: Pulse: 107 Respiratory Rate: 27 Laboratory Tests 05/12/23 17:28: White Blood Count 4.5 Blood Pressure 116 /85 Mean: 95 Laboratory Tests 05/12/23 17:28: Platelet Count 177 (LORNA LYNN MD) Results/Orders Lab Results Laboratory Tests Test 05/12/23 17:28 Range/Units White Blood Count 4.5 4.3-11.0 10^3/uL Red Blood Count 4.28 3.80-5.11 10^6/uL Hemoglobin 12.8 11.5-16.0 g/dL Hematocrit 39 35-52 % Mean Corpuscular Volume 91 80-99 fL Mean Corpuscular Hemoglobin 30 25-34 pg Mean Corpuscular Hemoglobin Concent 33 32-36 g/dL Red Cell Distribution Width 13.2 10.0-14.5 % Platelet Count 177 130-400 10^3/uL Mean Platelet Volume 11.9 9.0-12.2 fL Immature Granulocyte % (Auto) 0 % Neutrophils (%) (Auto) 52 42-75 % Lymphocytes (%) (Auto) 35 12-44 % Monocytes (%) (Auto) 9 0-12 % Eosinophils (%) (Auto) 3 0-10 % Basophils (%) (Auto) 0 0-10 % Neutrophils # (Auto) 2.3 1.8-7.8 10^3/uL Lymphocytes # (Auto) 1.6 1.0-4.0 10^3/uL Monocytes # (Auto) 0.4 0.0-1.0 10^3/uL Eosinophils # (Auto) 0.1 0.0-0.3 10^3/uL Basophils # (Auto) 0.0 0.0-0.1 10^3/uL Immature Granulocyte # (Auto) 0.0 0.0-0.1 10^3/uL Sodium Level 140 135-145 MMOL/L Potassium Level 3.4 L 3.6-5.0 MMOL/L Chloride Level 106 98-107 MMOL/L Carbon Dioxide Level 19 L 21-32 MMOL/L Anion Gap 15 H 5-14 MMOL/L Blood Urea Nitrogen 13 7-18 MG/DL Creatinine 1.45 H 0.60-1.30 MG/DL Estimat Glomerular Filtration Rate 48 BUN/Creatinine Ratio 9 Glucose Level 139 H 70-105 MG/DL Calcium Level 9.2 8.5-10.1 MG/DL Corrected Calcium 9.0 8.5-10.1 MG/DL Total Bilirubin 0.3 0.1-1.0 MG/DL Aspartate Amino Transf (AST/SGOT) 47 H 5-34 U/L Alanine Aminotransferase (ALT/SGPT) 54 0-55 U/L Alkaline Phosphatase 63 40-136 U/L Total Creatine Kinase 729 H 29-168 U/L Total Protein 6.9 6.4-8.2 GM/DL Albumin 4.2 3.2-4.5 GM/DL Serum Test, Qualitative NEGATIVE NEGATIVE (CAROLE GERMAN MD) My Orders Orders - CAROLE GERMAN MD Hydrocodone/Apap 5/325 Tablet (Hydrocod (05/12/23 18:45) Acetaminophen Tablet (Acetaminophen Ta (05/12/23 18:45) (CAROLE GERMAN MD) Medications Given in ED Current Medications Medications Dose Ordered Sig/Yan Route Start Time Stop Time Status Last Admin Dose Admin Acetaminophen 500 mg ONCE ONCE PO 05/12/23 18:45 05/12/23 18:46 DC 05/12/23 19:04 500 MG Acetaminophen/ Hydrocodone Bitart 1 ea ONCE ONCE PO 05/12/23 18:45 05/12/23 18:46 DC 05/12/23 19:03 1 EA Ondansetron HCl 4 mg ONCE ONCE IVP 05/12/23 17:45 05/12/23 17:46 DC 05/12/23 17:38 4 MG (CAROLE GERMAN MD) Vital Signs/I&O 05/12/23 17:20 Temp 37.2 Pulse 107 Resp 27 B/P (MAP) 116/85 (95) Pulse Ox 100 (CAROLE GERMAN MD) Vital Signs/I&O Capillary Refill : Less Than 3 Seconds (LORNA LYNN MD) Blood Pressure Mean: 95 Progress Note : Progress Note Seen and evaluated. IV x2 including CBC, CMP, total CK ordered. Serum hCG ordered but then DC'd as patient has had hysterectomy. We will get CT of the head and neck and x-ray of the left knee. Normal saline 1 L bolus and LR 1 L bolus ordered. Monitor patient. Differential diagnosis includes heat injury, dehydration, electrolyte abnormality, intracranial hemorrhage, C-spine fracture, neck strain, knee fracture, knee strain 1745: Zofran 4 mg IV ordered for nausea. Patient to CT scan. Neuro: CT of the head and C-spine reviewed by me and I do not see obvious intracranial hemorrhage or C-spine fracture on my interpretation. Left knee x-ray reviewed by me and is normal by my interpretation. CBC reviewed and no significant abnormality. Care transferred to Dr. German pending chemistry studies and completion of fluids and reevaluation. (LORNA LYNN MD) Progress Note : Time: 19:59 Progress Note Patient care assumed at shift change from outgoing provider. She is reexamined by me, feeling better. Awake alert and aware. She does have mild to moderate headache. She is no longer nauseous. She is finishing up her second liter of IV fluids, having received 1 L of lactated Ringer's and 1 L of normal saline. I have reviewed her CBC and it is normal, I have also reviewed her Chem-12, she does have evidence of chronic kidney disease as compared to prior from a year ago. Her total CK is elevated to just a little bit above 700. CT head/neck and knee read by radiology as no acute findings. She was given one 5 mg hydrocodone and one 500 mg acetaminophen for pain. I have advised her that due to her kidney function she should avoid NSAIDs. We discussed concussion symptoms and the outpatient management of them. I advised her to avoid electronics, watching TV, excessive reading or concentrating for at least the next 24 hours. I have advised that she can slowly reintroduce these things after that and if her headache returns or she becomes nauseous that she needs to hold off for another 24 hours. Both she and her family member at the bedside verbalized understanding of these discharge instructions. She is agreeable. I think she is safe for discharged home. Return precautions provided in both verbal and written format. All questions are sought and answered. Patient is improved at discharge (CAROLE GERMAN MD) Diagnostic Imaging Diagonstic Imaging: CT Plain Films/CT/US/NM/MRI: c-spine, head Comments [facility]. [place], [place] NAME: NA L[facility] REC#: [id number] PT STATUS: REG ER : 1985 PHYSICIAN: LORNA LYNN MD ADMIT DATE: 05/12/23/ER Draft Date of Exam:05/12/23 CT HEAD/CERVICAL SPINE WO PROCEDURE: CT head and CT cervical spine without contrast. TECHNIQUE: Multiple contiguous axial images were obtained through the brain and cervical spine without the use of intravenous contrast. Sagittal and coronal reformations through the cervical spine were then performed. Auto Exposure Controls were utilized during the CT exam to meet ALARA standards for radiation dose reduction. INDICATION: Fall with head and neck injury. Correlation is made with head CT from 03/23/2022. CT HEAD: FINDINGS: The ventricles and sulci are stable in appearance. No sulcal effacement or midline shift is identified. No acute intra-axial or extra-axial hemorrhage is detected. Cisterns are patent. The visualized paranasal sinuses are clear. IMPRESSION: No acute intracranial process is identified. CT CERVICAL SPINE: FINDINGS: Curvature and alignment of the cervical spine is normal. No fracture or subluxation is identified. The prevertebral tissues are within normal limits. Odontoid is intact. IMPRESSION: No acute bony abnormality is detected. Dictated on workstation # [id number] Dict: 05/12/231751 Trans: 05/12/23 1800 [id number] Interpreted by: TRACY DUMONT MD Electronically signed by: Diagonstic Imaging: Xray Plain Films/CT/US/NM/MRI: knee Comments [facility] [place] NAME: NA LYN [facility] REC#: [id number] PT STATUS: REG ER : 1985 PHYSICIAN: LORNA LYNN MD ADMIT DATE: 05/12/23/ER Draft Date of Exam:05/12/23 KNEE, LEFT, 3 VIEWS INDICATION: Left knee pain. TIME OF EXAM: 05:57 p.m. FINDINGS: Three views of the left knee show normal alignment. Joint spaces are well maintained. Articular surfaces are smooth. No fracture, dislocation or effusion is identified. IMPRESSION: No acute abnormality is detected. Dictated on workstation # [id number] Dict: 05/12/[id number] Trans: 05/12/23 1802 [facility] [id number] Interpreted by: TRACY DUMONT MD Electronically signed by: (LORNA LYNN MD) Departure Impression Primary Impression: Heat exhaustion Qualified Codes: T67.5XXA - Heat exhaustion, unspecified, initial encounter Additional Impression: Concussion Qualified Codes: S06.0X1A - Concussion with loss of consciousness of 30 minutes or less, initial encounter Disposition: 01 HOME, SELF-CARE Condition: Improved Departure-Patient Inst. Decision time for Depature: 20:09 (CAROLE GERMAN MD) [place]: [facility] [place] Primary Care Physician Patient Instructions: Heat Illness ED, Concussion, Adult (DC) Add. Discharge Instructions: Drink plenty of water to stay well hydrated. I would recommend extra strength tylenol 2 tablets every 6 hours for headache body aches. Avoid excessive screen time, TV, phone, reading for about 24 hours. Then you can slowly re-introduce these things. However, if your headache worsens with nausea, stop these things again another 24 hours and repeat. Follow up with your primary care doctor next week. When out in excessive heat, wear loose, light colored clothing, hydrate well and take frequent breaks. Work/School Note: Work Release Form Date Seen in the Emergency Department: May 12, 2023 Return to Work: May 14, 2023 Copy Copies To 1: LISY SMITH TIMOTHY D MD May 12, 2023 17:30 CAROLE GERMAN MD May 12, 2023 20:04
[2023-05-12] MEDS ORDERED: ONDANSETRON INJECTION 4 MG/2 ML (SDV) ONE (17:34)
[2023-05-12] MEDS ORDERED: ONDANSETRON INJECTION 4 MG/2 ML (SDV) IVP ONE (17:45)
[2023-05-12 17:53] LABS: BASOPHILS % (AUTO) 0 % (0-10); EOSINOPHILS # (AUTO) 0.1 10^3/uL (0.0-0.3); EOSINOPHILS % (AUTO) 3 % (0-10); HEMATOCRIT 39 % (35-52); HEMOGLOBIN 12.8 g/dL (11.5-16.0); LYMPHOCYTES # (AUTO) 1.6 10^3/uL (1.0-4.0); LYMPHOCYTES % (AUTO) 35 % (12-44); MEAN CORPUSCULAR HEMOGLOBIN 30 pg (25-34); MEAN CORPUSCULAR HGB CONC 33 g/dL (32-36); MEAN CORPUSCULAR VOLUME 91 fL (80-99); MEAN PLATELET VOLUME 11.9 fL (9.0-12.2); MONOCYTES # (AUTO) 0.4 10^3/uL (0.0-1.0); MONOCYTES % (AUTO) 9 % (0-12); NEUTROPHILS # (AUTO) 2.3 10^3/uL (1.8-7.8); NEUTROPHILS % (AUTO) 52 % (42-75); PLATELET COUNT 177 10^3/uL (130-400); WHITE BLOOD COUNT 4.5 10^3/uL (4.3-11.0)
--- NOTE | 2023-05-12 18:01 | Diagnostic Imaging Report ---
PROCEDURE: CT head and CT cervical spine without contrast. TECHNIQUE: Multiple contiguous axial images were obtained through the brain and cervical spine without the use of intravenous contrast. Sagittal and coronal reformations through the cervical spine were then performed. Auto Exposure Controls were utilized during the CT exam to meet ALARA standards for radiation dose reduction. INDICATION: Fall with head and neck injury. Correlation is made with head CT from 03/23/2022. CT HEAD: FINDINGS: The ventricles and sulci are stable in appearance. No sulcal effacement or midline shift is identified. No acute intra-axial or extra-axial hemorrhage is detected. Cisterns are patent. The visualized paranasal sinuses are clear. IMPRESSION: No acute intracranial process is identified. CT CERVICAL SPINE: FINDINGS: Curvature and alignment of the cervical spine is normal. No fracture or subluxation is identified. The prevertebral tissues are within normal limits. Odontoid is intact. IMPRESSION: No acute bony abnormality is detected. Dictated by: Dictated on workstation # [id number]
--- NOTE | 2023-05-12 18:03 | Diagnostic Imaging Report ---
INDICATION: Left knee pain. TIME OF EXAM: 05:57 p.m. FINDINGS: Three views of the left knee show normal alignment. Joint spaces are well maintained. Articular surfaces are smooth. No fracture, dislocation or effusion is identified. IMPRESSION: No acute abnormality is detected. Dictated by: Dictated on workstation # [id number]
[2023-05-12 18:14] LABS: ALBUMIN 4.2 GM/DL (3.2-4.5); POTASSIUM 3.4 MMOL/L (3.6-5.0)
[2023-05-12 18:15] LABS: CALCIUM 9.2 MG/DL (8.5-10.1)
[2023-05-12 18:17] LABS: TOTAL PROTEIN 6.9 GM/DL (6.4-8.2)
[2023-05-12 18:18] LABS: BILIRUBIN,TOTAL 0.3 MG/DL (0.1-1.0)
[2023-05-12 18:20] LABS: CREATININE SERUM 1.45 MG/DL (0.60-1.30)
[2023-05-12] MEDS ORDERED: ACETAMINOPHEN 500 MG TABLET PO ONE (18:45)
[2023-05-12] MEDS ORDERED: HYDROcodone/ACETAMINOPHEN 5 MG/325 MG TABLET PO ONE (18:45)
[2023-05-12 20:36] VITALS: BP 127/88
== END 2023-05-12 20:30 | disposition home or self-care (01) ==
LOC: EDUNIT# 17:16 → ER 17:17
DX: T67.5XXA Heat exhaustion, unspecified, initial encounter (principal); S06.0X9A Concussion with loss of consciousness of unspecified duration, initial encounter; M25.562 Pain in left knee; M54.2 Cervicalgia; I12.9 Hypertensive chronic kidney disease with stage 1 through stage 4 chronic kidney disease, or unspecified chronic kidney disease; N18.9 Chronic kidney disease, unspecified; Z28.310 Unvaccinated for COVID-19; Z88.6 Allergy status to analgesic agent; W18.30XA Fall on same level, unspecified, initial encounter; W22.8XXA Striking against or struck by other objects, initial encounter; Y92.096 Garden or yard of other non-institutional residence as the place of occurrence of the external cause; Y93.89 Activity, other specified
CPT/HCPCS: 36415; 70450; 72125; 73562; 80053; 82550; 84703; 85025

== ENCOUNTER 2023-05-22 23:40 | Emergency (ER) | payer OTHER, BC ==
[~2023-05-22] VITALS: Ht 160 cm; Wt 109.0 kg
--- NOTE | 2023-05-23 00:07 | ED General ---
General Stated Complaint: SEIZURE ACTIVITY,BLOOD PRESSURE LOW,02 LOW Source of Information: Patient, Family (daughter) Exam Limitations: No Limitations History of Present Illness Date Seen by Provider: May 23, 2023 Time Seen by Provider: 23:55 Initial Comments 37-year-old female presents to the emergency recurrent seizure activity. She has a longstanding history of seizures and takes Topamax as well as a sublingual medicine during seizure activity itself. Her daughter is at bedside and tells me she has had seizures 5 times today. She is fallen twice from the seizure. She has no apparent injuries from this. Seizures today were typical for her consisting of "eyes darting back and forth and her being unresponsive." The longest of these episodes was about 2 hours off and on. Her daughter states she did not really completely come to in between but she was responsive in between each episode but overall from 07-22 she was having several small episodes. She had another bout about 45 minutes prior to arrival that was much shorter in duration. She is reportedly been seen at recently and told she needs a "hear t device." She does not think this is a pacemaker and when asked about a Linq device she believes that this is likely it. All other systems reviewed and negative except documented per HPI. Voice recognition software was used to help create this chart Allergies and Home Medications Allergies Coded Allergies: Sulfa (Sulfonamide Antibiotics) (Unverified Allergy, Severe, Hives, 08/20/22) BLISTERS duloxetine (Verified Allergy, Unknown, SHAKY, SLURRED SPEECH, 08/19/22) tramadol (Unverified Allergy, Unknown, N.V, ITCHING, DIZZY, HAS RECEIVED HYDROMORPHONE IN THE PAST, 08/19/22) Patient Home Medication List Home Medication List Reviewed: Yes Adalimumab (Humira Pen) 40 Mg/0.4 Ml Pen.ij.kit, 40 MG SQ UD, (Reported) Entered as Reported by: SALUD JOSE on 08/27/22 1305 Amitriptyline HCl (Amitriptyline HCl) 75 Mg Tablet, 75 MG PO HS, (Reported) Entered as Reported by: SALUD JOSE on 08/27/22 1305 Buspirone HCl (Buspirone HCl) 30 Mg Tablet, 30 MG PO BID, (Reported) Entered as Reported by: SALUD JOSE on 08/27/22 1227 Carisoprodol (Carisoprodol) 350 Mg Tablet, 350 MG PO Q6H PRN for SPASMS, (Reported) Entered as Reported by: SALUD JOSE on 08/27/22 1305 Cholecalciferol (Vitamin D3) (Vitamin D3) 25 Mcg Tablet, 25 MCG PO DAILY, (Reported) Entered as Reported by: AUGUSTO URIARTE on 03/01/20 1219 Clonazepam (Clonazepam) 1 Mg Tablet, 1 MG PO BID, (Reported) Entered as Reported by: SALUD JOSE on 08/27/22 1305 Cyanocobalamin (Vitamin B-12) (Vitamin B-12) 1,000 Mcg Capsule, 1,000 MCG PO DAILY, (Reported) Entered as Reported by: SALUD JOSE on 08/27/22 1305 Dicyclomine HCl (Dicyclomine HCl) 20 Mg Tablet, 20 MG PO QIDACHS PRN for abdominal cramping Prescribed by: CAROLE GERMAN on 07/26/22 1158 Docusate Sodium (Colace) 100 Mg Capsule, 100 MG PO BID Prescribed by: ADAMS VALENZUELA on 08/27/22 1450 Estradiol (Estradiol Tablet) 2 Mg Tablet, 2 MG PO DAILY, (Reported) Entered as Reported by: SALUD JOSE on 08/27/22 1237 Ferrous Sulfate (Feosol) 325 Mg (65 Mg Iron) Tablet, 325 MG PO DAILY, (Reported) Entered as Reported by: SALUD JOSE on 08/27/22 1305 Folic Acid (Folic Acid) 1 Mg Tablet, 2 MG PO DAILY, (Reported) Entered as Reported by: SALUD JOSE on 08/27/22 1237 Furosemide (Furosemide) 20 Mg Tablet, 20 MG PO DAILY, (Reported) Entered as Reported by: SALUD JOSE on 08/27/22 1305 Galcanezumab-Gnlm (Emgality) 120 Mg/Ml Pen.injctr, 120 MG SQ MONTHLY, (Reported) Entered as Reported by: SALUD JOSE on 08/27/22 1305 Hydrocodone/Acetaminophen (Hydrocodone-Acetamin 5-325 mg) 5 Mg-325 Mg Tablet, 1 EACH PO Q4H PRN for PAIN-MODERATE (5-7) Prescribed by: ADAMS VALENZUELA on 08/27/22 1450 Hydroxychloroquine Sulfate (Hydroxychloroquine Sulfate) 200 Mg Tablet, 200 MG PO BID, (Reported) Entered as Reported by: SALUD JOSE on 08/27/22 1305 Lacosamide (Vimpat) 200 Mg Tablet, 200 MG PO BID, (Reported) Entered as Reported by: SALUD JOSE on 08/27/22 1305 Levothyroxine Sodium (Levothyroxine) 175 Mcg Capsule, 175 MCG PO DAILY, (Reported) Entered as Reported by: SALUD JOSE on 08/27/22 1305 Linaclotide (Linzess) 145 Mcg Capsule, 145 MCG PO DAILY, (Reported) Entered as Reported by: SALUD JOSE on 08/27/22 1305 Metolazone (Metolazone) 2.5 Mg Tablet, 2.5 MG PO MWF, (Reported) Entered as Reported by: MELA CAMPOVERDE on 08/20/22 1618 Naloxone HCl (Narcan) 4 Mg/Actuation Nutrioso, 4 MG NS UD, (Reported) Entered as Reported by: SALUD JOSE on 08/27/22 1305 Norethindrone (Norethindrone Acetate) 5 Mg Tab, 5 MG PO DAILY, (Reported) Entered as Reported by: SALUD JOSE on 08/27/22 1305 Ondansetron (Ondansetron Odt) 4 Mg Tab.rapdis, 4 MG SL Q8H PRN for NAUSEA/VOMITING Prescribed by: CAROLE GERMAN on 07/26/22 1158 Potassium Bicarbonate/Cit AC (Effer-K 20 Meq Tablet Eff) 20 Meq Tablet.eff, 20 MEQ PO DAILY Prescribed by: CAROLE GERMAN on 08/22/22 1837 Potassium Chloride (K-Tab ER) 20 Meq Tablet.er, 20 MEQ PO DAILY Prescribed by: CAROLE GERMAN on 08/19/22 1205 Potassium Chloride (Klor-Con M20) 20 Meq Tab.er.prt, (Reported) Entered as Reported by: FRAN ALBERTS on 03/28/23 2320 Prazosin HCl (Prazosin HCl) 1 Mg Capsule, 4 CAP PO HS, (Reported) Entered as Reported by: SALUD JOSE on 08/27/22 1305 Prazosin HCl (Prazosin HCl) 2 Mg Capsule, (Reported) Entered as Reported by: FRAN ALBERTS on 03/28/23 2320 Quetiapine Fumarate (Quetiapine Fumarate ER) 150 Mg Tab.er.24h, 150 MG PO HS, (Reported) Entered as Reported by: SALUD JOSE on 08/27/22 1305 Quetiapine Fumarate (Quetiapine Fumarate ER) 300 Mg Tab.er.24h, 300 MG PO HS, (Reported) Entered as Reported by: SALUD JOSE on 08/27/22 1305 Rizatriptan Benzoate (Rizatriptan) 10 Mg Tab.rapdis, 10 MG PO UD PRN for MIGRAINE, (Reported) Entered as Reported by: AUGUSTO URIARTE on 02/14/20 1619 Tizanidine HCl (Tizanidine HCl) 4 Mg Tablet, 4 MG PO Q8H PRN for BACK SPASMS, (Reported) Entered as Reported by: AUGUSTO URIARTE on 02/14/20 1619 Topiramate (Topiramate) 50 Mg Tablet, 100 MG PO BID, (Reported) Entered as Reported by: AUGUSTO URIARTE on 03/01/20 1219 Review of Systems Review of Systems Constitutional: see HPI Past Bsnidae-Npzmsy-Fayppa Hx Patient Social History Tobacco Use?: No Use of E-Cig and/or Vaping dev: No Substance use?: No Alcohol Use?: No Immunizations Up To Date Tetanus Booster (TDap): Unknown PED Vaccines UTD: No First/Initial COVID19 Vaccinat: NO VAC Second COVID19 Vaccination Gurjit: NO VAC Third COVID19 Vaccination Date: NO VAC Seasonal Allergies Seasonal Allergies: No Past Medical History Surgery/Hospitalization HX: sarcoidosis, seizure disorder, frequent headaches, FATTY LIVER, ANXIETY, DEPRESSION TOTAL HYST, APPY, SHOULDER, CHOLECYSTECTOMY, D&C, T/A, HYPOTHROIDISM, Surgeries: Yes (dxls x4 , R shoulder sx x3, d&c, HYSTERECTOMY) Abdominal, Hysterectomy, Oophorectomy, Orthopedic, Tonsillectomy Respiratory: Yes (sarcoidosis) Currently Using CPAP: No Currently Using BIPAP: No Cardiac: No Hypertension Neurological: Yes Headaches /Migraines, Seizure Disorder Reproductive Disorders: Yes (CHRONIC PELVIC PAIN, ENDOMETRIOSIS, PCOS) Female Reproductive Disorders: Endometriosis, Ovarian Cyst, Polycystic Ovarian Dis Sexually Transmitted Disease: No Genitourinary: No Gastrointestinal: Yes Gall Bladder Disease Musculoskeletal: No (R SHOULDER SURG) Endocrine: Yes Hypothyroidsim HEENT: Yes (GLASSES - BUT DOESNT WEAR THEM) Cancer: No Psychosocial: Yes Anxiety, Depression Integumentary: No Blood Disorders: No Family Medical History FH: breast cancer 19 MOTHER FH: uterine cancer 19 MOTHER Hypertension G8 SISTER Physical Exam Vital Signs Capillary Refill : Height, Weight, BMI Height: 5'3.00" Weight: 180lbs. 0.0oz. [id number]; BMI Method:Stated General Appearance: No Apparent Distress, WD/WN, Other (Somnolent but arousable, speaking full sentences and alert) Eyes: Bilateral Eye Normal Inspection, Bilateral Eye PERRL, Bilateral Eye EOMI HEENT: PERRL/EOMI, Normal ENT Inspection, Pharynx Normal Neck: Normal Inspection, Non Tender, Supple Respiratory: Chest Non Tender, Lungs Clear, Normal Breath Sounds, No Accessory Muscle Use, No Respiratory Distress Cardiovascular: Regular Rate, Rhythm, No Murmur, Normal Peripheral Pulses Gastrointestinal: Normal Bowel Sounds, No Organomegaly, Non Tender, Soft Back: Normal Inspection, No CVA Tenderness, No Vertebral Tenderness Extremity: Normal Capillary Refill, Normal Inspection, Normal Range of Motion, Non Tender, No Calf Tenderness, No Pedal Edema Neurologic/Psychiatric: Alert, Oriented x3, No Motor/Sensory Deficits, Normal Mood/Affect, 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 Norm as Tested Skin: Normal Color, Warm/Dry Progress/Results/Core Measures Suspected Sepsis SIRS Temperature: Pulse: Respiratory Rate: Laboratory Tests 05/23/23 00:06: White Blood Count 5.4 Blood Pressure / Mean: Laboratory Tests 05/23/23 00:06: Creatinine 1.24, Platelet Count 180, Total Bilirubin 0.2 Results/Orders Lab Results Laboratory Tests Test 05/23/23 00:06 Range/Units White Blood Count 5.4 4.3-11.0 10^3/uL Red Blood Count 4.14 3.80-5.11 10^6/uL Hemoglobin 12.6 11.5-16.0 g/dL Hematocrit 38 35-52 % Mean Corpuscular Volume 92 80-99 fL Mean Corpuscular Hemoglobin 30 25-34 pg Mean Corpuscular Hemoglobin Concent 33 32-36 g/dL Red Cell Distribution Width 13.2 10.0-14.5 % Platelet Count 180 130-400 10^3/uL Mean Platelet Volume 11.0 9.0-12.2 fL Immature Granulocyte % (Auto) 0 % Neutrophils (%) (Auto) 52 42-75 % Lymphocytes (%) (Auto) 36 12-44 % Monocytes (%) (Auto) 7 0-12 % Eosinophils (%) (Auto) 4 0-10 % Basophils (%) (Auto) 1 0-10 % Neutrophils # (Auto) 2.8 1.8-7.8 10^3/uL Lymphocytes # (Auto) 1.9 1.0-4.0 10^3/uL Monocytes # (Auto) 0.4 0.0-1.0 10^3/uL Eosinophils # (Auto) 0.2 0.0-0.3 10^3/uL Basophils # (Auto) 0.0 0.0-0.1 10^3/uL Immature Granulocyte # (Auto) 0.0 0.0-0.1 10^3/uL Sodium Level 143 135-145 MMOL/L Potassium Level 3.6 3.6-5.0 MMOL/L Chloride Level 113 H 98-107 MMOL/L Carbon Dioxide Level 19 L 21-32 MMOL/L Anion Gap 11 5-14 MMOL/L Blood Urea Nitrogen 12 7-18 MG/DL Creatinine 1.24 0.60-1.30 MG/DL Estimat Glomerular Filtration Rate 58 BUN/Creatinine Ratio 10 Glucose Level 151 H 70-105 MG/DL Calcium Level 9.1 8.5-10.1 MG/DL Corrected Calcium 9.0 8.5-10.1 MG/DL Total Bilirubin 0.2 0.1-1.0 MG/DL Aspartate Amino Transf (AST/SGOT) 32 5-34 U/L Alanine Aminotransferase (ALT/SGPT) 51 0-55 U/L Alkaline Phosphatase 76 40-136 U/L Total Protein 6.9 6.4-8.2 GM/DL Albumin 4.1 3.2-4.5 GM/DL My Orders Orders - MYAHEBERT DO Comprehensive Metabolic Panel (05/23/23 00:01) Ct Head Wo (05/23/23 00:01) Cbc With Automated Diff (05/23/23 00:01) Ekg Tracing (05/23/23 00:02) Vital Signs/I&O Capillary Refill : ECG Comment Sinus tachycardia 100 bpm. Normal intervals. Left axis deviation. No ST or T wave abnormalities. No ectopy. No STEMI. Poor R wave progression in precordial leads. Departure Communication (Admissions) Patient is hemodynamically stable. She is initially somewhat somnolent but becomes alert and oriented and is back to her normal mental baseline. She has no focal neurologic deficits. CT scan of her head obtained as she fell a couple times after seizures. This is negative for any acute intracranial abnormalities. I have independently reviewed CT images. She is nonischemic with no evidence for dysrhythmia electrolytes are unremarkable. This is likely recurrence of her typical seizures. Advise follow-up with a neurologist by calling tomorrow. Also recommend primary care follow-up. Discharged in stable condition with supportive care. Impression Primary Impression: Seizure disorder Disposition: HOME, SELF-CARE Condition: Stable Departure-Patient Inst. Referrals: [facility] [place] (PCP/Family) Primary Care Physician Patient Instructions: Seizures Add. Discharge Instructions: As discussed I do not see any evidence for any emergent medical condition. CT scan of her head is negative with no fractures or bleeding. Her electrolytes are normal. Her heart has been in a normal rhythm since she has been here. Continue her as needed medicines for seizures. Call her neurology team in the morning to see if they have any further medication recommendations. Increase her fluids and allow her to rest. Return to the emergency department for any severe concerns. Follow-up with your primary doctor for any nonemergent needs. HEBERT ROQUE DO May 23, 2023 00:07
[2023-05-23 00:17] LABS: BASOPHILS % (AUTO) 1 % (0-10); EOSINOPHILS # (AUTO) 0.2 10^3/uL (0.0-0.3); EOSINOPHILS % (AUTO) 4 % (0-10); HEMATOCRIT 38 % (35-52); HEMOGLOBIN 12.6 g/dL (11.5-16.0); LYMPHOCYTES # (AUTO) 1.9 10^3/uL (1.0-4.0); LYMPHOCYTES % (AUTO) 36 % (12-44); MEAN CORPUSCULAR HEMOGLOBIN 30 pg (25-34); MEAN CORPUSCULAR HGB CONC 33 g/dL (32-36); MEAN CORPUSCULAR VOLUME 92 fL (80-99); MONOCYTES # (AUTO) 0.4 10^3/uL (0.0-1.0); MONOCYTES % (AUTO) 7 % (0-12); NEUTROPHILS # (AUTO) 2.8 10^3/uL (1.8-7.8); NEUTROPHILS % (AUTO) 52 % (42-75); PLATELET COUNT 180 10^3/uL (130-400); WHITE BLOOD COUNT 5.4 10^3/uL (4.3-11.0)
[2023-05-23 00:35] LABS: ALBUMIN 4.1 GM/DL (3.2-4.5); BILIRUBIN,TOTAL 0.2 MG/DL (0.1-1.0); CALCIUM 9.1 MG/DL (8.5-10.1); CREATININE SERUM 1.24 MG/DL (0.60-1.30); POTASSIUM 3.6 MMOL/L (3.6-5.0); TOTAL PROTEIN 6.9 GM/DL (6.4-8.2)
[2023-05-23 01:22] VITALS: BP 114/74
--- NOTE | 2023-05-23 04:34 | Diagnostic Imaging Report ---
PROCEDURE: CT head without contrast. TECHNIQUE: Multiple contiguous axial images were obtained through the brain without the use of intravenous contrast. Auto Exposure Controls were utilized during the CT exam to meet ALARA standards for radiation dose reduction. INDICATION: Seizure, head injury from a fall Comparison made to study from 05/12/2023. The ventricles are stable in appearance. There are no masses or hemorrhages. There are no extra-axial fluid collections. There is an area of decreased density in the periventricular white matter adjacent to the occipital horn of the left lateral ventricle was present previously. IMPRESSION: Minimal demyelinating change in the left parietal white matter stable from previous exam. No acute abnormality seen. Dictated by: Dictated on workstation # [id number]
== END 2023-05-23 01:22 | disposition home or self-care (01) ==
LOC: EDUNIT# 23:40 → ER 23:43
DX: G40.909 Epilepsy, unspecified, not intractable, without status epilepticus (principal); Z79.899 Other long term (current) drug therapy; Z28.310 Unvaccinated for COVID-19
CPT/HCPCS: 36415; 70450; 80053; 85025; 93005

== ENCOUNTER 2023-05-26 13:23 | Emergency (ER) | payer OTHER, BC ==
[~2023-05-26] VITALS: Ht 160 cm; Wt 118.7 kg
[2023-05-26 14:43] LABS: BASOPHILS % (AUTO) 0 % (0-10); EOSINOPHILS # (AUTO) 0.2 10^3/uL (0.0-0.3); EOSINOPHILS % (AUTO) 4 % (0-10); HEMATOCRIT 38 % (35-52); HEMOGLOBIN 12.4 g/dL (11.5-16.0); LYMPHOCYTES # (AUTO) 1.2 10^3/uL (1.0-4.0); LYMPHOCYTES % (AUTO) 23 % (12-44); MEAN CORPUSCULAR HEMOGLOBIN 30 pg (25-34); MEAN CORPUSCULAR HGB CONC 33 g/dL (32-36); MEAN CORPUSCULAR VOLUME 91 fL (80-99); MEAN PLATELET VOLUME 11.6 fL (9.0-12.2); MONOCYTES # (AUTO) 0.6 10^3/uL (0.0-1.0); MONOCYTES % (AUTO) 10 % (0-12); NEUTROPHILS # (AUTO) 3.4 10^3/uL (1.8-7.8); NEUTROPHILS % (AUTO) 63 % (42-75); PLATELET COUNT 168 10^3/uL (130-400); WHITE BLOOD COUNT 5.4 10^3/uL (4.3-11.0)
[2023-05-26 15:03] LABS: ALBUMIN 4.2 GM/DL (3.2-4.5); BILIRUBIN,TOTAL 0.3 MG/DL (0.1-1.0); CALCIUM 9.6 MG/DL (8.5-10.1); CREATININE SERUM 1.27 MG/DL (0.60-1.30); POTASSIUM 3.9 MMOL/L (3.6-5.0); TOTAL PROTEIN 7.2 GM/DL (6.4-8.2)
--- NOTE | 2023-05-26 15:50 | ED General ---
General Chief Complaint: Dizziness/Syncope Stated Complaint: FALL INJURY, HEAD TRAUMA, FAINTING, NAUSEA Nursing Triage Note: Patient c/o dizziness with syncopal episodes that started 1 yr ago. Patient states she has "passed out" x 2 today. Patient c/o headache and states she fell into a brick wall yesterday with hitting her head against the wall. Patient denies LOC after hitting her head yesterday. Patient c/o nausea and states she was vomiting throughout the night. Patient states [facility] stated to patient she needed to come to ER today. Patient states she turned a hospital monitor into [facility] on the 2nd of this month. Patient denies any chest pain. Source of Information: Patient Exam Limitations: No Limitations History of Present Illness Date Seen by Provider: May 26, 2023 Time Seen by Provider: 14:28 Allergies and Home Medications Allergies Coded Allergies: Sulfa (Sulfonamide Antibiotics) (Unverified Allergy, Severe, Hives, 08/20/22) BLISTERS duloxetine (Verified Allergy, Unknown, SHAKY, SLURRED SPEECH, 08/19/22) tramadol (Unverified Allergy, Unknown, N.V, ITCHING, DIZZY, HAS RECEIVED HYDROMORPHONE IN THE PAST, 08/19/22) Patient Home Medication List Adalimumab (Humira Pen) 40 Mg/0.4 Ml Pen.ij.kit, 40 MG SQ UD, (Reported) Entered as Reported by: SALUD JOSE on 08/27/22 1305 Amitriptyline HCl (Amitriptyline HCl) 75 Mg Tablet, 75 MG PO HS, (Reported) Entered as Reported by: SALUD JOSE on 08/27/22 1305 Buspirone HCl (Buspirone HCl) 30 Mg Tablet, 30 MG PO BID, (Reported) Entered as Reported by: SALUD JOSE on 08/27/22 1227 Carisoprodol (Carisoprodol) 350 Mg Tablet, 350 MG PO Q6H PRN for SPASMS, (Reported) Entered as Reported by: SALUD JOSE on 08/27/22 1305 Cholecalciferol (Vitamin D3) (Vitamin D3) 25 Mcg Tablet, 25 MCG PO DAILY, (Reported) Entered as Reported by: AUGUSTO URIARTE on 03/01/20 1219 Clonazepam (Clonazepam) 1 Mg Tablet, 1 MG PO BID, (Reported) Entered as Reported by: SALUD JOSE on 08/27/22 1305 Cyanocobalamin (Vitamin B-12) (Vitamin B-12) 1,000 Mcg Capsule, 1,000 MCG PO DAILY, (Reported) Entered as Reported by: SALUD JOSE on 08/27/22 1305 Dicyclomine HCl (Dicyclomine HCl) 20 Mg Tablet, 20 MG PO QIDACHS PRN for abd ominal cramping Prescribed by: CAROLE GERMAN on 07/26/22 1158 Docusate Sodium (Colace) 100 Mg Capsule, 100 MG PO BID Prescribed by: ADAMS VALENZUELA on 08/27/22 1450 Estradiol (Estradiol Tablet) 2 Mg Tablet, 2 MG PO DAILY, (Reported) Entered as Reported by: SALUD JOSE on 08/27/22 1237 Ferrous Sulfate (Feosol) 325 Mg (65 Mg Iron) Tablet, 325 MG PO DAILY, (Reported) Entered as Reported by: SALUD JOSE on 08/27/22 1305 Folic Acid (Folic Acid) 1 Mg Tablet, 2 MG PO DAILY, (Reported) Entered as Reported by: SALUD JOSE on 08/27/22 1237 Furosemide (Furosemide) 20 Mg Tablet, 20 MG PO DAILY, (Reported) Entered as Reported by: SALUD JOSE on 08/27/22 1305 Galcanezumab-Gnlm (Emgality) 120 Mg/Ml Pen.injctr, 120 MG SQ MONTHLY, (Reported) Entered as Reported by: SALUD JOSE on 08/27/22 1305 Hydrocodone/Acetaminophen (Hydrocodone-Acetamin 5-325 mg) 5 Mg-325 Mg Tablet, 1 EACH PO Q4H PRN for PAIN-MODERATE (5-7) Prescribed by: ADAMS VALENZUELA on 08/27/22 1450 Hydroxychloroquine Sulfate (Hydroxychloroquine Sulfate) 200 Mg Tablet, 200 MG PO BID, (Reported) Entered as Reported by: SALUD JOSE on 08/27/22 1305 Lacosamide (Vimpat) 200 Mg Tablet, 200 MG PO BID, (Reported) Entered as Reported by: SALUD JOSE on 08/27/22 1305 Levothyroxine Sodium (Levothyroxine) 175 Mcg Capsule, 175 MCG PO DAILY, (Reported) Entered as Reported by: SALUD JOSE on 08/27/22 1305 Linaclotide (Linzess) 145 Mcg Capsule, 145 MCG PO DAILY, (Reported) Entered as Reported by: SALUD JOSE on 08/27/22 1305 Metolazone (Metolazone) 2.5 Mg Tablet, 2.5 MG PO MWF, (Reported) Entered as Reported by: MELA CAMPOVERDE on 08/20/22 1618 Naloxone HCl (Narcan) 4 Mg/Actuation Helotes, 4 MG NS UD, (Reported) Entered as Reported by: SALUD JOSE on 08/27/22 1305 Norethindrone (Norethindrone Acetate) 5 Mg Tab, 5 MG PO DAILY, (Reported) Entered as Reported by: SALUD JOSE on 08/27/22 1305 Ondansetron (Ondansetron Odt) 4 Mg Tab.rapdis, 4 MG SL Q8H PRN for NAUSEA/VOMITING Prescribed by: CAROLE GERMAN on 07/26/22 1158 Potassium Bicarbonate/Cit AC (Effer-K 20 Meq Tablet Eff) 20 Meq Tablet.eff, 20 MEQ PO DAILY Prescribed by: CAROLE GERMAN on 08/22/22 1837 Potassium Chloride (K-Tab ER) 20 Meq Tablet.er, 20 MEQ PO DAILY Prescribed by: CAROLE GERMAN on 08/19/22 1205 Potassium Chloride (Klor-Con M20) 20 Meq Tab.er.prt, (Reported) Entered as Reported by: FRAN ALBERTS on 03/28/23 2320 Prazosin HCl (Prazosin HCl) 1 Mg Capsule, 4 CAP PO HS, (Reported) Entered as Reported by: SALUD JOSE on 08/27/22 1305 Prazosin HCl (Prazosin HCl) 2 Mg Capsule, (Reported) Entered as Reported by: FRAN ALBERTS on 03/28/23 232 Quetiapine Fumarate (Quetiapine Fumarate ER) 150 Mg Tab.er.24h, 150 MG PO HS, (Reported) Entered as Reported by: SALUD JOSE on 08/27/22 1305 Quetiapine Fumarate (Quetiapine Fumarate ER) 300 Mg Tab.er.24h, 300 MG PO HS, (Reported) Entered as Reported by: SALUD JOSE on 08/27/22 1305 Rizatriptan Benzoate (Rizatriptan) 10 Mg Tab.rapdis, 10 MG PO UD PRN for MIGRAINE, (Reported) Entered as Reported by: AUGUSTO URIARTE on 02/14/20 1619 Tizanidine HCl (Tizanidine HCl) 4 Mg Tablet, 4 MG PO Q8H PRN for BACK SPASMS, (Reported) Entered as Reported by: AUGUSTO URIARTE on 02/14/20 1619 Topiramate (Topiramate) 50 Mg Tablet, 100 MG PO BID, (Reported) Entered as Reported by: AUGUSTO URIARTE on 03/01/20 1219 Past Hkninhd-Wjrqlt-Xbzfyq Hx Patient Social History Tobacco Use?: No Use of E-Cig and/or Vaping dev: No Substance use?: No Alcohol Use?: No Immunizations Up To Date Tetanus Booster (TDap): Unknown PED Vaccines UTD: No Influenza Vaccine Up-to-Date: No; Not Current First/Initial COVID19 Vaccinat: NO VAC Second COVID19 Vaccination Gurjit: NO VAC Third COVID19 Vaccination Date: NO VAC Seasonal Allergies Seasonal Allergies: No Past Medical History Surgery/Hospitalization HX: sarcoidosis, seizure disorder, frequent headaches, FATTY LIVER, ANXIETY, DEPRESSION TOTAL HYST, APPY, SHOULDER, CHOLECYSTECTOMY, D&C, T/A, HYPOTHROIDISM, Surgeries: Yes (dxls x4 , R shoulder sx x3, d&c, HYSTERECTOMY) Abdominal, Hysterectomy, Oophorectomy, Orthopedic, Tonsillectomy Respiratory: Yes (sarcoidosis) Currently Using CPAP: No Currently Using BIPAP: No Cardiac: No Hypertension Neurological: Yes Headaches /Migraines, Seizure Disorder Reproductive Disorders: Yes (CHRONIC PELVIC PAIN, ENDOMETRIOSIS, PCOS) Female Reproductive Disorders: Endometriosis, Ovarian Cyst, Polycystic Ovarian Dis Sexually Transmitted Disease: No Genitourinary: No Gastrointestinal: Yes Gall Bladder Disease Musculoskeletal: No (R SHOULDER SURG) Endocrine: Yes Hypothyroidsim HEENT: Yes (GLASSES - BUT DOESNT WEAR THEM) Cancer: No Psychosocial: Yes Anxiety, Depression Integumentary: No Blood Disorders: No Family Medical History FH: breast cancer 19 MOTHER FH: uterine cancer 19 MOTHER Hypertension G8 SISTER Physical Exam Vital Signs Vital Signs - First Documented 05/26/23 13:32 Temp 37.0 Pulse 96 Resp 14 B/P (MAP) 151/94 (113) O2 Delivery Room Air Capillary Refill : Height, Weight, BMI Height: 5'3.00" Weight: 180lbs. 0.0oz. 81.988054au; 46.00 BMI Method:Stated Progress/Results/Core Measures Suspected Sepsis SIRS Temperature: Pulse: 96 Respiratory Rate: 14 Laboratory Tests 05/26/23 13:55: White Blood Count 5.4 Blood Pressure 151 /94 Mean: 113 Laboratory Tests 05/26/23 13:55: Creatinine 1.27, Platelet Count 168, Total Bilirubin 0.3 Results/Orders Lab Results Laboratory Tests Test 05/26/23 13:55 Range/Units White Blood Count 5.4 4.3-11.0 10^3/uL Red Blood Count 4.14 3.80-5.11 10^6/uL Hemoglobin 12.4 11.5-16.0 g/dL Hematocrit 38 35-52 % Mean Corpuscular Volume 91 80-99 fL Mean Corpuscular Hemoglobin 30 25-34 pg Mean Corpuscular Hemoglobin Concent 33 32-36 g/dL Red Cell Distribution Width 13.2 10.0-14.5 % Platelet Count 168 130-400 10^3/uL Mean Platelet Volume 11.6 9.0-12.2 fL Immature Granulocyte % (Auto) 0 % Neutrophils (%) (Auto) 63 42-75 % Lymphocytes (%) (Auto) 23 12-44 % Monocytes (%) (Auto) 10 0-12 % Eosinophils (%) (Auto) 4 0-10 % Basophils (%) (Auto) 0 0-10 % Neutrophils # (Auto) 3.4 1.8-7.8 10^3/uL Lymphocytes # (Auto) 1.2 1.0-4.0 10^3/uL Monocytes # (Auto) 0.6 0.0-1.0 10^3/uL Eosinophils # (Auto) 0.2 0.0-0.3 10^3/uL Basophils # (Auto) 0.0 0.0-0.1 10^3/uL Immature Granulocyte # (Auto) 0.0 0.0-0.1 10^3/uL Sodium Level 144 135-145 MMOL/L Potassium Level 3.9 3.6-5.0 MMOL/L Chloride Level 110 H 98-107 MMOL/L Carbon Dioxide Level 22 21-32 MMOL/L Anion Gap 12 5-14 MMOL/L Blood Urea Nitrogen 14 7-18 MG/DL Creatinine 1.27 0.60-1.30 MG/DL Estimat Glomerular Filtration Rate 57 BUN/Creatinine Ratio 11 Glucose Level 77 70-105 MG/DL Calcium Level 9.6 8.5-10.1 MG/DL Corrected Calcium 9.4 8.5-10.1 MG/DL Total Bilirubin 0.3 0.1-1.0 MG/DL Aspartate Amino Transf (AST/SGOT) 38 H 5-34 U/L Alanine Aminotransferase (ALT/SGPT) 48 0-55 U/L Alkaline Phosphatase 74 40-136 U/L Total Protein 7.2 6.4-8.2 GM/DL Albumin 4.2 3.2-4.5 GM/DL My Orders Orders - CAROLE GERMAN MD Ed Iv/Invasive Line Start (05/26/23 14:32) Comprehensive Metabolic Panel (05/26/23 14:32) Cbc With Automated Diff (05/26/23 14:32) Ekg Tracing (05/26/23 15:15) Vital Signs/I&O 05/26/23 13:32 Temp 37.0 Pulse 96 Resp 14 B/P (MAP) 151/94 (113) O2 Delivery Room Air Capillary Refill : Blood Pressure Mean: 113 Departure Impression Primary Impression: Syncope Qualified Codes: R55 - Syncope and collapse Additional Impression: Dizziness Disposition: 01 HOME, SELF-CARE Condition: Stable Departure-Patient Inst. Decision time for Depature: 15:51 Referrals: YASMEEN ROACH APRN (PCP) Primary Care Physician [facility] (Family) Primary Care Physician Patient Instructions: Syncope (Fainting) (DC) Add. Discharge Instructions: Continue your medications as prescribed. Please keep your follow-up with Cardiology as scheduled. You may talk to them as well about your seizure symptoms and see if they would like Neurology to see you. Please be careful with position changes, going from laying down to a seated position, seated to standing take your time and wait a minute or so before getting up and walking. Make sure you are drinking plenty of fluids with electrolytes such as Gatorade, Pedialyte. Return to the emergency department for any new, concerning or emergent complaints Copy Copies To 1: LISY SMITH KATHRYN M MD May 26, 2023 15:50
[2023-05-26 15:57] VITALS: BP 99/62
== END 2023-05-26 15:57 | disposition home or self-care (01) ==
LOC: EDUNIT# 13:23 → ER 13:25
DX: R55 Syncope and collapse (principal); R42 Dizziness and giddiness; Z28.310 Unvaccinated for COVID-19
CPT/HCPCS: 36415; 80053; 85025; 93005

== ENCOUNTER 2023-06-02 18:37 | Emergency (ER) | payer OTHER, BC ==
[~2023-06-02] VITALS: Ht 157 cm; Wt 104.0 kg
--- NOTE | 2023-06-02 19:38 | ED General ---
General Chief Complaint: Neurological Problems Stated Complaint: SEIZURE Nursing Triage Note: PT ARRIVES TO ER VIA W/C WITH DAUGHTER. DAUGHTER REPORTS PT HAD A SEIZURE ROAD CROSSING GUARD. PT HAS A SEIZURE HX, TAKES TOPIRAMATE. PT HAD AN APPT WITH HER NEUROLOGIST AT [facility] THIS AFTERNOON. PT SLOW TO RESPOND CURRENTLY. ABLE TO ANSWER SIMPLE QUESTIONS. Source of Information: Patient Exam Limitations: No Limitations History of Present Illness Date Seen by Provider: Jun 02, 2023 Time Seen by Provider: 19:35 Initial Comments Patient is a 37-year-old female who presents to ED for potential seizure. Patient was coming home from her neurologist visit in [place] around 3 PM. She was with her little brother. Patient supposedly pulled off to the side of the road. Had a potential seizure. They contacted family and family picked her up. She appeared confused and altered. There was no evidence of convulsions. She cannot remember what happened. She was alert and oriented to person only. Patient has been seen here twice over the past week for seizure disorder. A ccording to daughter at bedside she is scheduled to to have a weeklong neurology study in a few weeks. She does take Topamax for seizures. She was diagnosed with nonepileptic seizures at [facility] in the past. Denies of any falls or any head trauma. Denies any chest pain or shortness of breath, headache, dizziness, visual changes, vomiting, diarrhea. Patient is slightly sluggish. She has been sluggish since her seizure . Allergies and Home Medications Allergies Coded Allergies: Sulfa (Sulfonamide Antibiotics) (Unverified Allergy, Severe, Hives, 08/20/22) BLISTERS duloxetine (Verified Allergy, Unknown, SHAKY, SLURRED SPEECH, 08/19/22) tramadol (Unverified Allergy, Unknown, N.V, ITCHING, DIZZY, HAS RECEIVED HYDROMORPHONE IN THE PAST, 08/19/22) Patient Home Medication List Home Medication List Reviewed: Yes Adalimumab (Humira Pen) 40 Mg/0.4 Ml Pen.ij.kit, 40 MG SQ UD, (Reported) Entered as Reported by: SALUD JOSE on 08/27/22 1305 Amitriptyline HCl (Amitriptyline HCl) 75 Mg Tablet, 75 MG PO HS, (Reported) Entered as Reported by: SALUD JOSE on 08/27/22 1305 Buspirone HCl (Buspirone HCl) 30 Mg Tablet, 30 MG PO BID, (Reported) Entered as Reported by: SALUD JOSE on 08/27/22 1227 Carisoprodol (Carisoprodol) 350 Mg Tablet, 350 MG PO Q6H PRN for SPASMS, (Reported) Entered as Reported by: SALUD JOSE on 08/27/22 1305 Cholecalciferol (Vitamin D3) (Vitamin D3) 25 Mcg Tablet, 25 MCG PO DAILY, (Reported) Entered as Reported by: AUGUSTO URIARTE on 03/01/20 1219 Clonazepam (Clonazepam) 1 Mg Tablet, 1 MG PO BID, (Reported) Entered as Reported by: SALUD JOSE on 08/27/22 1305 Cyanocobalamin (Vitamin B-12) (Vitamin B-12) 1,000 Mcg Capsule, 1,000 MCG PO DAILY, (Reported) Entered as Reported by: SALUD JOSE on 08/27/22 1305 Dicyclomine HCl (Dicyclomine HCl) 20 Mg Tablet, 20 MG PO QIDACHS PRN for abdominal cramping Prescribed by: CAROLE GERMAN on 07/26/22 1158 Docusate Sodium (Colace) 100 Mg Capsule, 100 MG PO BID Prescribed by: ADAMS VALENZUELA on 08/27/22 1450 Estradiol (Estradiol Tablet) 2 Mg Tablet, 2 MG PO DAILY, (Reported) Entered as Reported by: SALUD JOSE on 08/27/22 1237 Ferrous Sulfate (Feosol) 325 Mg (65 Mg Iron) Tablet, 325 MG PO DAILY, (Reported) Entered as Reported by: SALUD JOSE on 08/27/22 1305 Folic Acid (Folic Acid) 1 Mg Tablet, 2 MG PO DAILY, (Reported) Entered as Reported by: SALUD JOSE on 08/27/22 1237 Furosemide (Furosemide) 20 Mg Tablet, 20 MG PO DAILY, (Reported) Entered as Reported by: SALUD JOSE on 08/27/22 1305 Galcanezumab-Gnlm (Emgality) 120 Mg/Ml Pen.injctr, 120 MG SQ MONTHLY, (Reported) Entered as Reported by: SALUD JOSE on 08/27/22 1305 Hydrocodone/Acetaminophen (Hydrocodone-Acetamin 5-325 mg) 5 Mg-325 Mg Tablet, 1 EACH PO Q4H PRN for PAIN-MODERATE (5-7) Prescribed by: ADAMS VALENZUELA on 08/27/22 1450 Hydroxychloroquine Sulfate (Hydroxychloroquine Sulfate) 200 Mg Tablet, 200 MG PO BID, (Reported) Entered as Reported by: SALUD JOSE on 08/27/22 1305 Lacosamide (Vimpat) 200 Mg Tablet, 200 MG PO BID, (Reported) Entered as Reported by: SALUD JOSE on 08/27/22 1305 Levothyroxine Sodium (Levothyroxine) 175 Mcg Capsule, 175 MCG PO DAILY, (Reported) Entered as Reported by: SALUD JOSE on 08/27/22 1305 Linaclotide (Linzess) 145 Mcg Capsule, 145 MCG PO DAILY, (Reported) Entered as Reported by: SALUD JOSE on 08/27/22 1305 Metolazone (Metolazone) 2.5 Mg Tablet, 2.5 MG PO MWF, (Reported) Entered as Reported by: MELA CAMPOVERDE on 08/20/22 1618 Naloxone HCl (Narcan) 4 Mg/Actuation Canjilon, 4 MG NS UD, (Reported) Entered as Reported by: SALUD JOSE on 08/27/22 1305 Norethindrone (Norethindrone Acetate) 5 Mg Tab, 5 MG PO DAILY, (Reported) Entered as Reported by: SALUD JOSE on 08/27/22 1305 Ondansetron (Ondansetron Odt) 4 Mg Tab.rapdis, 4 MG SL Q8H PRN for NAUSEA/VOMITING Prescribed by: CAROLE GERMAN on 07/26/22 1158 Potassium Bicarbonate/Cit AC (Effer-K 20 Meq Tablet Eff) 20 Meq Tablet.eff, 20 MEQ PO DAILY Prescribed by: CAROLE GERMAN on 08/22/22 1837 Potassium Chloride (K-Tab ER) 20 Meq Tablet.er, 20 MEQ PO DAILY Prescribed by: CAROLE GERMAN on 08/19/22 1205 Potassium Chloride (Klor-Con M20) 20 Meq Tab.er.prt, (Reported) Entered as Reported by: FRAN ALBERTS on 03/28/23 2320 Prazosin HCl (Prazosin HCl) 1 Mg Capsule, 4 CAP PO HS, (Reported) Entered as Reported by: SALUD JOSE on 08/27/22 130 Prazosin HCl (Prazosin HCl) 2 Mg Capsule, (Reported) Entered as Reported by: FRAN ALBERTS on 03/28/23 2320 Quetiapine Fumarate (Quetiapine Fumarate ER) 150 Mg Tab.er.24h, 150 MG PO HS, (Reported) Entered as Reported by: SALUD JOSE on 08/27/22 1305 Quetiapine Fumarate (Quetiapine Fumarate ER) 300 Mg Tab.er.24h, 300 MG PO HS, (Reported) Entered as Reported by: SALUD JOSE on 08/27/22 130 Rizatriptan Benzoate (Rizatriptan) 10 Mg Tab.rapdis, 10 MG PO UD PRN for MIGRAINE, (Reported) Entered as Reported by: AUGUSTO URIARTE on 02/14/20 1619 Tizanidine HCl (Tizanidine HCl) 4 Mg Tablet, 4 MG PO Q8H PRN for BACK SPASMS, (Reported) Entered as Reported by: AUGUSTO URIARTE on 02/14/20 1619 Topiramate (Topiramate) 50 Mg Tablet, 100 MG PO BID, (Reported) Entered as Reported by: AUGUSTO URIARTE on 03/01/20 1219 Review of Systems Review of Systems Constitutional: No chills, No diaphoresis, No fever EENTM: No blurred vision, No double vision Respiratory: No cough, No dyspnea on exertion Cardiovascular: No chest pain Gastrointestinal: No abdominal pain, No diarrhea, No nausea, No vomiting Genitourinary: No decreased output, No discharge Musculoskeletal: No back pain, No joint pain, No joint swelling, No muscle pain Skin: No change in color, No change in hair/nails Psychiatric/Neurological: Other (seizure) All Other Systems Reviewed Negative Unless Noted: Yes Past Fewfdfj-Kuvfgu-Kbddty Hx Patient Social History Tobacco Use?: No Substance use?: No Alcohol Use?: No Pt feels they are or have been: No Immunizations Up To Date Tetanus Booster (TDap): Unknown PED Vaccines UTD: No First/Initial COVID19 Vaccinat: DENIES Second COVID19 Vaccination Gurjit: NO VAC Third COVID19 Vaccination Date: NO VAC Seasonal Allergies Seasonal Allergies: No Past Medical History Surgery/Hospitalization HX: sarcoidosis, seizure disorder, frequent headaches, FATTY LIVER, ANXIETY, DEPRESSION TOTAL HYST, APPY, SHOULDER, CHOLECYSTECTOMY, D&C, T/A, HYPOTHROIDISM, Surgeries: Yes (dxls x4 , R shoulder sx x3, d&c, HYSTERECTOMY) Abdominal, Hysterectomy, Oophorectomy, Orthopedic, Tonsillectomy Respiratory: Yes (sarcoidosis) Currently Using CPAP: No Currently Using BIPAP: No Cardiac: No Hypertension Neurological: Yes Headaches /Migraines, Seizure Disorder Reproductive Disorders: Yes (CHRONIC PELVIC PAIN, ENDOMETRIOSIS, PCOS) Female Reproductive Disorders: Endometriosis, Ovarian Cyst, Polycystic Ovarian Dis Sexually Transmitted Disease: No Genitourinary: No Gastrointestinal: Yes Gall Bladder Disease Musculoskeletal: No (R SHOULDER SURG) Endocrine: Yes Hypothyroidsim HEENT: Yes (GLASSES - BUT DOESNT WEAR THEM) Cancer: No Psychosocial: Yes Anxiety, Depression Integumentary: No Blood Disorders: No Family Medical History FH: breast cancer 19 MOTHER FH: uterine cancer 19 MOTHER Hypertension G8 SISTER Physical Exam Vital Signs Vital Signs - First Documented 06/02/23 18:42 Temp 36.6 Pulse 95 Resp 16 B/P (MAP) 129/84 (99) Pulse Ox 94 O2 Delivery Room Air Capillary Refill : Height, Weight, BMI Height: 5'3.00" Weight: 180lbs. 0.0oz. 81.840115so; 42.00 BMI Method:Stated General Appearance: WD/WN, Mild Distress, Other (Sluggish slow to respond) Eyes: Bilateral Eye Normal Inspection, Bilateral Eye PERRL, Bilateral Eye Abnormal EOM HEENT: PERRL/EOMI, TMs Normal, Normal ENT Inspection, Pharynx Normal Neck: Full Range of Motion, Normal Inspection Respiratory: Chest Non Tender, Lungs Clear, Normal Breath Sounds, No Accessory Muscle Use, No Respiratory Distress Cardiovascular: Regular Rate, Rhythm, No Edema, No Gallop, No JVD Gastrointestinal: Normal Bowel Sounds, No Organomegaly, No Pulsatile Mass Extremity: Normal Capillary Refill, Normal Inspection, Normal Range of Motion, Non Tender Neurologic/Psychiatric: Alert, Oriented x3, No Motor/Sensory Deficits, Normal Mood/Affect, 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 Norm as Tested Skin: Normal Color, Warm/Dry Progress/Results/Core Measures Suspected Sepsis SIRS Temperature: Pulse: 95 Respiratory Rate: 16 Laboratory Tests 06/02/23 18:50: White Blood Count 6.1 Blood Pressure 129 /84 Mean: 99 Laboratory Tests 06/02/23 18:50: Creatinine 1.19, Platelet Count 194, Total Bilirubin 0.2 Results/Orders Lab Results Laboratory Tests Test 06/02/23 18:50 Range/Units White Blood Count 6.1 4.3-11.0 10^3/uL Red Blood Count 4.34 3.80-5.11 10^6/uL Hemoglobin 12.9 11.5-16.0 g/dL Hematocrit 40 35-52 % Mean Corpuscular Volume 92 80-99 fL Mean Corpuscular Hemoglobin 30 25-34 pg Mean Corpuscular Hemoglobin Concent 33 32-36 g/dL Red Cell Distribution Width 13.0 10.0-14.5 % Platelet Count 194 130-400 10^3/uL Mean Platelet Volume 11.5 9.0-12.2 fL Immature Granulocyte % (Auto) 1 % Neutrophils (%) (Auto) 56 42-75 % Lymphocytes (%) (Auto) 31 12-44 % Monocytes (%) (Auto) 9 0-12 % Eosinophils (%) (Auto) 3 0-10 % Basophils (%) (Auto) 1 0-10 % Neutrophils # (Auto) 3.4 1.8-7.8 10^3/uL Lymphocytes # (Auto) 1.9 1.0-4.0 10^3/uL Monocytes # (Auto) 0.5 0.0-1.0 10^3/uL Eosinophils # (Auto) 0.2 0.0-0.3 10^3/uL Basophils # (Auto) 0.0 0.0-0.1 10^3/uL Immature Granulocyte # (Auto) 0.0 0.0-0.1 10^3/uL Sodium Level 141 135-145 MMOL/L Potassium Level 3.7 3.6-5.0 MMOL/L Chloride Level 109 H 98-107 MMOL/L Carbon Dioxide Level 20 L 21-32 MMOL/L Anion Gap 12 5-14 MMOL/L Blood Urea Nitrogen 12 7-18 MG/DL Creatinine 1.19 0.60-1.30 MG/DL Estimat Glomerular Filtration Rate 61 BUN/Creatinine Ratio 10 Glucose Level 99 70-105 MG/DL Calcium Level 9.5 8.5-10.1 MG/DL Corrected Calcium 9.3 8.5-10.1 MG/DL Magnesium Level 1.8 1.6-2.4 MG/DL Total Bilirubin 0.2 0.1-1.0 MG/DL Aspartate Amino Transf (AST/SGOT) 40 H 5-34 U/L Alanine Aminotransferase (ALT/SGPT) 51 0-55 U/L Alkaline Phosphatase 74 40-136 U/L Total Protein 7.5 6.4-8.2 GM/DL Albumin 4.3 3.2-4.5 GM/DL My Orders Orders - [facility] Cbc With Automated Diff (06/02/23 19:33) Comprehensive Metabolic Panel (06/02/23 19:33) Magnesium (06/02/23 19:33) Ekg Tracing (06/02/23 19:33) Ketorolac Injection (Ketorolac Injection (06/02/23 20:15) Medications Given in ED Current Medications Medications Dose Ordered Sig/Yan Route Start Time Stop Time Status Last Admin Dose Admin Ketorolac Tromethamine 30 mg ONCE ONCE IVP 06/02/23 20:15 06/02/23 20:16 DC 06/02/23 20:07 30 MG Vital Signs/I&O 06/02/23 06/02/23 18:42 20:50 Temp 36.6 36.5 Pulse 95 81 Resp 16 16 B/P (MAP) 129/84 (99) 117/77 Pulse Ox 94 94 O2 Delivery Room Air Room Air Capillary Refill : Blood Pressure Mean: 99 ECG Comment Sinus rhythm, low QRS voltage in pericardial leads, 83 bpm, QRS duration 101 MS, QTc 443 MS. Departure Communication (PCP) Reviewed previous ER visits, H&P, lab testing. Differential diagnosis seizure disorder, arrhythmia, electrolyte abnormality. Patient with a suppose seizure today. Unknown length of time of seizure. According to family she was confused after the seizure. Similar type seizure today that she was seen here previously. She states she was diagnosed with nonepileptic seizures at [facility]. She has been on different types of seizure medication in the past. seizure today was witnessed by son who was in the car. Patient was returning from her neurologist visit today when this happened. This happened between 3 and 4 pm. She had to hand assembler for puller over to the side of the road. Patient Was started on Vimpat today which she has not taken. She is scheduled for a weeklong seizure study here in 2 weeks according to daughter at bedside. Patient was confused after the seizure and on arrival. This is starting to improve during her stay. She is slightly sluggish slow to respond but is alert and orient x3. She denies hitting her head or loss consciousness. She had a CT scan of her head on 05 23 23 which did not acute abnormality and stable from previous CT scan last month. Do not think CT scan today is again necessary with similar type presentation. Patient without vomiting, diarrhea, chest pain or shortness of breath. No meningeal signs. No unilateral weakness. Generalized lab works EKG was ordered. EKG did not note any arrhythmia. CBC, CMP grossly unremarkable. Symptoms continue improved. No medication was started. She was prescribed Vimpat. Will start tomorrow. She states she is feeling much better at this time and would like to be discharge. She has no focal neural deficits. She is requesting a work note. She wants to go home and rest. She received Toradol for head pain with improvement as she developed head pain. She is afebrile with stable vital signs. Recommend follow-up with your neurologist for further evaluation. Recommend no driving. Recommend staying hydrated. If any worsening symptoms return back to ED. Impression Primary Impression: Seizure disorder Disposition: 01 HOME, SELF-CARE Condition: Stable Departure-Patient Inst. Decision time for Depature: 20:42 Referrals: YASMEEN ROACH APRN (PCP/Family) Primary Care Physician Patient Instructions: Seizures, Adult (DC) Add. Discharge Instructions: Follow-up with your neurologist All discharge instructions reviewed with patient and/or family. Voiced understanding. Work/School Note: Work Release Form Date Seen in the Emergency Department: Jun 02, 2023 Return to Work: Jun 04, 2023 [facility] Jun 02, 2023 19:38
[2023-06-02 19:49] LABS: BASOPHILS % (AUTO) 1 % (0-10); EOSINOPHILS # (AUTO) 0.2 10^3/uL (0.0-0.3); EOSINOPHILS % (AUTO) 3 % (0-10); HEMATOCRIT 40 % (35-52); HEMOGLOBIN 12.9 g/dL (11.5-16.0); LYMPHOCYTES # (AUTO) 1.9 10^3/uL (1.0-4.0); LYMPHOCYTES % (AUTO) 31 % (12-44); MEAN CORPUSCULAR HEMOGLOBIN 30 pg (25-34); MEAN CORPUSCULAR HGB CONC 33 g/dL (32-36); MEAN CORPUSCULAR VOLUME 92 fL (80-99); MEAN PLATELET VOLUME 11.5 fL (9.0-12.2); MONOCYTES # (AUTO) 0.5 10^3/uL (0.0-1.0); MONOCYTES % (AUTO) 9 % (0-12); NEUTROPHILS # (AUTO) 3.4 10^3/uL (1.8-7.8); NEUTROPHILS % (AUTO) 56 % (42-75); PLATELET COUNT 194 10^3/uL (130-400); WHITE BLOOD COUNT 6.1 10^3/uL (4.3-11.0)
[2023-06-02 19:59] LABS: ALBUMIN 4.3 GM/DL (3.2-4.5)
[2023-06-02 20:00] LABS: POTASSIUM 3.7 MMOL/L (3.6-5.0)
[2023-06-02 20:01] LABS: CALCIUM 9.5 MG/DL (8.5-10.1)
[2023-06-02 20:02] LABS: TOTAL PROTEIN 7.5 GM/DL (6.4-8.2)
[2023-06-02 20:04] LABS: BILIRUBIN,TOTAL 0.2 MG/DL (0.1-1.0)
[2023-06-02 20:06] LABS: CREATININE SERUM 1.19 MG/DL (0.60-1.30)
[2023-06-02 20:08] LABS: MAGNESIUM 1.8 MG/DL (1.6-2.4)
[2023-06-02] MEDS ORDERED: KETOROLAC INJ 30 MG/ML VIAL IVP ONE (20:15)
[2023-06-02 20:50] VITALS: BP 117/77
== END 2023-06-02 20:51 | disposition home or self-care (01) ==
LOC: EDUNIT# 18:37 → ER 18:39
DX: G40.909 Epilepsy, unspecified, not intractable, without status epilepticus (principal); Z79.899 Other long term (current) drug therapy; Z88.6 Allergy status to analgesic agent; Z28.310 Unvaccinated for COVID-19
CPT/HCPCS: 36415; 80053; 83735; 85025; 93005

== ENCOUNTER 2023-06-29 10:23 | Emergency (ER) | payer OTHER, BC ==
[~2023-06-29] VITALS: Ht 160 cm; Wt 109.0 kg
[2023-06-29 11:12] LABS: BASOPHILS % (AUTO) 1 % (0-10); EOSINOPHILS # (AUTO) 0.1 10^3/uL (0.0-0.3); EOSINOPHILS % (AUTO) 3 % (0-10); HEMATOCRIT 39 % (35-52); HEMOGLOBIN 13.1 g/dL (11.5-16.0); LYMPHOCYTES # (AUTO) 1.3 10^3/uL (1.0-4.0); LYMPHOCYTES % (AUTO) 24 % (12-44); MEAN CORPUSCULAR HEMOGLOBIN 30 pg (25-34); MEAN CORPUSCULAR HGB CONC 33 g/dL (32-36); MEAN CORPUSCULAR VOLUME 90 fL (80-99); MEAN PLATELET VOLUME 11.1 fL (9.0-12.2); MONOCYTES # (AUTO) 0.4 10^3/uL (0.0-1.0); MONOCYTES % (AUTO) 7 % (0-12); NEUTROPHILS # (AUTO) 3.5 10^3/uL (1.8-7.8); NEUTROPHILS % (AUTO) 66 % (42-75); PLATELET COUNT 173 10^3/uL (130-400); WHITE BLOOD COUNT 5.3 10^3/uL (4.3-11.0)
[2023-06-29 11:15] VITALS: BP_SYST 108; BP_SYST 119; BP_SYST 126; BP_DIAS 80; BP_DIAS 88
--- NOTE | 2023-06-29 11:16 | ED Syncope ---
General Chief Complaint: Dizziness/Syncope Stated Complaint: FALLS | HEAD INJ | SYNCOPE Nursing Triage Note: PT STATES SHE HAS BEEN FALLING SINCE YESTERDAY, HAS HIT HER HEAD, THIS HAS HAPPENED IN THE PAST AND IT WAS CAUSED BY LOW BP Source of Information: Patient Exam Limitations: No Limitations (ADAMS OWEN) History of Present Illness Date Seen by Provider: Jun 29, 2023 Time Seen by Provider: 11:00 Initial Comments Patient presents today with a history of syncope this morning and has fallen and hit her head multiple times during the events. She says that she has had history of syncope in the past and has been told that it is due to low blood pressure. Her pressures are currently over 115 systolic in the ED today. She is having headaches and neck pain currently as well. She says that she feels that she is more out of it than usual.She denies any nausea, fevers, abdominal pain, edema, facial trauma, and any chance of being at this time. Timing/Prior Episodes: Multiple Episodes Today Symptoms Prior to Episode: Lightheadedness Precipitating Factors: None Loss of Consciousness: Brief (Seconds) Current Symptoms: Headache, Lightheadedness (ADAMS OWEN) Allergies and Home Medications Allergies Coded Allergies: Sulfa (Sulfonamide Antibiotics) (Unverified Allergy, Severe, Hives, 08/20/22) BLISTERS duloxetine (Verified Allergy, Unknown, SHAKY, SLURRED SPEECH, 08/19/22) tramadol (Unverified Allergy, Unknown, N.V, ITCHING, DIZZY, HAS RECEIVED HYDROMORPHONE IN THE PAST, 08/19/22) Patient Home Medication List Home Medication List Reviewed: Yes (ADAMS OWEN) Home Medication List Reviewed: Yes (VALERI WASHBURN DO) Adalimumab (Humira Pen) 40 Mg/0.4 Ml Pen.ij.kit, 40 MG SQ UD, (Reported) Entered as Reported by: SALUD JOSE on 08/27/22 1305 Amitriptyline HCl (Amitriptyline HCl) 75 Mg Tablet, 75 MG PO HS, (Reported) Entered as Reported by: SALUD JOSE on 08/27/22 1305 Buspirone HCl (Buspirone HCl) 30 Mg Tablet, 30 MG PO BID, (Reported) Entered as Reported by: SALUD JOSE on 08/27/22 1227 Carisoprodol (Carisoprodol) 350 Mg Tablet, 350 MG PO Q6H PRN for SPASMS, (Reported) Entered as Reported by: SALUD JOSE on 08/27/22 1305 Cholecalciferol (Vitamin D3) (Vitamin D3) 25 Mcg Tablet, 25 MCG PO DAILY, (Reported) Entered as Reported by: AUGUSTO URIARTE on 03/01/20 1219 Clonazepam (Clonazepam) 1 Mg Tablet, 1 MG PO BID, (Reported) Entered as Reported by: SALUD JOSE on 08/27/22 1305 Cyanocobalamin (Vitamin B-12) (Vitamin B-12) 1,000 Mcg Capsule, 1,000 MCG PO DAILY, (Reported) Entered as Reported by: SALUD JOSE on 08/27/22 1305 Dicyclomine HCl (Dicyclomine HCl) 20 Mg Tablet, 20 MG PO QIDACHS PRN for abdominal cramping Prescribed by: CAROLE GERMAN on 07/26/22 1158 Docusate Sodium (Colace) 100 Mg Capsule, 100 MG PO BID Prescribed by: ADAMS VALENZUELA on 08/27/22 1450 Estradiol (Estradiol Tablet) 2 Mg Tablet, 2 MG PO DAILY, (Reported) Entered as Reported by: SALUD JOSE on 08/27/22 1237 Ferrous Sulfate (Feosol) 325 Mg (65 Mg Iron) Tablet, 325 MG PO DAILY, (Reported) Entered as Reported by: SALUD JOSE on 08/27/22 1305 Folic Acid (Folic Acid) 1 Mg Tablet, 2 MG PO DAILY, (Reported) Entered as Reported by: SALUD JOSE on 08/27/22 1237 Furosemide (Furosemide) 20 Mg Tablet, 20 MG PO DAILY, (Reported) Entered as Reported by: SALUD JOSE on 08/27/22 1305 Galcanezumab-Gnlm (Emgality) 120 Mg/Ml Pen.injctr, 120 MG SQ MONTHLY, (Reported) Entered as Reported by: SALUD JOSE on 08/27/22 1305 Hydrocodone/Acetaminophen (Hydrocodone-Acetamin 5-325 mg) 5 Mg-325 Mg Tablet, 1 EACH PO Q4H PRN for PAIN-MODERATE (5-7) Prescribed by: ADAMS VALENZUELA on 08/27/22 1450 Hydroxychloroquine Sulfate (Hydroxychloroquine Sulfate) 200 Mg Tablet, 200 MG PO BID, (Reported) Entered as Reported by: SALUD JOSE on 08/27/22 1305 Lacosamide (Vimpat) 200 Mg Tablet, 200 MG PO BID, (Reported) Entered as Reported by: SALUD JOSE on 08/27/22 1305 Levothyroxine Sodium (Levothyroxine) 175 Mcg Capsule, 175 MCG PO DAILY, (Reported) Entered as Reported by: SALUD JOSE on 08/27/22 1305 Linaclotide (Linzess) 145 Mcg Capsule, 145 MCG PO DAILY, (Reported) Entered as Reported by: SALUD JOSE on 08/27/22 1305 Metolazone (Metolazone) 2.5 Mg Tablet, 2.5 MG PO MWF, (Reported) Entered as Reported by: MELA CAMPOVERDE on 08/20/22 1618 Naloxone HCl (Narcan) 4 Mg/Actuation [place], 4 MG NS UD, (Reported) Entered as Reported by: SALUD JOSE on 08/27/22 1305 Norethindrone (Norethindrone Acetate) 5 Mg Tab, 5 MG PO DAILY, (Reported) Entered as Reported by: SALUD JOSE on 08/27/22 1305 Ondansetron (Ondansetron Odt) 4 Mg Tab.rapdis, 4 MG SL Q8H PRN for NAUSEA/VOMITING Prescribed by: CAROLE GERMAN on 07/26/22 1158 Potassium Bicarbonate/Cit AC (Effer-K 20 Meq Tablet Eff) 20 Meq Tablet.eff, 20 MEQ PO DAILY Prescribed by: CAROLE GERMAN on 08/22/22 1837 Potassium Chloride (K-Tab ER) 20 Meq Tablet.er, 20 MEQ PO DAILY Prescribed by: CAROLE GERMAN on 08/19/22 1205 Potassium Chloride (Klor-Con M20) 20 Meq Tab.er.prt, (Reported) Entered as Reported by: FRAN ALBERTS on 03/28/23 2320 Prazosin HCl (Prazosin HCl) 1 Mg Capsule, 4 CAP PO HS, (Reported) Entered as Reported by: SALUD JOSE on 08/27/22 1305 Prazosin HCl (Prazosin HCl) 2 Mg Capsule, (Reported) Entered as Reported by: FRAN ALBERTS on 03/28/23 2320 Quetiapine Fumarate (Quetiapine Fumarate ER) 150 Mg Tab.er.24h, 150 MG PO HS, (Reported) Entered as Reported by: SALUD JOSE on 08/27/22 1305 Quetiapine Fumarate (Quetiapine Fumarate ER) 300 Mg Tab.er.24h, 300 MG PO HS, (Reported) Entered as Reported by: SALUD JOSE on 08/27/22 1305 Rizatriptan Benzoate (Rizatriptan) 10 Mg Tab.rapdis, 10 MG PO UD PRN for MIGRAINE, (Reported) Entered as Reported by: AUGUSTO URIARTE on 02/14/20 1619 Tizanidine HCl (Tizanidine HCl) 4 Mg Tablet, 4 MG PO Q8H PRN for BACK SPASMS, (Reported) Entered as Reported by: AUGUSTO URIARTE on 02/14/20 1619 Topiramate (Topiramate) 50 Mg Tablet, 100 MG PO BID, (Reported) Entered as Reported by: AUGUSTO URIARTE on 03/01/20 1219 Review of Systems Constitutional: dizziness; No fever, No malaise, No weakness EENTM: No blurred vision, No double vision Respiratory: No cough, No dyspnea on exertion Cardiovascular: No chest pain, No edema; syncope Gastrointestinal: No abdominal pain Genitourinary: No decreased output, No dysuria, No hematuria : No (ADAMS OWEN) All Other Systems Reviewed Negative Unless Noted: Yes (ADAMS OWEN) Past [place]-Yotulk-Stkevk Hx Patient Social History Tobacco Use?: No Substance use?: No Alcohol Use?: No (ADAMS OWEN) Immunizations Up To Date Tetanus Booster (TDap): Unknown PED Vaccines UTD: No First/Initial COVID19 Vaccinat: DENIES Second COVID19 Vaccination Gurjit: DENIES Third COVID19 Vaccination Date: DENIES (ADAMS OWEN) Seasonal Allergies Seasonal Allergies: No (ADAMS OWEN) Past Medical History Surgery/Hospitalization HX: sarcoidosis, seizure disorder, frequent headaches, FATTY LIVER, ANXIETY, DEPRESSION TOTAL HYST, APPY, SHOULDER, CHOLECYSTECTOMY, D&C, T/A, HYPOTHROIDISM, Surgeries: Yes (dxls x4 , R shoulder sx x3, d&c, HYSTERECTOMY) Abdominal, Hysterectomy, Oophorectomy, Orthopedic, Tonsillectomy Respiratory: Yes (sarcoidosis) Currently Using CPAP: No Currently Using BIPAP: No Cardiac: No Hypertension Neurological: Yes Headaches /Migraines, Seizure Disorder Reproductive Disorders: Yes (CHRONIC PELVIC PAIN, ENDOMETRIOSIS, PCOS) Female Reproductive Disorders: Endometriosis, Ovarian Cyst, Polycystic Ovarian Dis Sexually Transmitted Disease: No Genitourinary: No Gastrointestinal: Yes Gall Bladder Disease Musculoskeletal: No (R SHOULDER SURG) Endocrine: Yes Hypothyroidsim HEENT: Yes (GLASSES - BUT DOESNT WEAR THEM) Cancer: No Psychosocial: Yes Anxiety, Depression Integumentary: No Blood Disorders: No (ADAMS OWEN) Family Medical History FH: breast cancer 19 MOTHER FH: uterine cancer 19 MOTHER Hypertension G8 SISTER Physical Exam Vital Signs Vital Signs - First Documented 06/29/23 10:31 Temp 37.7 Pulse 96 Resp 18 B/P (MAP) 120/89 (99) Pulse Ox 94 O2 Delivery Room Air (DETARVALERI W DO) Vital Signs Capillary Refill : Less Than 3 Seconds (ADAMS OWEN) Height, Weight, BMI Height: 5'3.00" Weight: 180lbs. 0.0oz. [id number]; 42.00 BMI Method:Stated General Appearance: No Apparent Distress Neck: Non Tender, Supple Cardiovascular: Regular Rate, Rhythm, No Edema, No Murmur Respiratory: Lungs Clear, Normal Breath Sounds, No Accessory Muscle Use, No Respiratory Distress Gastrointestinal: Non Tender, Soft Back: No CVA Tenderness Extremities: Non Tender, No Calf Tenderness, No Pedal Edema Neurologic/Psychiatric: Oriented x3, Depressed Affect Cranial Nerves: Normal Hearing, Normal Speech (ADAMS OWEN) Progress/Results/Core Measures Results/Orders Lab Results Laboratory Tests Test 06/29/23 10:50 06/29/23 11:05 06/29/23 11:09 06/29/23 11:23 Range/Units White Blood Count 5.3 4.3-11.0 10^3/uL Red Blood Count 4.39 3.80-5.11 10^6/uL Hemoglobin 13.1 11.5-16.0 g/dL Hematocrit 39 35-52 % Mean Corpuscular Volume 90 80-99 fL Mean Corpuscular Hemoglobin 30 25-34 pg Mean Corpuscular Hemoglobin Concent 33 32-36 g/dL Red Cell Distribution Width 12.6 10.0-14.5 % Platelet Count 173 130-400 10^3/uL Mean Platelet Volume 11.1 9.0-12.2 fL Immature Granulocyte % (Auto) 0 % Neutrophils (%) (Auto) 66 42-75 % Lymphocytes (%) (Auto) 24 12-44 % Monocytes (%) (Auto) 7 0-12 % Eosinophils (%) (Auto) 3 0-10 % Basophils (%) (Auto) 1 0-10 % Neutrophils # (Auto) 3.5 1.8-7.8 10^3/uL Lymphocytes # (Auto) 1.3 1.0-4.0 10^3/uL Monocytes # (Auto) 0.4 0.0-1.0 10^3/uL Eosinophils # (Auto) 0.1 0.0-0.3 10^3/uL Basophils # (Auto) 0.0 0.0-0.1 10^3/uL Immature Granulocyte # (Auto) 0.0 0.0-0.1 10^3/uL Serum Test, Qualitative NEGATIVE NEGATIVE Sodium Level 142 135-145 MMOL/L Potassium Level 3.6 3.6-5.0 MMOL/L Chloride Level 105 98-107 MMOL/L Carbon Dioxide Level 25 21-32 MMOL/L Anion Gap 12 5-14 MMOL/L Blood Urea Nitrogen 13 7-18 MG/DL Creatinine 1.39 H 0.60-1.30 MG/DL Estimat Glomerular Filtration Rate 51 BUN/Creatinine Ratio 9 Glucose Level 104 70-105 MG/DL Calcium Level 9.8 8.5-10.1 MG/DL Corrected Calcium 9.6 8.5-10.1 MG/DL Magnesium Level 1.7 1.6-2.4 MG/DL Total Bilirubin 0.2 0.1-1.0 MG/DL Aspartate Amino Transf (AST/SGOT) 36 H 5-34 U/L Alanine Aminotransferase (ALT/SGPT) 43 0-55 U/L Alkaline Phosphatase 76 40-136 U/L Ammonia 19 11-32 UMOL/L Total Protein 7.2 6.4-8.2 GM/DL Albumin 4.2 3.2-4.5 GM/DL Glucometer 104 70-110 MG/DL Urine Color YELLOW Urine Clarity CLEAR Urine pH 6.0 5-9 Urine Specific [place] 1.015 L 1.016-1.022 Urine Protein NEGATIVE NEGATIVE Urine Glucose (UA) NEGATIVE NEGATIVE Urine Ketones NEGATIVE NEGATIVE Urine Nitrite NEGATIVE NEGATIVE Urine Bilirubin NEGATIVE NEGATIVE Urine Urobilinogen 0.2 < = 1.0 MG/DL Urine Leukocyte Esterase NEGATIVE NEGATIVE Urine RBC (Auto) NEGATIVE NEGATIVE Urine RBC NONE /HPF Urine WBC NONE /HPF Urine Squamous Epithelial Cells 10-25 H /HPF Urine Crystals PRESENT H /LPF Urine Amorphous Sediment FEW GEORGI URATES H /LPF Urine Bacteria NEGATIVE /HPF Urine Casts NONE /LPF Urine Mucus NEGATIVE /LPF Urine Trichomonas /HPF Urine Culture Indicated NO Urine Opiates Screen POSITIVE H NEGATIVE Urine Oxycodone Screen NEGATIVE NEGATIVE Urine Methadone Screen NEGATIVE NEGATIVE Urine Propoxyphene Screen NEGATIVE NEGATIVE Urine Barbiturates Screen NEGATIVE NEGATIVE Ur Tricyclic Antidepressants Screen POSITIVE H NEGATIVE Urine Phencyclidine Screen NEGATIVE NEGATIVE Urine Amphetamines Screen NEGATIVE NEGATIVE Urine Methamphetamines Screen NEGATIVE NEGATIVE Urine Benzodiazepines Screen POSITIVE H NEGATIVE Urine Cocaine Screen NEGATIVE NEGATIVE Urine Cannabinoids Screen NEGATIVE NEGATIVE (VALERI WASHBURN DO) My Orders Orders - VALERI WASHBURN DO Ct Head Wo (06/29/23 11:03) Ed Iv/Invasive Line Start (06/29/23 11:03) Ammonia (06/29/23 11:03) Cbc And Automated Diff (06/29/23 11:03) Comprehensive Metabolic Panel (06/29/23 11:03) Hcg,Qualitative Serum (06/29/23 11:03) Magnesium (06/29/23 11:03) Ua Culture If Indicated (06/29/23 11:03) Accucheck Stat ONCE (06/29/23 11:03) Orthostatic Vital Signs (Adult (06/29/23 11:03) Drug Screen Stat (Urine) (06/29/23 11:14) Ketorolac Injection (Ketorolac Injection (06/29/23 12:00) (VALERI WASHBURN DO) Medications Given in ED Current Medications Medications Dose Ordered Sig/Yan Route Start Time Stop Time Status Last Admin Dose Admin Ketorolac Tromethamine 15 mg ONCE ONCE IVP 06/29/23 12:00 06/29/23 12:02 DC 06/29/23 12:24 15 MG (VALERI WASHBURN DO) Vital Signs/I&O 06/29/23 06/29/23 06/29/23 10:31 11:15 12:24 Temp 37.7 37.7 Pulse 96 86 95 97 Resp 18 B/P (MAP) 120/89 (99) 108/80 (89) 119/88 (98) 126/88 (101) Pulse Ox 94 O2 Delivery Room Air (VALERI WASHBURN DO) Blood Pressure Mean: 99 FSBG Bedside Testing Finger Stick Blood Glucose: 104 Blood Glucose Action Taken: Dr and RN notified (ADAMS OWEN) Progress Progress Note : Time: 11:07 Progress Note Patient is currently having spells of syncopal events at home in which she has hit her head multiple times. She has a history of seizure disorders in which she currently takes medications to control. She is currently complaining of headache and neck pain at this time. She says that she has a history of low blood pressure as well. Orthostatic blood pressure are taken and are supine 108/80 with a pulse of 86, standing 119/85 with pulse of 95, and standing at 126/88 with a pulse of 97. Plan is to monitor her, draw CBC, CMP, urinalysis at this time. (ADAMS OWEN) Progress Note : Progress Note 1240 CT negative. Orthostatics negative. Lab work unremarkable other than f racturing positive for prescribed medications however these medications makes altogether would make you feel somewhat off balance and groggy. Will provide instructions on out these medications so that they do not make you feel groggy resulting in syncope. Ibuprofen or Tylenol as needed for headache, ensure adequate hydration. Follow-up with primary care. (VALERI WASHBURN DO) Diagnostic Imaging Diagonstic Imaging: CT (Had negative) Reviewed: Reviewed [place] Study (VALERI WASHBURN DO) Departure Impression Primary Impression: Syncope Qualified Codes: R55 - Syncope and collapse Additional Impression: Medication side effects Disposition: 01 HOME, SELF-CARE Condition: Improved Departure-Patient Inst. Referrals: YASMEEN ROACH APRN (PCP/Family) Primary Care Physician Patient Instructions: Syncope (Fainting) (DC), Side effects from medicines Add. Discharge Instructions: Try to separate times that you are taking your pain medication and your benzodiazepines so they do not make you groggy resulting in falls. Be sure to drink adequate amounts of water daily roughly 100 to 126 ounces. Tylenol or Motrin as needed for breakthrough pain or headache. Follow-up with primary care to discuss medication regiment. All discharge instructions reviewed with patient and/or family. Voiced understanding. ADAMS OWEN Jun 29, 2023 11:16 VALERI WASHBURN DO Jun 29, 2023 12:42
[2023-06-29 11:27] LABS: ALBUMIN 4.2 GM/DL (3.2-4.5); POTASSIUM 3.6 MMOL/L (3.6-5.0)
[2023-06-29 11:29] LABS: CALCIUM 9.8 MG/DL (8.5-10.1)
[2023-06-29 11:30] LABS: TOTAL PROTEIN 7.2 GM/DL (6.4-8.2)
[2023-06-29 11:32] LABS: BILIRUBIN,TOTAL 0.2 MG/DL (0.1-1.0)
[2023-06-29 11:33] LABS: CREATININE SERUM 1.39 MG/DL (0.60-1.30)
[2023-06-29 11:36] LABS: MAGNESIUM 1.7 MG/DL (1.6-2.4)
[2023-06-29 11:45] LABS: AMPHETAMINE SCREEN, URINE NEGATIVE (NEGATIVE); BARBITURATE SCREEN URINE NEGATIVE (NEGATIVE); CANNABINOID SCREEN, URINE NEGATIVE (NEGATIVE); COCAINE SCREEN URINE NEGATIVE (NEGATIVE); METHADONE STAT NEGATIVE (NEGATIVE); OPIATE SCREEN URINE POSITIVE (NEGATIVE); OXYCODONE STAT NEGATIVE (NEGATIVE); PROPOXYPHENE STAT NEGATIVE (NEGATIVE); TRICYCLIC ANTIDEPRESSANTS SCRE POSITIVE (NEGATIVE)
[2023-06-29 11:46] LABS: CLARITY,URINE CLEAR; COLOR,URINE YELLOW; GLUCOSE, URINE (UA) NEGATIVE (NEGATIVE); PROTEIN,URINE NEGATIVE (NEGATIVE)
[2023-06-29 11:47] LABS: AMORPHOUS SEDIMENT,UR FEW AMOR URATES /LPF; BACTERIA,URINE NEGATIVE /HPF; BILIRUBIN,URINE NEGATIVE (NEGATIVE); KETONES,URINE NEGATIVE (NEGATIVE); LEUKOCYTE ESTERASE ,URINE NEGATIVE (NEGATIVE); NITRITE,URINE NEGATIVE (NEGATIVE)
[2023-06-29] MEDS ORDERED: KETOROLAC INJ 15 MG/ML VIAL IVP ONE (12:00)
--- NOTE | 2023-06-29 12:13 | Diagnostic Imaging Report ---
INDICATION: Fall with injury to head, hypotension. TECHNIQUE: Multiple contiguous axial images were obtained through the brain without the use of intravenous contrast. Auto Exposure Controls were utilized during the CT exam to meet ALARA standards for radiation dose reduction. COMPARISON: 05/23/2023. FINDINGS: There are no extra-axial fluid collections. No intracranial hemorrhage. No intracranial mass or mass effect. No midline shift. The ventricles are normal in size and position. There were no focal parenchymal abnormalities in the brain. The calvarial windows are unremarkable. IMPRESSION: Negative noncontrast head CT with no acute intracranial finding. Dictated by: Dictated on workstation # [id number]
[2023-06-29 13:00] VITALS: BP 105/78
== END 2023-06-29 13:00 | disposition home or self-care (01) ==
LOC: EDUNIT# 10:23 → ER 10:24
DX: R55 Syncope and collapse (principal); T50.905A Adverse effect of unspecified drugs, medicaments and biological substances, initial encounter; Z28.310 Unvaccinated for COVID-19
CPT/HCPCS: 36415; 70450; 80053; 80306; 81000; 82140; 82947; 83735; 84703; 85025

== ENCOUNTER 2023-07-12 17:19 | Emergency (ER) | payer OTHER, BC ==
[~2023-07-12] VITALS: Ht 160 cm; Wt 108.0 kg
--- NOTE | 2023-07-12 17:55 | ED Syncope ---
General Chief Complaint: Dizziness/Syncope Stated Complaint: FALLING AND HITTING HEAD/NAUSEA Nursing Triage Note: TO TRIAGE WITH DIZZNESS STARTING LAST NIGHT ET STATES SHE HAS PASSED OUT X3 AND HIT HER HEAD. DENIES BEING ON BLOOD THINNERS. Source of Information: Patient Exam Limitations: No Limitations (HOLLY BANSAL MD) History of Present Illness Date Seen by Provider: Jul 12, 2023 Time Seen by Provider: 17:31 Initial Comments This 37-year-old young lady presents to the emergency room accompanied by her daughter with concerns about repeated falls and possible head injury. Daughter contributes to the history. She walks into the emergency room on her own power with a short shuffled gait. Her stated chief complaint to me is "I keep falling and hitting my head." Patient apparently has a seizure disorder and sees Dr. Cid in [place]. She believes her seizures are partial rather than generalized. She tends to lose control of the right side of her body and then loses consciousness. She is uncertain if seizures are what is causing her falls . She is medicated and reports compliance with her medications. She has had prior episodes of syncope but states a cause was never determined other than possibly her seizures. She states her head is too sore to lay back, even on a pillow. She has a sore neck but c-collar cannot be applied given her body habitus and tender scalp preventing her from lying back. Towel rolls were applied to her lateral neck as a reminder to keep her head still and as a support. Patient's daughter believes patient had a seizure at approximately 1530. Additional past medical history includes sarcoidosis and hypothyroidism. She is very nauseous but has not been vomiting. (HOLLY BANSAL MD) Allergies and Home Medications Allergies Coded Allergies: Sulfa (Sulfonamide Antibiotics) (Unverified Allergy, Severe, Hives, 08/20/22) BLISTERS duloxetine (Verified Allergy, Unknown, SHAKY, SLURRED SPEECH, 08/19/22) tramadol (Unverified Allergy, Unknown, N.V, ITCHING, DIZZY, HAS RECEIVED HYDROMORPHONE IN THE PAST, 08/19/22) Patient Home Medication List Home Medication List Reviewed: Yes (HOLLY BANSAL MD) Adalimumab (Humira Pen) 40 Mg/0.4 Ml Pen.ij.kit, 40 MG SQ UD, (Reported) Entered as Reported by: SALUD JOSE on 08/27/22 1305 Amitriptyline HCl (Amitriptyline HCl) 75 Mg Tablet, 75 MG PO HS, (Reported) Entered as Reported by: SALUD JOSE on 08/27/22 1305 Buspirone HCl (Buspirone HCl) 30 Mg Tablet, 30 MG PO BID, (Reported) Entered as Reported by: SALUD JOSE on 08/27/22 1227 Carisoprodol (Carisoprodol) 350 Mg Tablet, 350 MG PO Q6H PRN for SPASMS, (Reported) Entered as Reported by: SALUD JOSE on 08/27/22 1305 Cholecalciferol (Vitamin D3) (Vitamin D3) 25 Mcg Tablet, 25 MCG PO DAILY, (Reported) Entered as Reported by: AUGUSTO URIARTE on 03/01/20 1219 Clonazepam (Clonazepam) 1 Mg Tablet, 1 MG PO BID, (Reported) Entered as Reported by: SALUD JOSE on 08/27/22 1305 Cyanocobalamin (Vitamin B-12) (Vitamin B-12) 1,000 Mcg Capsule, 1,000 MCG PO DAILY, (Reported) Entered as Reported by: SALUD JOSE on 08/27/22 1305 Dicyclomine HCl (Dicyclomine HCl) 20 Mg Tablet, 20 MG PO QIDACHS PRN for abdominal cramping Prescribed by: CAROLE GERMAN on 07/26/22 1158 Docusate Sodium (Colace) 100 Mg Capsule, 100 MG PO BID Prescribed by: ADAMS VALENZUELA on 08/27/22 1450 Estradiol (Estradiol Tablet) 2 Mg Tablet, 2 MG PO DAILY, (Reported) Entered as Reported by: SALUD JOSE on 08/27/22 1237 Ferrous Sulfate (Feosol) 325 Mg (65 Mg Iron) Tablet, 325 MG PO DAILY, (Reported) Entered as Reported by: SALUD JOSE on 08/27/22 1305 Folic Acid (Folic Acid) 1 Mg Tablet, 2 MG PO DAILY, (Reported) Entered as Reported by: SALUD JOSE on 08/27/22 1237 Furosemide (Furosemide) 20 Mg Tablet, 20 MG PO DAILY, (Reported) Entered as Reported by: SALUD JOSE on 08/27/22 1305 Galcanezumab-Gnlm (Emgality) 120 Mg/Ml Pen.injctr, 120 MG SQ MONTHLY, (Reported) Entered as Reported by: SALUD JOSE on 08/27/22 1305 Hydrocodone/Acetaminophen (Hydrocodone-Acetamin 5-325 mg) 5 Mg-325 Mg Tablet, 1 EACH PO Q4H PRN for PAIN-MODERATE (5-7) Prescribed by: ADAMS VALENZUELA on 08/27/22 1450 Hydroxychloroquine Sulfate (Hydroxychloroquine Sulfate) 200 Mg Tablet, 200 MG PO BID, (Reported) Entered as Reported by: SALUD JOSE on 08/27/22 1305 Lacosamide (Vimpat) 200 Mg Tablet, 200 MG PO BID, (Reported) Entered as Reported by: SALUD JOSE on 08/27/22 1305 Levothyroxine Sodium (Levothyroxine) 175 Mcg Capsule, 175 MCG PO DAILY, (Reported) Entered as Reported by: SALUD JOSE on 08/27/22 1305 Linaclotide (Linzess) 145 Mcg Capsule, 145 MCG PO DAILY, (Reported) Entered as Reported by: SALUD JOSE on 08/27/22 1305 Metolazone (Metolazone) 2.5 Mg Tablet, 2.5 MG PO MWF, (Reported) Entered as Reported by: MELA CAMPOVERDE on 08/20/22 1618 Naloxone HCl (Narcan) 4 Mg/Actuation Delta, 4 MG NS UD, (Reported) Entered as Reported by: SALUD JOSE on 08/27/22 1305 Norethindrone (Norethindrone Acetate) 5 Mg Tab, 5 MG PO DAILY, (Reported) Entered as Reported by: SALUD JOSE on 08/27/22 1305 Ondansetron (Ondansetron Odt) 4 Mg Tab.rapdis, 4 MG SL Q8H PRN for NAUSEA/VOMITING Prescribed by: CAROLE GERMAN on 07/26/22 1158 Potassium Bicarbonate/Cit AC (Effer-K 20 Meq Tablet Eff) 20 Meq Tablet.eff, 20 MEQ PO DAILY Prescribed by: CAROLE GERMAN on 08/22/22 1837 Potassium Chloride (K-Tab ER) 20 Meq Tablet.er, 20 MEQ PO DAILY Prescribed by: CAROLE GERMAN on 08/19/22 1205 Potassium Chloride (Klor-Con M20) 20 Meq Tab.er.prt, (Reported) Entered as Reported by: FRAN ALBERTS on 03/28/23 232 Prazosin HCl (Prazosin HCl) 1 Mg Capsule, 4 CAP PO HS, (Reported) Entered as Reported by: SALUD JOSE on 08/27/22 130 Prazosin HCl (Prazosin HCl) 2 Mg Capsule, (Reported) Entered as Reported by: FRAN ALBERTS on 03/28/23 232 Quetiapine Fumarate (Quetiapine Fumarate ER) 150 Mg Tab.er.24h, 150 MG PO HS, (Reported) Entered as Reported by: SALUD JOSE on 08/27/22 130 Quetiapine Fumarate (Quetiapine Fumarate ER) 300 Mg Tab.er.24h, 300 MG PO HS, (Reported) Entered as Reported by: SALUD JOSE on 08/27/22 1305 Rizatriptan Benzoate (Rizatriptan) 10 Mg Tab.rapdis, 10 MG PO UD PRN for MIGRAINE, (Reported) Entered as Reported by: AUGUSTO URIARTE on 02/14/20 1619 Tizanidine HCl (Tizanidine HCl) 4 Mg Tablet, 4 MG PO Q8H PRN for BACK SPASMS, (Reported) Entered as Reported by: AUGUSTO URIARTE on 02/14/20 1619 Topiramate (Topiramate) 50 Mg Tablet, 100 MG PO BID, (Reported) Entered as Reported by: AUGUSTO URIARTE on 03/01/20 1219 Review of Systems Constitutional: weakness EENTM: other (Tender scalp over the occiput) Respiratory: no symptoms reported Cardiovascular: syncope Gastrointestinal: see HPI Genitourinary: no symptoms reported Musculoskeletal: see HPI Skin: see HPI Psychiatric/Neurological: See HPI (HOLLY BANSAL MD) Past Detsgqx-Icorcg-Ecxkme Hx Patient Social History Tobacco Use?: No Use of E-Cig and/or Vaping dev: No Substance use?: No Alcohol Use?: No (HOLLY BANSAL MD) Immunizations Up To Date Tetanus Booster (TDap): Unknown PED Vaccines UTD: No First/Initial COVID19 Vaccinat: DENIES Second COVID19 Vaccination Gurjit: DENIES Third COVID19 Vaccination Date: DENIES (HOLLY BANSAL MD) Seasonal Allergies Seasonal Allergies: No (HOLLY BANSAL MD) Past Medical History Surgery/Hospitalization HX: sarcoidosis, seizure disorder, frequent headaches, FATTY LIVER, ANXIETY, DEPRESSION TOTAL HYST, APPY, SHOULDER, CHOLECYSTECTOMY, D&C, T/A, HYPOTHROIDISM, Surgeries: Yes (dxls x4 , R shoulder sx x3, d&c, HYSTERECTOMY) Abdominal (Surgical treatment of endometriosis), Appendectomy, Gallbladder, Hysterectomy, Oophorectomy, Orthopedic (Shoulder x4), Tonsillectomy Respiratory: Yes (sarcoidosis) Currently Using CPAP: No Currently Using BIPAP: No Cardiac: Yes Hypertension Neurological: Yes Headaches /Migraines, Seizure Disorder (Partial) Reproductive Disorders: Yes (CHRONIC PELVIC PAIN, ENDOMETRIOSIS, PCOS) Female Reproductive Disorders: Endometriosis, Ovarian Cyst, Polycystic Ovarian Dis Sexually Transmitted Disease: No Genitourinary: No Gastrointestinal: Yes Gall Bladder Disease Musculoskeletal: No (R SHOULDER SURG) Endocrine: Yes Hypothyroidsim HEENT: Yes (GLASSES - BUT DOESNT WEAR THEM) Cancer: No Psychosocial: Yes Anxiety, Depression Integumentary: No Blood Disorders: No (HOLLY BANSAL MD) Family Medical History FH: breast cancer 19 MOTHER FH: uterine cancer 19 MOTHER Hypertension G8 SISTER Physical Exam Vital Signs Vital Signs - First Documented 07/12/23 17:25 Temp 36.2 Pulse 86 Resp 16 B/P (MAP) 117/82 (94) Pulse Ox 95 O2 Delivery Room Air (NICKI,CATIA K DO) Vital Signs Capillary Refill : Less Than 3 Seconds (HOLLY BANSAL MD) Height, Weight, BMI Height: 5'3.00" Weight: 180lbs. 0.0oz. 81.521574kl; 42.00 BMI Method:Stated General Appearance: No Apparent Distress, WD/WN, Obese, Other (Stuporous) HEENT: PERRL/EOMI, Normal ENT Inspection, Other (Tenderness over the right occiput) Neck: Normal Inspection, Tender Midline (Posterior) Cardiovascular: Regular Rate, Rhythm, No Edema, No Murmur Respiratory: Lungs Clear, Normal Breath Sounds, No Accessory Muscle Use Gastrointestinal: Normal Bowel Sounds, Soft; No Distended; Tenderness (Minimal, generalized) Extremities: Normal Inspection Neurologic/Psychiatric: Alert, public address system installer II-XII Norm as Tested, Other (Stuporous. Generalized weakness. Moves all 4 extremities equally) Cranial Nerves: Normal Hearing, Other (Mumbled soft speech with appropriate content) Coordination/Gait: Other (Short shuffled gait) Skin: Normal Color, Warm/Dry (HOLLY BANSAL MD) Progress/Results/Core Measures Results/Orders Lab Results Laboratory Tests Test 07/12/23 17:35 07/12/23 17:59 07/12/23 18:46 Range/Units White Blood Count 5.9 4.3-11.0 10^3/uL Red Blood Count 4.79 3.80-5.11 10^6/uL Hemoglobin 14.3 11.5-16.0 g/dL Hematocrit 43 35-52 % Mean Corpuscular Volume 90 80-99 fL Mean Corpuscular Hemoglobin 30 25-34 pg Mean Corpuscular Hemoglobin Concent 33 32-36 g/dL Red Cell Distribution Width 12.9 10.0-14.5 % Platelet Count 190 130-400 10^3/uL Mean Platelet Volume 11.2 9.0-12.2 fL Immature Granulocyte % (Auto) 0 % Neutrophils (%) (Auto) 47 42-75 % Lymphocytes (%) (Auto) 39 12-44 % Monocytes (%) (Auto) 9 0-12 % Eosinophils (%) (Auto) 4 0-10 % Basophils (%) (Auto) 1 0-10 % Neutrophils # (Auto) 2.8 1.8-7.8 10^3/uL Lymphocytes # (Auto) 2.3 1.0-4.0 10^3/uL Monocytes # (Auto) 0.5 0.0-1.0 10^3/uL Eosinophils # (Auto) 0.2 0.0-0.3 10^3/uL Basophils # (Auto) 0.1 0.0-0.1 10^3/uL Immature Granulocyte # (Auto) 0.0 0.0-0.1 10^3/uL Erythrocyte Sedimentation Rate 13 0-20 MM/HR Prothrombin Time 13.6 12.2-14.7 SEC INR Comment 1.0 0.8-1.4 Activated Partial Thromboplast Time 30 24-35 SEC Sodium Level 142 135-145 MMOL/L Potassium Level 4.1 3.6-5.0 MMOL/L Chloride Level 108 H 98-107 MMOL/L Carbon Dioxide Level 23 21-32 MMOL/L Anion Gap 11 5-14 MMOL/L Blood Urea Nitrogen 15 7-18 MG/DL Creatinine 1.34 H 0.60-1.30 MG/DL Estimat Glomerular Filtration Rate 53 BUN/Creatinine Ratio 11 Glucose Level 88 70-105 MG/DL Calcium Level 10.1 8.5-10.1 MG/DL Corrected Calcium 9.7 8.5-10.1 MG/DL Magnesium Level 1.8 1.6-2.4 MG/DL Total Bilirubin 0.3 0.1-1.0 MG/DL Aspartate Amino Transf (AST/SGOT) 25 5-34 U/L Alanine Aminotransferase (ALT/SGPT) 36 0-55 U/L Alkaline Phosphatase 81 40-136 U/L Ammonia 27 11-32 UMOL/L Total Creatine Kinase 182 H 29-168 U/L Creatine Kinase MB 2.2 <6.6 NG/ML Myoglobin 101.3 H 10.0-92.0 NG/ML Troponin I < 0.028 <0.028 NG/ML C-Reactive Protein High Sensitivity 0.23 0.00-0.50 MG/DL Total Protein 7.6 6.4-8.2 GM/DL Albumin 4.5 3.2-4.5 GM/DL TSH [place] Testing 7.38 H 0.35-4.94 UIU/ML Salicylates Level < 5.0 L 5.0-20.0 MG/DL Acetaminophen Level < 10 L 10-30 UG/ML Serum Alcohol < 10 <10 MG/DL Glucometer 94 70-110 MG/DL Urine Color YELLOW Urine Clarity CLEAR Urine pH 6.0 5-9 Urine Specific [place] <1.005 1.016-1.022 Urine Protein NEGATIVE NEGATIVE Urine Glucose (UA) NEGATIVE NEGATIVE Urine Ketones NEGATIVE NEGATIVE Urine Nitrite NEGATIVE NEGATIVE Urine Bilirubin NEGATIVE NEGATIVE Urine Urobilinogen 0.2 < = 1.0 MG/DL Urine Leukocyte Esterase TRACE H NEGATIVE Urine RBC (Auto) NEGATIVE NEGATIVE Urine RBC NONE /HPF Urine WBC NONE /HPF Urine Squamous Epithelial Cells NONE /HPF Urine Crystals NONE /LPF Urine Bacteria NEGATIVE /HPF Urine Casts NONE /LPF Urine Mucus NEGATIVE /LPF Urine Culture Indicated NO Urine Opiates Screen POSITIVE H NEGATIVE Urine Oxycodone Screen NEGATIVE NEGATIVE Urine Methadone Screen NEGATIVE NEGATIVE Urine Propoxyphene Screen NEGATIVE NEGATIVE Urine Barbiturates Screen NEGATIVE NEGATIVE Ur Tricyclic Antidepressants Screen POSITIVE H NEGATIVE Urine Phencyclidine Screen NEGATIVE NEGATIVE Urine Amphetamines Screen NEGATIVE NEGATIVE Urine Methamphetamines Screen NEGATIVE NEGATIVE Urine Benzodiazepines Screen NEGATIVE NEGATIVE Urine Cocaine Screen NEGATIVE NEGATIVE Urine Cannabinoids Screen NEGATIVE NEGATIVE (CATIA CARVER DO) My Orders Orders - CATIA CARVER DO Ed Iv/Invasive Line Start (07/12/23 17:49) Ekg Tracing (07/12/23 17:49) Monitor-Rhythm Ecg Trace Only (07/12/23 17:49) Ct Head/Cervical Spine Wo (07/12/23 17:49) Acetaminophen (07/12/23 17:49) Alcohol (07/12/23 17:49) Cbc And Automated Diff (07/12/23 17:49) Comprehensive Metabolic Panel (07/12/23 17:49) Creatine Kinase (07/12/23 17:49) Creatine Kinase Mb (07/12/23 17:49) Hs C Reactive Protein (07/12/23 17:49) Magnesium (07/12/23 17:49) Protime With Inr (07/12/23 17:49) Partial Thromboplastin Time (07/12/23 17:49) Thyroid Analyzer (07/12/23 17:49) Ua Culture If Indicated (07/12/23 17:49) Erythrocyte Sedimentation Rate (07/12/23 17:49) Myoglobin Serum (07/12/23 17:49) Troponin I Ran (07/12/23 17:49) Chest 1 View, Ap/Pa Only (07/12/23 17:49) Ed Iv/Invasive Line Start (07/12/23 17:49) Lactated Ringers 1,000 Ml (Lactated Ring (07/12/23 18:00) Knee, Bilateral, W/[place] 4v. (07/12/23 17:49) Drug Screen Stat (Urine) (07/12/23 17:49) Accucheck Stat ONCE (07/12/23 17:52) Cervical Collar (07/12/23 17:52) Ammonia (07/12/23 17:54) Salicylate (07/12/23 17:54) Free T4 (Free Thyroxine) (07/12/23 17:35) (CATIA CARVER DO) Medications Given in ED Current Medications Medications Dose Ordered Sig/Yan Route Start Time Stop Time Status Last Admin Dose Admin Lactated Ringer's 1,000 ml @ 0 mls/hr Q0M ONCE IV 07/12/23 18:00 07/12/23 18:01 DC 07/12/23 18:34 1,000 MLS/HR (CATIA CARVER DO) Vital Signs/I&O 07/12/23 17:25 Temp 36.2 Pulse 86 Resp 16 B/P (MAP) 117/82 (94) Pulse Ox 95 O2 Delivery Room Air (CATIA CARVER DO) Blood Pressure Mean: 94 Progress Progress Note : Time: 18:00 Progress Note Initial history and physical has been obtained. Patient has been examined. I have given report to Dr. Carver at shift change who is assuming care and placing orders. (HOLLY BANSAL MD) Progress Note : Progress Note 1800--ASSUMED CARE TO DR. BANSAL, ALL STUDIES PENDING. PT HAS BEEN PLACED IN CERVICAL COLLAR. REVIEWED PRIOR RECORDS, ER VISITS, ADMITS, H&P'S/DISCHARGE SUMMARIES, TESTS/PROCEDURES PT WITH A MULTITUDE OF VISITS FOR THIS PROBLEM, WELL OTHER VARIOUS COMPLAINTS. SHE HAS BEEN PRESCRIBED LACOSAMIDE/VIMPAT, BUT NOT FILLED SINCE 06/02/23 VITALS ON ARRIVAL: TEMP 36.2=97.2, HR 86, RR 16, BP 117/82, O2 SAT 95% ON ROOM AIR GIVEN IV FLUIDS LABS: -CBC NORMAL -CMP WITH CR 1.34, OTHERWISE NORMAL -MG NORMAL 1.8 -CK 182, CK-MB 2.2, MYOGLOBIN 101.3 -PT/PTT/INR NORMAL -SED RATE NORMAL, CRP NORMAL -TROPONIN NEGATIVE -ETOH NEGATIVE -SALICYLATES NEGATIVE -ACETAMINOPHEN NEGATIVE -UDS + OPIATES, + TRICYCLICS -AMMONIA 27 -UA CLEAR -TSH 7.[address] HEAD/CERVICAL SPINE UNREMARKABLE BILATERAL KNEE XRAYS UNREMARKABLE UNEVENTFUL ER STAY DISCUSSED TEST RESULTS, ANTICIPATED COURSE, SYMPTOMATIC TREATMENT, NEED FOR FOLLOW UP AND RETURN PRECAUTIONS PT IS ALERT, ORIENTED X 4, AND SPEECH IS CLEAR, AND PT AMBULATES ON HER OWN WITHOUT DIFFICULTY AT DISMISSAL, AND HAS NO COMPLAINTS AT DISMISSAL (CATIA CARVER DO) Initial ECG Impression Date: Jul 12, 2023 Initial ECG Impression Time: 17:57 Initial ECG Rate: 80 Initial ECG Rhythm: Normal Sinus Initial ECG Intervals WI 202 QRS 117 QT/QTC 415/451 Initial ECG Impression: Nonspecific Changes Initial ECG Comparisson: Unchanged Comment INTERPRETED BY ME (CATIA CARVER DO) Diagnostic Imaging Comments CT HEAD/CERVICAL SPINE--PER RADIOLOGIST REPORT AT 1823 CT HEAD: COMPARISON: 06/29/2023 Ventricles and sulci remain prominent and asymmetric but unchanged when compared to previous study. No acute hemorrhage is identified. There is no abnormal mass effect or shift of midline structures. Calvarium is intact. IMPRESSION: No evidence of acute abnormality. CT CERVICAL SPINE: Multiple contiguous axial CT images of the cervical spine were obtained with sagittal and coronal reformatted images produced. FINDINGS: The cervical curvature and alignment are within normal limits. The vertebral body heights and disc spaces are maintained without evidence of fracture or subluxation. There is no paraspinous hematoma. Occasional mildly prominent deep cervical lymph nodes are generally symmetric, bilaterally. IMPRESSION: No CT evidence of acute cervical spinal abnormality. BILATERAL KNEE XRAYS--PER RADIOLOGIST REPORT AT 1851 AP, oblique, lateral and sunrise views of both knees are obtained. FINDINGS: No acute fracture or dislocation is identified. No abnormal lytic or sclerotic focus is seen, and there is no radiopaque foreign body. IMPRESSION: No acute abnormality. Reviewed: Reviewed by Me (CATIA CARVER DO) Departure Impression Primary Impression: Seizure disorder Additional Impressions: Closed head injury Frequent falls Hx of syncope Neck pain Bilateral knee pain Disposition: 01 HOME, SELF-CARE Condition: Stable Departure-Patient Inst. Decision time for Depature: 19:20 (CATIA CARVER DO) Referrals: YASMEEN ROACH APRN (PCP/Family) Primary Care Physician Patient Instructions: Seizures, Adult ED, Neck Pain ED, Knee Pain ED, Minor Head Injury, Adult ED Add. Discharge Instructions: TYLENOL AND MOTRIN NEEDED FOR PAIN TAKE YOUR MEDICATIONS PRESCRIBED INCREASE YOUR FLUID INTAKE--DRINK ENOUGH SO YOU ARE URINATING EVERY 2-3 HOURS WHILE AWAKE FOLLOW UP WITH YOUR NEUROLOGIST THIS WEEK FOR FURTHER CARE All discharge instructions reviewed with patient and/or family. Voiced understanding. HLOLY BANSAL MD Jul 12, 2023 17:55 CATIA CARVER DO Jul 12, 2023 18:08
[2023-07-12 17:58] LABS: BASOPHILS # (AUTO) 0.1 10^3/uL (0.0-0.1); BASOPHILS % (AUTO) 1 % (0-10); EOSINOPHILS # (AUTO) 0.2 10^3/uL (0.0-0.3); EOSINOPHILS % (AUTO) 4 % (0-10); HEMATOCRIT 43 % (35-52); HEMOGLOBIN 14.3 g/dL (11.5-16.0); LYMPHOCYTES # (AUTO) 2.3 10^3/uL (1.0-4.0); LYMPHOCYTES % (AUTO) 39 % (12-44); MEAN CORPUSCULAR HEMOGLOBIN 30 pg (25-34); MEAN CORPUSCULAR HGB CONC 33 g/dL (32-36); MEAN CORPUSCULAR VOLUME 90 fL (80-99); MEAN PLATELET VOLUME 11.2 fL (9.0-12.2); MONOCYTES # (AUTO) 0.5 10^3/uL (0.0-1.0); MONOCYTES % (AUTO) 9 % (0-12); NEUTROPHILS # (AUTO) 2.8 10^3/uL (1.8-7.8); NEUTROPHILS % (AUTO) 47 % (42-75); PLATELET COUNT 190 10^3/uL (130-400); WHITE BLOOD COUNT 5.9 10^3/uL (4.3-11.0)
[2023-07-12] MEDS ORDERED: LACTATED RINGERS 1,000 ML 1,000 ML IV ONE (18:00)
[2023-07-12 18:04] LABS: CHLORIDE 108 MMOL/L (98-107); POTASSIUM 4.1 MMOL/L (3.6-5.0); PROTHROMBIN TIME PATIENT 13.6 SEC (12.2-14.7); SODIUM 142 MMOL/L (135-145)
[2023-07-12 18:05] LABS: ALBUMIN 4.5 GM/DL (3.2-4.5)
[2023-07-12 18:06] LABS: CALCIUM 10.1 MG/DL (8.5-10.1)
[2023-07-12 18:07] LABS: AMMONIA 27 UMOL/L (11-32); GLUCOSE 88 MG/DL (70-105)
[2023-07-12 18:08] LABS: CARBON DIOXIDE 23 MMOL/L (21-32); TOTAL PROTEIN 7.6 GM/DL (6.4-8.2)
[2023-07-12 18:09] LABS: BILIRUBIN,TOTAL 0.3 MG/DL (0.1-1.0)
[2023-07-12 18:11] LABS: ALKALINE PHOSPHATASE 81 U/L (40-136); CREATININE SERUM 1.34 MG/DL (0.60-1.30); GFR ESTIMATED 53
[2023-07-12 18:12] LABS: BUN/CREATININE RATIO 11
[2023-07-12 18:14] LABS: ALANINE AMINOTRANSFERASE 36 U/L (0-55); MAGNESIUM 1.8 MG/DL (1.6-2.4); SALICYLATE < 5.0 MG/DL (5.0-20.0)
[2023-07-12 18:15] LABS: CREATINE KINASE 182 U/L (29-168)
--- NOTE | 2023-07-12 18:21 | Diagnostic Imaging Report ---
PROCEDURE: CT head and CT cervical spine without contrast. TECHNIQUE: Multiple contiguous axial images were obtained through the brain and cervical spine without the use of intravenous contrast. Sagittal and coronal reformations through the cervical spine were then performed. Auto Exposure Controls were utilized during the CT exam to meet ALARA standards for radiation dose reduction. INDICATION: Trauma with head and cervical injuries resulting in syncope and chest pain. CT HEAD: COMPARISON: 06/29/2023 Ventricles and sulci remain prominent and asymmetric but unchanged when compared to previous study. No acute hemorrhage is identified. There is no abnormal mass effect or shift of midline structures. Calvarium is intact. IMPRESSION: No evidence of acute abnormality. CT CERVICAL SPINE: Multiple contiguous axial CT images of the cervical spine were obtained with sagittal and coronal reformatted images produced. FINDINGS: The cervical curvature and alignment are within normal limits. The vertebral body heights and disc spaces are maintained without evidence of fracture or subluxation. There is no paraspinous hematoma. Occasional mildly prominent deep cervical lymph nodes are generally symmetric, bilaterally. IMPRESSION: No CT evidence of acute cervical spinal abnormality. Dictated by: Dictated on workstation # [id number]
[2023-07-12 18:22] LABS: CREATINE KINASE MB 2.2 NG/ML (<6.6)
[2023-07-12 18:24] LABS: ERYTHROCYTE SEDIMENTATION RATE 13 MM/HR (0-20)
[2023-07-12 18:30] LABS: ACETAMINOPHEN < 10 UG/ML (10-30)
[2023-07-12 18:35] LABS: TSH (THYROID ANALYZER) 7.38 UIU/ML (0.35-4.94)
--- NOTE | 2023-07-12 18:41 | Diagnostic Imaging Report ---
INDICATION: Fall with bilateral knee pain AP, oblique, lateral and sunrise views of both knees are obtained. FINDINGS: No acute fracture or dislocation is identified. No abnormal lytic or sclerotic focus is seen, and there is no radiopaque foreign body. IMPRESSION: No acute abnormality. Dictated by: Dictated on workstation # [id number]
--- NOTE | 2023-07-12 18:42 | Diagnostic Imaging Report ---
INDICATION: Syncope Single AP view of the chest is obtained. COMPARISON: 03/23/2022 Heart size and pulmonary vascularity are within normal limits. There is minimal linear atelectasis in the lung bases. No consolidation, pneumothorax or pleural fluid is seen. IMPRESSION: Subsegmental atelectasis in lung bases without other acute abnormality. Dictated by: Dictated on workstation # [id number]
[2023-07-12 19:03] LABS: CLARITY,URINE CLEAR; COLOR,URINE YELLOW
[2023-07-12 19:04] LABS: BACTERIA,URINE NEGATIVE /HPF; BILIRUBIN,URINE NEGATIVE (NEGATIVE); GLUCOSE, URINE (UA) NEGATIVE (NEGATIVE); KETONES,URINE NEGATIVE (NEGATIVE); LEUKOCYTE ESTERASE ,URINE TRACE (NEGATIVE); NITRITE,URINE NEGATIVE (NEGATIVE); PROTEIN,URINE NEGATIVE (NEGATIVE)
[2023-07-12 19:14] LABS: AMPHETAMINE SCREEN, URINE NEGATIVE (NEGATIVE); CANNABINOID SCREEN, URINE NEGATIVE (NEGATIVE); COCAINE SCREEN URINE NEGATIVE (NEGATIVE); OPIATE SCREEN URINE POSITIVE (NEGATIVE); TRICYCLIC ANTIDEPRESSANTS SCRE POSITIVE (NEGATIVE)
[2023-07-12 19:15] LABS: BARBITURATE SCREEN URINE NEGATIVE (NEGATIVE); METHADONE STAT NEGATIVE (NEGATIVE); OXYCODONE STAT NEGATIVE (NEGATIVE); PROPOXYPHENE STAT NEGATIVE (NEGATIVE)
[2023-07-12 19:29] VITALS: BP 112/80
[2023-07-12 20:09] LABS: FREE T4 (FREE THYROXINE) 0.75 NG/DL (0.70-1.48)
== END 2023-07-12 19:29 | disposition home or self-care (01) ==
LOC: EDUNIT# 17:19 → ER 17:21
DX: S09.90XA Unspecified injury of head, initial encounter (principal); G40.909 Epilepsy, unspecified, not intractable, without status epilepticus; M54.2 Cervicalgia; M25.561 Pain in right knee; M25.562 Pain in left knee; R55 Syncope and collapse; E66.9 Obesity, unspecified; Z68.41 Body mass index [BMI] 40.0-44.9, adult; W18.30XA Fall on same level, unspecified, initial encounter; W22.8XXA Striking against or struck by other objects, initial encounter
CPT/HCPCS: 70450; 71045; 72125; 73564; 80053; 80306; 81000; 82140; 82550; 82553; 82947; 83735; 83874; 84439; 84443; 84484; 85025; 85610; 85652; 85730; 86141; 87088; 93005; 93041; 99284; G0480 ×3; L0150; 36415; 80320; 80329; 96360